=== PATIENT | male | born 1940 | race African-American/Black ===

== ENCOUNTER 2020-02-13 10:39 | Inpatient (IN) | payer MEDICARE, OTHER ==
[~2020-02-13] VITALS: Ht 177.8 cm; Wt 59.0 kg
[~2020-02-13 10:39] MED LIST: AMLO-187 PO; ASPI-482 PO; CLOP75TA PO; CYAN-25 PO; DOCU-109 PO; FERR325T14 PO; GLIM1TAB7 PO; HYDR12.575 PO; LINA5TAB PO; METO-239 PO; PANT40TA77 PO; TAMS0.4C2 PO
[2020-02-13 11:38] LABS: BASO % 0 % (0-3); EOS % 0 % (0-3); HEMATOCRIT 26.8 % (39.0-53.0); HEMOGLOBIN 8.5 g/dL (13.0-17.5); LYMPH # 0.9 x10^3/uL (1.0-4.8); LYMPH % 8 % (24-48); MEAN CORPUSCULAR HEMOGLOBIN 27 pg (25-35); MEAN CORPUSCULAR HGB CONC 32 g/dL (31-37); MEAN CORPUSCULAR VOLUME 85 fL (79-100); MONO # 0.4 x10^3/uL (0.0-1.1); MONO % 4 % (0-9); NEUT # 10.2 x10^3/uL (1.8-7.7); NEUT % 88 % (31-73); PLATELET COUNT 295 x10^3/uL (140-400); RED BLOOD COUNT 3.17 x10^6/uL (4.30-5.70); RED CELL DISTRIBUTION WIDTH 19.1 % (11.5-14.5); WHITE BLOOD COUNT 11.6 x10^3/uL (4.0-11.0)
[2020-02-13] MEDS ORDERED: cefTRIAXone IV Push 1 GM VIAL. IVP ONE (11:45)
[2020-02-13] MEDS ORDERED: AZITHRMYCN 500MG IVPB FOR OMNI 250 ML IV ONE (11:45)
--- NOTE | 2020-02-13 11:47 | RAD ---
EXAM: Chest, single view. HISTORY: Short of breath. COMPARISON: None. FINDINGS: A frontal view of the chest is obtained. There is diffuse left greater than right lung inte rstitial infiltrate. No pleural fusion or pneumothorax is seen. There is enlargement of the cardiac s ilhouette. There are calcified granulomas. IMPRESSION: 1. Diffuse left greater than right lung interstitial infiltrate. 2. Enlargement of the cardiac silhouette. Electronically signed by: Gali Milner MD (02/13/2020 11:44 AM) [id number]
[2020-02-13 11:50] LABS: CALCIUM 8.8 mg/dL (8.5-10.1); CREATININE 5.5 mg/dL (0.7-1.3); GFR 12.2; POTASSIUM 4.3 mmol/L (3.5-5.1)
[2020-02-13 11:56] LABS: ALBUMIN 3.1 g/dL (3.4-5.0); DIRECT BILIRUBIN 0.1 mg/dL (0.0-0.2); TOTAL BILIRUBIN 0.3 mg/dL (0.2-1.0); TOTAL PROTEIN 6.6 g/dL (6.4-8.2)
--- NOTE | 2020-02-13 12:15 | EKG ---
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
[2020-02-13 12:16] LABS: INFLUENZA A PATIENT NEGATIVE (NEGATIVE); INFLUENZA B PATIENT NEGATIVE (NEGATIVE)
[2020-02-13 12:18] LABS: % BANDS 1 % (0-9); % LYMPHS 4 % (24-48); % MONOS 2 % (0-10); % SEGS 93 % (35-66)
[2020-02-13 12:19] LABS: ANISOCYTOSIS MOD; MICROCYTOSIS SLIGHT; PLT ESTIMATE ADEQUATE (ADEQUATE); POIKILOCYTOSIS SLIGHT; SCHISTOCYTES OCC
[2020-02-13 12:21] LABS: HYPOCHROMIA SLIGHT
[2020-02-13 12:31] LABS: BASE EXCESS ABG -4 mmol/L (-3-3); HCO3 ABG 20 mmol/L (21-28); PCO2 ABG 31 mmHg (35-46); PO2 ABG 67 mmHg (65-108); SAT O2 ABG 91 % (92-99)
--- NOTE | 2020-02-13 13:03 | PDOC1 ---
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, WAS VERY HYPOXIC WITH SPO2 59% RA, noted labored breathing and cough in ER Past Medical History Cardiovascular: HTN Renal/: Chronic renal failure Family History Family History: Hypertension Social History Smoke: No ALCOHOL: none Drugs: None Current Medications Current Medications Current Medications Ceftriaxone Sodium (Rocephin) 1 gm 1X ONCE IVP Last administered on 02/13/20at 13:00; Start 02/13/20 at 11:45; Stop 02/13/20 at 11:47; Status DC Azithromycin 250 ml @ 250 mls/hr 1X ONCE IV Last administered on 02/13/20at 13:00; Start 02/13/20 at 11:45; Stop 02/13/20 at 12:44; Status DC Sodium Chloride 1,000 ml @ 100 mls/hr Q10H IV ; Start 02/13/20 at 13:00; Stop 02/14/20 at 12:59 Active Scripts Active Reported Colace (Docusate Sodium) 100 Mg Capsule 1 Cap PO BID Vitamin B-12 (Cyanocobalamin (Vitamin B-12)) 1,000 Mcg Tablet 1 Tab PO DAILY Hydrochlorothiazide Capsule (Hydrochlorothiazide) 12.5 Mg Capsule 12.5 Mg PO BID Glimepiride 1 Mg Tablet 1 Tab PO DAILY Tradjenta (Linagliptin) 5 Mg Tablet 1 Tab PO DAILY Tamsulosin Hcl 0.4 Mg Cap.er.24h 1 Cap PO DAILY Pantoprazole Sodium 40 Mg Tablet.dr 1 Tab PO DAILY Metoprolol Succinate ( Xl ) (Metoprolol Succinate) 25 Mg Tab.er.24h 12.5 Mg PO BID Ferrous Sulfate 325 Mg Tablet 1 Tab PO DAILY Clopidogrel (Clopidogrel Bisulfate) 75 Mg Tablet 1 Tab PO DAILY Aspir 81 (Aspirin) 81 Mg Tablet.dr 1 Tab PO DAILY Amlodipine Besylate 10 Mg Tablet 10 Mg PO DAILY Allergies Allergies: Coded Allergies: No Known Drug Allergies (Unverified , 09/10/16) ROS Review of System UNABLE TO PARTICIPATE, due to encephalopathy Neurological: Yes Confusion, Yes Gait Disturbance Physical Exam Physical Exam confused, encephalopathic General: Cooperative, moderate distress HEENT: Atraumatic Lungs: Other (bilateral rales ) Heart: RRR, no thrills Breasts: Not examined Abdomen: Normal bowel sounds, Soft, No tenderness Rectal Exam: not examined PELVIC: Examination not indicated Extremities: No cyanosis Skin: No breakdown, No significant lesion Neuro: Cranial nerves 3-12 NL Vitals Vitals Vital Signs Date Time Temp Pulse Resp B/P (MAP) Pulse Ox O2 Delivery O2 Flow Rate FiO2 02/13/20 11:17 97.3 94 38 151/63 (92) 93 NonRebreather Mask 15.0 97.3 Labs Labs Laboratory Tests Test 02/13/20 10:42 02/13/20 10:43 02/13/20 11:47 Glucose (Fingerstick) 158 mg/dL (70-99) White Blood Count 11.6 x10^3/uL (4.0-11.0) Red Blood Count 3.17 x10^6/uL (4.30-5.70) Hemoglobin 8.5 g/dL (13.0-17.5) Hematocrit 26.8 % (39.0-53.0) Mean Corpuscular Volume 85 fL (79-100) Mean Corpuscular Hemoglobin 27 pg (25-35) Mean Corpuscular Hemoglobin Concent 32 g/dL (31-37) Red Cell Distribution Width 19.1 % (11.5-14.5) Platelet Count 295 x10^3/uL (140-400) Neutrophils (%) (Auto) 88 % (31-73) Lymphocytes (%) (Auto) 8 % (24-48) Monocytes (%) (Auto) 4 % (0-9) Eosinophils (%) (Auto) 0 % (0-3) Basophils (%) (Auto) 0 % (0-3) Neutrophils # (Auto) 10.2 x10^3/uL (1.8-7.7) Lymphocytes # (Auto) 0.9 x10^3/uL (1.0-4.8) Monocytes # (Auto) 0.4 x10^3/uL (0.0-1.1) Eosinophils # (Auto) 0.0 x10^3/uL (0.0-0.7) Basophils # (Auto) 0.0 x10^3/uL (0.0-0.2) Segmented Neutrophils % 93 % (35-66) Band Neutrophils % 1 % (0-9) Lymphocytes % 4 % (24-48) Monocytes % 2 % (0-10) Platelet Estimate Adequate (ADEQUATE) Hypochromasia Slight Poikilocytosis Slight Anisocytosis Mod Microcytosis Slight Schistocytes Occ Sodium Level 149 mmol/L (136-145) Potassium Level 4.3 mmol/L (3.5-5.1) Chloride Level 109 mmol/L (98-107) Carbon Dioxide Level 16 mmol/L (21-32) Anion Gap 24 (6-14) Blood Urea Nitrogen 62 mg/dL (8-26) Creatinine 5.5 mg/dL (0.7-1.3) Estimated GFR (Cockcroft-Gault) 12.2 Glucose Level 180 mg/dL (70-99) Calcium Level 8.8 mg/dL (8.5-10.1) Total Bilirubin 0.3 mg/dL (0.2-1.0) Direct Bilirubin 0.1 mg/dL (0.0-0.2) Aspartate Amino Transf (AST/SGOT) 57 U/L (15-37) Alanine Aminotransferase (ALT/SGPT) 47 U/L (16-63) Alkaline Phosphatase 104 U/L (46-116) Creatine Kinase 492 U/L (39-308) Troponin I Quantitative 0.464 ng/mL (0.000-0.055) AR-Cvj-B-Type Natriuretic Peptide 71634 pg/mL (0-449) Total Protein 6.6 g/dL (6.4-8.2) Albumin 3.1 g/dL (3.4-5.0) Influenza Type A Antigen Negative (NEGATIVE) Influenza Type B Antigen Negative (NEGATIVE) Laboratory Tests Test 02/13/20 10:42 02/13/20 10:43 02/13/20 11:47 Glucose (Fingerstick) 158 mg/dL (70-99) White Blood Count 11.6 x10^3/uL (4.0-11.0) Red Blood Count 3.17 x10^6/uL (4.30-5.70) Hemoglobin 8.5 g/dL (13.0-17.5) Hematocrit 26.8 % (39.0-53.0) Mean Corpuscular Volume 85 fL (79-100) Mean Corpuscular Hemoglobin 27 pg (25-35) Mean Corpuscular Hemoglobin Concent 32 g/dL (31-37) Red Cell Distribution Width 19.1 % (11.5-14.5) Platelet Count 295 x10^3/uL (140-400) Neutrophils (%) (Auto) 88 % (31-73) Lymphocytes (%) (Auto) 8 % (24-48) Monocytes (%) (Auto) 4 % (0-9) Eosinophils (%) (Auto) 0 % (0-3) Basophils (%) (Auto) 0 % (0-3) Neutrophils # (Auto) 10.2 x10^3/uL (1.8-7.7) Lymphocytes # (Auto) 0.9 x10^3/uL (1.0-4.8) Monocytes # (Auto) 0.4 x10^3/uL (0.0-1.1) Eosinophils # (Auto) 0.0 x10^3/uL (0.0-0.7) Basophils # (Auto) 0.0 x10^3/uL (0.0-0.2) Segmented Neutrophils % 93 % (35-66) Band Neutrophils % 1 % (0-9) Lymphocytes % 4 % (24-48) Monocytes % 2 % (0-10) Platelet Estimate Adequate (ADEQUATE) Hypochromasia Slight Poikilocytosis Slight Anisocytosis Mod Microcytosis Slight Schistocytes Occ Sodium Level 149 mmol/L (136-145) Potassium Level 4.3 mmol/L (3.5-5.1) Chloride Level 109 mmol/L (98-107) Carbon Dioxide Level 16 mmol/L (21-32) Anion Gap 24 (6-14) Blood Urea Nitrogen 62 mg/dL (8-26) Creatinine 5.5 mg/dL (0.7-1.3) Estimated GFR (Cockcroft-Gault) 12.2 Glucose Level 180 mg/dL (70-99) Calcium Level 8.8 mg/dL (8.5-10.1) Total Bilirubin 0.3 mg/dL (0.2-1.0) Direct Bilirubin 0.1 mg/dL (0.0-0.2) Aspartate Amino Transf (AST/SGOT) 57 U/L (15-37) Alanine Aminotransferase (ALT/SGPT) 47 U/L (16-63) Alkaline Phosphatase 104 U/L (46-116) Creatine Kinase 492 U/L (39-308) Troponin I Quantitative 0.464 ng/mL (0.000-0.055) VS-Pqr-B-Type Natriuretic Peptide 30127 pg/mL (0-449) Total Protein 6.6 g/dL (6.4-8.2) Albumin 3.1 g/dL (3.4-5.0) Influenza Type A Antigen Negative (NEGATIVE) Influenza Type B Antigen Negative (NEGATIVE) Images Images DPOA REVIEW 17 MIN to patient portal What Is a Power of Spinning Lathe Operator? A power of tax associate attorney (POA) is a legal document giving one person (the agent or [id number]) the power to act for another person (the principal). The agent can have broad legal authority or limited authority to make legal decisions about the principal's property, finances or medical care. The power of tax associate attorney is frequently used in the event of a principal's illness or disability, or when the principal can't be present to sign necessary legal documents for financial transactions. A power of tax associate attorney can end for a number of reasons, such as when the principal dies, the principal revokes it, a court invalidates it, the principal divorces their spouse, who happens to be the agent, or the agent can no longer carry out the outlined responsibilities. Conventional POAs lapse when the creator becomes incapacitated, but a durable POA remains in force to enable the agent to manage the creators affairs, and a springing POA comes into effect only if and when the creator of the POA becomes incapacitated. A medical or healthcare POA enables an agent to make medical decisions on behalf of an incapacitated person. [employer] Take[employer] A power of tax associate attorney (POA) is a legal document giving one person, the agent or [id number] the power to act for another person, the principal. The agent can have broad legal authority or limited authority to make decisions about the principal's property, finances or medical care. The power of tax associate attorney is often used when a principal becomes ill or disabled, or when they can't be present to sign necessary legal documents for financial transactions. Understanding Power of Spinning Lathe Operator A power of tax associate attorney should be considered when planning for long-term care. There are different types of POAs that fall under either a general power of tax associate attorney or limited power of tax associate attorney. A general power of tax associate attorney acts on behalf of the principal in any and all matters, as allowed by the state. The agent under a general POA agreement may be authorized to take care of issues such as handling bank accounts, signing checks, selling property and assets like stocks, f A limited power of tax associate attorney gives the agent the power to act on behalf of the principal in specific matters or events. For example, the limited POA may explicitly state that the agent is only allowed to manage the principal's snf accounts. A limited POA may also be limited to a specific period of time (e.g., if the principal will be out of the country for, say, two years). Most zarate of tax associate attorney documents allow an agent to represent the principal in all property and financial matters as long as the principals mental state of mind is good. If a situation occurs where the principal becomes incapable of making decisions for him or herself, the POA agreement would automatically end. However, someone who wants the POA to remain in effect after the persons health deteriorates would need to sign a durable power of tax associate attorney (DPOA). What is an advance directive? An advance directive is a legal document that says how you want to be cared for if you are unable to make decisions. You can include what medical treatments you would want and who you would trust to make decisions for you. An advance directive can also include other legal documents. A living will is a list of treatment preferences. It can be used to indicate whether you would want cardiopulmonary resuscitation (CPR), tube feedings, a breathing machine, or certain medicines, like antibiotics. The durable power of tax associate attorney for health care document identifies the person you would want to make medical decisions for you. This person is also called a proxy. Your proxy should be familiar with your values and wishes. How do I get started? You can get advance directive documents for your state from your doctor's office or from http://www.caringinfo.org. Review the forms, and ask your doctor if you have any questions. Pick a person to be your proxy, and talk it over with that person. EXAM: Chest, single view. HISTORY: Short of breath. COMPARISON: None. FINDINGS: A frontal view of the chest is obtained. There is diffuse left greater than right lung interstitial infiltrate. No pleural fusion or pneumothorax is seen. There is enlargement of the cardiac silhouette. There are calcified granulomas. IMPRESSION: 1. Diffuse left greater than right lung interstitial infiltrate. 2. Enlargement of the cardiac silhouette. Electronically signed by: Gali Mora MD (02/13/2020 11:44 AM) [id number] DICTATED and SIGNED BY: GALI MORA MD DATE: 02/13/20 [id number] VTE Prophylaxis Ordered VTE Prophylaxis Devices: Yes VTE Pharmacological Prophylaxi: Yes Assessment/Plan Assessment/Plan IMPRESSION: 1. Pneumonia, aspiration TYPE 2. Diffuse left greater than right lung interstitial infiltrate. 3. diabetes 4. PUI Covid 5. RENAL FAILURE, duration unknown in our charts 6. ACUTE HYPOXIC RESP FAILURE 7. SEPSIS 8. MILDLY ELEVATED TROPONIN I, SUSPECT TYPE 2 ISCHEMIA DUE TO HYPOXIA 9. PUI COVID 19 10. Acute metabolic encephalopathy 11. CHF plan ADMIT Emperic IV ROCEPHIN, ZITHROMAX, //merem 500mg iv q 12 hrs Consult pulm Consult nephrology dvt prophylaxis O2 SUPPORT Consult cardiology sq heparin dvt prophylaxis respiratory and contact isolation blood cultures crp BIPAP SUPPORT 36 min cc time Justifications for Admission Other Justification NEHEMIAH GAVIRIA MD Feb 13, 2020 13:03
[2020-02-13 13:28] LABS: BILIRUBIN,URINE NEGATIVE (NEG); CLARITY,URINE CLEAR; COLOR,URINE YELLOW; NITRITE,URINE NEGATIVE (NEG); PH,URINE 5.5 (<5.0-8.0); PROTEIN,URINE >=300 mg/dL (NEG-TRACE); UROBILINOGEN,URINE 0.2 mg/dL (0.2 mg/dL)
[2020-02-13] MEDS ORDERED: IV NORMAL SALINE 1000ML BAG 1,000 ML IV ONE (13:30)
[2020-02-13] MEDS ORDERED: IV NORMAL SALINE 500ML BAG 500 ML IV ONE (13:30)
[2020-02-13 13:42] LABS: BACTERIA,URINE MANY /HPF (0-FEW)
--- NOTE | 2020-02-13 15:13 | PHYS DOC ---
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 History is limited due to patient's labored breathing. Patient has cognitive delay in DPOA was called by RN to obtain medical history. Review of Systems: Review of Systems: Review of systems limited due to patient's work of breathing and cognitive delay, Heart Score: Risk Factors: Risk Factors: DM, Current or recent (<one month) smoker, HTN, HLP, family history of CAD, obesity. Risk Scores: Score 0 - 3: 2.5% MACE over next 6 weeks - Discharge Home Score 4 - 6: 20.3% MACE over next 6 weeks - Admit for Clinical Observation Score 7 - 10: 72.7% MACE over next 6 weeks - Early Invasive Strategies Current Medications: Current Medications Medications (Trade) Dose Ordered Sig/Ramni Start Time Stop Time Status Last Admin Dose Admin Azithromycin 250 ml @ 250 mls/hr 1X ONCE 02/13/20 11:45 02/13/20 12:44 DC 02/13/20 13:00 250 MLS/HR Ceftriaxone Sodium (Rocephin) 1 gm 1X ONCE 02/13/20 11:45 02/13/20 11:47 DC 02/13/20 13:00 1 GM Allergies: Allergies: Allergies Coded Allergies Type Severity Reaction Last Updated Verified No Known Drug Allergies 09/10/16 No Physical Exam: PE: Constitutional: Placed on BiPAP on arrival, HENT: Normocephalic, atraumatic, Eyes: EOMI, conjunctiva normal, no discharge. Neck: Normal range of motion, supple, Cardiovascular: S1/2 present, regular rhythm Lungs & Thorax: Speaking in 2-3 word sentences, bilateral equal chest rise, tachypneic with sternal retractions, 86% on nonrebreather Abdomen: soft, no tenderness, obese Skin: Warm, dry, no erythema, Extremities: No tenderness, no edema Neurologic: Moving all 4 extremities, GCS 15, A&0x3, NIHSS 0 Psychologic: judgement normal, mood normal. [] Current Patient Data: Labs: Laboratory Tests Test 02/13/20 10:42 02/13/20 10:43 02/13/20 11:47 02/13/20 13:05 Glucose (Fingerstick) 158 mg/dL (70-99) H White Blood Count 11.6 x10^3/uL (4.0-11.0) H Red Blood Count 3.17 x10^6/uL (4.30-5.70) L Hemoglobin 8.5 g/dL (13.0-17.5) L Hematocrit 26.8 % (39.0-53.0) L Mean Corpuscular Volume 85 fL (79-100) Mean Corpuscular Hemoglobin 27 pg (25-35) Mean Corpuscular Hemoglobin Concent 32 g/dL (31-37) Red Cell Distribution Width 19.1 % (11.5-14.5) H Platelet Count 295 x10^3/uL (140-400) Neutrophils (%) (Auto) 88 % (31-73) H Lymphocytes (%) (Auto) 8 % (24-48) L Monocytes (%) (Auto) 4 % (0-9) Eosinophils (%) (Auto) 0 % (0-3) Basophils (%) (Auto) 0 % (0-3) Neutrophils # (Auto) 10.2 x10^3/uL (1.8-7.7) H Lymphocytes # (Auto) 0.9 x10^3/uL (1.0-4.8) L Monocytes # (Auto) 0.4 x10^3/uL (0.0-1.1) Eosinophils # (Auto) 0.0 x10^3/uL (0.0-0.7) Basophils # (Auto) 0.0 x10^3/uL (0.0-0.2) Segmented Neutrophils % 93 % (35-66) H Band Neutrophils % 1 % (0-9) Lymphocytes % 4 % (24-48) L Monocytes % 2 % (0-10) Platelet Estimate Adequate (ADEQUATE) Hypochromasia Slight Poikilocytosis Slight Anisocytosis Mod Microcytosis Slight Schistocytes Occ Sodium Level 149 mmol/L (136-145) H Potassium Level 4.3 mmol/L (3.5-5.1) Chloride Level 109 mmol/L (98-107) H Carbon Dioxide Level 16 mmol/L (21-32) L Anion Gap 24 (6-14) H Blood Urea Nitrogen 62 mg/dL (8-26) H Creatinine 5.5 mg/dL (0.7-1.3) H Estimated GFR (Cockcroft-Gault) 12.2 Glucose Level 180 mg/dL (70-99) H Lactic Acid Level 8.6 mmol/L (0.4-2.0) *H Calcium Level 8.8 mg/dL (8.5-10.1) Total Bilirubin 0.3 mg/dL (0.2-1.0) Direct Bilirubin 0.1 mg/dL (0.0-0.2) Aspartate Amino Transferase (AST) 57 U/L (15-37) H Alanine Aminotransferase (ALT) 47 U/L (16-63) Alkaline Phosphatase 104 U/L (46-116) Creatine Kinase 492 U/L (39-308) H Troponin I Quantitative 0.464 ng/mL (0.000-0.055) IY-Ivw-X-Type Natriuretic Peptide 86609 pg/mL (0-449) H Total Protein 6.6 g/dL (6.4-8.2) Albumin 3.1 g/dL (3.4-5.0) L Influenza Type A Antigen Negative (NEGATIVE) Influenza Type B Antigen Negative (NEGATIVE) Urine Collection Type Unknown Urine Color Yellow Urine Clarity Clear Urine pH 5.5 (<5.0-8.0) Urine Specific [place] 1.020 (1.000-1.030) Urine Protein >=300 mg/dL (NEG-TRACE) Urine Glucose (UA) 100 mg/dL (NEG) Urine Ketones (Stick) Negative mg/dL (NEG) Urine Blood Negative (NEG) Urine Nitrite Negative (NEG) Urine Bilirubin Negative (NEG) Urine Urobilinogen Dipstick 0.2 mg/dL (0.2 mg/dL) Urine Leukocyte Esterase Negative (NEG) Urine RBC 1-2 /HPF (0-2) Urine WBC 1-4 /HPF (0-4) Urine Squamous Epithelial Cells Occ /LPF Urine Bacteria Many /HPF (0-FEW) Laboratory Tests 12/14/20 10:43 Laboratory Tests 02/13/20 10:43 Vital Signs: Vital Signs Date Time Temp Pulse Resp B/P (MAP) Pulse Ox O2 Delivery O2 Flow Rate FiO2 02/13/20 11:17 97.3 94 38 151/63 (92) 93 NonRebreather Mask 15.0 97.3 EKG: EKG: Sinus rhythm at 91 bpm, normal intervals, significant artifact on EKG but no obvious ST elevations Radiology/Procedures: Radiology/Procedures: IMAGING REPORT Signed PATIENT: FREDERICK HATFIELD ACCOUNT: [id number] : 1940 LOCATION: ER AGE: 80 SEX: M EXAM STATUS: REG ER ORD. PHYSICIAN: QUEENIE SAM DO REASON: SHORT OF BREATH PROCEDURE: PORTABLE CHEST 1V EXAM: Chest, single view. HISTORY: Short of breath. COMPARISON: None. FINDINGS: A frontal view of the chest is obtained. There is diffuse left greater than right lung interstitial infiltrate. No pleural fusion or pneumothorax is seen. There is enlargement of the cardiac silhouette. There are calcified granulomas. IMPRESSION: 1. Diffuse left greater than right lung interstitial infiltrate. 2. Enlargement of the cardiac silhouette. Electronically signed by: Gali Mora MD (02/13/2020 11:44 AM) [id number] DICTATED and SIGNED BY: GALI MORA MD DATE: 02/13/20 [id number] Course & Med Decision Making: Course & Med Decision Making Pertinent Labs and Imaging studies reviewed. (See chart for details) Concern for acute hypoxic respiratory failure in the setting of sepsis from community-acquired pneumonia and elevated troponin. Patient is a PUI. Unknown baseline renal function in the setting of CKD. Patient required higher level of care with cardiology, nephrology and pulmonology consultations. Will admit to CVC unit, dpoa agrees with this plan and patient was stable at time of admission. I have spoken with the patient and/or caregivers. I have explained the patient's condition, diagnosis and treatment plan based on the information available to me at this time. I have answered the patient's and/or caregivers questions and answered any concerns. The patient and/or caregivers have as good an understanding of the patient's diagnosis, condition and treatment plan as can be expected at this point. The patient has been stabilized within the capability of the emergency department. The patient will be transported for further care and management or will be moved to an observation or inpatient service. I have communicated with the staff or medical practitioner taking over this patient's care. Dragon Disclaimer: Dragon Disclaimer: This electronic medical record was generated, in whole or in part, using a voice recognition dictation system. Departure Departure Impression: Primary Impression: Sepsis with acute hypoxic respiratory failure Additional Impressions: UTI (urinary tract infection) CAP (community acquired pneumonia) Elevated troponin Person under investigation for COVID-19 Disposition: 09 ADMITTED INPT THIS HOSP Admitting Physician: NIXON (Dr. Vaughn) Condition: CRITICAL Referrals: UNKNOWN PCP NAME (PCP) QUEENIE SAM DO Feb 13, 2020 15:13
[2020-02-13] MEDS: IV NORMAL SALINE 1000ML BAG 1,000 ML IV SCH ×2 (16:59→22:53)
[2020-02-13 18:36] VITALS: BP 170/69
[2020-02-13] MEDS ORDERED: ASPI325T8 PO (18:48)
[2020-02-13] MEDS ORDERED: FURO-69 PO (18:58)
[2020-02-13] MEDS ORDERED: BRIM5DRO2 OP (18:58)
[2020-02-13] MEDS ORDERED: TIMO10DR5 EACHEYE (18:58)
[2020-02-13] MEDS ORDERED: ACET325T9 PO (18:58)
[2020-02-13] MEDS ORDERED: ATOR20TA58 PO (18:58)
[2020-02-13] MEDS ORDERED: CHOL200027 PO (18:58)
[2020-02-13] MEDS ORDERED: HYDR-2869 PO (18:58)
[2020-02-13] MEDS ORDERED: SENN-182 PO (18:58)
[2020-02-13] MEDS ORDERED: ALBU2.5V14 NEB (18:58)
[2020-02-13 19:44] VITALS: BP 159/64
[2020-02-13] MEDS: HEPARIN for SUB-Q USE 5,000 UNIT/ML VIAL. SQ SCH (22:53)
[2020-02-13 22:54] VITALS: BP 179/75
[2020-02-13] MEDS: MEROPENEM 500 MG in IV NORMAL SALINE 50ML 50 ML IV SCH (22:54)
[2020-02-14 03:20] VITALS: BP 166/76
[2020-02-14] MEDS: HEPARIN for SUB-Q USE 5,000 UNIT/ML VIAL. SQ SCH ×3 (06:12→20:46)
[2020-02-14 07:00] VITALS: BP 177/67
[2020-02-14 09:02] LABS: BASO % 0 % (0-3); EOS % 1 % (0-3); HEMATOCRIT 25.9 % (39.0-53.0); HEMOGLOBIN 8.2 g/dL (13.0-17.5); LYMPH # 0.6 x10^3/uL (1.0-4.8); LYMPH % 6 % (24-48); MEAN CORPUSCULAR HEMOGLOBIN 27 pg (25-35); MEAN CORPUSCULAR HGB CONC 32 g/dL (31-37); MEAN CORPUSCULAR VOLUME 84 fL (79-100); MONO # 0.5 x10^3/uL (0.0-1.1); MONO % 5 % (0-9); NEUT # 8.8 x10^3/uL (1.8-7.7); NEUT % 88 % (31-73); PLATELET COUNT 263 x10^3/uL (140-400); RED CELL DISTRIBUTION WIDTH 18.9 % (11.5-14.5)
[2020-02-14 09:23] LABS: ALBUMIN 2.8 g/dL (3.4-5.0); ALBUMIN/GLOBULIN RATIO 0.7 (1.0-1.7); CALCIUM 8.9 mg/dL (8.5-10.1); CREATININE 4.5 mg/dL (0.7-1.3); GFR 15.3; TOTAL BILIRUBIN 0.3 mg/dL (0.2-1.0); TOTAL PROTEIN 6.6 g/dL (6.4-8.2)
[2020-02-14] MEDS: MEROPENEM 500 MG in IV NORMAL SALINE 50ML 50 ML IV SCH ×2 (09:40→20:37)
[2020-02-14] MEDS: IV NORMAL SALINE 1000ML BAG 1,000 ML IV SCH (09:45)
--- NOTE | 2020-02-14 10:19 | PDOC2 ---
CONSULT Date of Consult Date of Consult DATE: 02/14/20 TIME: 10:19 Reason for Consult Reason for Consult: kia Identification/Chief Complaint Chief Complaint Unable to Obtain Source Source: Chart review History of Present Illness Reason for Visit: 80-year-old male past medical history significant for his CAD with stent, CKD on Lasix 20 twice daily, COPD, hypertension, diabetes, hyperlipidemia, TIA 2012, right eye blindness and cognitive delay (has DPOA/FC) Had driven himself to fire station , brought in by EMS with complaints of shortness of breath, was found labored and hypoxic requiring NRB History is limited due to patient's labored breathing. Patient has cognitive delay in DPOA was called by RN to obtain medical history. Per RN No N/V/D, No abdominal pain. Speech not clear ? cognitive delay .No CP . Currently on Bipap Past Medical History Cardiovascular: HTN Renal/: Chronic renal failure Family History Family History: Hypertension Social History No ALCOHOL: none Drugs: None Current Problem List Problem List Problems Medical Problems: (1) CAP (community acquired pneumonia) Status: Acute (2) Elevated troponin Status: Acute (3) HCAP (healthcare-associated pneumonia) Status: Acute (4) Person under investigation for COVID-19 Status: Acute (5) Sepsis with acute hypoxic respiratory failure Status: Acute (6) UTI (urinary tract infection) Status: Acute Current Medications Current Medications Current Medications Ceftriaxone Sodium (Rocephin) 1 gm 1X ONCE IVP Last administered on 02/13/20at 13:00; Start 02/13/20 at 11:45; Stop 02/13/20 at 11:47; Status DC Azithromycin 250 ml @ 250 mls/hr 1X ONCE IV Last administered on 02/13/20at 13:00; Start 02/13/20 at 11:45; Stop 02/13/20 at 12:44; Status DC Sodium Chloride 1,000 ml @ 100 mls/hr Q10H IV Last administered on 02/14/20at 09:45; Start 02/13/20 at 13:00; Stop 02/14/20 at 12:59 Sodium Chloride 500 ml @ 500 mls/hr 1X ONCE IV Last administered on 02/13/20at 13:47; Start 02/13/20 at 13:30; Stop 02/13/20 at 14:29; Status DC Sodium Chloride 1,000 ml @ 1,000 mls/hr 1X ONCE IV Last administered on at 13:46; Start 02/13/20 at 13:30; Stop 02/13/20 at 14:29; Status DC Heparin Sodium (Porcine) (Heparin Sodium) 5,000 unit Q8HRS SQ Last administered on 02/14/20at 06:12; Start 02/13/20 at 19:00 Meropenem 500 mg/ Sodium Chloride 50 ml @ 100 mls/hr Q12HR IV Last administered on 02/14/20at 09:40; Start 02/13/20 at 21:00 Active Scripts Active Reported Timoptic 0.5% (Timolol Maleate) 10 Ml Drops 1 Drop EACHEYE BID 30 Days Senna (Sennosides) 8.6 Mg Tablet 8.6 Mg PO PRN DAILY PRN Tylenol (Acetaminophen) 325 Mg Tablet 650 Mg PO PRN Q6-8HRS PRN Albuterol Sulfate Conc Neb Soln (Albuterol Sulfate) 2.5 Mg/0.5 Ml Vial.neb 2.5 Mg NEB QIDACHS Hydralazine Hcl 50 Mg Tablet 75 Mg PO TID Lasix (Furosemide) 20 Mg Tablet 20 Mg PO DAILY Combigan Eye Drops (Brimonidine Tartrate/Timolol) 5 Ml Drops 5 Ml OP QHS Vitamin D3 (Cholecalciferol (Vitamin D3)) 50 Mcg Tablet 50 Mcg PO DAILY Atorvastatin Calcium 20 Mg Tablet 20 Mg PO HS Aspirin 325 Mg Tablet 325 Mg PO DAILY Tamsulosin Hcl 0.4 Mg Cap.er.24h 0.4 Mg PO DAILY Ferrous Sulfate 325 Mg Tablet 1 Tab PO DAILY Amlodipine Besylate 10 Mg Tablet 10 Mg PO DAILY Allergies Allergies: Coded Allergies: No Known Drug Allergies (Unverified , 09/10/16) ROS Review of System Unable to Obtain 2/2 being on Bipap Physical Exam Physical Exam General: moderate distress HEENT: On Bipap Neck supple Lungs: (bilateral rales Heart: RRR, Abdomen: Normal bowel sounds, Soft, No tenderness Extremities: No cyanosis Skin: No breakdown, No significant lesion Neuro: Cranial nerves 3-12 NL Vital Signs Vital Signs Date Time Temp Pulse Resp B/P (MAP) Pulse Ox O2 Delivery O2 Flow Rate FiO2 02/14/20 07:22 97 BiPAP/CPAP 02/14/20 07:00 96.6 82 35 177/67 (103) 15.0 96.6 Assessment & Plan KIA on CKD - ATN Baseline unknown, pts sister did report to RN that he follows with Dr. 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 Continue supportive care, strict I/O CKD stage 4/5- as above Ac Resp Failure - Currently on Bipap , COVID 19 PUI . Pulmonary managing Abnormal CxR- Diffuse left greater than right lung interstitial infiltrate. Enlargement of the cardiac silhouette. Anemia- Baseline Hgb unknown to me , stable since presentation Hx of CAD with stent COPD hypertension- antihypertensives Diabetes TIA 2012, right eye blindness and cognitive delay Labs Labs Laboratory Tests Test 02/13/20 10:42 02/13/20 10:43 02/13/20 11:47 02/13/20 12:30 Glucose (Fingerstick) 158 mg/dL (70-99) White Blood Count 11.6 x10^3/uL (4.0-11.0) Red Blood Count 3.17 x10^6/uL (4.30-5.70) Hemoglobin 8.5 g/dL (13.0-17.5) Hematocrit 26.8 % (39.0-53.0) Mean Corpuscular Volume 85 fL (79-100) Mean Corpuscular Hemoglobin 27 pg (25-35) Mean Corpuscular Hemoglobin Concent 32 g/dL (31-37) Red Cell Distribution Width 19.1 % (11.5-14.5) Platelet Count 295 x10^3/uL (140-400) Neutrophils (%) (Auto) 88 % (31-73) Lymphocytes (%) (Auto) 8 % (24-48) Monocytes (%) (Auto) 4 % (0-9) Eosinophils (%) (Auto) 0 % (0-3) Basophils (%) (Auto) 0 % (0-3) Neutrophils # (Auto) 10.2 x10^3/uL (1.8-7.7) Lymphocytes # (Auto) 0.9 x10^3/uL (1.0-4.8) Monocytes # (Auto) 0.4 x10^3/uL (0.0-1.1) Eosinophils # (Auto) 0.0 x10^3/uL (0.0-0.7) Basophils # (Auto) 0.0 x10^3/uL (0.0-0.2) Segmented Neutrophils % 93 % (35-66) Band Neutrophils % 1 % (0-9) Lymphocytes % 4 % (24-48) Monocytes % 2 % (0-10) Platelet Estimate Adequate (ADEQUATE) Hypochromasia Slight Poikilocytosis Slight Anisocytosis Mod Microcytosis Slight Schistocytes Occ Sodium Level 149 mmol/L (136-145) Potassium Level 4.3 mmol/L (3.5-5.1) Chloride Level 109 mmol/L (98-107) Carbon Dioxide Level 16 mmol/L (21-32) Anion Gap 24 (6-14) Blood Urea Nitrogen 62 mg/dL (8-26) Creatinine 5.5 mg/dL (0.7-1.3) Estimated GFR (Cockcroft-Gault) 12.2 Glucose Level 180 mg/dL (70-99) Lactic Acid Level 8.6 mmol/L (0.4-2.0) Calcium Level 8.8 mg/dL (8.5-10.1) Total Bilirubin 0.3 mg/dL (0.2-1.0) Direct Bilirubin 0.1 mg/dL (0.0-0.2) Aspartate Amino Transf (AST/SGOT) 57 U/L (15-37) Alanine Aminotransferase (ALT/SGPT) 47 U/L (16-63) Alkaline Phosphatase 104 U/L (46-116) Creatine Kinase 492 U/L (39-308) Troponin I Quantitative 0.464 ng/mL (0.000-0.055) YH-Coo-C-Type Natriuretic Peptide 47110 pg/mL (0-449) Total Protein 6.6 g/dL (6.4-8.2) Albumin 3.1 g/dL (3.4-5.0) Influenza Type A Antigen Negative (NEGATIVE) Influenza Type B Antigen Negative (NEGATIVE) O2 Saturation 91 % (92-99) Arterial Blood pH 7.41 (7.35-7.45) Arterial Blood pCO2 at Patient Temp 31 mmHg (35-46) Arterial Blood pO2 at Patient Temp 67 mmHg (65-108) Arterial Blood HCO3 20 mmol/L (21-28) Arterial Blood Base Excess -4 mmol/L (-3-3) FiO2 45% bipap Test 02/13/20 13:05 02/13/20 16:06 02/13/20 19:23 02/14/20 07:20 Urine Collection Type Unknown Urine Color Yellow Urine Clarity Clear Urine pH 5.5 (<5.0-8.0) Urine Specific [place] 1.020 (1.000-1.030) Urine Protein >=300 mg/dL (NEG-TRACE) Urine Glucose (UA) 100 mg/dL (NEG) Urine Ketones (Stick) Negative mg/dL (NEG) Urine Blood Negative (NEG) Urine Nitrite Negative (NEG) Urine Bilirubin Negative (NEG) Urine Urobilinogen Dipstick 0.2 mg/dL (0.2 mg/dL) Urine Leukocyte Esterase Negative (NEG) Urine RBC 1-2 /HPF (0-2) Urine WBC 1-4 /HPF (0-4) Urine Squamous Epithelial Cells Occ /LPF Urine Bacteria Many /HPF (0-FEW) Lactic Acid Level 1.4 mmol/L (0.4-2.0) C-Reactive Protein, Quantitative 10.2 mg/L (0-3.3) White Blood Count 10.0 x10^3/uL (4.0-11.0) Red Blood Count 3.10 x10^6/uL (4.30-5.70) Hemoglobin 8.2 g/dL (13.0-17.5) Hematocrit 25.9 % (39.0-53.0) Mean Corpuscular Volume 84 fL (79-100) Mean Corpuscular Hemoglobin 27 pg (25-35) Mean Corpuscular Hemoglobin Concent 32 g/dL (31-37) Red Cell Distribution Width 18.9 % (11.5-14.5) Platelet Count 263 x10^3/uL (140-400) Neutrophils (%) (Auto) 88 % (31-73) Lymphocytes (%) (Auto) 6 % (24-48) Monocytes (%) (Auto) 5 % (0-9) Eosinophils (%) (Auto) 1 % (0-3) Basophils (%) (Auto) 0 % (0-3) Neutrophils # (Auto) 8.8 x10^3/uL (1.8-7.7) Lymphocytes # (Auto) 0.6 x10^3/uL (1.0-4.8) Monocytes # (Auto) 0.5 x10^3/uL (0.0-1.1) Eosinophils # (Auto) 0.0 x10^3/uL (0.0-0.7) Basophils # (Auto) 0.0 x10^3/uL (0.0-0.2) Sodium Level 148 mmol/L (136-145) Potassium Level 4.0 mmol/L (3.5-5.1) Chloride Level 112 mmol/L (98-107) Carbon Dioxide Level 19 mmol/L (21-32) Anion Gap 17 (6-14) Blood Urea Nitrogen 64 mg/dL (8-26) Creatinine 4.5 mg/dL (0.7-1.3) Estimated GFR (Cockcroft-Gault) 15.3 BUN/Creatinine Ratio 14 (6-20) Glucose Level 74 mg/dL (70-99) Calcium Level 8.9 mg/dL (8.5-10.1) Total Bilirubin 0.3 mg/dL (0.2-1.0) Aspartate Amino Transf (AST/SGOT) 83 U/L (15-37) Alanine Aminotransferase (ALT/SGPT) 80 U/L (16-63) Alkaline Phosphatase 104 U/L (46-116) Total Protein 6.6 g/dL (6.4-8.2) Albumin 2.8 g/dL (3.4-5.0) Albumin/Globulin Ratio 0.7 (1.0-1.7) Laboratory Tests Test 02/13/20 10:42 02/13/20 10:43 02/13/20 11:47 02/13/20 12:30 Glucose (Fingerstick) 158 mg/dL (70-99) White Blood Count 11.6 x10^3/uL (4.0-11.0) Red Blood Count 3.17 x10^6/uL (4.30-5.70) Hemoglobin 8.5 g/dL (13.0-17.5) Hematocrit 26.8 % (39.0-53.0) Mean Corpuscular Volume 85 fL (79-100) Mean Corpuscular Hemoglobin 27 pg (25-35) Mean Corpuscular Hemoglobin Concent 32 g/dL (31-37) Red Cell Distribution Width 19.1 % (11.5-14.5) Platelet Count 295 x10^3/uL (140-400) Neutrophils (%) (Auto) 88 % (31-73) Lymphocytes (%) (Auto) 8 % (24-48) Monocytes (%) (Auto) 4 % (0-9) Eosinophils (%) (Auto) 0 % (0-3) Basophils (%) (Auto) 0 % (0-3) Neutrophils # (Auto) 10.2 x10^3/uL (1.8-7.7) Lymphocytes # (Auto) 0.9 x10^3/uL (1.0-4.8) Monocytes # (Auto) 0.4 x10^3/uL (0.0-1.1) Eosinophils # (Auto) 0.0 x10^3/uL (0.0-0.7) Basophils # (Auto) 0.0 x10^3/uL (0.0-0.2) Segmented Neutrophils % 93 % (35-66) Band Neutrophils % 1 % (0-9) Lymphocytes % 4 % (24-48) Monocytes % 2 % (0-10) Platelet Estimate Adequate (ADEQUATE) Hypochromasia Slight Poikilocytosis Slight Anisocytosis Mod Microcytosis Slight Schistocytes Occ Sodium Level 149 mmol/L (136-145) Potassium Level 4.3 mmol/L (3.5-5.1) Chloride Level 109 mmol/L (98-107) Carbon Dioxide Level 16 mmol/L (21-32) Anion Gap 24 (6-14) Blood Urea Nitrogen 62 mg/dL (8-26) Creatinine 5.5 mg/dL (0.7-1.3) Estimated GFR (Cockcroft-Gault) 12.2 Glucose Level 180 mg/dL (70-99) Lactic Acid Level 8.6 mmol/L (0.4-2.0) Calcium Level 8.8 mg/dL (8.5-10.1) Total Bilirubin 0.3 mg/dL (0.2-1.0) Direct Bilirubin 0.1 mg/dL (0.0-0.2) Aspartate Amino Transf (AST/SGOT) 57 U/L (15-37) Alanine Aminotransferase (ALT/SGPT) 47 U/L (16-63) Alkaline Phosphatase 104 U/L (46-116) Creatine Kinase 492 U/L (39-308) Troponin I Quantitative 0.464 ng/mL (0.000-0.055) WT-Qxc-X-Type Natriuretic Peptide 48325 pg/mL (0-449) Total Protein 6.6 g/dL (6.4-8.2) Albumin 3.1 g/dL (3.4-5.0) Influenza Type A Antigen Negative (NEGATIVE) Influenza Type B Antigen Negative (NEGATIVE) O2 Saturation 91 % (92-99) Arterial Blood pH 7.41 (7.35-7.45) Arterial Blood pCO2 at Patient Temp 31 mmHg (35-46) Arterial Blood pO2 at Patient Temp 67 mmHg (65-108) Arterial Blood HCO3 20 mmol/L (21-28) Arterial Blood Base Excess -4 mmol/L (-3-3) FiO2 45% bipap Test 02/13/20 13:05 02/13/20 16:06 02/13/20 19:23 02/14/20 07:20 Urine Collection Type Unknown Urine Color Yellow Urine Clarity Clear Urine pH 5.5 (<5.0-8.0) Urine Specific [place] 1.020 (1.000-1.030) Urine Protein >=300 mg/dL (NEG-TRACE) Urine Glucose (UA) 100 mg/dL (NEG) Urine Ketones (Stick) Negative mg/dL (NEG) Urine Blood Negative (NEG) Urine Nitrite Negative (NEG) Urine Bilirubin Negative (NEG) Urine Urobilinogen Dipstick 0.2 mg/dL (0.2 mg/dL) Urine Leukocyte Esterase Negative (NEG) Urine RBC 1-2 /HPF (0-2) Urine WBC 1-4 /HPF (0-4) Urine Squamous Epithelial Cells Occ /LPF Urine Bacteria Many /HPF (0-FEW) Lactic Acid Level 1.4 mmol/L (0.4-2.0) C-Reactive Protein, Quantitative 10.2 mg/L (0-3.3) White Blood Count 10.0 x10^3/uL (4.0-11.0) Red Blood Count 3.10 x10^6/uL (4.30-5.70) Hemoglobin 8.2 g/dL (13.0-17.5) Hematocrit 25.9 % (39.0-53.0) Mean Corpuscular Volume 84 fL (79-100) Mean Corpuscular Hemoglobin 27 pg (25-35) Mean Corpuscular Hemoglobin Concent 32 g/dL (31-37) Red Cell Distribution Width 18.9 % (11.5-14.5) Platelet Count 263 x10^3/uL (140-400) Neutrophils (%) (Auto) 88 % (31-73) Lymphocytes (%) (Auto) 6 % (24-48) Monocytes (%) (Auto) 5 % (0-9) Eosinophils (%) (Auto) 1 % (0-3) Basophils (%) (Auto) 0 % (0-3) Neutrophils # (Auto) 8.8 x10^3/uL (1.8-7.7) Lymphocytes # (Auto) 0.6 x10^3/uL (1.0-4.8) Monocytes # (Auto) 0.5 x10^3/uL (0.0-1.1) Eosinophils # (Auto) 0.0 x10^3/uL (0.0-0.7) Basophils # (Auto) 0.0 x10^3/uL (0.0-0.2) Sodium Level 148 mmol/L (136-145) Potassium Level 4.0 mmol/L (3.5-5.1) Chloride Level 112 mmol/L (98-107) Carbon Dioxide Level 19 mmol/L (21-32) Anion Gap 17 (6-14) Blood Urea Nitrogen 64 mg/dL (8-26) Creatinine 4.5 mg/dL (0.7-1.3) Estimated GFR (Cockcroft-Gault) 15.3 BUN/Creatinine Ratio 14 (6-20) Glucose Level 74 mg/dL (70-99) Calcium Level 8.9 mg/dL (8.5-10.1) Total Bilirubin 0.3 mg/dL (0.2-1.0) Aspartate Amino Transf (AST/SGOT) 83 U/L (15-37) Alanine Aminotransferase (ALT/SGPT) 80 U/L (16-63) Alkaline Phosphatase 104 U/L (46-116) Total Protein 6.6 g/dL (6.4-8.2) Albumin 2.8 g/dL (3.4-5.0) Albumin/Globulin Ratio 0.7 (1.0-1.7) Review All relevant outside records, renal labs, imaging studies, telemetry/EKG's were reviewed. Images Images EXAM: Chest, single view. HISTORY: Short of breath. COMPARISON: None. FINDINGS: A frontal view of the chest is obtained. There is diffuse left greater than right lung interstitial infiltrate. No pleural fusion or pneumothorax is seen. There is enlargement of the cardiac silhouette. There are calcified granulomas. IMPRESSION: 1. Diffuse left greater than right lung interstitial infiltrate. 2. Enlargement of the cardiac silhouette. Electronically signed by: Gali Milner MD (02/13/2020 11:44 AM) [id number] VARGAS ANGELO MD Feb 14, 2020 10:19
[2020-02-14 11:00] VITALS: BP 174/70
--- NOTE | 2020-02-14 11:50 | NUR ---
SS following for discharge planning. SS reviewed pt chart and discussed with pt RN. Pt is from home with family and is currently on BIPAP at 40%. COVID19 test pending. Pt on IV Meropenem. Creat 4.5. Not stable. SS will continue to follow for discharge planning.
--- NOTE | 2020-02-14 13:27 | PDOC ---
[employer] PROGRESS NOTE Date of Service DOS: DATE: 02/14/20 TIME: 13:21 Chief Complaint Chief Complaint Pneumonia, aspiration Diffuse left greater than right lung interstitial infiltrate. diabetes PUI Covid Acute on chronic kidney injury due to vasomotor nephropathy Acute hypoxic respiratory failure Sepsis MILDLY ELEVATED TROPONIN I, SUSPECT TYPE 2 ISCHEMIA DUE TO HYPOXIA PUI COVID 19 Acute metabolic encephalopathy CHF Continue with IV empiric antibiotics Appreciate nephrology recommendationshold Lasix at this time and pending records and will determine the need for dialysis after data obtained. History of Present Illness History of Present Illness Patient is an 80-year-old male with past medical history of hypertension and CKD, COPD, diabetes, dyslipidemia, TIA in 2012 and mild dementia who presents with complaints of shortness of breath and labored breathing. Patient with risks with his sister when they were in route to the emergency department but he was unable to make it due to worsening shortness of breath and therefore they did went to the fire department instead. Patient does follow with a solutions developer at and states that he is close to requiring dialysis, this history was obtained from his sister. Patient has low health literacy and does not understand the severity of his kidney disease. Patient is requiring BiPAP at night and is currently on nasal cannula saturating at 90%. Vitals/I&O Vitals/I&O: Vital Signs Date Time Temp Pulse Resp B/P (MAP) Pulse Ox O2 Delivery O2 Flow Rate FiO2 02/14/20 11:49 97 BiPAP/CPAP 02/14/20 11:00 96.4 85 32 174/70 (104) 96.4 02/14/20 08:00 15.0 I & O 02/13/20 02/13/20 02/14/20 15:00 23:00 07:00 Intake Total 110 ml 0 ml Output Total 300 ml 150 ml Balance -190 ml -150 ml Physical Exam General: Cooperative, moderate distress Abdomen: Normal bowel sounds, Soft, No tenderness Extremities: No cyanosis Skin: No breakdown, No significant lesion Labs Labs: Laboratory Tests Test 02/13/20 16:06 02/13/20 19:23 02/14/20 07:20 Lactic Acid Level 1.4 mmol/L (0.4-2.0) C-Reactive Protein, Quantitative 10.2 mg/L (0-3.3) White Blood Count 10.0 x10^3/uL (4.0-11.0) Red Blood Count 3.10 x10^6/uL (4.30-5.70) Hemoglobin 8.2 g/dL (13.0-17.5) Hematocrit 25.9 % (39.0-53.0) Mean Corpuscular Volume 84 fL (79-100) Mean Corpuscular Hemoglobin 27 pg (25-35) Mean Corpuscular Hemoglobin Concent 32 g/dL (31-37) Red Cell Distribution Width 18.9 % (11.5-14.5) Platelet Count 263 x10^3/uL (140-400) Neutrophils (%) (Auto) 88 % (31-73) Lymphocytes (%) (Auto) 6 % (24-48) Monocytes (%) (Auto) 5 % (0-9) Eosinophils (%) (Auto) 1 % (0-3) Basophils (%) (Auto) 0 % (0-3) Neutrophils # (Auto) 8.8 x10^3/uL (1.8-7.7) Lymphocytes # (Auto) 0.6 x10^3/uL (1.0-4.8) Monocytes # (Auto) 0.5 x10^3/uL (0.0-1.1) Eosinophils # (Auto) 0.0 x10^3/uL (0.0-0.7) Basophils # (Auto) 0.0 x10^3/uL (0.0-0.2) Sodium Level 148 mmol/L (136-145) Potassium Level 4.0 mmol/L (3.5-5.1) Chloride Level 112 mmol/L (98-107) Carbon Dioxide Level 19 mmol/L (21-32) Anion Gap 17 (6-14) Blood Urea Nitrogen 64 mg/dL (8-26) Creatinine 4.5 mg/dL (0.7-1.3) Estimated GFR (Cockcroft-Gault) 15.3 BUN/Creatinine Ratio 14 (6-20) Glucose Level 74 mg/dL (70-99) Calcium Level 8.9 mg/dL (8.5-10.1) Total Bilirubin 0.3 mg/dL (0.2-1.0) Aspartate Amino Transf (AST/SGOT) 83 U/L (15-37) Alanine Aminotransferase (ALT/SGPT) 80 U/L (16-63) Alkaline Phosphatase 104 U/L (46-116) Total Protein 6.6 g/dL (6.4-8.2) Albumin 2.8 g/dL (3.4-5.0) Albumin/Globulin Ratio 0.7 (1.0-1.7) Assessment and Plan Assessmemt and Plan Problems Medical Problems: (1) CAP (community acquired pneumonia) Status: Acute (2) Elevated troponin Status: Acute (3) HCAP (healthcare-associated pneumonia) Status: Acute (4) Person under investigation for COVID-19 Status: Acute (5) Sepsis with acute hypoxic respiratory failure Status: Acute (6) UTI (urinary tract infection) Status: Acute Comment Review of Relevant I have reviewed the following items kate (where applicable) has been applied. Medications: Current Medications Medications (Trade) Dose Ordered Sig/Ramin Route PRN Reason Start Time Stop Time Status Last Admin Dose Admin Sodium Chloride 500 ml @ 500 mls/hr 1X ONCE IV 02/13/20 13:30 02/13/20 14:29 DC 02/13/20 13:47 Sodium Chloride 1,000 ml @ 1,000 mls/hr 1X ONCE IV 02/13/20 13:30 02/13/20 14:29 DC 02/13/20 13:46 Heparin Sodium (Porcine) (Heparin Sodium) 5,000 unit Q8HRS SQ 02/13/20 19:00 02/14/20 06:12 Meropenem 500 mg/ Sodium Chloride 50 ml @ 100 mls/hr Q12HR IV 02/13/20 21:00 02/14/20 09:40 Justifications for Admission Other Justification LEXIS KAUR MD Feb 14, 2020 13:27
[2020-02-14] MEDS ORDERED: SENNOSIDES 8.6 MG TABLET PO PRN (13:30)
[2020-02-14 15:00] VITALS: BP 177/72
[2020-02-14] MEDS ORDERED: FUROSEMIDE 40 MG/4 ML VIAL. IVP ONE (15:00)
[2020-02-14] MEDS: ALBUTEROL SULFATE 2.5 MG/3 ML NEBU. NEB SCH ×2 (15:54→20:00)
--- NOTE | 2020-02-14 15:59 | PDOC ---
PULMONARY PROGRESS NOTES DATE: 02/14/20 TIME: 15:59 Vitals Vital Signs Date Time Temp Pulse Resp B/P (MAP) Pulse Ox O2 Delivery O2 Flow Rate FiO2 02/14/20 11:49 97 BiPAP/CPAP 02/14/20 11:00 96.4 85 32 174/70 (104) 96.4 02/14/20 08:00 15.0 Labs Laboratory Tests Test 02/13/20 10:42 02/13/20 10:43 02/13/20 11:47 02/13/20 12:30 Glucose (Fingerstick) 158 mg/dL (70-99) White Blood Count 11.6 x10^3/uL (4.0-11.0) Red Blood Count 3.17 x10^6/uL (4.30-5.70) Hemoglobin 8.5 g/dL (13.0-17.5) Hematocrit 26.8 % (39.0-53.0) Mean Corpuscular Volume 85 fL (79-100) Mean Corpuscular Hemoglobin 27 pg (25-35) Mean Corpuscular Hemoglobin Concent 32 g/dL (31-37) Red Cell Distribution Width 19.1 % (11.5-14.5) Platelet Count 295 x10^3/uL (140-400) Neutrophils (%) (Auto) 88 % (31-73) Lymphocytes (%) (Auto) 8 % (24-48) Monocytes (%) (Auto) 4 % (0-9) Eosinophils (%) (Auto) 0 % (0-3) Basophils (%) (Auto) 0 % (0-3) Neutrophils # (Auto) 10.2 x10^3/uL (1.8-7.7) Lymphocytes # (Auto) 0.9 x10^3/uL (1.0-4.8) Monocytes # (Auto) 0.4 x10^3/uL (0.0-1.1) Eosinophils # (Auto) 0.0 x10^3/uL (0.0-0.7) Basophils # (Auto) 0.0 x10^3/uL (0.0-0.2) Segmented Neutrophils % 93 % (35-66) Band Neutrophils % 1 % (0-9) Lymphocytes % 4 % (24-48) Monocytes % 2 % (0-10) Platelet Estimate Adequate (ADEQUATE) Hypochromasia Slight Poikilocytosis Slight Anisocytosis Mod Microcytosis Slight Schistocytes Occ Sodium Level 149 mmol/L (136-145) Potassium Level 4.3 mmol/L (3.5-5.1) Chloride Level 109 mmol/L (98-107) Carbon Dioxide Level 16 mmol/L (21-32) Anion Gap 24 (6-14) Blood Urea Nitrogen 62 mg/dL (8-26) Creatinine 5.5 mg/dL (0.7-1.3) Estimated GFR (Cockcroft-Gault) 12.2 Glucose Level 180 mg/dL (70-99) Lactic Acid Level 8.6 mmol/L (0.4-2.0) Calcium Level 8.8 mg/dL (8.5-10.1) Total Bilirubin 0.3 mg/dL (0.2-1.0) Direct Bilirubin 0.1 mg/dL (0.0-0.2) Aspartate Amino Transf (AST/SGOT) 57 U/L (15-37) Alanine Aminotransferase (ALT/SGPT) 47 U/L (16-63) Alkaline Phosphatase 104 U/L (46-116) Creatine Kinase 492 U/L (39-308) Troponin I Quantitative 0.464 ng/mL (0.000-0.055) UA-Icu-A-Type Natriuretic Peptide 56253 pg/mL (0-449) Total Protein 6.6 g/dL (6.4-8.2) Albumin 3.1 g/dL (3.4-5.0) Coronavirus (PCR) Not detected (Not Detected) Influenza Type A Antigen Negative (NEGATIVE) Influenza Type B Antigen Negative (NEGATIVE) O2 Saturation 91 % (92-99) Arterial Blood pH 7.41 (7.35-7.45) Arterial Blood pCO2 at Patient Temp 31 mmHg (35-46) Arterial Blood pO2 at Patient Temp 67 mmHg (65-108) Arterial Blood HCO3 20 mmol/L (21-28) Arterial Blood Base Excess -4 mmol/L (-3-3) FiO2 45% bipap Test 02/13/20 13:05 02/13/20 16:06 02/13/20 19:23 02/14/20 07:20 Urine Collection Type Unknown Urine Color Yellow Urine Clarity Clear Urine pH 5.5 (<5.0-8.0) Urine Specific [place] 1.020 (1.000-1.030) Urine Protein >=300 mg/dL (NEG-TRACE) Urine Glucose (UA) 100 mg/dL (NEG) Urine Ketones (Stick) Negative mg/dL (NEG) Urine Blood Negative (NEG) Urine Nitrite Negative (NEG) Urine Bilirubin Negative (NEG) Urine Urobilinogen Dipstick 0.2 mg/dL (0.2 mg/dL) Urine Leukocyte Esterase Negative (NEG) Urine RBC 1-2 /HPF (0-2) Urine WBC 1-4 /HPF (0-4) Urine Squamous Epithelial Cells Occ /LPF Urine Bacteria Many /HPF (0-FEW) Lactic Acid Level 1.4 mmol/L (0.4-2.0) C-Reactive Protein, Quantitative 10.2 mg/L (0-3.3) White Blood Count 10.0 x10^3/uL (4.0-11.0) Red Blood Count 3.10 x10^6/uL (4.30-5.70) Hemoglobin 8.2 g/dL (13.0-17.5) Hematocrit 25.9 % (39.0-53.0) Mean Corpuscular Volume 84 fL (79-100) Mean Corpuscular Hemoglobin 27 pg (25-35) Mean Corpuscular Hemoglobin Concent 32 g/dL (31-37) Red Cell Distribution Width 18.9 % (11.5-14.5) Platelet Count 263 x10^3/uL (140-400) Neutrophils (%) (Auto) 88 % (31-73) Lymphocytes (%) (Auto) 6 % (24-48) Monocytes (%) (Auto) 5 % (0-9) Eosinophils (%) (Auto) 1 % (0-3) Basophils (%) (Auto) 0 % (0-3) Neutrophils # (Auto) 8.8 x10^3/uL (1.8-7.7) Lymphocytes # (Auto) 0.6 x10^3/uL (1.0-4.8) Monocytes # (Auto) 0.5 x10^3/uL (0.0-1.1) Eosinophils # (Auto) 0.0 x10^3/uL (0.0-0.7) Basophils # (Auto) 0.0 x10^3/uL (0.0-0.2) Sodium Level 148 mmol/L (136-145) Potassium Level 4.0 mmol/L (3.5-5.1) Chloride Level 112 mmol/L (98-107) Carbon Dioxide Level 19 mmol/L (21-32) Anion Gap 17 (6-14) Blood Urea Nitrogen 64 mg/dL (8-26) Creatinine 4.5 mg/dL (0.7-1.3) Estimated GFR (Cockcroft-Gault) 15.3 BUN/Creatinine Ratio 14 (6-20) Glucose Level 74 mg/dL (70-99) Calcium Level 8.9 mg/dL (8.5-10.1) Total Bilirubin 0.3 mg/dL (0.2-1.0) Aspartate Amino Transf (AST/SGOT) 83 U/L (15-37) Alanine Aminotransferase (ALT/SGPT) 80 U/L (16-63) Alkaline Phosphatase 104 U/L (46-116) Total Protein 6.6 g/dL (6.4-8.2) Albumin 2.8 g/dL (3.4-5.0) Albumin/Globulin Ratio 0.7 (1.0-1.7) Laboratory Tests Test 02/13/20 16:06 02/13/20 19:23 02/14/20 07:20 Lactic Acid Level 1.4 mmol/L (0.4-2.0) C-Reactive Protein, Quantitative 10.2 mg/L (0-3.3) White Blood Count 10.0 x10^3/uL (4.0-11.0) Red Blood Count 3.10 x10^6/uL (4.30-5.70) Hemoglobin 8.2 g/dL (13.0-17.5) Hematocrit 25.9 % (39.0-53.0) Mean Corpuscular Volume 84 fL (79-100) Mean Corpuscular Hemoglobin 27 pg (25-35) Mean Corpuscular Hemoglobin Concent 32 g/dL (31-37) Red Cell Distribution Width 18.9 % (11.5-14.5) Platelet Count 263 x10^3/uL (140-400) Neutrophils (%) (Auto) 88 % (31-73) Lymphocytes (%) (Auto) 6 % (24-48) Monocytes (%) (Auto) 5 % (0-9) Eosinophils (%) (Auto) 1 % (0-3) Basophils (%) (Auto) 0 % (0-3) Neutrophils # (Auto) 8.8 x10^3/uL (1.8-7.7) Lymphocytes # (Auto) 0.6 x10^3/uL (1.0-4.8) Monocytes # (Auto) 0.5 x10^3/uL (0.0-1.1) Eosinophils # (Auto) 0.0 x10^3/uL (0.0-0.7) Basophils # (Auto) 0.0 x10^3/uL (0.0-0.2) Sodium Level 148 mmol/L (136-145) Potassium Level 4.0 mmol/L (3.5-5.1) Chloride Level 112 mmol/L (98-107) Carbon Dioxide Level 19 mmol/L (21-32) Anion Gap 17 (6-14) Blood Urea Nitrogen 64 mg/dL (8-26) Creatinine 4.5 mg/dL (0.7-1.3) Estimated GFR (Cockcroft-Gault) 15.3 BUN/Creatinine Ratio 14 (6-20) Glucose Level 74 mg/dL (70-99) Calcium Level 8.9 mg/dL (8.5-10.1) Total Bilirubin 0.3 mg/dL (0.2-1.0) Aspartate Amino Transf (AST/SGOT) 83 U/L (15-37) Alanine Aminotransferase (ALT/SGPT) 80 U/L (16-63) Alkaline Phosphatase 104 U/L (46-116) Total Protein 6.6 g/dL (6.4-8.2) Albumin 2.8 g/dL (3.4-5.0) Albumin/Globulin Ratio 0.7 (1.0-1.7) Medications Active Scripts Medications Dose Route/Sig Max Daily Dose Days Date Category Timoptic 0.5% (Timolol Maleate) 10 Ml Drops 1 Drop EACHEYE BID 30 02/13/20 Reported Senna (Sennosides) 8.6 Mg Tablet 8.6 Mg PO PRN DAILY PRN 02/13/20 Reported Tylenol (Acetaminophen) 325 Mg Tablet 650 Mg PO PRN Q6-8HRS PRN 12/14/20 Reported Albuterol Sulfate Conc Neb Soln (Albuterol Sulfate) 2.5 Mg/0.5 Ml Vial.neb 2.5 Mg NEB QIDACHS 02/13/20 Reported Hydralazine Hcl 50 Mg Tablet 75 Mg PO TID 02/13/20 Reported Lasix (Furosemide) 20 Mg Tablet 20 Mg PO DAILY 02/13/20 Reported Combigan Eye Drops (Brimonidine Tartrate/Timolol) 5 Ml Drops 5 Ml OP QHS 02/13/20 Reported Vitamin D3 (Cholecalciferol (Vitamin D3)) 50 Mcg Tablet 50 Mcg PO DAILY 02/13/20 Reported Atorvastatin Calcium 20 Mg Tablet 20 Mg PO HS 02/13/20 Reported Aspirin 325 Mg Tablet 325 Mg PO DAILY 02/13/20 Reported Tamsulosin Hcl 0.4 Mg Cap.er.24h 0.4 Mg PO DAILY 09/03/16 Reported Ferrous Sulfate 325 Mg Tablet 1 Tab PO DAILY 09/03/16 Reported Amlodipine Besylate 10 Mg Tablet 10 Mg PO DAILY 09/03/16 Reported Impression . Full note dictated Concur with current medical management for possible aspiration pneumonia healthcare acquired pneumonia. ANIBAL LAMB MD Feb 14, 2020 15:59
[2020-02-14] MEDS: ASPIRIN 325 MG TABLET PO SCH (16:01)
[2020-02-14] MEDS: CHOLECALCIFEROL (VITAMIN D3) 1,000 UNIT TABLET PO SCH (16:01)
[2020-02-14] MEDS: TAMSULOSIN 0.4 MG CAP.ER.24H. PO SCH (16:03)
[2020-02-14] MEDS: amLODIPine BESYLATE 10 MG TABLET PO SCH (16:03)
[2020-02-14] MEDS: hydrALAZINE 25 MG TABLET PO SCH ×2 (16:05→20:37)
[2020-02-14] MEDS ORDERED: NON FORMULARY ITEM (Albuterol Sulfate (Albuterol Sulfate Conc Neb Soln) 2.5 MG) NEB SCH (16:30)
[2020-02-14 19:45] VITALS: BP 148/62
[2020-02-14] MEDS: ATORVASTATIN CALCIUM 20 MG TABLET PO SCH (20:37)
[2020-02-14] MEDS: TIMOLOL 0.5% OPHTH SOLUTION 5ML BOTTLE. OU SCH (20:37)
[2020-02-14] MEDS: BRIMONIDINE 0.2% OPHTH SOLUTION 5ML BOTTLE. OU SCH (20:37)
[2020-02-14] MEDS ORDERED: NON FORMULARY ITEM (Brimonidine Tartrate/Timolol (Combigan Eye Drops) 5 ML) OP SCH (21:00)
[2020-02-14 22:54] VITALS: BP 138/64
[2020-02-15] VITALS (7 sets, daily range): BP systolic 100–175; BP diastolic 50–75
--- NOTE | 2020-02-15 03:24 | CONS ---
DATE OF CONSULTATION: 02/14/2020 ATTENDING PHYSICIAN: Dr. Vaughn. CONSULTING PHYSICIAN: Anibal Lamb MD REASON FOR CONSULTATION: The patient is seen in pulmonary consultation at the request of Dr. Vaughn for shortness of air. HISTORY OF PRESENT ILLNESS: The patient is an 80-year-old with a significant history of coronary artery disease with previous stenting, chronic kidney disease, hypertension, diabetes, hyperlipidemia, cognitive dysfunction, presents by EMS with complaints of shortness of breath. He was found to have labored breathing and hypoxic. He was placed on nonrebreather. He was admitted. Chest x-ray was obtained revealing evidence of diffuse infiltrates, left greater than right. He also had a large cardiac silhouette. I was asked to see him in consultation. His serology for coronavirus PCR was negative, influenza was likewise negative. Arterial blood gas revealed a pH of 7.41, PaCO2 of 31, pO2 of 67 on BiPAP. He is currently off of BiPAP, awake, alert, following commands. PAST MEDICAL HISTORY: Chronic kidney disease, hypertension, diabetes, hyperlipidemia, TIA, COPD. PAST SURGICAL HISTORY: No recent major surgeries. ALLERGIES: No known drug allergies. SOCIAL HISTORY: He currently does not smoke. REVIEW OF SYSTEMS: As indicated above, otherwise a 10-point system was reviewed and negative. PHYSICAL EXAMINATION: VITAL SIGNS: Stable, currently off of BiPAP. HEENT: Eyes: The sclerae were nonicteric. NECK: Jugular venous distention was not elevated. No lymphadenopathy. CHEST: Full expansion. LUNGS: Crackles throughout both lung varghese. CARDIOVASCULAR: Regular rate and rhythm with S1, S2, no S3. ABDOMEN: Soft, nontender. EXTREMITIES: No clubbing, cyanosis or edema. LABORATORY DATA: As indicated above. IMPRESSION: 1. Acute hypoxemic respiratory failure. 2. Acute on chronic systolic and diastolic heart failure. 3. Possible pneumonia. 4. [id number]-6 negative. 5. Chronic obstructive pulmonary disease with acute exacerbation. 6. Possible aspiration pneumonia. 7. Acute on chronic kidney injury. 8. Mildly elevated troponin. 9. Acute metabolic encephalopathy. PLAN: 1. Continue him on oxygen supplementation and p.r.n. BiPAP. 2. Continue IV antibiotics. 3. Diurese per Nephrology. 4. VUUM-MKCYV-3 negative. I do appreciate the privilege in sharing in the patient's care. ANIBAL LAMB MD DR: Jani JOB#: [id number] / [id number]
[2020-02-15] MEDS: HEPARIN for SUB-Q USE 5,000 UNIT/ML VIAL. SQ SCH ×3 (06:00→22:52)
[2020-02-15] MEDS: ALBUTEROL SULFATE 2.5 MG/3 ML NEBU. NEB SCH ×4 (07:34→20:01)
[2020-02-15] MEDS: TAMSULOSIN 0.4 MG CAP.ER.24H. PO SCH (08:16)
[2020-02-15] MEDS: CHOLECALCIFEROL (VITAMIN D3) 1,000 UNIT TABLET PO SCH (08:16)
[2020-02-15] MEDS: ASPIRIN 325 MG TABLET PO SCH (08:16)
--- NOTE | 2020-02-15 08:16 | PDOC ---
PULMONARY PROGRESS NOTES DATE: 02/15/20 TIME: 08:16 Subjective Patient is resting comfortably on 5 L nasal cannula, wore BiPAP overnight Feeling better today Denies shortness of breath or chest pain No concerns from nursing overnight Vitals Vital Signs Date Time Temp Pulse Resp B/P (MAP) Pulse Ox O2 Delivery O2 Flow Rate FiO2 02/15/20 07:32 99 BiPAP/CPAP 02/15/20 03:42 97.8 18 155/70 (98) 6.0 97.8 02/14/20 22:54 62 ROS: No Nausea, No Chest Pain, No Abdominal Pain, No Increase Cough General: Alert, Oriented X4 Lungs: Crackles Cardiovascular: S1 Abdomen: Soft, Non-tender Neuro Exam: Alert Extremities: No Edema Skin: Warm, Dry Labs Laboratory Tests Test 02/13/20 10:42 02/13/20 10:43 02/13/20 11:47 02/13/20 12:30 Glucose (Fingerstick) 158 mg/dL (70-99) White Blood Count 11.6 x10^3/uL (4.0-11.0) Red Blood Count 3.17 x10^6/uL (4.30-5.70) Hemoglobin 8.5 g/dL (13.0-17.5) Hematocrit 26.8 % (39.0-53.0) Mean Corpuscular Volume 85 fL (79-100) Mean Corpuscular Hemoglobin 27 pg (25-35) Mean Corpuscular Hemoglobin Concent 32 g/dL (31-37) Red Cell Distribution Width 19.1 % (11.5-14.5) Platelet Count 295 x10^3/uL (140-400) Neutrophils (%) (Auto) 88 % (31-73) Lymphocytes (%) (Auto) 8 % (24-48) Monocytes (%) (Auto) 4 % (0-9) Eosinophils (%) (Auto) 0 % (0-3) Basophils (%) (Auto) 0 % (0-3) Neutrophils # (Auto) 10.2 x10^3/uL (1.8-7.7) Lymphocytes # (Auto) 0.9 x10^3/uL (1.0-4.8) Monocytes # (Auto) 0.4 x10^3/uL (0.0-1.1) Eosinophils # (Auto) 0.0 x10^3/uL (0.0-0.7) Basophils # (Auto) 0.0 x10^3/uL (0.0-0.2) Segmented Neutrophils % 93 % (35-66) Band Neutrophils % 1 % (0-9) Lymphocytes % 4 % (24-48) Monocytes % 2 % (0-10) Platelet Estimate Adequate (ADEQUATE) Hypochromasia Slight Poikilocytosis Slight Anisocytosis Mod Microcytosis Slight Schistocytes Occ Sodium Level 149 mmol/L (136-145) Potassium Level 4.3 mmol/L (3.5-5.1) Chloride Level 109 mmol/L (98-107) Carbon Dioxide Level 16 mmol/L (21-32) Anion Gap 24 (6-14) Blood Urea Nitrogen 62 mg/dL (8-26) Creatinine 5.5 mg/dL (0.7-1.3) Estimated GFR (Cockcroft-Gault) 12.2 Glucose Level 180 mg/dL (70-99) Lactic Acid Level 8.6 mmol/L (0.4-2.0) Calcium Level 8.8 mg/dL (8.5-10.1) Total Bilirubin 0.3 mg/dL (0.2-1.0) Direct Bilirubin 0.1 mg/dL (0.0-0.2) Aspartate Amino Transf (AST/SGOT) 57 U/L (15-37) Alanine Aminotransferase (ALT/SGPT) 47 U/L (16-63) Alkaline Phosphatase 104 U/L (46-116) Creatine Kinase 492 U/L (39-308) Troponin I Quantitative 0.464 ng/mL (0.000-0.055) RV-Wqt-L-Type Natriuretic Peptide 08569 pg/mL (0-449) Total Protein 6.6 g/dL (6.4-8.2) Albumin 3.1 g/dL (3.4-5.0) Coronavirus (PCR) Not detected (Not Detected) Influenza Type A Antigen Negative (NEGATIVE) Influenza Type B Antigen Negative (NEGATIVE) O2 Saturation 91 % (92-99) Arterial Blood pH 7.41 (7.35-7.45) Arterial Blood pCO2 at Patient Temp 31 mmHg (35-46) Arterial Blood pO2 at Patient Temp 67 mmHg (65-108) Arterial Blood HCO3 20 mmol/L (21-28) Arterial Blood Base Excess -4 mmol/L (-3-3) FiO2 45% bipap Test 02/13/20 13:05 02/13/20 16:06 02/13/20 19:23 02/14/20 07:20 Urine Collection Type Unknown Urine Color Yellow Urine Clarity Clear Urine pH 5.5 (<5.0-8.0) Urine Specific [place] 1.020 (1.000-1.030) Urine Protein >=300 mg/dL (NEG-TRACE) Urine Glucose (UA) 100 mg/dL (NEG) Urine Ketones (Stick) Negative mg/dL (NEG) Urine Blood Negative (NEG) Urine Nitrite Negative (NEG) Urine Bilirubin Negative (NEG) Urine Urobilinogen Dipstick 0.2 mg/dL (0.2 mg/dL) Urine Leukocyte Esterase Negative (NEG) Urine RBC 1-2 /HPF (0-2) Urine WBC 1-4 /HPF (0-4) Urine Squamous Epithelial Cells Occ /LPF Urine Bacteria Many /HPF (0-FEW) Lactic Acid Level 1.4 mmol/L (0.4-2.0) C-Reactive Protein, Quantitative 10.2 mg/L (0-3.3) White Blood Count 10.0 x10^3/uL (4.0-11.0) Red Blood Count 3.10 x10^6/uL (4.30-5.70) Hemoglobin 8.2 g/dL (13.0-17.5) Hematocrit 25.9 % (39.0-53.0) Mean Corpuscular Volume 84 fL (79-100) Mean Corpuscular Hemoglobin 27 pg (25-35) Mean Corpuscular Hemoglobin Concent 32 g/dL (31-37) Red Cell Distribution Width 18.9 % (11.5-14.5) Platelet Count 263 x10^3/uL (140-400) Neutrophils (%) (Auto) 88 % (31-73) Lymphocytes (%) (Auto) 6 % (24-48) Monocytes (%) (Auto) 5 % (0-9) Eosinophils (%) (Auto) 1 % (0-3) Basophils (%) (Auto) 0 % (0-3) Neutrophils # (Auto) 8.8 x10^3/uL (1.8-7.7) Lymphocytes # (Auto) 0.6 x10^3/uL (1.0-4.8) Monocytes # (Auto) 0.5 x10^3/uL (0.0-1.1) Eosinophils # (Auto) 0.0 x10^3/uL (0.0-0.7) Basophils # (Auto) 0.0 x10^3/uL (0.0-0.2) Sodium Level 148 mmol/L (136-145) Potassium Level 4.0 mmol/L (3.5-5.1) Chloride Level 112 mmol/L (98-107) Carbon Dioxide Level 19 mmol/L (21-32) Anion Gap 17 (6-14) Blood Urea Nitrogen 64 mg/dL (8-26) Creatinine 4.5 mg/dL (0.7-1.3) Estimated GFR (Cockcroft-Gault) 15.3 BUN/Creatinine Ratio 14 (6-20) Glucose Level 74 mg/dL (70-99) Calcium Level 8.9 mg/dL (8.5-10.1) Total Bilirubin 0.3 mg/dL (0.2-1.0) Aspartate Amino Transf (AST/SGOT) 83 U/L (15-37) Alanine Aminotransferase (ALT/SGPT) 80 U/L (16-63) Alkaline Phosphatase 104 U/L (46-116) Total Protein 6.6 g/dL (6.4-8.2) Albumin 2.8 g/dL (3.4-5.0) Albumin/Globulin Ratio 0.7 (1.0-1.7) Medications Active Scripts Medications Dose Route/Sig Max Daily Dose Days Date Category Timoptic 0.5% (Timolol Maleate) 10 Ml Drops 1 Drop EACHEYE BID 30 02/13/20 Reported Senna (Sennosides) 8.6 Mg Tablet 8.6 Mg PO PRN DAILY PRN 02/13/20 Reported Tylenol (Acetaminophen) 325 Mg Tablet 650 Mg PO PRN Q6-8HRS PRN 02/13/20 Reported Albuterol Sulfate Conc Neb Soln (Albuterol Sulfate) 2.5 Mg/0.5 Ml Vial.neb 2.5 Mg NEB QIDACHS 02/13/20 Reported Hydralazine Hcl 50 Mg Tablet 75 Mg PO TID 02/13/20 Reported Lasix (Furosemide) 20 Mg Tablet 20 Mg PO DAILY 02/13/20 Reported Combigan Eye Drops (Brimonidine Tartrate/Timolol) 5 Ml Drops 5 Ml OP QHS 02/13/20 Reported Vitamin D3 (Cholecalciferol (Vitamin D3)) 50 Mcg Tablet 50 Mcg PO DAILY 02/13/20 Reported Atorvastatin Calcium 20 Mg Tablet 20 Mg PO HS 02/13/20 Reported Aspirin 325 Mg Tablet 325 Mg PO DAILY 02/13/20 Reported Tamsulosin Hcl 0.4 Mg Cap.er.24h 0.4 Mg PO DAILY 09/03/16 Reported Ferrous Sulfate 325 Mg Tablet 1 Tab PO DAILY 09/03/16 Reported Amlodipine Besylate 10 Mg Tablet 10 Mg PO DAILY 09/03/16 Reported Comments CXR IMPRESSION: 1. Diffuse left greater than right lung interstitial infiltrate. 2. Enlargement of the cardiac silhouette. Impression . IMPRESSION: 1. Acute hypoxemic respiratory failure. 2. Acute on chronic systolic and diastolic heart failure. 3. Possible pneumonia. 4. QPNF-OBVJA-5 negative. 5. Chronic obstructive pulmonary disease with acute exacerbation. 6. Possible aspiration pneumonia. 7. Acute on chronic kidney injury. 8. Mildly elevated troponin. 9. Acute metabolic encephalopathy. Plan . Continue supplemental oxygen to keep oxygen saturations greater than 92%, nasal cannula during the day BiPAP at night Continue antibiotics, currently on meropenem Follow nephrology recommendations Diuresis per nephrology COVID-19 negative DVT/GI prophylaxis Physical therapy/Occupational Therapy Discussed with ANIBAL BARCENAS MD Feb 15, 2020 08:16
[2020-02-15] MEDS: hydrALAZINE 25 MG TABLET PO SCH ×3 (08:17→22:51)
[2020-02-15] MEDS: amLODIPine BESYLATE 10 MG TABLET PO SCH (08:17)
[2020-02-15] MEDS: TIMOLOL 0.5% OPHTH SOLUTION 5ML BOTTLE. OU SCH ×2 (08:20→22:51)
--- NOTE | 2020-02-15 09:42 | PDOC ---
DATE OF SERVICE DATE: 02/15/20 TIME: 09:41 SUBJECTIVE ROS Stable OBJECTIVE Vital Signs Vital Signs Date Time Temp Pulse Resp B/P (MAP) Pulse Ox O2 Delivery O2 Flow Rate FiO2 02/15/20 08:17 81 175/75 02/15/20 07:32 99 BiPAP/CPAP 02/15/20 07:00 98.2 20 98.2 02/15/20 03:42 6.0 I & 0 Intake and Output 02/15/20 07:00 Intake Total 950 ml Output Total 800 ml Balance 150 ml Intake Oral 950 ml Output Urine Total 800 ml PHYSICAL EXAM Physical Exam General: moderate distress HEENT: On Bipap Neck supple Lungs: (bilateral rales Heart: RRR, Abdomen: Normal bowel sounds, Soft, No tenderness Extremities: No cyanosis Skin: No breakdown, No significant lesion Neuro: Cranial nerves 3-12 NL DIAGNOSIS/ASSESSMENT Assessment & Plan KIA on CKD - ATN vs progression Renal function stable , mild improvement since presentation , E-Lytes stable UA unremarkable except for overt proteinuria (not new ) , s/p lasix x 1 yesterday , supportive care, Monitor , strict I/O CKD stage 4- Reviewed records from network design architect - Dr. De La Torre - Pt seen in August and Oct with Cr of 3 cw CKD stage 4 He was seen in Dec as well, complete records not faxed to us . Dialysis has been discussed by Dr. 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 Enlargement of the cardiac silhouette. Anemia- Chronic anemia Hx of CAD with stent COPD hypertension- antihypertensives Diabetes TIA 2012, right eye blindness and cognitive delay COMMENT/RELEVANT DATA Meds Current Medications Medications (Trade) Dose Ordered Sig/Ramin Start Time Stop Time Status Last Admin Dose Admin Albuterol Sulfate (Ventolin Neb Soln) 2.5 mg RTQID 02/14/20 16:00 02/15/20 07:34 2.5 MG Amlodipine Besylate (Norvasc) 10 mg DAILY 02/14/20 14:00 02/15/20 08:17 10 MG Aspirin (Zaida Aspirin) 325 mg DAILY 02/14/20 14:00 02/15/20 08:16 325 MG Atorvastatin Calcium (Lipitor) 20 mg HS 02/14/20 21:00 02/14/20 20:37 20 MG Azithromycin 250 ml @ 250 mls/hr 1X ONCE 02/13/20 11:45 02/13/20 12:44 DC 02/13/20 13:00 250 MLS/HR Brimonidine Tartrate (Alphagan) 1 drop QHS 02/14/20 21:00 02/14/20 20:37 1 DROP Ceftriaxone Sodium (Rocephin) 1 gm 1X ONCE 02/13/20 11:45 02/13/20 11:47 DC 02/13/20 13:00 1 GM Furosemide (Lasix) 40 mg 1X ONCE 02/14/20 15:00 02/14/20 15:01 DC 02/14/20 16:04 40 MG Heparin Sodium (Porcine) (Heparin Sodium) 5,000 unit Q8HRS 02/13/20 19:00 02/14/20 20:46 5,000 UNIT Hydralazine HCl (Apresoline) 25 mg TID 02/14/20 14:00 02/15/20 08:17 25 MG Meropenem 500 mg/ Sodium Chloride 50 ml @ 100 mls/hr Q12HR 02/13/20 21:00 02/14/20 20:37 100 MLS/HR Non-Formulary Medication (Albuterol Sulfate (Albuterol Sulfate Conc Neb Soln)) 2.5 mg QIDACHS 02/14/20 16:30 UNV Non-Formulary Medication (Brimonidine Tartrate/Timolol (Combigan Eye Drops)) 5 ml QHS 02/14/20 21:00 UNV Sennosides (Senna) 8.6 mg PRN DAILY PRN 02/14/20 13:30 Sodium Chloride 1,000 ml @ 1,000 mls/hr 1X ONCE 02/13/20 13:30 02/13/20 14:29 DC 02/13/20 13:46 1,000 MLS/HR Tamsulosin HCl (Flomax) 0.4 mg DAILY 02/14/20 14:00 02/15/20 08:16 0.4 MG Timolol Maleate (Timoptic 0.5% Oph) 1 drop BID 02/14/20 21:00 02/15/20 08:20 1 DROP Vitamin D (Vitamin D3) 1,000 unit DAILY 02/14/20 14:00 02/15/20 08:16 1,000 UNIT Results All relevant outside records, renal labs, imaging studies, telemetry/EKG's were reviewed. Justicifation of Admission Dx: Justifications for Admission: Justification of Admission Dx: N/A VARGAS ANGELO MD Feb 15, 2020 09:42
[2020-02-15 10:12] LABS: CALCIUM 8.7 mg/dL (8.5-10.1); CREATININE 4.3 mg/dL (0.7-1.3); GFR 16.2; POTASSIUM 3.9 mmol/L (3.5-5.1)
--- NOTE | 2020-02-15 10:32 | NUR ---
SS following up with discharge planning. SS reviewed pt chart and discussed with pt RN. Pt is currently on BIPAP at 40%. Pt on IV Meropenem. Creatinine 4.3. Nephrology and Pulmonology following. SS will continue to follow for discharge planning.
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
--- NOTE | 2020-02-15 13:15 | NUR ---
Called to Code Stroke in room 205. Upon arrival pt on 4LNC with sats at 87%. Pt alert looking around. Pt placed on bipap and saturations came up to 95%. extremities equal strength with no drift. Speech slightly garbled but still able to understand. NIH score of 1. When talking to the sister and the nephew they both stated that the patient has slightly garbled speech but this is more so than usual. They had not seen the patient since they had brought him in. BP 148/67 HR 70, RR22 Glucose 96 CT completed with results called with an old infarct. Addendum: 02/15/20 at 1322 by STEVE ROBB RN Amended: Links added. Addendum: 02/15/20 at 1326 by STEVE ROBB RN Cuff Presser also at the bedside. She was on the phone with Dr Toscano with patient condition. Pt to remain on the unit and family updated.
--- NOTE | 2020-02-15 13:20 | RAD ---
Examination: CT STROKE HEAD W/O History: Reason: speech difficulty / Comparison/Correlation: None Findings: Axial images of the head were obtained without contrast. Motion minimally limits evaluation of the third ventricle level. Marked calcific involvement of the falx is noted. No intracranial hemorrhage, midline shift, mass eff ect. Calcification of the tentorium. Atrophy and chronic ischemic changes are evident. Very small low-attenuation regions involving the le ft thalamus which probably represent old lacunar infarct is present. Bony structures are unremarkable . Impression: No intracranial hemorrhage. No evidence of acute infarct on this limited exam. Consider further imagi ng if infarct is a persistent concern. Left thalamic lacunar infarcts. Nurse Sebastien of the nursing [facility] was informed on 02/15/2020 at 1:17 PM. PQRS Compliance Statement: One or more of the following individualized dose reduction techniques were utilized for this examinat ion: 1. Automated exposure control 2. Adjustment of the mA and/or kV according to patient size 3. Use of iterative reconstruction technique Electronically signed by: Bharat Aceves MD (02/15/2020 1:17 PM) [id number]
[2020-02-15] MEDS: MEROPENEM 500 MG in IV NORMAL SALINE 50ML 50 ML IV SCH ×2 (15:38→22:51)
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
[2020-02-15] MEDS: ATORVASTATIN CALCIUM 20 MG TABLET PO SCH (22:51)
[2020-02-15] MEDS: BRIMONIDINE 0.2% OPHTH SOLUTION 5ML BOTTLE. OU SCH (22:51)
[2020-02-16] VITALS (15 sets, daily range): BP systolic 117–169; BP diastolic 47–77
[2020-02-16] MEDS: HEPARIN for SUB-Q USE 5,000 UNIT/ML VIAL. SQ SCH ×3 (06:22→20:49)
[2020-02-16] MEDS: hydrALAZINE 25 MG TABLET PO SCH ×4 (07:27→20:44)
[2020-02-16] MEDS: amLODIPine BESYLATE 10 MG TABLET PO SCH ×2 (07:29→08:33)
[2020-02-16] MEDS: ASPIRIN 325 MG TABLET PO SCH ×2 (07:29→08:33)
[2020-02-16] MEDS: CHOLECALCIFEROL (VITAMIN D3) 1,000 UNIT TABLET PO SCH ×2 (07:29→08:33)
[2020-02-16] MEDS: TAMSULOSIN 0.4 MG CAP.ER.24H. PO SCH ×2 (07:29→08:33)
--- NOTE | 2020-02-16 08:14 | PDOC ---
PULMONARY PROGRESS NOTES DATE: 02/16/20 TIME: 08:14 Subjective Patient is resting comfortably on 5 L nasal cannula, Planned for HD cath today Denies shortness of breath or chest pain No concerns from nursing overnight Vitals Vital Signs Date Time Temp Pulse Resp B/P (MAP) Pulse Ox O2 Delivery O2 Flow Rate FiO2 02/16/20 08:00 Nasal Cannula 5.0 02/16/20 02:47 98.0 67 18 169/77 (107) 98 98.0 ROS: No Nausea, No Chest Pain, No Abdominal Pain, No Increase Cough General: Alert, Oriented X4 Lungs: Crackles Cardiovascular: S1 Abdomen: Soft, Non-tender Neuro Exam: Alert Extremities: No Edema Skin: Warm, Dry Labs Laboratory Tests Test 02/15/20 09:20 02/15/20 12:46 Sodium Level 144 mmol/L (136-145) Potassium Level 3.9 mmol/L (3.5-5.1) Chloride Level 111 mmol/L (98-107) Carbon Dioxide Level 19 mmol/L (21-32) Anion Gap 14 (6-14) Blood Urea Nitrogen 69 mg/dL (8-26) Creatinine 4.3 mg/dL (0.7-1.3) Estimated GFR (Cockcroft-Gault) 16.2 Glucose Level 113 mg/dL (70-99) Calcium Level 8.7 mg/dL (8.5-10.1) Glucose (Fingerstick) 96 mg/dL (70-99) Laboratory Tests Test 02/15/20 09:20 02/15/20 12:46 Sodium Level 144 mmol/L (136-145) Potassium Level 3.9 mmol/L (3.5-5.1) Chloride Level 111 mmol/L (98-107) Carbon Dioxide Level 19 mmol/L (21-32) Anion Gap 14 (6-14) Blood Urea Nitrogen 69 mg/dL (8-26) Creatinine 4.3 mg/dL (0.7-1.3) Estimated GFR (Cockcroft-Gault) 16.2 Glucose Level 113 mg/dL (70-99) Calcium Level 8.7 mg/dL (8.5-10.1) Glucose (Fingerstick) 96 mg/dL (70-99) Medications Active Scripts Medications Dose Route/Sig Max Daily Dose Days Date Category Timoptic 0.5% (Timolol Maleate) 10 Ml Drops 1 Drop EACHEYE BID 30 02/13/20 Reported Senna (Sennosides) 8.6 Mg Tablet 8.6 Mg PO PRN DAILY PRN 02/13/20 Reported Tylenol (Acetaminophen) 325 Mg Tablet 650 Mg PO PRN Q6-8HRS PRN 02/13/20 Reported Albuterol Sulfate Conc Neb Soln (Albuterol Sulfate) 2.5 Mg/0.5 Ml Vial.neb 2.5 Mg NEB QIDACHS 02/13/20 Reported Hydralazine Hcl 50 Mg Tablet 75 Mg PO TID 02/13/20 Reported Lasix (Furosemide) 20 Mg Tablet 20 Mg PO DAILY 02/13/20 Reported Combigan Eye Drops (Brimonidine Tartrate/Timolol) 5 Ml Drops 5 Ml OP QHS 02/13/20 Reported Vitamin D3 (Cholecalciferol (Vitamin D3)) 50 Mcg Tablet 50 Mcg PO DAILY 02/13/20 Reported Atorvastatin Calcium 20 Mg Tablet 20 Mg PO HS 02/13/20 Reported Aspirin 325 Mg Tablet 325 Mg PO DAILY 02/13/20 Reported Tamsulosin Hcl 0.4 Mg Cap.er.24h 0.4 Mg PO DAILY 09/03/16 Reported Ferrous Sulfate 325 Mg Tablet 1 Tab PO DAILY 09/03/16 Reported Amlodipine Besylate 10 Mg Tablet 10 Mg PO DAILY 09/03/16 Reported Comments CXR IMPRESSION: 1. Diffuse left greater than right lung interstitial infiltrate. 2. Enlargement of the cardiac silhouette. Impression . IMPRESSION: 1. Acute hypoxemic respiratory failure. 2. Acute on chronic systolic and diastolic heart failure. 3. Possible pneumonia. 4. [id number] negative. 5. Chronic obstructive pulmonary disease with acute exacerbation. 6. Possible aspiration pneumonia. 7. Acute on chronic kidney injury. 8. Mildly elevated troponin. 9. Acute metabolic encephalopathy. Plan . Continue supplemental oxygen to keep oxygen saturations greater than 92%, currently on 5 liters N/C D/C BIPAP Continue antibiotics, currently on meropenem Follow nephrology recommendations-- planned for HD cath today Diuresis per nephrology COVID-19 negative DVT/GI prophylaxis Physical therapy/Occupational Therapy Discussed with ANIBAL BARCENAS MD Feb 16, 2020 08:14
[2020-02-16] MEDS: TIMOLOL 0.5% OPHTH SOLUTION 5ML BOTTLE. OU SCH ×2 (08:34→20:44)
[2020-02-16] MEDS: MEROPENEM 500 MG in IV NORMAL SALINE 50ML 50 ML IV SCH (08:36)
[2020-02-16] MEDS: ALBUTEROL SULFATE 2.5 MG/3 ML NEBU. NEB SCH ×4 (08:48→18:30)
[2020-02-16 10:42] LABS: CALCIUM 8.4 mg/dL (8.5-10.1); CREATININE 4.7 mg/dL (0.7-1.3); GFR 14.6; POTASSIUM 4.1 mmol/L (3.5-5.1)
--- NOTE | 2020-02-16 11:43 | NUR ---
SS following up with discharge planning. SS reviewed pt chart and discussed with pt RN. Pt is currently requiring oxygen. COVID19 negative. Pt on IV Meropenem. Nephrology following. Probable need for dialysis placement. Labs ordered. PT/OT ordered. PT recommended home with assistance. SS will continue to follow for discharge planning.
--- NOTE | 2020-02-16 11:57 | PDOC ---
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 Plan Treat medical diseases No need for any stroke work-up or treatment Continue aspirin and statin Discussed with patient and family. Subjective No complaints Objective Vital Signs Date Time Temp Pulse Resp B/P (MAP) Pulse Ox O2 Delivery O2 Flow Rate FiO2 02/16/20 11:48 Nasal Cannula 5.0 02/16/20 10:40 98.1 63 22 159/59 (92) 93 98.1 Intake and Output 02/16/20 07:00 Intake Total 795 ml Output Total 700 ml Balance 95 ml Intake Oral 795 ml Output Urine Total 700 ml PHYSICAL EXAM Alert. Oriented to place and person. Right eye is blind and exotropic, there is also ptosis of the right eye CN: no focal findings. Muscle tone: normal. Muscle strength: 5/5 DTR: 1+ Plantar reflex: flexor Gait: not examined in bed. Sensory exam:stocking loss. No cerebellar signs elicited. Review of Relevant I have reviewed the following items kate (where applicable) has been applied. Labs Laboratory Tests Test 02/15/20 09:20 02/15/20 12:46 02/16/20 09:55 Sodium Level 144 mmol/L (136-145) 145 mmol/L (136-145) Potassium Level 3.9 mmol/L (3.5-5.1) 4.1 mmol/L (3.5-5.1) Chloride Level 111 mmol/L (98-107) 113 mmol/L (98-107) Carbon Dioxide Level 19 mmol/L (21-32) 20 mmol/L (21-32) Anion Gap 14 (6-14) 12 (6-14) Blood Urea Nitrogen 69 mg/dL (8-26) 70 mg/dL (8-26) Creatinine 4.3 mg/dL (0.7-1.3) 4.7 mg/dL (0.7-1.3) Estimated GFR (Cockcroft-Gault) 16.2 14.6 Glucose Level 113 mg/dL (70-99) 79 mg/dL (70-99) Calcium Level 8.7 mg/dL (8.5-10.1) 8.4 mg/dL (8.5-10.1) Glucose (Fingerstick) 96 mg/dL (70-99) Prothrombin Time 16.0 SEC (11.7-14.0) Prothromb Time International Ratio 1.3 (0.8-1.1) Laboratory Tests Test 02/15/20 12:46 02/16/20 09:55 Glucose (Fingerstick) 96 mg/dL (70-99) Prothrombin Time 16.0 SEC (11.7-14.0) Prothromb Time International Ratio 1.3 (0.8-1.1) Sodium Level 145 mmol/L (136-145) Potassium Level 4.1 mmol/L (3.5-5.1) Chloride Level 113 mmol/L (98-107) Carbon Dioxide Level 20 mmol/L (21-32) Anion Gap 12 (6-14) Blood Urea Nitrogen 70 mg/dL (8-26) Creatinine 4.7 mg/dL (0.7-1.3) Estimated GFR (Cockcroft-Gault) 14.6 Glucose Level 79 mg/dL (70-99) Calcium Level 8.4 mg/dL (8.5-10.1) Microbiology 02/13/20 Urine Culture - Final, Complete 02/13/20 Blood Culture - Preliminary, Resulted NO GROWTH AFTER 2 DAYS Medications Current Medications Ceftriaxone Sodium (Rocephin) 1 gm 1X ONCE IVP Last administered on 02/13/20at 13:00; Start 02/13/20 at 11:45; Stop 02/13/20 at 11:47; Status DC Azithromycin 250 ml @ 250 mls/hr 1X ONCE IV Last administered on 02/13/20at 13:00; Start 02/13/20 at 11:45; Stop 02/13/20 at 12:44; Status DC Sodium Chloride 1,000 ml @ 100 mls/hr Q10H IV Last administered on 02/14/20at 09:45; Start 02/13/20 at 13:00; Stop 02/14/20 at 12:59; Status DC Sodium Chloride 500 ml @ 500 mls/hr 1X ONCE IV Last administered on 02/13/20at 13:47; Start 02/13/20 at 13:30; Stop 02/13/20 at 14:29; Status DC Sodium Chloride 1,000 ml @ 1,000 mls/hr 1X ONCE IV Last administered on 02/13/20at 13:46; Start 02/13/20 at 13:30; Stop 02/13/20 at 14:29; Status DC Heparin Sodium (Porcine) (Heparin Sodium) 5,000 unit Q8HRS SQ Last administered on 02/16/20at 06:22; Start 02/13/20 at 19:00 Meropenem 500 mg/ Sodium Chloride 50 ml @ 100 mls/hr Q12HR IV Last administered on 02/16/20at 08:36; Start 02/13/20 at 21:00 Amlodipine Besylate (Norvasc) 10 mg DAILY PO Last administered on 02/16/20at 08:33; Start 02/14/20 at 14:00 Aspirin (Zaida Aspirin) 325 mg DAILY PO Last administered on 02/16/20 08:33; Start 02/14/20 at 14:00 Atorvastatin Calcium (Lipitor) 20 mg HS PO Last administered on 02/15/20at 22:51; Start 02/14/20 at 21:00 Hydralazine HCl (Apresoline) 25 mg TID PO Last administered on 02/16/20at 08: 34; Start 02/14/20 at 14:00 Sennosides (Senna) 8.6 mg PRN DAILY PRN PO CONSTIPATION; Start 02/14/20 at 13:30 Tamsulosin HCl (Flomax) 0.4 mg DAILY PO Last administered on 02/16/20at 08:33; Start 02/14/20 at 14:00 Timolol Maleate (Timoptic 0.5% [facility]) 1 drop BID OU Last administered on 02/16/20at 08:34; Start 02/14/20 at 21:00 Non-Formulary Medication (Albuterol Sulfate (Albuterol Sulfate Conc Neb Soln)) 2.5 mg QIDACHS NEB ; Start 02/14/20 at 16:30; Status UNV Non-Formulary Medication (Brimonidine Tartrate/Timolol (Combigan Eye Drops)) 5 ml QHS OP ; Start 02/14/20 at 21:00; Status UNV Vitamin D (Vitamin D3) 1,000 unit DAILY PO Last administered on 02/16/20at 08:33; Start 02/14/20 at 14:00 Albuterol Sulfate (Ventolin Neb Soln) 2.5 mg RTQID NEB Last administered on 02/16/20at 11:47; Start 02/14/20 at 16:00 Brimonidine Tartrate (Alphagan) 1 drop QHS OU Last administered on 02/15/20at 22:51; Start 02/14/20 at 21:00 Furosemide (Lasix) 40 mg 1X ONCE IVP Last administered on 02/14/20at 16:04; Start 02/14/20 at 15:00; Stop 02/14/20 at 15:01; Status DC Active Scripts Active Reported Timoptic 0.5% (Timolol Maleate) 10 Ml Drops 1 Drop EACHEYE BID 30 Days Senna (Sennosides) 8.6 Mg Tablet 8.6 Mg PO PRN DAILY PRN Tylenol (Acetaminophen) 325 Mg Tablet 650 Mg PO PRN Q6-8HRS PRN Albuterol Sulfate Conc Neb Soln (Albuterol Sulfate) 2.5 Mg/0.5 Ml Vial.neb 2.5 Mg NEB QIDACHS Hydralazine Hcl 50 Mg Tablet 75 Mg PO TID Lasix (Furosemide) 20 Mg Tablet 20 Mg PO DAILY Combigan Eye Drops (Brimonidine Tartrate/Timolol) 5 Ml Drops 5 Ml OP QHS Vitamin D3 (Cholecalciferol (Vitamin D3)) 50 Mcg Tablet 50 Mcg PO DAILY Atorvastatin Calcium 20 Mg Tablet 20 Mg PO HS Aspirin 325 Mg Tablet 325 Mg PO DAILY Tamsulosin Hcl 0.4 Mg Cap.er.24h 0.4 Mg PO DAILY Ferrous Sulfate 325 Mg Tablet 1 Tab PO DAILY Amlodipine Besylate 10 Mg Tablet 10 Mg PO DAILY Vitals/I & O Vital Sign - Last 24 Hours 02/15/20 02/15/20 02/15/20 02/15/20 15:00 15:37 15:57 19:40 Temp 97.3 98.2 97.3 98.2 Pulse 64 74 64 Resp 20 20 B/P (MAP) 148/72 (97) 148/67 133/61 (85) Pulse Ox 96 94 O2 Delivery Nasal Cannula Nasal Cannula Nasal Cannula O2 Flow Rate 5.0 5.0 5.0 02/15/20 02/15/20 02/15/20 02/15/20 20:00 20:02 22:38 22:51 Temp 97.7 97.7 Pulse 65 65 Resp 22 B/P (MAP) 151/62 (91) 151/62 Pulse Ox 97 96 O2 Delivery Nasal Cannula Nasal Cannula Nasal Cannula O2 Flow Rate 5.0 5.0 5.0 02/16/20 02/16/20 02/16/20 02/16/20 00:34 02:47 07:00 08:00 Temp 98.0 98.2 98.0 98.2 Pulse 67 69 Resp 18 20 B/P (MAP) 169/77 (107) 154/67 (96) Pulse Ox 97 98 98 O2 Delivery BiPAP/CPAP Nasal Cannula Nasal Cannula Nasal Cannula O2 Flow Rate 5.0 5.0 5.0 02/16/20 02/16/20 02/16/20 02/16/20 08:33 08:34 08:50 10:40 Temp 98.1 98.1 Pulse 68 68 63 Resp 22 B/P (MAP) 154/67 154/67 159/59 (92) Pulse Ox 97 93 O2 Delivery Nasal Cannula Nasal Cannula O2 Flow Rate 5.0 5.0 02/16/20 11:48 O2 Delivery Nasal Cannula O2 Flow Rate 5.0 Intake and Output 02/15/20 02/15/20 02/16/20 15:00 23:00 07:00 Intake Total 475 ml 320 ml Output Total 400 ml 300 ml Balance 475 ml -80 ml -300 ml Justicifation of Admission Dx: Justifications for Admission: Justification of Admission Dx: N/A PETRONA HUNT MD Feb 16, 2020 11:57
--- NOTE | 2020-02-16 11:58 | PDOC ---
DATE OF SERVICE DATE: 02/16/20 TIME: 11:50 SUBJECTIVE ROS Stable , sitting up in chair, not in distress family at bedside OBJECTIVE Vital Signs Vital Signs Date Time Temp Pulse Resp B/P (MAP) Pulse Ox O2 Delivery O2 Flow Rate FiO2 02/16/20 11:48 Nasal Cannula 5.0 02/16/20 10:40 98.1 63 22 159/59 (92) 93 98.1 I & 0 Intake and Output 02/16/20 07:00 Intake Total 795 ml Output Total 700 ml Balance 95 ml Intake Oral 795 ml Output Urine Total 700 ml PHYSICAL EXAM Physical Exam General: NAD, sitting up in chair HEENT: On o2 by NC 5 lts Neck supple Lungs: CTA ant , non labored Heart: RRR, Abdomen: Normal bowel sounds, Soft, No tenderness Extremities: No cyanosis Skin: No breakdown, No significant lesion Neuro: Cranial nerves 3-12 NL [place] + DIAGNOSIS/ASSESSMENT Assessment & Plan KIA on CKD Likely progression to ESRD Recommend initiating HD, Tunnelled HDC ordered Discussed and explained to sister, other family member and patient at great length about Dialysis, Modalitues, side effects etc . Sister reports she doesnt know what it entails , they did not attend any CV visit . Answered all questi ons, showed them pictures they verbalized understanding She called pt's felt tipping machine tender office and she reports that the also agree that he should be initiated on dialysis SW consult for OP chair time CKD stage 4- Reviewed records from felt tipping machine tender - Dr. De La Torre - Pt seen in August and Oct with Cr of 3 cw CKD stage 4 He was seen in Dec as well, complete records not faxed to us . Dialysis has been discussed by Dr. De La Torre per pt's sister but he doesnt have access for dialysis or Dialysis education per sister 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 per records Ac Resp Failure - Currently on Bipap , CoVid negative Abnormal CxR- Diffuse left greater than right lung interstitial infiltrate. Enlargement of the cardiac silhouette. Anemia- Chronic anemia Hx of CAD with stent COPD hypertension- antihypertensives Diabetes TIA 2012, right eye blindness and cognitive delay COMMENT/RELEVANT DATA Meds Current Medications Medications (Trade) Dose Ordered Sig/Ramin Start Time Stop Time Status Last Admin Dose Admin Albuterol Sulfate (Ventolin Neb Soln) 2.5 mg RTQID 02/14/20 16:00 02/16/20 11:47 2.5 MG Amlodipine Besylate (Norvasc) 10 mg DAILY 02/14/20 14:00 02/16/20 08:33 10 MG Aspirin (Zaida Aspirin) 325 mg DAILY 02/14/20 14:00 02/16/20 08:33 325 MG Atorvastatin Calcium (Lipitor) 20 mg HS 02/14/20 21:00 02/15/20 22:51 20 MG Azithromycin 250 ml @ 250 mls/hr 1X ONCE 02/13/20 11:45 02/13/20 12:44 DC 02/13/20 13:00 250 MLS/HR Brimonidine Tartrate (Alphagan) 1 drop QHS 02/14/20 21:00 02/15/20 22:51 1 DROP Ceftriaxone Sodium (Rocephin) 1 gm 1X ONCE 02/13/20 11:45 02/13/20 11:47 DC 02/13/20 13:00 1 GM Furosemide (Lasix) 40 mg 1X ONCE 02/14/20 15:00 02/14/20 15:01 DC 02/14/20 16:04 40 MG Heparin Sodium (Porcine) (Heparin Sodium) 5,000 unit Q8HRS 02/13/20 19:00 02/16/20 06:22 5,000 UNIT Hydralazine HCl (Apresoline) 25 mg TID 02/14/20 14:00 02/16/20 08:34 25 MG Meropenem 500 mg/ Sodium Chloride 50 ml @ 100 mls/hr Q12HR 02/13/20 21:00 02/16/20 08:36 100 MLS/HR Non-Formulary Medication (Albuterol Sulfate (Albuterol Sulfate Conc Neb Soln)) 2.5 mg QIDACHS 02/14/20 16:30 UNV Non-Formulary Medication (Brimonidine Tartrate/Timolol (Combigan Eye Drops)) 5 ml QHS 02/14/20 21:00 UNV Sennosides (Senna) 8.6 mg PRN DAILY PRN 02/14/20 13:30 Sodium Chloride 1,000 ml @ 1,000 mls/hr 1X ONCE 02/13/20 13:30 02/13/20 14:29 DC 02/13/20 13:46 1,000 MLS/HR Tamsulosin HCl (Flomax) 0.4 mg DAILY 02/14/20 14:00 02/16/20 08:33 0.4 MG Timolol Maleate (Timoptic 0.5% Oph) 1 drop BID 02/14/20 21:00 02/16/20 08:34 1 DROP Vitamin D (Vitamin D3) 1,000 unit DAILY 02/14/20 14:00 02/16/20 08:33 1,000 UNIT Lab Laboratory Tests Test 02/15/20 12:46 02/16/20 09:55 Glucose (Fingerstick) 96 mg/dL (70-99) Prothrombin Time 16.0 SEC (11.7-14.0) Prothromb Time International Ratio 1.3 (0.8-1.1) Sodium Level 145 mmol/L (136-145) Potassium Level 4.1 mmol/L (3.5-5.1) Chloride Level 113 mmol/L (98-107) Carbon Dioxide Level 20 mmol/L (21-32) Anion Gap 12 (6-14) Blood Urea Nitrogen 70 mg/dL (8-26) Creatinine 4.7 mg/dL (0.7-1.3) Estimated GFR (Cockcroft-Gault) 14.6 Glucose Level 79 mg/dL (70-99) Calcium Level 8.4 mg/dL (8.5-10.1) Results All relevant outside records, renal labs, imaging studies, telemetry/EKG's were reviewed. Justicifation of Admission Dx: Justifications for Admission: Justification of Admission Dx: N/A VARGAS ANGELO MD Feb 16, 2020 11:58
--- NOTE | 2020-02-16 12:13 | PDOC ---
[employer] PROGRESS NOTE Date of Service DOS: DATE: 02/16/20 TIME: 12:10 Chief Complaint Chief Complaint Pneumonia, aspiration Diffuse left greater than right lung interstitial infiltrate. diabetes Acute on chronic kidney injury due to vasomotor nephropathy discussion for possible initiation of dialysis Acute hypoxic respiratory failure Sepsis MILDLY ELEVATED TROPONIN I, SUSPECT TYPE 2 ISCHEMIA DUE TO HYPOXIA PUI COVID 19 Acute metabolic encephalopathy CHF Currently n.p.o., pending dialysis catheter placement Continue with IV empiric antibiotics Appreciate nephrology recommendationshold Lasix at this time and pending records and will determine the need for dialysis after data obtained. History of Present Illness History of Present Illness 02/16/[address] negative showing showing subthalamic infarct which is old. No acute neuro focal neurological deficits this time. Patient is able to saturate well on 93% 5 L nasal cannula. Patient will likely need to be dialyzed for his oxygenation to improve. BiPAP as needed to continue. Speech evaluation pending. Patient's chart, labs, images were reviewed and discussed with RN 02/15/2020 No acute events overnight. Patient remains afebrile. Saturating 94% on 3 L nasal cannula with decreasing oxygen requirements. BiPAP only as needed and at night. Lasix 1 time given yesterday. 1 kg negative today. Family did notice that the patient had some slurred speech and may be some expressive aphasia. Head CT was ordered to rule stroke rule out. Patient's chart, labs, images were reviewed and discussed with RN Patient is an 80-year-old male with past medical history of hypertension and CKD, COPD, diabetes, dyslipidemia, TIA in 2012 and mild dementia who presents with complaints of shortness of breath and labored breathing. Patient with risks with his sister when they were in route to the emergency department but he was unable to make it due to worsening shortness of breath and therefore they did went to the fire department instead. Patient does follow with a bag builder at and states that he is close to requiring dialysis, this history was obtained from his sister. Patient has low health literacy and does not understand the severity of his kidney disease. Patient is requiring BiPAP at night and is currently on nasal cannula saturating at 90%. Vitals/I&O Vitals/I&O: Vital Signs Date Time Temp Pulse Resp B/P (MAP) Pulse Ox O2 Delivery O2 Flow Rate FiO2 02/16/20 11:48 Nasal Cannula 5.0 02/16/20 10:40 98.1 63 22 159/59 (92) 93 98.1 I & O 02/15/20 02/15/20 02/16/20 15:00 23:00 07:00 Intake Total 475 ml 320 ml Output Total 400 ml 300 ml Balance 475 ml -80 ml -300 ml Physical Exam General: Cooperative, moderate distress Lungs: Crackles Abdomen: Normal bowel sounds, Soft, No tenderness Extremities: No cyanosis Skin: No breakdown, No significant lesion Labs Labs: Laboratory Tests Test 02/15/20 12:46 02/16/20 09:55 Glucose (Fingerstick) 96 mg/dL (70-99) Prothrombin Time 16.0 SEC (11.7-14.0) Prothromb Time International Ratio 1.3 (0.8-1.1) Sodium Level 145 mmol/L (136-145) Potassium Level 4.1 mmol/L (3.5-5.1) Chloride Level 113 mmol/L (98-107) Carbon Dioxide Level 20 mmol/L (21-32) Anion Gap 12 (6-14) Blood Urea Nitrogen 70 mg/dL (8-26) Creatinine 4.7 mg/dL (0.7-1.3) Estimated GFR (Cockcroft-Gault) 14.6 Glucose Level 79 mg/dL (70-99) Calcium Level 8.4 mg/dL (8.5-10.1) Hepatitis B Surface Antigen Nonreactive (Nonreactive) Assessment and Plan Assessmemt and Plan Problems Medical Problems: (1) CAP (community acquired pneumonia) Status: Acute (2) Elevated troponin Status: Acute (3) HCAP (healthcare-associated pneumonia) Status: Acute (4) Person under investigation for COVID-19 Status: Acute (5) Sepsis with acute hypoxic respiratory failure Status: Acute (6) UTI (urinary tract infection) Status: Acute Comment Review of Relevant I have reviewed the following items kate (where applicable) has been applied. Justifications for Admission Other Justification LEXIS KAUR MD Feb 16, 2020 12:13
[2020-02-16] MEDS ORDERED: LIDOCAINE 1%/EPI 1:100,000 20 ML VIAL. ONE (12:22)
[2020-02-16] MEDS ORDERED: ceFAZolin SODIUM IV Push 1 GM VIAL. IVP ONE ×2 (12:26→12:30)
[2020-02-16] MEDS ORDERED: MIDAZOLAM HCL/PF 2 MG/2 ML VIAL. ONE (12:26)
[2020-02-16] MEDS ORDERED: fentaNYL PF VIAL 100 MCG/2 ML VIAL ONE (12:27)
[2020-02-16] MEDS ORDERED: MIDAZOLAM HCL/PF 2 MG/2 ML VIAL. IV ONE (12:30)
[2020-02-16] MEDS ORDERED: LIDOCAINE 1%/EPI 1:100,000 20 ML VIAL. SQ ONE (12:30)
[2020-02-16] MEDS ORDERED: fentaNYL PF VIAL 100 MCG/2 ML VIAL IV ONE (12:30)
--- NOTE | 2020-02-16 13:25 | PDOC ---
BRIEF OPERATIVE NOTE Pre-Op Diagnosis ARF Post-Op Diagnosis same Procedure Performed Tunnelled HD catheter Surgeon [place] Anesthesia Type: Conscious Sedation Findings 23 cm Palindrome with excellent manual flows Complications No immediate SENDY CHOWDHURY MD Feb 16, 2020 13:25
--- NOTE | 2020-02-16 16:21 | RAD ---
Procedure: Tunneled hemodialysis catheter placement Clinical Indication: Adult male with acute renal failure requiring hemodialysis Sedation: Conscious sedation was administered for 30 minutes. The patient was monitored by a qualified independent observer throughout the time of sedation. Please refer to the medical record for exact doses of medications utilized to achieve moderate sedation. Antibiotics: Antibiotic was administered intravenously within 1 hour of the procedure start time. Fluoro Time: 0.4 minutes, images: 1 Sterility: All elements of maximal sterile barrier technique including the use of a cap, mask, sterile gown, sterile gloves, large sterile sheet, appropriate hand hygiene, and 2% chlorhexidine for cutaneous antisepsis (or acceptable alternative antiseptic per current guidelines) were followed for this procedure. Consent: The procedure was explained in its entirety to the patient or the patients designated client support representative by a member of the treatment team, including a discussion of the risks, benefits and commonly accepted alternatives to the procedure, as well as the expected consequences of no therapy whatsoever. Discussion of the risks included, but was not limited to, those that are most frequent and those that are rare but possibly severe or life-threatening, as well as the possibility of unforeseen complications. Technique and Findings: Following informed consent, the patient was prepped and draped in the usual sterile fashion. Ultrasound interrogation of the right neck revealed patency and compressibility of the right internal jugular vein. A 21-gauge micropuncture was then used to gain access to this vein under ultrasound guidance. A hard copy ultrasound image was recorded. The needle was exchanged over a wire for a 4 [place] sheath which was used to guide an Amplatz wire into the IVC. The skin over the right anterior chest wall was copiously anesthetized with 1% Lidocaine plus Epinephrine and a small dermatotomy was made. A 23 cm palindrome tunneled hemodialysis catheter was then tunneled subcutaneously towards the neck dermatotomy and deployed through a large caliber peel-away sheath under fluoroscopic guidance such that the distal tip resided in the mid right atrium. Manual flow rates were assessed and found to be excellent. The catheter was then flushed, packed with Heparin, capped, and sutured to the skin. The neck dermatotomy was closed with Dermabond. Complications: No immediate Impression: 1. Tunneled hemodialysis catheter placement as described. This catheter demonstrates excellent manual flow rates and is suitable for use immediately.
[2020-02-16] MEDS ORDERED: DIALYSIS PATIENT. MC PRN ×2 (16:45)
[2020-02-16] MEDS: BRIMONIDINE 0.2% OPHTH SOLUTION 5ML BOTTLE. OU SCH (20:43)
[2020-02-16] MEDS: ATORVASTATIN CALCIUM 20 MG TABLET PO SCH (20:44)
[2020-02-16] MEDS: LACTOBACILLUS RHAMNOSUS GG 1 CAPSULE. PO SCH (20:44)
[2020-02-17 03:29] VITALS: BP 135/69
[2020-02-17] MEDS: HEPARIN for SUB-Q USE 5,000 UNIT/ML VIAL. SQ SCH ×3 (06:14→23:28)
[2020-02-17 07:00] VITALS: BP 125/53
[2020-02-17] MEDS: ALBUTEROL SULFATE 2.5 MG/3 ML NEBU. NEB SCH ×4 (08:23→20:17)
--- NOTE | 2020-02-17 09:31 | PDOC ---
PULMONARY PROGRESS NOTES DATE: 02/17/20 TIME: 09:31 Subjective Patient is resting comfortably on 5 L nasal cannula, Denies shortness of breath or chest pain No concerns from nursing overnight Vitals Vital Signs Date Time Temp Pulse Resp B/P (MAP) Pulse Ox O2 Delivery O2 Flow Rate FiO2 02/17/20 08:23 99 Nasal Cannula 5.0 02/17/20 07:00 98.3 79 22 125/53 (77) 98.3 ROS: No Nausea, No Chest Pain, No Abdominal Pain, No Increase Cough General: Alert, Oriented X4 Lungs: Crackles Cardiovascular: S1 Abdomen: Soft, Non-tender Neuro Exam: Alert Extremities: No Edema Skin: Warm, Dry Labs Laboratory Tests Test 02/15/20 12:46 02/16/20 09:55 Glucose (Fingerstick) 96 mg/dL (70-99) Prothrombin Time 16.0 SEC (11.7-14.0) Prothromb Time International Ratio 1.3 (0.8-1.1) Activated Partial Thromboplast Time 31 SEC (24-38) Sodium Level 145 mmol/L (136-145) Potassium Level 4.1 mmol/L (3.5-5.1) Chloride Level 113 mmol/L (98-107) Carbon Dioxide Level 20 mmol/L (21-32) Anion Gap 12 (6-14) Blood Urea Nitrogen 70 mg/dL (8-26) Creatinine 4.7 mg/dL (0.7-1.3) Estimated GFR (Cockcroft-Gault) 14.6 Glucose Level 79 mg/dL (70-99) Calcium Level 8.4 mg/dL (8.5-10.1) Hepatitis B Surface Antigen Nonreactive (Nonreactive) Hepatitis B Surface Antibody, Quant <3.1 mIU/mL (Immunity>9.9) Hepatitis B Core Total Antibody Nonreactive (Nonreactive) Laboratory Tests Test 02/16/20 09:55 Prothrombin Time 16.0 SEC (11.7-14.0) Prothromb Time International Ratio 1.3 (0.8-1.1) Activated Partial Thromboplast Time 31 SEC (24-38) Sodium Level 145 mmol/L (136-145) Potassium Level 4.1 mmol/L (3.5-5.1) Chloride Level 113 mmol/L (98-107) Carbon Dioxide Level 20 mmol/L (21-32) Anion Gap 12 (6-14) Blood Urea Nitrogen 70 mg/dL (8-26) Creatinine 4.7 mg/dL (0.7-1.3) Estimated GFR (Cockcroft-Gault) 14.6 Glucose Level 79 mg/dL (70-99) Calcium Level 8.4 mg/dL (8.5-10.1) Hepatitis B Surface Antigen Nonreactive (Nonreactive) Hepatitis B Surface Antibody, Quant <3.1 mIU/mL (Immunity>9.9) Hepatitis B Core Total Antibody Nonreactive (Nonreactive) Medications Active Scripts Medications Dose Route/Sig Max Daily Dose Days Date Category Timoptic 0.5% (Timolol Maleate) 10 Ml Drops 1 Drop EACHEYE BID 30 02/13/20 Reported Senna (Sennosides) 8.6 Mg Tablet 8.6 Mg PO PRN DAILY PRN 02/13/20 Reported Tylenol (Acetaminophen) 325 Mg Tablet 650 Mg PO PRN Q6-8HRS PRN 02/13/20 Reported Albuterol Sulfate Conc Neb Soln (Albuterol Sulfate) 2.5 Mg/0.5 Ml Vial.neb 2.5 Mg NEB QIDACHS 02/13/20 Reported Hydralazine Hcl 50 Mg Tablet 75 Mg PO TID 02/13/20 Reported Lasix (Furosemide) 20 Mg Tablet 20 Mg PO DAILY 02/13/20 Reported Combigan Eye Drops (Brimonidine Tartrate/Timolol) 5 Ml Drops 5 Ml OP QHS 02/13/20 Reported Vitamin D3 (Cholecalciferol (Vitamin D3)) 50 Mcg Tablet 50 Mcg PO DAILY 02/13/20 Reported Atorvastatin Calcium 20 Mg Tablet 20 Mg PO HS 02/13/20 Reported Aspirin 325 Mg Tablet 325 Mg PO DAILY 02/13/20 Reported Tamsulosin Hcl 0.4 Mg Cap.er.24h 0.4 Mg PO DAILY 09/03/16 Reported Ferrous Sulfate 325 Mg Tablet 1 Tab PO DAILY 09/03/16 Reported Amlodipine Besylate 10 Mg Tablet 10 Mg PO DAILY 09/03/16 Reported Comments CXR IMPRESSION: 1. Diffuse left greater than right lung interstitial infiltrate. 2. Enlargement of the cardiac silhouette. Impression . IMPRESSION: 1. Acute hypoxemic respiratory failure. 2. Acute on chronic systolic and diastolic heart failure. 3. Possible pneumonia. 4. [id number] negative. 5. Chronic obstructive pulmonary disease with acute exacerbation. 6. Possible aspiration pneumonia. 7. Acute on chronic kidney injury. 8. Mildly elevated troponin. 9. Acute metabolic encephalopathy. Plan . Continue supplemental oxygen to keep oxygen saturations greater than 92%, currently on 5 liters N/C Continue antibiotics, currently on meropenem Follow nephrology recommendations Diuresis per nephrology COVID-19 negative DVT/GI prophylaxis Physical therapy/Occupational Therapy Discussed with ANIBAL BARCENAS MD Feb 17, 2020 09:31
--- NOTE | 2020-02-17 09:48 | NUR ---
SS following up with discharge planning. SS reviewed pt chart and discussed with pt RN. Pt is currently requiring oxygen. COVID19 negative. Pt on IV Meropenem. PT/OT recommended home with assistance. SS phoned and faxed completed referral to [facility], ; fax [phone]. SS currently awaiting confirmed chair time and placement. SS will continue to follow for discharge planning.
[2020-02-17 09:54] LABS: CALCIUM 8.3 mg/dL (8.5-10.1); CREATININE 3.9 mg/dL (0.7-1.3); GFR 18.1; POTASSIUM 3.9 mmol/L (3.5-5.1)
[2020-02-17 11:00] VITALS: BP 159/63
--- NOTE | 2020-02-17 11:03 | PDOC ---
DATE OF SERVICE DATE: 02/17/20 TIME: 10:58 SUBJECTIVE ROS Stable initiated on HD on 02/15, no concerns voiced OBJECTIVE Vital Signs Vital Signs Date Time Temp Pulse Resp B/P (MAP) Pulse Ox O2 Delivery O2 Flow Rate FiO2 02/17/20 08:23 99 Nasal Cannula 5.0 02/17/20 07:00 98.3 79 22 125/53 (77) 98.3 I & 0 Intake and Output 02/17/20 07:00 Intake Total 275 ml Output Total 601 ml Balance -326 ml Intake Oral 275 ml Output Urine Total 600 ml Stool Total 1 ml # Bowel Movements 3 PHYSICAL EXAM Physical Exam General: NAD, sitting up in chair HEENT: On o2 by NC 5 lts Neck supple Lungs: CTA ant , non labored Heart: RRR, Abdomen: Normal bowel sounds, Soft, No tenderness Extremities: No cyanosis Skin: No breakdown, No significant lesion Neuro: Cranial nerves 3-12 NL Riojas + DIAGNOSIS/ASSESSMENT Assessment & Plan New Onset ESRD - baseline CKD4, Initiated on HD on 02/15 Voiding trial prior to dc, currently has riojas 2nd treatment today , discussed treatment plan with Poly Howard on 02/15 , awaiting OP chair time CKD stage 4- Reviewed records from bar steward - Dr. De La Torre - Pt seen in August and Oct with Cr of 3 cw CKD stage 4 He was seen in Dec as well, complete records not faxed to us . Dialysis has been discussed by Dr. De La Torre per pt's sister but he doesnt have access for dialysis or Dialysis education per sister 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 per records Ac Resp Failure - Currently on Bipap , CoVid negative Abnormal CxR- Diffuse left greater than right lung interstitial infiltrate. Enlargement of the cardiac silhouette. Anemia- Chronic anemia Hx of CAD with stent COPD hypertension- antihypertensives Diabetes TIA 2012, right eye blindness and cognitive delay COMMENT/RELEVANT DATA Meds Current Medications Medications (Trade) Dose Ordered Sig/Ramin Start Time Stop Time Status Last Admin Dose Admin Albuterol Sulfate (Ventolin Neb Soln) 2.5 mg RTQID 02/14/20 16:00 02/17/20 08:23 2.5 MG Amlodipine Besylate (Norvasc) 10 mg DAILY 02/14/20 14:00 02/16/20 08:33 10 MG Aspirin (Zaida Aspirin) 325 mg DAILY 02/14/20 14:00 02/16/20 08:33 325 MG Atorvastatin Calcium (Lipitor) 20 mg HS 02/14/20 21:00 02/16/20 20:44 20 MG Azithromycin 250 ml @ 250 mls/hr 1X ONCE 02/13/20 11:45 02/13/20 12:44 DC 02/13/20 13:00 250 MLS/HR Brimonidine Tartrate (Alphagan) 1 drop QHS 02/14/20 21:00 02/16/20 20:43 1 DROP Cefazolin Sodium (Ancef) 1 gm STK-MED ONCE 02/16/20 12:26 02/16/20 12:27 DC Ceftriaxone Sodium (Rocephin) 1 gm 1X ONCE 02/13/20 11:45 02/13/20 11:47 DC 02/13/20 13:00 1 GM Fentanyl Citrate (Fentanyl 2ml Vial) 100 mcg STK-MED ONCE 02/16/20 12:27 02/16/20 12:27 DC Furosemide (Lasix) 40 mg 1X ONCE 02/14/20 15:00 02/14/20 15:01 DC 02/14/20 16:04 40 MG Heparin Sodium (Porcine) (Heparin Sodium) 5,000 unit Q8HRS 02/13/20 19:00 02/17/20 06:14 5,000 UNIT Hydralazine HCl (Apresoline) 25 mg TID 02/14/20 14:00 02/16/20 20:44 25 MG Info (PHARMACY MONITORING -- do not chart) 1 each PRN DAILY PRN 02/16/20 16:45 Lactobacillus Rhamnosus (Culturelle) 1 cap BID 02/16/20 21:00 02/16/20 20:44 1 CAP Lidocaine/ Epinephrine (LIDOCAINE 1%-EPI 1:100,000 Multi-Dose) 20 ml 1X ONCE 02/16/20 12:30 02/16/20 12:31 DC 02/16/20 13:05 9 ML Meropenem 500 mg/ Sodium Chloride 50 ml @ 100 mls/hr DAILY 02/17/20 09:00 Midazolam HCl (Versed) 2 mg STK-MED ONCE 02/16/20 12:26 02/16/20 12:27 DC Non-Formulary Medication (Albuterol Sulfate (Albuterol Sulfate Conc Neb Soln)) 2.5 mg QIDACHS 02/14/20 16:30 UNV Non-Formulary Medication (Brimonidine Tartrate/Timolol (Combigan Eye Drops)) 5 ml QHS 02/14/20 21:00 UNV Sennosides (Senna) 8.6 mg PRN DAILY PRN 02/14/20 13:30 Sodium Chloride 1,000 ml @ 1,000 mls/hr 1X ONCE 02/13/20 13:30 02/13/20 14:29 DC 02/13/20 13:46 1,000 MLS/HR Tamsulosin HCl (Flomax) 0.4 mg DAILY 02/14/20 14:00 02/16/20 08:33 0.4 MG Timolol Maleate (Timoptic 0.5% Ophth) 1 drop BID 02/14/20 21:00 02/16/20 20:44 1 DROP Vitamin D (Vitamin D3) 1,000 unit DAILY 02/14/20 14:00 02/16/20 08:33 1,000 UNIT Lab Laboratory Tests Test 02/17/20 08:30 Sodium Level 144 mmol/L (136-145) Potassium Level 3.9 mmol/L (3.5-5.1) Chloride Level 108 mmol/L (98-107) Carbon Dioxide Level 24 mmol/L (21-32) Anion Gap 12 (6-14) Blood Urea Nitrogen 55 mg/dL (8-26) Creatinine 3.9 mg/dL (0.7-1.3) Estimated GFR (Cockcroft-Gault) 18.1 Glucose Level 105 mg/dL (70-99) Calcium Level 8.3 mg/dL (8.5-10.1) Results All relevant outside records, renal labs, imaging studies, telemetry/EKG's were reviewed. Justicifation of Admission Dx: Justifications for Admission: Justification of Admission Dx: N/A VARGAS ANGELO MD Feb 17, 2020 11:03
--- NOTE | 2020-02-17 11:21 | PDOC ---
[employer] PROGRESS NOTE Date of Service DOS: DATE: 02/17/20 TIME: 11:19 Chief Complaint Chief Complaint Pneumonia, aspiration Diffuse left greater than right lung interstitial infiltrate. diabetes Acute on chronic kidney injury due to vasomotor nephropathy discussion status post HD catheter placement on 02/16/2020. Will initiate HD soon Acute hypoxic respiratory failure Sepsis MILDLY ELEVATED TROPONIN I, SUSPECT TYPE 2 ISCHEMIA DUE TO HYPOXIA PUI COVID 19 Acute metabolic encephalopathy CHF Currently n.p.o., pending dialysis catheter placement Continue with IV empiric antibiotics Appreciate nephrology recommendationshold Lasix at this time and pending records and will determine the need for dialysis after data obtained. History of Present Illness History of Present Illness 02/17/2020 Status post HD catheter placement in the right subclavian region. Pending HD chair placement. Nephrology following. No complaints at this time. 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 No acute neuro focal neurological deficits this time. Patient is able to saturate well on 93% 5 L nasal cannula. Patient will likely need to be dialyzed for his oxygenation to improve. BiPAP as needed to continue. Speech evaluation pending. Patient's chart, labs, images were reviewed and discussed with RN 02/15/2020 No acute events overnight. Patient remains afebrile. Saturating 94% on 3 L nasal cannula with decreasing oxygen requirements. BiPAP only as needed and at night. Lasix 1 time given yesterday. 1 kg negative today. Family did notice that the patient had some slurred speech and may be some expressive aphasia. Head CT was ordered to rule stroke rule out. Patient's chart, labs, images were reviewed and discussed with RN Patient is an 80-year-old male with past medical history of hypertension and CKD, COPD, diabetes, dyslipidemia, TIA in 2012 and mild dementia who presents with complaints of shortness of breath and labored breathing. Patient with risks with his sister when they were in route to the emergency department but he was unable to make it due to worsening shortness of breath and therefore they did went to the fire department instead. Patient does follow with a nephrologi st at and states that he is close to requiring dialysis, this history was obtained from his sister. Patient has low health literacy and does not understand the severity of his kidney disease. Patient is requiring BiPAP at night and is currently on nasal cannula saturating at 90%. Vitals/I&O Vitals/I&O: Vital Signs Date Time Temp Pulse Resp B/P (MAP) Pulse Ox O2 Delivery O2 Flow Rate FiO2 02/17/20 11:00 98.0 64 18 159/63 (95) 96 Nasal Cannula 6.0 98.0 I & O 02/16/20 02/16/20 02/17/20 14:59 22:59 06:59 Intake Total 275 ml 0 ml Output Total 601 ml Balance 275 ml 0 ml -601 ml Physical Exam General: Cooperative, moderate distress Lungs: Crackles Abdomen: Normal bowel sounds, Soft, No tenderness Extremities: No cyanosis Skin: No breakdown, No significant lesion Labs Labs: Laboratory Tests Test 02/17/20 08:30 Sodium Level 144 mmol/L (136-145) Potassium Level 3.9 mmol/L (3.5-5.1) Chloride Level 108 mmol/L (98-107) Carbon Dioxide Level 24 mmol/L (21-32) Anion Gap 12 (6-14) Blood Urea Nitrogen 55 mg/dL (8-26) Creatinine 3.9 mg/dL (0.7-1.3) Estimated GFR (Cockcroft-Gault) 18.1 Glucose Level 105 mg/dL (70-99) Calcium Level 8.3 mg/dL (8.5-10.1) Assessment and Plan Assessmemt and Plan Problems Medical Problems: (1) CAP (community acquired pneumonia) Status: Acute (2) Elevated troponin Status: Acute (3) HCAP (healthcare-associated pneumonia) Status: Acute (4) Person under investigation for COVID-19 Status: Acute (5) Sepsis with acute hypoxic respiratory failure Status: Acute (6) UTI (urinary tract infection) Status: Acute Comment Review of Relevant I have reviewed the following items kate (where applicable) has been applied. Medications: Current Medications Medications (Trade) Dose Ordered Sig/Ramin Route PRN Reason Start Time Stop Time Status Last Admin Dose Admin Midazolam HCl (Versed) 2 mg 1X ONCE IV 02/16/20 12:30 02/16/20 12:31 DC 02/16/20 13:01 Fentanyl Citrate (Fentanyl 2ml Vial) 100 mcg 1X ONCE IV 02/16/20 12:30 02/16/20 12:31 DC 02/16/20 13:01 Lidocaine/ Epinephrine (LIDOCAINE 1%-EPI 1:100,000 Multi-Dose) 20 ml 1X ONCE SQ 02/16/20 12:30 02/16/20 12:31 DC 02/16/20 13:05 Cefazolin Sodium (Ancef) 1 gm 1X ONCE IVP 02/16/20 12:30 02/16/20 12:31 DC 02/16/20 12:58 Lactobacillus Rhamnosus (Culturelle) 1 cap BID PO 02/16/20 21:00 02/16/20 20:44 Justifications for Admission Other Justification LEXIS KAUR MD Feb 17, 2020 11:21
[2020-02-17] MEDS ORDERED: HYDR-2868 PO (11:22)
--- NOTE | 2020-02-17 11:23 | DISCH ---
DISCHARGE INSTRUCTIONS Condition on Discharge Condition on Discharge: Stable Activity After Discharge Activity Instructions for Disc: Activity as tolerated Lifting Instructions after Dis: Do not lift >10 pounds Driving Instructions after Dis: Do not drive today Diet after Discharge Diet after Discharge: Renal Dialysis Checks after Discharge DC Comment: CBC, CMP within 1 week of discharge Follow-Up Follow up with: PCP within 2 weeks of discharge Follow Up With: Nephrology for your scheduled dialysis sessions. LEXIS KAUR MD Feb 17, 2020 11:23
[2020-02-17] MEDS: MEROPENEM 500 MG in IV NORMAL SALINE 50ML 50 ML IV SCH (11:32)
[2020-02-17] MEDS: CHOLECALCIFEROL (VITAMIN D3) 1,000 UNIT TABLET PO SCH (11:33)
[2020-02-17] MEDS: LACTOBACILLUS RHAMNOSUS GG 1 CAPSULE. PO SCH ×2 (11:33→23:29)
[2020-02-17] MEDS: TAMSULOSIN 0.4 MG CAP.ER.24H. PO SCH (11:33)
[2020-02-17] MEDS: amLODIPine BESYLATE 10 MG TABLET PO SCH (11:33)
[2020-02-17] MEDS: hydrALAZINE 25 MG TABLET PO SCH ×3 (11:33→23:29)
[2020-02-17] MEDS: ASPIRIN 325 MG TABLET PO SCH (11:34)
[2020-02-17] MEDS: TIMOLOL 0.5% OPHTH SOLUTION 5ML BOTTLE. OU SCH ×2 (11:36→23:29)
[2020-02-17] MEDS ORDERED: ACETAMINOPHEN 500 MG TABLET PO PRN (13:00)
[2020-02-17] MEDS ORDERED: DIALYSIS PATIENT. MC PRN ×2 (13:00)
[2020-02-17] MEDS ORDERED: 0.9 % SODIUM CHLORIDE 10 ML DISP.SYRIN. IV PRN ×2 (13:00)
[2020-02-17] MEDS ORDERED: diphenhydrAMINE 50 MG/ML VIAL IV PRN ×2 (13:00)
[2020-02-17] MEDS ORDERED: ALBUMIN HUMAN 25% 200 ML IV PRN (13:00)
[2020-02-17] MEDS ORDERED: IV NORMAL SALINE 1000ML BAG 1,000 ML IV PRN ×2 (13:00)
--- NOTE | 2020-02-17 16:13 | NUR ---
SS following up with discharge planning. SS received notification from [facility] stating that pt has confirmed chair time at [address] [place] [address], ; fax [phone], Thursday, Thursday, and Thursday at 1630. SS was notified that pt's first chair time is scheduled for 02/20/2020, at 1600. Pt's RN notified. Currently awaiting six minute walk. SS phoned and faxed clinical information to [facility], , fax [phone]. Script and 6 minute walk results will need to be faxed once completed. Pt's RN notified. SS will continue to follow for discharge planning.
[2020-02-17 19:35] VITALS: BP 125/50
[2020-02-17 23:21] VITALS: BP 129/53
[2020-02-17] MEDS: ATORVASTATIN CALCIUM 20 MG TABLET PO SCH (23:29)
[2020-02-17] MEDS: BRIMONIDINE 0.2% OPHTH SOLUTION 5ML BOTTLE. OU SCH (23:29)
[2020-02-18 03:25] VITALS: BP 132/64
[2020-02-18] MEDS: HEPARIN for SUB-Q USE 5,000 UNIT/ML VIAL. SQ SCH ×3 (06:50→20:49)
[2020-02-18 07:00] VITALS: BP 142/56
[2020-02-18] MEDS: ALBUTEROL SULFATE 2.5 MG/3 ML NEBU. NEB SCH ×4 (07:49→20:00)
[2020-02-18] MEDS: CHOLECALCIFEROL (VITAMIN D3) 1,000 UNIT TABLET PO SCH (10:12)
[2020-02-18] MEDS: TIMOLOL 0.5% OPHTH SOLUTION 5ML BOTTLE. OU SCH ×2 (10:12→20:46)
[2020-02-18] MEDS: TAMSULOSIN 0.4 MG CAP.ER.24H. PO SCH (10:12)
[2020-02-18] MEDS: amLODIPine BESYLATE 10 MG TABLET PO SCH (10:13)
[2020-02-18] MEDS: ASPIRIN 325 MG TABLET PO SCH (10:13)
[2020-02-18] MEDS: LACTOBACILLUS RHAMNOSUS GG 1 CAPSULE. PO SCH ×2 (10:13→20:44)
[2020-02-18] MEDS: MEROPENEM 500 MG in IV NORMAL SALINE 50ML 50 ML IV SCH (10:14)
[2020-02-18] MEDS: hydrALAZINE 25 MG TABLET PO SCH ×3 (10:14→20:45)
--- NOTE | 2020-02-18 10:14 | PDOC ---
PULMONARY PROGRESS NOTES DATE: 02/18/20 TIME: 10:13 Subjective Patient is resting comfortably on 5 L nasal cannula, Denies shortness of breath or chest pain feeling good today No concerns from nursing overnight Vitals Vital Signs Date Time Temp Pulse Resp B/P (MAP) Pulse Ox O2 Delivery O2 Flow Rate FiO2 02/18/20 07:50 98 Nasal Cannula 5.0 02/18/20 07:00 98.0 54 21 142/56 (84) 98.0 ROS: No Nausea, No Chest Pain, No Abdominal Pain, No Increase Cough General: Alert, Oriented X4 Lungs: Crackles Cardiovascular: S1 Abdomen: Soft, Non-tender Neuro Exam: Alert Extremities: No Edema Skin: Warm, Dry Labs Laboratory Tests Test 02/17/20 08:30 Sodium Level 144 mmol/L (136-145) Potassium Level 3.9 mmol/L (3.5-5.1) Chloride Level 108 mmol/L (98-107) Carbon Dioxide Level 24 mmol/L (21-32) Anion Gap 12 (6-14) Blood Urea Nitrogen 55 mg/dL (8-26) Creatinine 3.9 mg/dL (0.7-1.3) Estimated GFR (Cockcroft-Gault) 18.1 Glucose Level 105 mg/dL (70-99) Calcium Level 8.3 mg/dL (8.5-10.1) Ferritin 523 ng/mL (26-388) Medications Active Scripts Medications Dose Route/Sig Max Daily Dose Days Date Category Timoptic 0.5% (Timolol Maleate) 10 Ml Drops 1 Drop EACHEYE BID 30 02/13/20 Reported Senna (Sennosides) 8.6 Mg Tablet 8.6 Mg PO PRN DAILY PRN 02/13/20 Reported Tylenol (Acetaminophen) 325 Mg Tablet 650 Mg PO PRN Q6-8HRS PRN 02/13/20 Reported Albuterol Sulfate Conc Neb Soln (Albuterol Sulfate) 2.5 Mg/0.5 Ml Vial.neb 2.5 Mg NEB QIDACHS 02/13/20 Reported Hydralazine Hcl 50 Mg Tablet 75 Mg PO TID 02/13/20 Reported Lasix (Furosemide) 20 Mg Tablet 20 Mg PO DAILY 02/13/20 Reported Combigan Eye Drops (Brimonidine Tartrate/Timolol) 5 Ml Drops 5 Ml OP QHS 02/13/20 Reported Vitamin D3 (Cholecalciferol (Vitamin D3)) 50 Mcg Tablet 50 Mcg PO DAILY 02/13/20 Reported Atorvastatin Calcium 20 Mg Tablet 20 Mg PO HS 02/13/20 Reported Aspirin 325 Mg Tablet 325 Mg PO DAILY 02/13/20 Reported Tamsulosin Hcl 0.4 Mg Cap.er.24h 0.4 Mg PO DAILY 09/03/16 Reported Ferrous Sulfate 325 Mg Tablet 1 Tab PO DAILY 09/03/16 Reported Amlodipine Besylate 10 Mg Tablet 10 Mg PO DAILY 09/03/16 Reported Comments CXR IMPRESSION: 1. Diffuse left greater than right lung interstitial infiltrate. 2. Enlargement of the cardiac silhouette. Impression . IMPRESSION: 1. Acute hypoxemic respiratory failure. 2. Acute on chronic systolic and diastolic heart failure. 3. Possible pneumonia. 4. [id number] negative. 5. Chronic obstructive pulmonary disease with acute exacerbation. 6. Possible aspiration pneumonia. 7. Acute on chronic kidney injury. 8. Mildly elevated troponin. 9. Acute metabolic encephalopathy. Plan . Continue supplemental oxygen to keep oxygen saturations greater than 92%, currently on 5 liters N/C 6-minute walk prior to discharge Continue antibiotics, currently on meropenem Follow nephrology recommendations Diuresis per nephrology COVID-19 negative DVT/GI prophylaxis Physical therapy/Occupational Therapy Discussed with RN Patient to discharge home today if okay with other consults after 6-minute walk, with home oxygen. ANIBAL LAMB MD Feb 18, 2020 10:14
[2020-02-18 10:46] VITALS: BP 103/80
[2020-02-18 11:42] LABS: CALCIUM 7.9 mg/dL (8.5-10.1); GFR 24.5; POTASSIUM 4.1 mmol/L (3.5-5.1)
[2020-02-18 14:47] VITALS: BP 163/46
[2020-02-18 18:48] VITALS: BP 125/54
[2020-02-18] MEDS: ATORVASTATIN CALCIUM 20 MG TABLET PO SCH (20:44)
[2020-02-18] MEDS: BRIMONIDINE 0.2% OPHTH SOLUTION 5ML BOTTLE. OU SCH (20:46)
[2020-02-18 22:57] VITALS: BP 124/53
[2020-02-19 03:06] VITALS: BP 141/55
[2020-02-19] MEDS: HEPARIN for SUB-Q USE 5,000 UNIT/ML VIAL. SQ SCH ×3 (06:21→22:07)
[2020-02-19 07:00] VITALS: BP 135/56
[2020-02-19] MEDS: ALBUTEROL SULFATE 2.5 MG/3 ML NEBU. NEB SCH ×4 (07:24→20:28)
[2020-02-19] MEDS: LACTOBACILLUS RHAMNOSUS GG 1 CAPSULE. PO SCH ×2 (08:08→21:58)
[2020-02-19] MEDS: CHOLECALCIFEROL (VITAMIN D3) 1,000 UNIT TABLET PO SCH (08:08)
[2020-02-19] MEDS: TAMSULOSIN 0.4 MG CAP.ER.24H. PO SCH (08:09)
[2020-02-19] MEDS: amLODIPine BESYLATE 10 MG TABLET PO SCH (08:09)
[2020-02-19] MEDS: TIMOLOL 0.5% OPHTH SOLUTION 5ML BOTTLE. OU SCH ×2 (08:09→22:00)
[2020-02-19] MEDS: ASPIRIN 325 MG TABLET PO SCH (08:09)
[2020-02-19] MEDS: MEROPENEM 500 MG in IV NORMAL SALINE 50ML 50 ML IV SCH (08:09)
[2020-02-19] MEDS: hydrALAZINE 25 MG TABLET PO SCH ×3 (08:09→21:58)
--- NOTE | 2020-02-19 11:54 | PDOC ---
[employer] PROGRESS NOTE Date of Service DOS: DATE: 02/19/20 TIME: 11:53 Chief Complaint Chief Complaint Pneumonia, aspiration Diffuse left greater than right lung interstitial infiltrate. diabetes Acute on chronic kidney injury due to vasomotor nephropathy discussion status post HD catheter placement on 02/16/2020. Will initiate HD soon Acute hypoxic respiratory failure Sepsis MILDLY ELEVATED TROPONIN I, SUSPECT TYPE 2 ISCHEMIA DUE TO HYPOXIA PUI COVID 19 Acute metabolic encephalopathy CHF Currently n.p.o., pending dialysis catheter placement Continue with IV empiric antibiotics Appreciate nephrology recommendationshold Lasix at this time and pending [facility] records and will determine the need for dialysis after data obtained. History of Present Illness History of Present Illness 02/19/2020 Patient does have a dialysis chair awaiting for him. However family has recently changed her mind about taking him home because they felt that they were not able to take care of him at home. Social work will need to arrange for reha b versus SNF placement on Thursday. Anticipate discharge within the next 24 to 48 hours. Patient's chart, labs, images were reviewed and discussed with RN 02/17/2020 Status post HD catheter placement in the right subclavian region. Pending HD chair placement. Nephrology following. No complaints at this time. 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 No acute neuro focal neurological deficits this time. Patient is able to saturate well on 93% 5 L nasal cannula. Patient will likely need to be dialyzed for his oxygenation to improve. BiPAP as needed to continue. Speech evaluation pending. Patient's chart, labs, images were reviewed and discussed with RN 02/15/2020 No acute events overnight. Patient remains afebrile. Saturating 94% on 3 L nasal cannula with decreasing oxygen requirements. BiPAP only as needed and at night. Lasix 1 time given yesterday. 1 kg negative today. Family did notice that the patient had some slurred speech and may be some expressive aphasia. Head CT was ordered to rule stroke rule out. Patient's chart, labs, images were reviewed and discussed with RN Patient is an 80-year-old male with past medical history of hypertension and CKD, COPD, diabetes, dyslipidemia, TIA in 2012 and mild dementia who presents with complaints of shortness of breath and labored breathing. Patient with risks with his sister when they were in route to the emergency department but he was unable to make it due to worsening shortness of breath and therefore they did went to the fire department instead. Patient does follow with a scallop shucker at and states that he is close to requiring dialysis, this history was obtained from his sister. Patient has low health literacy and does not understand the severity of his kidney disease. Patient is requiring BiPAP at night and is currently on nasal cannula saturating at 90%. Vitals/I&O Vitals/I&O: Vital Signs Date Time Temp Pulse Resp B/P (MAP) Pulse Ox O2 Delivery O2 Flow Rate FiO2 02/19/20 08:09 59 135/56 02/19/20 08:00 Nasal Cannula 3.0 02/19/20 07:25 94 02/19/20 07:00 98.3 20 98.3 I & O 02/18/20 02/18/20 02/19/20 15:00 23:00 07:00 Intake Total 550 ml 640 ml 240 ml Output Total 200 ml 150 ml 150 ml Balance 350 ml 490 ml 90 ml Physical Exam General: Alert, Cooperative, moderate distress Lungs: Crackles Abdomen: Normal bowel sounds, Soft, No tenderness Extremities: No cyanosis Skin: No breakdown, No significant lesion Assessment and Plan Assessmemt and Plan Problems Medical Problems: (1) CAP (community acquired pneumonia) Status: Acute (2) Elevated troponin Status: Acute (3) HCAP (healthcare-associated pneumonia) Status: Acute (4) Person under investigation for COVID-19 Status: Acute (5) Sepsis with acute hypoxic respiratory failure Status: Acute (6) UTI (urinary tract infection) Status: Acute Comment Review of Relevant I have reviewed the following items kate (where applicable) has been applied. Justifications for Admission Other Justification LEXIS KAUR MD Feb 19, 2020 11:53
--- NOTE | 2020-02-19 12:02 | PDOC ---
PULMONARY PROGRESS NOTES DATE: 02/19/20 TIME: 12:01 Subjective Patient is resting comfortably on 3L nasal cannula, Up working with therapy in the hallway feeling good today No concerns from nursing overnight Vitals Vital Signs Date Time Temp Pulse Resp B/P (MAP) Pulse Ox O2 Delivery O2 Flow Rate FiO2 02/19/20 08:09 59 135/56 02/19/20 08:00 Nasal Cannula 3.0 02/19/20 07:25 94 02/19/20 07:00 98.3 20 98.3 ROS: No Nausea, No Chest Pain, No Abdominal Pain, No Increase Cough General: Alert, Oriented X4 Lungs: Crackles Cardiovascular: S1 Abdomen: Soft, Non-tender Neuro Exam: Alert Extremities: No Edema Skin: Warm, Dry Labs Laboratory Tests Test 02/18/20 11:05 Sodium Level 141 mmol/L (136-145) Potassium Level 4.1 mmol/L (3.5-5.1) Chloride Level 105 mmol/L (98-107) Carbon Dioxide Level 28 mmol/L (21-32) Anion Gap 8 (6-14) Blood Urea Nitrogen 38 mg/dL (8-26) Creatinine 3.0 mg/dL (0.7-1.3) Estimated GFR (Cockcroft-Gault) 24.5 Glucose Level 113 mg/dL (70-99) Calcium Level 7.9 mg/dL (8.5-10.1) Iron Level 31 ug/dL (65-175) Total Iron Binding Capacity 155 ug/dL (250-450) Iron Saturation 20 % (15-34) Medications Active Scripts Medications Dose Route/Sig Max Daily Dose Days Date Category Timoptic 0.5% (Timolol Maleate) 10 Ml Drops 1 Drop EACHEYE BID 30 02/13/20 Reported Senna (Sennosides) 8.6 Mg Tablet 8.6 Mg PO PRN DAILY PRN 02/13/20 Reported Tylenol (Acetaminophen) 325 Mg Tablet 650 Mg PO PRN Q6-8HRS PRN 02/13/20 Reported Albuterol Sulfate Conc Neb Soln (Albuterol Sulfate) 2.5 Mg/0.5 Ml Vial.neb 2.5 Mg NEB QIDACHS 02/13/20 Reported Hydralazine Hcl 50 Mg Tablet 75 Mg PO TID 02/13/20 Reported Lasix (Furosemide) 20 Mg Tablet 20 Mg PO DAILY 02/13/20 Reported Combigan Eye Drops (Brimonidine Tartrate/Timolol) 5 Ml Drops 5 Ml OP QHS 02/13/20 Reported Vitamin D3 (Cholecalciferol (Vitamin D3)) 50 Mcg Tablet 50 Mcg PO DAILY 02/13/20 Reported Atorvastatin Calcium 20 Mg Tablet 20 Mg PO HS 02/13/20 Reported Aspirin 325 Mg Tablet 325 Mg PO DAILY 02/13/20 Reported Tamsulosin Hcl 0.4 Mg Cap.er.24h 0.4 Mg PO DAILY 09/03/16 Reported Ferrous Sulfate 325 Mg Tablet 1 Tab PO DAILY 09/03/16 Reported Amlodipine Besylate 10 Mg Tablet 10 Mg PO DAILY 09/03/16 Reported Comments CXR IMPRESSION: 1. Diffuse left greater than right lung interstitial infiltrate. 2. Enlargement of the cardiac silhouette. Impression . IMPRESSION: 1. Acute hypoxemic respiratory failure. 2. Acute on chronic systolic and diastolic heart failure. 3. Possible pneumonia. 4. [id number] negative. 5. Chronic obstructive pulmonary disease with acute exacerbation. 6. Possible aspiration pneumonia. 7. Acute on chronic kidney injury. 8. Mildly elevated troponin. 9. Acute metabolic encephalopathy. Plan . Continue supplemental oxygen to keep oxygen saturations greater than 92%, currently on 3 liters N/C 6-minute walk prior to discharge--will need 3 L nasal cannula at baseline and 5 L nasal cannula on exertion, oxygen provided to the patient prior to discharge Follow nephrology recommendations--hemodialysis COVID-19 negative DVT/GI prophylaxis Physical therapy/Occupational Therapy Discussed with RN Patient is okay to discharge home today ANIBAL LAMB MD Feb 19, 2020 12:02
[2020-02-19 15:00] VITALS: BP 151/78
[2020-02-19 19:00] VITALS: BP 143/58
[2020-02-19] MEDS: ATORVASTATIN CALCIUM 20 MG TABLET PO SCH (21:59)
[2020-02-19] MEDS: BRIMONIDINE 0.2% OPHTH SOLUTION 5ML BOTTLE. OU SCH (22:01)
[2020-02-19 23:00] VITALS: BP 146/59
[2020-02-20 03:42] VITALS: BP 148/55
[2020-02-20] MEDS: HEPARIN for SUB-Q USE 5,000 UNIT/ML VIAL. SQ SCH (06:00)
[2020-02-20 07:00] VITALS: BP 159/66
[2020-02-20] MEDS: ALBUTEROL SULFATE 2.5 MG/3 ML NEBU. NEB SCH ×3 (07:02→15:04)
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
--- NOTE | 2020-02-20 08:28 | PDOC ---
PULMONARY PROGRESS NOTES DATE: 02/20/20 TIME: 08:28 Subjective Patient is resting comfortably on 3L nasal cannula, seen while on HD today No concerns from nursing overnight Vitals Vital Signs Date Time Temp Pulse Resp B/P (MAP) Pulse Ox O2 Delivery O2 Flow Rate FiO2 02/20/20 07:03 95 Nasal Cannula 3.0 02/20/20 03:42 99.1 69 20 148/55 (86) 99.1 ROS: No Nausea, No Chest Pain, No Abdominal Pain, No Increase Cough General: Alert, Oriented X4 Lungs: Crackles Cardiovascular: S1 Abdomen: Soft, Non-tender Neuro Exam: Alert Extremities: No Edema Skin: Warm, Dry Labs Laboratory Tests Test 02/18/20 11:05 Sodium Level 141 mmol/L (136-145) Potassium Level 4.1 mmol/L (3.5-5.1) Chloride Level 105 mmol/L (98-107) Carbon Dioxide Level 28 mmol/L (21-32) Anion Gap 8 (6-14) Blood Urea Nitrogen 38 mg/dL (8-26) Creatinine 3.0 mg/dL (0.7-1.3) Estimated GFR (Cockcroft-Gault) 24.5 Glucose Level 113 mg/dL (70-99) Calcium Level 7.9 mg/dL (8.5-10.1) Iron Level 31 ug/dL (65-175) Total Iron Binding Capacity 155 ug/dL (250-450) Iron Saturation 20 % (15-34) Medications Active Scripts Medications Dose Route/Sig Max Daily Dose Days Date Category Timoptic 0.5% (Timolol Maleate) 10 Ml Drops 1 Drop EACHEYE BID 30 02/13/20 Reported Senna (Sennosides) 8.6 Mg Tablet 8.6 Mg PO PRN DAILY PRN 02/13/20 Reported Tylenol (Acetaminophen) 325 Mg Tablet 650 Mg PO PRN Q6-8HRS PRN 02/13/20 Reported Albuterol Sulfate Conc Neb Soln (Albuterol Sulfate) 2.5 Mg/0.5 Ml Vial.neb 2.5 Mg NEB QIDACHS 02/13/20 Reported Hydralazine Hcl 50 Mg Tablet 75 Mg PO TID 02/13/20 Reported Lasix (Furosemide) 20 Mg Tablet 20 Mg PO DAILY 02/13/20 Reported Combigan Eye Drops (Brimonidine Tartrate/Timolol) 5 Ml Drops 5 Ml OP QHS 02/13/20 Reported Vitamin D3 (Cholecalciferol (Vitamin D3)) 50 Mcg Tablet 50 Mcg PO DAILY 02/13/20 Reported Atorvastatin Calcium 20 Mg Tablet 20 Mg PO HS 02/13/20 Reported Aspirin 325 Mg Tablet 325 Mg PO DAILY 02/13/20 Reported Tamsulosin Hcl 0.4 Mg Cap.er.24h 0.4 Mg PO DAILY 09/03/16 Reported Ferrous Sulfate 325 Mg Tablet 1 Tab PO DAILY 09/03/16 Reported Amlodipine Besylate 10 Mg Tablet 10 Mg PO DAILY 09/03/16 Reported Comments CXR IMPRESSION: 1. Diffuse left greater than right lung interstitial infiltrate. 2. Enlargement of the cardiac silhouette. Impression . IMPRESSION: 1. Acute hypoxemic respiratory failure. 2. Acute on chronic systolic and diastolic heart failure. 3. Possible pneumonia. 4. [id number] negative. 5. Chronic obstructive pulmonary disease with acute exacerbation. 6. Possible aspiration pneumonia. 7. Acute on chronic kidney injury. 8. Mildly elevated troponin. 9. Acute metabolic encephalopathy. Plan . Continue supplemental oxygen to keep oxygen saturations greater than 92%, c urrently on 3 liters N/C 6-minute walk prior to discharge--will need 3 L nasal cannula at baseline and 5 L nasal cannula on exertion, oxygen provided to the patient prior to discharge Follow nephrology recommendations--hemodialysis COVID-19 negative DVT/GI prophylaxis Physical therapy/Occupational Therapy Discussed with RN Patient is okay to discharge home today, we will see PRN please call with any questions or concerns ANIBAL LAMB MD Feb 20, 2020 08:28
--- NOTE | 2020-02-20 08:34 | PDOC ---
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 Plan Treat medical diseases No need for any stroke work-up or treatment Continue aspirin and statin Note plans for dialysis Note plans for long-term unit Subjective No complaints, eating Objective Vital Signs Date Time Temp Pulse Resp B/P (MAP) Pulse Ox O2 Delivery O2 Flow Rate FiO2 02/20/20 07:03 95 Nasal Cannula 3.0 02/20/20 03:42 99.1 69 20 148/55 (86) 99.1 Intake and Output 02/20/20 07:00 Intake Total 380 ml Output Total 500 ml Balance -120 ml Intake Oral 330 ml IV Total 50 ml Output Urine Total 500 ml # Bowel Movements 2 PHYSICAL EXAM Alert. Oriented to place and person. Right eye is blind and exotropic, there is also ptosis of the right eye CN: no focal findings. Muscle tone: normal. Muscle strength: 5/5 DTR: 1+ Plantar reflex: flexor Gait: not examined in bed. Sensory exam:stocking loss. No cerebellar signs elicited. Review of Relevant I have reviewed the following items kate (where applicable) has been applied. Labs Laboratory Tests Test 02/18/20 11:05 Sodium Level 141 mmol/L (136-145) Potassium Level 4.1 mmol/L (3.5-5.1) Chloride Level 105 mmol/L (98-107) Carbon Dioxide Level 28 mmol/L (21-32) Anion Gap 8 (6-14) Blood Urea Nitrogen 38 mg/dL (8-26) Creatinine 3.0 mg/dL (0.7-1.3) Estimated GFR (Cockcroft-Gault) 24.5 Glucose Level 113 mg/dL (70-99) Calcium Level 7.9 mg/dL (8.5-10.1) Iron Level 31 ug/dL (65-175) Total Iron Binding Capacity 155 ug/dL (250-450) Iron Saturation 20 % (15-34) Microbiology 02/13/20 Urine Culture - Final, Complete 02/13/20 Blood Culture - Final, Complete NO GROWTH AFTER 5 DAYS Medications Current Medications Ceftriaxone Sodium (Rocephin) 1 gm 1X ONCE IVP Last administered on 02/13/20at 13:00; Start 02/13/20 at 11:45; Stop 02/13/20 at 11:47; Status DC Azithromycin 250 ml @ 250 mls/hr 1X ONCE IV Last administered on 02/13/20at 13:00; Start 02/13/20 at 11:45; Stop 02/13/20 at 12:44; Status DC Sodium Chloride 1,000 ml @ 100 mls/hr Q10H IV Last administered on 02/14/20at 09:45; Start 02/13/20 at 13:00; Stop 02/14/20 at 12:59; Status DC Sodium Chloride 500 ml @ 500 mls/hr 1X ONCE IV Last administered on 02/13/20at 13:47; Start 02/13/20 at 13:30; Stop 02/13/20 at 14:29; Status DC Sodium Chloride 1,000 ml @ 1,000 mls/hr 1X ONCE IV Last administered on 02/13/20at 13:46; Start 02/13/20 at 13:30; Stop 02/13/20 at 14:29; Status DC Heparin Sodium (Porcine) (Heparin Sodium) 5,000 unit Q8HRS SQ Last administered on 02/20/20at 06:00; Start 02/13/20 at 19:00 Meropenem 500 mg/ Sodium Chloride 50 ml @ 100 mls/hr Q12HR IV Last administered on 02/16/20at 08:36; Start 02/13/20 at 21:00; Stop 02/16/20 at 1 6:22; Status DC Amlodipine Besylate (Norvasc) 10 mg DAILY PO Last administered on 02/19/20at 08:09; Start 02/14/20 at 14:00 Aspirin (Zaida Aspirin) 325 mg DAILY PO Last administered on 02/19/20at 08:09; Start 02/14/20 at 14:00 Atorvastatin Calcium (Lipitor) 20 mg HS PO Last administered on 02/19/20at 21:59; Start 02/14/20 at 21:00 Hydralazine HCl (Apresoline) 25 mg TID PO Last administered on 02/19/20at 21:58; Start 02/14/20 at 14:00 Sennosides (Senna) 8.6 mg PRN DAILY PRN PO CONSTIPATION; Start 02/14/20 at 13:30 Tamsulosin HCl (Flomax) 0.4 mg DAILY PO Last administered on 02/19/20at 08:09; Start 02/14/20 at 14:00 Timolol Maleate (Timoptic 0.5% [facility]) 1 drop BID OU Last administered on 02/19/20at 22:00; Start 02/14/20 at 21:00 Non-Formulary Medication (Albuterol Sulfate (Albuterol Sulfate Conc Neb Soln)) 2.5 mg QIDACHS NEB ; Start 02/14/20 at 16:30; Status UNV Non-Formulary Medication (Brimonidine Tartrate/Timolol (Combigan Eye Drops)) 5 ml QHS OP ; Start 02/14/20 at 21:00; Status UNV Vitamin D (Vitamin D3) 1,000 unit DAILY PO Last administered on 02/19/20at 08:08; Start 02/14/20 at 14:00 Albuterol Sulfate (Ventolin Neb Soln) 2.5 mg RTQID NEB Last administered on 02/20/20at 07:02; Start 02/14/20 at 16:00 Brimonidine Tartrate (Alphagan) 1 drop QHS OU Last administered on 02/19/20at 22:01; Start 02/14/20 at 21:00 Furosemide (Lasix) 40 mg 1X ONCE IVP Last administered on 02/14/20at 16:04; Start 02/14/20 at 15:00; Stop 02/14/20 at 15:01; Status DC Lidocaine/ Epinephrine (LIDOCAINE 1%-EPI 1:100,000 Multi-Dose) 20 ml STK-MED ONCE .ROUTE ; Start 02/16/20 at 12:22; Stop 02/16/20 at 12:22; Status DC Midazolam HCl (Versed) 2 mg 1X ONCE IV Last administered on 02/16/20at 13:01; Start 02/16/20 at 12:30; Stop 02/16/20 at 12:31; Status DC Fentanyl Citrate (Fentanyl 2ml Vial) 100 mcg 1X ONCE IV Last administered on 02/16/20at 13:01; Start 02/16/20 at 12:30; Stop 02/16/20 at 12:31; Status DC Lidocaine/ Epinephrine (LIDOCAINE 1%-EPI 1:100,000 Multi-Dose) 20 ml 1X ONCE SQ Last administered on 02/16/20at 13:05; Start 02/16/20 at 12:30; Stop 02/16/20 at 12:31; Status DC Cefazolin Sodium (Ancef) 1 gm 1X ONCE IVP Last administered on 02/16/20at 12:58; Start 02/16/20 at 12:30; Stop 02/16/20 at 12:31; Status DC Midazolam HCl (Versed) 2 mg STK-MED ONCE .ROUTE ; Start 02/16/20 at 12:26; Stop 02/16/20 at 12:27; Status DC Fentanyl Citrate (Fentanyl 2ml Vial) 100 mcg STK-MED ONCE .ROUTE ; Start 02/16/20 at 12:27; Stop 02/16/20 at 12:27; Status DC Cefazolin Sodium (Ancef) 1 gm STK-MED ONCE IVP ; Start 02/16/20 at 12:26; Stop 02/16/20 at 12:27; Status DC Meropenem 500 mg/ Sodium Chloride 50 ml @ 100 mls/hr DAILY IV Last administered on 02/19/20at 08:09; Start 02/17/20 at 09:00; Stop 02/19/20 at 08:14; Status DC Lactobacillus Rhamnosus (Culturelle) 1 cap BID PO Last administered on 02/19/20at 21:58; Start 02/16/20 at 21:00 Info (PHARMACY MONITORING -- do not chart) 1 each PRN DAILY PRN MC SEE COMMENTS; Start 02/16/20 at 16:45; Status Cancel Info (PHARMACY MONITORING -- do not chart) 1 each PRN DAILY PRN MC SEE COMMENTS; Start 02/16/20 at 16:45; Status Cancel Sodium Chloride 1,000 ml @ 1,000 mls/hr Q1H PRN IV hypotension; Start 02/17/20 at 13:00; Stop 02/17/20 at 18:59; Status DC Albumin Human 200 ml @ 200 mls/hr 1X PRN PRN IV Hypotension; Start 02/17/20 at 13:00; Stop 02/17/20 at 18:59; Status DC Acetaminophen (Tylenol) 500 mg 1X PRN PRN PO MILD PAIN / TEMP > 100.3'F; Start 02/17/20 at 13:00; Stop 02/18/20 at 12:59; Status DC Diphenhydramine HCl (Benadryl) 25 mg 1X PRN PRN IV ITCHING; Start 02/17/20 at 13:00; Stop 02/18/20 at 12:59; Status DC Diphenhydramine HCl (Benadryl) 25 mg 1X PRN PRN IV ITCHING; Start 02/17/20 at 13:00; Stop 02/18/20 at 12:59; Status DC Sodium Chloride (Normal Saline Flush) 10 ml 1X PRN PRN IV AP catheter pack; Start 02/17/20 at 13:00; Stop 02/18/20 at 12:59; Status DC Sodium Chloride (Normal Saline Flush) 10 ml 1X PRN PRN IV [employer]LECTION CLERK catheter pack; Start 02/17/20 at 13:00; Stop 02/18/20 at 12:59; Status DC Sodium Chloride 1,000 ml @ 400 mls/hr Q2H30M PRN IV PATENCY; Start 02/17/20 at 13:00; Stop 02/18/20 at 00:59; Status DC Info (PHARMACY MONITORING -- do not chart) 1 each PRN DAILY PRN MC SEE COMMENTS; Start 02/17/20 at 13:00; Status UNV Info (PHARMACY MONITORING -- do not chart) 1 each PRN DAILY PRN MC SEE COMMENTS; Start 02/17/20 at 13:00 Active Scripts Active Reported Timoptic 0.5% (Timolol Maleate) 10 Ml Drops 1 Drop EACHEYE BID 30 Days Senna (Sennosides) 8.6 Mg Tablet 8.6 Mg PO PRN DAILY PRN Tylenol (Acetaminophen) 325 Mg Tablet 650 Mg PO PRN Q6-8HRS PRN Albuterol Sulfate Conc Neb Soln (Albuterol Sulfate) 2.5 Mg/0.5 Ml Vial.neb 2.5 Mg NEB QIDACHS Hydralazine Hcl 50 Mg Tablet 75 Mg PO TID Lasix (Furosemide) 20 Mg Tablet 20 Mg PO DAILY Combigan Eye Drops (Brimonidine Tartrate/Timolol) 5 Ml Drops 5 Ml OP QHS Vitamin D3 (Cholecalciferol (Vitamin D3)) 50 Mcg Tablet 50 Mcg PO DAILY Atorvastatin Calcium 20 Mg Tablet 20 Mg PO HS Aspirin 325 Mg Tablet 325 Mg PO DAILY Tamsulosin Hcl 0.4 Mg Cap.er.24h 0.4 Mg PO DAILY Ferrous Sulfate 325 Mg Tablet 1 Tab PO DAILY Amlodipine Besylate 10 Mg Tablet 10 Mg PO DAILY Vitals/I & O Vital Sign - Last 24 Hours 02/19/20 02/19/20 02/19/20 02/19/20 11:00 15:00 16:02 16:56 Temp 96.7 96.7 Pulse 57 64 64 Resp 20 20 B/P (MAP) 151/78 (102) 151/78 Pulse Ox 97 97 94 O2 Delivery Nasal Cannula Nasal Cannula Nasal Cannula O2 Flow Rate 3.0 3.0 3.0 02/19/20 02/19/20 02/19/20 02/19/20 19:00 20:00 20:28 21:58 Temp 97.9 97.9 Pulse 66 66 Resp 16 B/P (MAP) 143/58 (86) 143/58 Pulse Ox 97 96 O2 Delivery Nasal Cannula Nasal Cannula Nasal Cannula O2 Flow Rate 2.0 3.0 3.0 02/19/20 02/20/20 02/20/20 23:00 03:42 07:03 Temp 98.4 99.1 98.4 99.1 Pulse 98 69 Resp 18 20 B/P (MAP) 146/59 (88) 148/55 (86) Pulse Ox 98 96 95 O2 Delivery Nasal Cannula Nasal Cannula Nasal Cannula O2 Flow Rate 3.0 3.0 3.0 Intake and Output 02/19/20 02/19/20 02/20/20 15:00 23:00 07:00 Intake Total 230 ml 150 ml Output Total 200 ml 300 ml Balance 230 ml -200 ml -150 ml Justicifation of Admission Dx: Justifications for Admission: Justification of Admission Dx: N/A PETRONA HUNT MD Feb 20, 2020 08:34
[2020-02-20] MEDS ORDERED: IV NORMAL SALINE 1000ML BAG 1,000 ML IV PRN ×2 (08:45)
[2020-02-20] MEDS ORDERED: DIALYSIS PATIENT. MC PRN (08:45)
[2020-02-20] MEDS: hydrALAZINE 25 MG TABLET PO SCH ×2 (09:00→13:08)
--- NOTE | 2020-02-20 11:39 | NUR ---
SS following up with discharge planning. SS reviewed pt chart and discussed with pt RN. PT/OT recommended residential unit over the weekend. SS contacted pt's sister and discussed. Pt and pt's sister declining residential unit at this time. Pt is currently requiring oxygen. Six minute walk completed and script was received for oxygen. SS phoned and faxed script and clinical to [facility], ; fax [phone]. Pt [place] outpatient [place] [address], ; fax [phone], Thursday, Thursday, and Thursday at 1630. Pt's first chair time is scheduled for 02/22/2020, at 1600. SS discussed with pt's sister and SS was notified that pt has help at home and a caregiver. SS was notified that she would transport pt to home after 1300 today.
[2020-02-20] MEDS: ASPIRIN 325 MG TABLET PO SCH (13:06)
[2020-02-20] MEDS: amLODIPine BESYLATE 10 MG TABLET PO SCH (13:07)
[2020-02-20] MEDS: CHOLECALCIFEROL (VITAMIN D3) 1,000 UNIT TABLET PO SCH (13:08)
[2020-02-20] MEDS: TAMSULOSIN 0.4 MG CAP.ER.24H. PO SCH (13:08)
--- NOTE | 2020-02-20 13:31 | SNU/HH DC ---
DISCHARGE WITH HOME HEALTH DISCHARGE INFORMATION: Discharge Date: Feb 20, 2020 Final Diagnosis: Problems Medical Problems: (1) CAP (community acquired pneumonia) Status: Acute (2) Elevated troponin Status: Acute (3) HCAP (healthcare-associated pneumonia) Status: Acute (4) Person under investigation for COVID-19 Status: Acute (5) Sepsis with acute hypoxic respiratory failure Status: Acute (6) UTI (urinary tract infection) Status: Acute Condition on Discharge: Stable CODE STATUS: Code Status: Full HOME HEALTH: Face to Face: I certify this patient is under my care and that I, or a nurse practitioner or physician's senior agricultural assistant working with me, had a face to face encounter that meets the physician face to face encounter requirements with this patient on 02/20/2020. Custodial For: Assess & Educate Safety, Medication Management RN For Eval/Treatment: Yes Physical Therapy For: Evalulation/Treatment Occupational Therapy For: Evaluation/Treatment Pt Meets Homebound Status: Fatigue w/ amb., Poor cognition, Psychological condition POST DISCHARGE ORDERS: Activity Instructions for Disc: Activity as tolerated Weight Bearing Status after Di: As tolerated DIET AFTER DISCHARGE: Renal Wound/Incision Care: Routine catheter care CHECKS AFTER DISCHARGE: Checks after discharge: Check blood press - daily, Check blood sugar, ac/hs FOLLOW-UP: Follow up with: PCP within 2 weeks of discharge Follow Up With: Primary care provider in 2 weeks TREATMENT/EQUIPMENT ORDERS: Adaptive Equipment Issued: Walker Infusion Equipment, home use: AV shunt (Right tunneled dialysis catheter) Discharge Respiratory Equipmen: Oxygen CERTIFICATION STATEMENT: Certification Statement: Certification Statement: Based on the above finding, I certify that this patient is confined to the home and needs intermittent jail care, physical therapy and/or speech therapy, or continues to need occupational therapy.~ This patient is under my care, and I have initiated the establishment of the plan of care.~ This patient will be followed by myself or a community physician who will periodically review the plan of care. Home Meds Active Scripts Hydralazine Hcl (HYDRALAZINE HCL) 25 Mg Tablet, 25 MG PO TID for blood pressure for 30 Days, #90 TAB Prov:LEXIS KAUR MD 02/17/20 Reported Medications Timolol Maleate 0.5% (TIMOPTIC 0.5%) 10 Ml Drops, 1 DROP EACHEYE BID for for 30 Days, #5 ML 0 Refills 02/13/20 Sennosides (SENNA) 8.6 Mg Tablet, 8.6 MG PO PRN DAILY PRN for CONSTIPATION, TAB 02/13/20 Acetaminophen (TYLENOL) 325 Mg Tablet, 650 MG PO PRN Q6-8HRS PRN for PAIN, TAB 02/13/20 Albuterol Sulfate (ALBUTEROL SULFATE CONC NEB SOLN) 2.5 Mg/0.5 Ml Vial.neb, 2.5 MG NEB QIDACHS for FOR ASTHMA, EACH 0 Refills 02/13/20 Brimonidine Tartrate/Timolol (COMBIGAN EYE DROPS) 5 Ml Drops, 5 ML OP QHS for , DROP 02/13/20 Cholecalciferol (Vitamin D3) (Vitamin D3) 50 Mcg Tablet, 50 MCG PO DAILY for , TAB 02/13/20 Atorvastatin Calcium (ATORVASTATIN CALCIUM) 20 Mg Tablet, 20 MG PO HS for FOR CHOLESTEROL, #30 TAB 0 Refills 02/13/20 Aspirin (ASPIRIN) 325 Mg Tablet, 325 MG PO DAILY for , TAB 02/13/20 Tamsulosin Hcl (TAMSULOSIN HCL) 0.4 Mg Cap.er.24h, 0.4 MG PO DAILY for , #30 CAP 5 Refills 09/03/16 Ferrous Sulfate (FERROUS SULFATE) 325 Mg Tablet, 1 TAB PO DAILY, #30 TAB 3 Refills 09/03/16 Amlodipine Besylate (AMLODIPINE BESYLATE) 10 Mg Tablet, 10 MG PO DAILY, TAB 09/03/16 Discontinued Reported Medications Hydralazine Hcl (HYDRALAZINE HCL) 50 Mg Tablet, 75 MG PO TID for hypertension, TAB 02/13/20 Furosemide (LASIX) 20 Mg Tablet, 20 MG PO DAILY for , TAB 02/13/20 Aspirin (ASPIR 81) 81 Mg Tablet., 1 TAB PO DAILY, #30 TAB 5 Refills 09/03/16 CARMELA HECK MD Feb 20, 2020 13:31
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
--- NOTE | 2020-02-20 14:31 | PDOC3 ---
Discharge Summary Visit Information Date of Admission: Feb 13, 2020 Date of Discharge: Feb 20, 2020 Admitting Diagnosis: Community acquired pneumonia Final Diagnosis Problems Medical Problems: (1) CAP (community acquired pneumonia) Status: Acute (2) Elevated troponin Status: Acute (3) HCAP (healthcare-associated pneumonia) Status: Acute (4) Person under investigation for COVID-19 Status: Acute (5) Sepsis with acute hypoxic respiratory failure Status: Acute (6) UTI (urinary tract infection) Status: Acute Brief Hospital Course Allergies Allergies Coded Allergies Type Severity Reaction Last Updated Verified No Known Drug Allergies 09/10/16 No Vital Signs Vital Signs Date Time Temp Pulse Resp B/P (MAP) Pulse Ox O2 Delivery O2 Flow Rate FiO2 02/20/20 13:08 65 159/66 02/20/20 11:28 97 Nasal Cannula 3.0 02/20/20 07:00 97.7 18 97.7 Brief Hospital Course Mr Solano is an 80-year-old male with past medical history of hypertension and CKD, COPD, diabetes, dyslipidemia, TIA in 2012 and mild dementia who presents with complaints of shortness of breath and labored breathing. Patient with risks with his sister when they were in route to the emergency department but he was unable to make it due to worsening shortness of breath and therefore they did went to the fire department instead. Patient does follow with a parent partner at and states that he is close to requiring dialysis, this history was obtained from his sister. Patient has low health literacy and does not understand the severity of his kidney disease. Initially required BiPAP at night and is currently on nasal cannula saturating at 90%. Consults: Nephrology, Neurology, Pulmonology 02/14: No acute events overnight. Patient remains afebrile. Saturating 94% on 3 L nasal cannula with decreasing oxygen requirements. BiPAP only as needed and at night. Lasix 1 time given yesterday. 1 kg negative today. Family did notice that the patient had some slurred speech. 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 No acute neuro focal neurological deficits this time. Patient is able to saturate well on 93% 5 L nasal cannula. Patient will likely need to be dialyzed for his oxygenation to improve. BiPAP as needed to continue. 02/16: Status post HD catheter placement in the right subclavian region. Pending HD chair placement. Nephrology following. No complaints at this time. Patient's chart, labs, images were reviewed and discussed with RN 02/18: Patient does have a dialysis chair awaiting for him. However family has recently changed her mind about taking him home because they felt that they were not able to take care of him at home. Social work will need to arrange for rehab versus SNF placement on Thursday. Seen after HD. Feeling improved. Requires 3L NCO2 at rest and 6L NCO2 on exertion. Has HD outpatient and home health in place. No CP or SOB. Problem list: Pneumonia, aspiration Diffuse left greater than right lung interstitial infiltrate. diabetes Acute on chronic kidney injury due to vasomotor nephropathy - now ESRD status post HD catheter placement on 02/16/2020. Acute hypoxic respiratory failure - due to fluid overload from ESRD, diastolic CHF Sepsis MILDLY ELEVATED TROPONIN I, SUSPECT TYPE 2 ISCHEMIA DUE TO HYPOXIA PUI COVID 19 Acute metabolic encephalopathy Acute on chronic systolic and diastolic heart failure Chronic obstructive pulmonary disease with acute exacerbation. Acute metabolic encephalopathy. Plan: Continue supplemental oxygen to keep oxygen saturations greater than 92%, currently on 3 liters N/C 6-minute walk prior to discharge--will need 3 L nasal cannula at baseline and 5 L nasal cannula on exertion, oxygen provided to the patient prior to discharge Follow nephrology recommendations--hemodialysis COVID-19 negative DVT/GI prophylaxis Physical therapy/Occupational Therapy Greater than 30 minutes spent on d/c home with home health Discharge Information Condition at Discharge: Improved Follow Up: Weeks (1) Disposition/Orders: D/C to Home w/ HH Scheduled Albuterol Sulfate (Albuterol Sulfate Conc Neb Soln) 2.5 Mg/0.5 Ml Vial.neb, 2.5 MG NEB QIDACHS for FOR ASTHMA, Ref 0 (Reported) Entered as Reported by: Varun Kennedy on 02/13/20 1858 Last Taken: inh on Unknown Date & Time Last Action: Converted on 02/14/201319 by LEXIS KAUR MD Amlodipine Besylate (Amlodipine Besylate) 10 Mg Tablet, 10 MG PO DAILY, (Reported) Entered as Reported by: GIL MATOS on 09/03/16 1130 Last Action: Continued on 02/14/20 1320 by LEXIS KAUR MD Aspirin (Aspirin) 325 Mg Tablet, 325 MG PO DAILY for , (Reported) Entered as Reported by: Varun Kennedy on 02/13/201847 Last Action: Continued on 02/14/201319 by LEXIS KAUR MD Atorvastatin Calcium (Atorvastatin Calcium) 20 Mg Tablet, 20 MG PO HS for FOR CHOLESTEROL, #30 Ref 0 (Reported) Entered as Reported by: Varun Kennedy on 02/13/201857 Last Taken: 20 on Unknown Date & Time Last Action: Continued on 02/14/201319 by LEXIS KAUR MD Brimonidine Tartrate/Timolol (Combigan Eye Drops) 5 Ml Drops, 5 ML OP QHS for , (Reported) Entered as Reported by: Varun Kennedy on 02/13/201857 Last Taken: 1 drop on Unknown Date & Time Last Action: Converted on 02/14/201319 by LEXIS KAUR MD Cholecalciferol (Vitamin D3) (Vitamin D3) 50 Mcg Tablet, 50 MCG PO DAILY for , (Reported) Entered as Reported by: Varun Kennedy on 02/13/201857 Last Taken: 50 on Unknown Date & Time Last Action: Converted on 02/14/201319 by LEXIS KAUR MD Ferrous Sulfate (Ferrous Sulfate) 325 Mg Tablet, 1 TAB PO DAILY, #30 Ref 3 (Reported) Entered as Reported by: GIL MATOS on 09/03/161129 Last Action: Reviewed on 02/13/201847 by Varun Kennedy Hydralazine Hcl (Hydralazine Hcl) 25 Mg Tablet, 25 MG PO TID for blood pressure for 30 Days, #90 Prescribed by: LEXIS KAUR MD on 02/17/20 1122 Tamsulosin Hcl (Tamsulosin Hcl) 0.4 Mg Cap.er.24h, 0.4 MG PO DAILY for , #30 Ref 5 (Reported) Entered as Reported by: GIL MATOS on 09/03/161129 Last Action: Continued on 02/14/201319 by LEXIS KAUR MD Timolol Maleate 0.5% (Timoptic 0.5%) 10 Ml Drops, 1 DROP EACHEYE BID for for 30 Days, #5 Ref 0 (Reported) Entered as Reported by: Varun Kennedy on 02/13/201857 Last Action: Continued on 02/14/201319 by LEXIS KAUR MD Scheduled PRN Acetaminophen (Tylenol) 325 Mg Tablet, 650 MG PO PRN Q6-8HRS PRN for PAIN, (Reported) Entered as Reported by: Varun Kennedy on 02/13/201857 Last Taken: 650 on Unknown Date & Time Last Action: New Order on 02/13/201857 by Varun Kennedy Sennosides (Senna) 8.6 Mg Tablet, 8.6 MG PO PRN DAILY PRN for CONSTIPATION, (Reported) Entered as Reported by: Varun Kennedy on 02/13/201857 Last Taken: 8.6 on Unknown Date & Time Last Action: Continued on 02/14/201319 by LEXIS KAUR MD Discontinued Medications Aspirin (Aspir 81) 81 Mg Tablet.dr, 1 TAB PO DAILY, #30 Ref 5 (Reported) Discontinued Reason: Prescription changed Entered as Reported by: GIL MATOS on 09/03/16 1130 Furosemide (Lasix) 20 Mg Tablet, 20 MG PO DAILY for , (Reported) Entered as Reported by: Varun Kennedy on 02/13/201857 Last Taken: 20 on Unknown Date & Time Last Action: HELD on 02/14/201319 by LEXIS KAUR MD Hydralazine Hcl (Hydralazine Hcl) 50 Mg Tablet, 75 MG PO TID for hypertension, (Reported) Entered as Reported by: Varun Kennedy on 02/13/201857 Last Taken: 75 on Unknown Date & Time Last Action: Continued on 02/14/201319 by LEXIS KAUR MD Justicifation of Admission Dx: Justifications for Admission: Justification of Admission Dx: N/A CARMELA HECK MD Feb 20, 2020 14:30
[2020-02-20 15:00] VITALS: BP 141/60
--- NOTE | 2020-02-20 15:56 | NUR ---
DISCHARGED PATIENT HOME. DISCHARGE INSTRUCTIONS GIVEN TO FAMILY. PIV AND HEART MONITOR REMOVED. ESCORTED OFF UNIT PER WHEELCHAIR INTO A PRIVATE VEHICLE.
--- NOTE | 2020-02-20 16:27 | NUR ---
SS following up with discharge planning. Discharge orders on the chart for home healthcare. SS contacted pt's sister and discussed as pt already discharged. Pt's sister reported that they do not need home healthcare. She reported that pt has a caregiver and has nine more outpatient PT/OT visits available at .
== END 2020-02-20 16:00 | disposition home or self-care (01) | DRG 871 ==
LOC: ER 10:39 → ED HOLD 12:21 → 2 SOUTH 17:51 → 2 NORTH 02-14 18:42
PROVIDERS: ADMIT Family Medicine; ATTEND Family Medicine
PROC: 5A09357 Assistance with Respiratory Ventilation, Less than 24 Consecutive Hours, Continuous Positive Airway Pressure (ICD-10-PCS; 2020-02-13)
PROC: 5A09357 Assistance with Respiratory Ventilation, Less than 24 Consecutive Hours, Continuous Positive Airway Pressure (ICD-10-PCS; 2020-02-14)
PROC: 5A09357 Assistance with Respiratory Ventilation, Less than 24 Consecutive Hours, Continuous Positive Airway Pressure (ICD-10-PCS; 2020-02-15)
PROC: 0JH63XZ Insertion of Tunneled Vascular Access Device into Chest Subcutaneous Tissue and Fascia, Percutaneous Approach (ICD-10-PCS; principal; 2020-02-16)
PROC: 02H633Z Insertion of Infusion Device into Right Atrium, Percutaneous Approach (ICD-10-PCS; 2020-02-16)
PROC: B548ZZA Ultrasonography of Superior Vena Cava, Guidance (ICD-10-PCS; 2020-02-16)
PROC: 5A09357 Assistance with Respiratory Ventilation, Less than 24 Consecutive Hours, Continuous Positive Airway Pressure (ICD-10-PCS; 2020-02-16)
PROC: 5A1D70Z Performance of Urinary Filtration, Intermittent, Less than 6 Hours Per Day (ICD-10-PCS; 2020-02-16)
PROC: 5A1D70Z Performance of Urinary Filtration, Intermittent, Less than 6 Hours Per Day (ICD-10-PCS; 2020-02-17)
PROC: 5A1D70Z Performance of Urinary Filtration, Intermittent, Less than 6 Hours Per Day (ICD-10-PCS; 2020-02-20)
DX: A41.9 Sepsis, unspecified organism (principal); G93.41 Metabolic encephalopathy; J69.0 Pneumonitis due to inhalation of food and vomit; N17.0 Acute kidney failure with tubular necrosis; J96.01 Acute respiratory failure with hypoxia; I50.43 Acute on chronic combined systolic (congestive) and diastolic (congestive) heart failure; N18.6 End stage renal disease; J44.1 Chronic obstructive pulmonary disease with (acute) exacerbation; I13.2 Hypertensive heart and chronic kidney disease with heart failure and with stage 5 chronic kidney disease, or end stage renal disease; N39.0 Urinary tract infection, site not specified; J44.0 Chronic obstructive pulmonary disease with (acute) lower respiratory infection; Z20.828 Contact with and (suspected) exposure to other viral communicable diseases; M19.90 Unspecified osteoarthritis, unspecified site; I25.10 Atherosclerotic heart disease of native coronary artery without angina pectoris; E78.5 Hyperlipidemia, unspecified; E11.22 Type 2 diabetes mellitus with diabetic chronic kidney disease; R47.9 Unspecified speech disturbances; F79 Unspecified intellectual disabilities; H54.61 Unqualified visual loss, right eye, normal vision left eye; F03.90 Unspecified dementia, unspecified severity, without behavioral disturbance, psychotic disturbance, mood disturbance, and anxiety; D64.9 Anemia, unspecified; E11.40 Type 2 diabetes mellitus with diabetic neuropathy, unspecified; Y95 Nosocomial condition; I25.2 Old myocardial infarction; Z78.9 Other specified health status; Z95.5 Presence of coronary angioplasty implant and graft; Z85.46 Personal history of malignant neoplasm of prostate; Z87.891 Personal history of nicotine dependence; Z86.73 Personal history of transient ischemic attack (TIA), and cerebral infarction without residual deficits; Z82.49 Family history of ischemic heart disease and other diseases of the circulatory system
CPT/HCPCS: 36415; 36565; 36600; 70450; 71045; 76937; 77001; 80048; 80053; 80076; 81001; 82550; 82728; 82805; 82962; 83540; 83550; 83605; 83880; 84484; 85007; 85025; 85610; 85730; 86140; 86317; 86704; 87040; 87086; 87340; 87804; 93005; 94618; 94640; 94660; 94760; 96365; 96375; 99152; 99153; 99285; A4215; A4314; C1750; C1892; J0456; J0690; J0696; J1644; J1940; J2185; J2250; J3010; J3490; J7030; J7040; U0003; 92526-GN; 92610-GN; 97116-GP; 97530-GO; 97530-GP; 97535-GO; G0378; J7613

== ENCOUNTER 2020-03-07 17:28 | Inpatient (IN) | payer MEDICARE, OTHER ==
[~2020-03-07] VITALS: Ht 170.2 cm; Wt 60.6 kg
[~2020-03-07 17:28] MED LIST changes: +ACET325T9 PO; +ALBU2.5V14 NEB; +ASPI325T8 PO; +ATOR20TA58 PO; +BRIM5DRO2 OP; +CHOL200027 PO; +FURO-69 PO; +HYDR-2868 PO; +HYDR-2869 PO; +SENN-182 PO; +TIMO10DR5 EACHEYE
[2020-03-07] MEDS ORDERED: STERILE WATER for RESP 1,000 ML BAG. INH PRN (18:00)
[2020-03-07 18:07] LABS: BASE EXCESS COOX 1 mmol/L (-3-3); HCO3 COOX 23 mmol/L (21-28); METHEMOGLOBIN 0.5 % (0.0-1.9); OXYHEMOGLOBIN 96.2 %; PCO2 COOX 28 mmHg (35-46); PO2 COOX 92 mmHg (65-108); SAT O2 COOX 97 % (92-99)
--- NOTE | 2020-03-07 18:21 | ED.ADGEN ---
Past Medical History Past Medical History: TIA Past Surgical History: Other Additional Past Surgical Histo: UNKNOWN Smoking Status: Never Smoker Alcohol Use: None General Adult EDM: Chief Complaint: SHORTNESS OF BREATH HPI: HPI: Patient is a 80 year old male dialysis patient who presents via EMS from home for shortness of breath. Patient had dialysis today and is a new dialysis patient. Patient states there is no complications with dialysis is in the upper 60s on his baseline 2 L nasal cannula. He states he has had a cough but denies any other complaints or pain. Denies any recent vomiting or diarrhea. No Covid contacts that he knows of. Has a temperature of 100.6. Denies any lower extremity edema. Review of Systems: Review of Systems: All other systems within normal limits except for as noted in the HPI Current Medications: Current Medications Medications (Trade) Dose Ordered Sig/Ramin Start Time Stop Time Status Last Admin Dose Admin Acetaminophen (Tylenol) 650 mg PRN Q4HRS PRN 03/07/20 22:15 03/07/20 23:32 DC Fentanyl Citrate (Fentanyl 2ml Vial) 50 mcg PRN Q1HR PRN 03/07/20 22:15 03/08/20 22:14 Info (CONTRAST GIVEN -- Rx MONITORING) 1 each PRN DAILY PRN 03/07/20 21:15 03/09/20 21:14 Iohexol (Omnipaque 350 Mg/ml) 90 ml 1X ONCE 03/07/20 21:30 03/07/20 21:31 DC 03/07/20 21:25 90 ML Ondansetron HCl (Zofran) 4 mg PRN Q8HRS PRN 03/07/20 22:15 03/08/20 22:14 Potassium Bicarbonate (Potassium Effervescent Tablet) 40 meq 1X ONCE 03/07/20 21:00 03/07/20 21:01 DC 03/07/20 21:04 40 MEQ Potassium Chloride (Klor-Con) 40 meq 1X ONCE 03/07/20 20:15 03/07/20 20:26 DC Sterile Water (WATER for RESP) 1,000 ml CONT PRN 03/07/20 18:00 03/07/20 18:04 1,000 ML Allergies: Allergies: Allergies Coded Allergies Type Severity Reaction Last Updated Verified No Known Drug Allergies 09/10/16 No Physical Exam: PE: Constitutional: Well developed, well nourished, mild distress, non-toxic appearance. [] HENT: Normocephalic, atraumatic, bilateral external ears normal, nose normal. [] Eyes: PERRLA, conjunctiva normal, no discharge. [] Neck: No rigidity, supple, no stridor. [] Cardiovascular: Regular rate and rhythm, brisk cap refill [] Lungs & Thorax: Mild tachypnea, bilateral breath sounds clear [] Abdomen: Soft, nondistended. Skin: Warm, dry, no erythema, no rash. [] Back: No tenderness, no CVA tenderness. [] Extremities: No deformities, range of motion grossly intact, no lower extremity edema [] Neurologic: Alert and oriented X 3, no focal deficits noted. [] Psychologic: Affect normal, judgement normal, mood normal. [] Current Patient Data: Labs: Laboratory Tests Test 03/07/20 18:00 03/07/20 18:20 03/07/20 18:59 O2 Saturation 97 % (92-99) Arterial Blood pH 7.54 (7.35-7.45) H Arterial Blood pCO2 at Patient Temp 28 mmHg (35-46) L Arterial Blood pO2 at Patient Temp 92 mmHg (65-108) Arterial Blood HCO3 23 mmol/L (21-28) Arterial Blood Base Excess 1 mmol/L (-3-3) Oxyhemoglobin 96.2 % Methemoglobin 0.5 % (0.0-1.9) Carbon Monoxide, Quantitative 0.3 % (0.0-1.9) FiO2 100% nrb White Blood Count 6.7 x10^3/uL (4.0-11.0) Red Blood Count 3.30 x10^6/uL (4.30-5.70) L Hemoglobin 8.8 g/dL (13.0-17.5) L Hematocrit 27.7 % (39.0-53.0) L Mean Corpuscular Volume 84 fL (79-100) Mean Corpuscular Hemoglobin 27 pg (25-35) Mean Corpuscular Hemoglobin Concent 32 g/dL (31-37) Red Cell Distribution Width 17.7 % (11.5-14.5) H Platelet Count 246 x10^3/uL (140-400) Neutrophils (%) (Auto) 92 % (31-73) H Lymphocytes (%) (Auto) 3 % (24-48) L Monocytes (%) (Auto) 5 % (0-9) Eosinophils (%) (Auto) 0 % (0-3) Basophils (%) (Auto) 0 % (0-3) Neutrophils # (Auto) 6.2 x10^3/uL (1.8-7.7) Lymphocytes # (Auto) 0.2 x10^3/uL (1.0-4.8) L Monocytes # (Auto) 0.3 x10^3/uL (0.0-1.1) Eosinophils # (Auto) 0.0 x10^3/uL (0.0-0.7) Basophils # (Auto) 0.0 x10^3/uL (0.0-0.2) Segmented Neutrophils % 83 % (35-66) H Band Neutrophils % 9 % (0-9) Lymphocytes % 5 % (24-48) L Monocytes % 3 % (0-10) Platelet Estimate Adequate (ADEQUATE) Large Platelets Present Polychromasia Present Basophilic Stippling Present Anisocytosis Slight Schistocytes Occ Prothrombin Time 14.3 SEC (11.7-14.0) H Prothrombin Time INR 1.2 (0.8-1.1) H D-Dimer (Sonia) 2.53 ug/mlFEU (0.00-0.50) H Influenza Type A Antigen Negative (NEGATIVE) Influenza Type B Antigen Negative (NEGATIVE) Sodium Level 139 mmol/L (136-145) Potassium Level 2.7 mmol/L (3.5-5.1) *L Chloride Level 100 mmol/L (98-107) Carbon Dioxide Level 30 mmol/L (21-32) Anion Gap 9 (6-14) Blood Urea Nitrogen 12 mg/dL (8-26) Creatinine 2.2 mg/dL (0.7-1.3) H Estimated GFR (Cockcroft-Gault) 35.0 BUN/Creatinine Ratio 5 (6-20) L Glucose Level 107 mg/dL (70-99) H Lactic Acid Level 2.7 mmol/L (0.4-2.0) H Calcium Level 8.0 mg/dL (8.5-10.1) L Magnesium Level 1.6 mg/dL (1.8-2.4) L Total Bilirubin 0.4 mg/dL (0.2-1.0) Aspartate Amino Transferase (AST) 56 U/L (15-37) H Alanine Aminotransferase (ALT) 37 U/L (16-63) Alkaline Phosphatase 83 U/L (46-116) Creatine Kinase 473 U/L (39-308) H Creatine Kinase MB (Mass) 3.1 ng/mL (0.0-3.6) Creatine Kinase MB Relative Index 0.7 % (0-4) Troponin I Quantitative 0.747 ng/mL (0.000-0.055) PQ-Cph-E-Type Natriuretic Peptide 43777 pg/mL (0-449) H Total Protein 6.2 g/dL (6.4-8.2) L Albumin 2.6 g/dL (3.4-5.0) L Albumin/Globulin Ratio 0.7 (1.0-1.7) L Laboratory Tests 03/07/20 18:20 Laboratory Tests 03/07/20 18:59 Vital Signs: Vital Signs Date Time Temp Pulse Resp B/P (MAP) Pulse Ox O2 Delivery O2 Flow Rate FiO2 03/07/20 21:51 86 146/86 (106) 100 High Flow Nasal Cannula 03/07/20 21:06 100.8 100.8 03/07/20 20:46 18 03/07/20 20:20 30.0 EKG: EKG: Sinus rhythm with frequent PVCs. Left axis deviation, no ST elevation or depression. [] Heart Score: Risk Factors: Risk Factors: DM, Current or recent (<one month) smoker, HTN, HLP, family history of CAD, obesity. Risk Scores: Score 0 - 3: 2.5% MACE over next 6 weeks - Discharge Home Score 4 - 6: 20.3% MACE over next 6 weeks - Admit for Clinical Observation Score 7 - 10: 72.7% MACE over next 6 weeks - Early Invasive Strategies Radiology/Procedures: Radiology/Procedures: Clinical History: Dyspnea Technique: AP view of the chest was obtained at 03/07/2020 6:49 PM. Comparison: February 13, 2020. Findings: The heart is moderately large. The pulmonary vessels appear top normal limits in size. There is increased reticular opacities throughout the lungs. There has been interval placement of a right jugular dual-lumen catheter with its tip directed in the low SVC. Impression: Reticular opacities were seen previously and are likely chronic pulmonary fibrosis. This appears slightly worse and superposition of mild fluid overload or atypical pneumonia is possible. [] Course & Med Decision Making: Course & Med Decision Making Pertinent Labs and Imaging studies reviewed. (See chart for details) Worsening as possible infiltrate versus edema. Cover with antibiotics for HCAP as well as Lasix volume overload. Admitted to hospitalist. [] Dragon Disclaimer: Dragon Disclaimer: This electronic medical record was generated, in whole or in part, using a voice recognition dictation system. Departure Departure Impression: Primary Impression: Person under investigation for COVID-19 Additional Impression: Acute on chronic respiratory failure with hypoxia Disposition: ADMITTED INPT THIS HOSP Admitting Physician: NIXON Condition: GUARDED Referrals: UNKNOWN PCP NAME (PCP) Problem Qualifiers CAITLYN SCHMID MD Mar 07, 2020 18:21
[2020-03-07 18:38] LABS: BASO % 0 % (0-3); EOS % 0 % (0-3); HEMATOCRIT 27.7 % (39.0-53.0); HEMOGLOBIN 8.8 g/dL (13.0-17.5); LYMPH # 0.2 x10^3/uL (1.0-4.8); LYMPH % 3 % (24-48); MEAN CORPUSCULAR HEMOGLOBIN 27 pg (25-35); MEAN CORPUSCULAR HGB CONC 32 g/dL (31-37); MEAN CORPUSCULAR VOLUME 84 fL (79-100); MONO # 0.3 x10^3/uL (0.0-1.1); MONO % 5 % (0-9); NEUT # 6.2 x10^3/uL (1.8-7.7); NEUT % 92 % (31-73); PLATELET COUNT 246 x10^3/uL (140-400); RED CELL DISTRIBUTION WIDTH 17.7 % (11.5-14.5); WHITE BLOOD COUNT 6.7 x10^3/uL (4.0-11.0)
[2020-03-07 18:46] LABS: PROTHROMBIN TIME PATIENT 14.3 SEC (11.7-14.0)
[2020-03-07 18:58] LABS: D-DIMER 2.53 ug/mlFEU (0.00-0.50)
[2020-03-07 19:02] LABS: INFLUENZA A PATIENT NEGATIVE (NEGATIVE); INFLUENZA B PATIENT NEGATIVE (NEGATIVE)
[2020-03-07 19:20] LABS: % BANDS 9 % (0-9); % LYMPHS 5 % (24-48); % MONOS 3 % (0-10); % SEGS 83 % (35-66)
[2020-03-07 19:21] LABS: ANISOCYTOSIS SLIGHT; PLT ESTIMATE ADEQUATE (ADEQUATE); POLYCHROMASIA PRESENT
[2020-03-07 19:22] LABS: SCHISTOCYTES OCC
--- NOTE | 2020-03-07 19:23 | RAD ---
XR CHEST 1V Clinical History: Dyspnea Technique: AP view of the chest was obtained at 03/07/2020 6:49 PM. Comparison: February 13, 2020. Findings: The heart is moderately large. The pulmonary vessels appear top normal limits in size. There is incre ased reticular opacities throughout the lungs. There has been interval placement of a right jugular d ual-lumen catheter with its tip directed in the low SVC. Impression: Reticular opacities were seen previously and are likely chronic pulmonary fibrosis. This appears slig htly worse and superposition of mild fluid overload or atypical pneumonia is possible. Electronically signed by: Camden Molina III, MD (03/07/2020 7:20 PM) [facility]
[2020-03-07 19:27] LABS: ALBUMIN 2.6 g/dL (3.4-5.0); ALBUMIN/GLOBULIN RATIO 0.7 (1.0-1.7); CREATININE 2.2 mg/dL (0.7-1.3); MAGNESIUM 1.6 mg/dL (1.8-2.4); TOTAL BILIRUBIN 0.4 mg/dL (0.2-1.0); TOTAL PROTEIN 6.2 g/dL (6.4-8.2)
[2020-03-07 19:33] LABS: POTASSIUM 2.7 mmol/L (3.5-5.1)
[2020-03-07] MEDS ORDERED: POTASSIUM CHLORIDE 20 MEQ TABLET.ER. PO ONE ×2 (20:15→23:30)
[2020-03-07] MEDS ORDERED: POTASSIUM BICARB 10 MEQ EFFERVESCENT TABLET. PO ONE ×2 (21:00→23:30)
[2020-03-07] MEDS ORDERED: CONTRAST GIVEN. MC PRN (21:15)
[2020-03-07] MEDS ORDERED: IOHEXOL 350 MG/ML 100 ML VIAL. IV ONE (21:30)
[2020-03-07] MEDS ORDERED: ACETAMINOPHEN 325 MG TABLET. PO ONE (21:30)
--- NOTE | 2020-03-07 21:37 | RAD ---
CTA Chest with contrast: Clinical History: Shortness of breath. Axial helical images of the chest were obtained after the administration of 90 cc of IV Omni 350 and timed appropriately for a pulmonary arterial study. Conventional axial reconstruction was performed in addition to coronal, sagittal and bilateral oblique MIP (maximum intensity projection). This stud y was ordered to detect possible pulmonary embolism. There are no filling defects to suggest pulmonary embolism. There is diffuse reticular opacities of lungs and there is groundglass opacities in the mid and lower lungs. There is no mediastinal or hilar lymphadenopathy. The thoracic aorta appears normal. There is bilateral gynecomastia. The thyroid is diffusely enlarged. Impression: 1. No evidence of pulmonary embolism. 2. Diffuse mixed interstitial and airspace disease. This could be secondary to CHF or atypical pneum onia. 3. Large thyroid. Recommend correlation with TSH. End impression PQRS Compliance Statement: One or more of the following individualized dose reduction techniques were utilized for this examinat ion: 1. Automated exposure control 2. Adjustment of the mA and/or kV according to patient size 3. Use of iterative reconstruction technique Electronically signed by: Camden Molina III, MD (03/07/2020 9:34 PM) [facility]
[2020-03-07] MEDS ORDERED: ONDANSETRON PF 4 MG/2 ML VIAL. IV PRN (22:15)
[2020-03-07] MEDS ORDERED: fentaNYL PF VIAL 100 MCG/2 ML VIAL IV PRN (22:15)
[2020-03-07] MEDS ORDERED: ACETAMINOPHEN 325 MG TABLET. PO PRN ×2 (22:15→23:30)
[2020-03-07] MEDS ORDERED: PIPERACILLIN/TAZOBACTAM 3.375 GM in IV NORMAL SALINE 50ML 50 ML IV ONE (23:00)
[2020-03-07] MEDS ORDERED: VANCOMYCIN 2 GM in IV NORMAL SALINE 500ML BAG 500 ML IV ONE (23:00)
[2020-03-07] MEDS ORDERED: DEXAMETHASONE SOD PHOS 20 MG/5 ML VIAL. IV ONE (23:00)
[2020-03-07] MEDS ORDERED: FUROSEMIDE 40 MG/4 ML VIAL. IVP ONE (23:00)
[2020-03-07] MEDS ORDERED: POTASSIUM CHLORIDE 10MEQ 100 ML IV SCH ×3 (23:30)
[2020-03-07] MEDS ORDERED: SENNOSIDES 8.6 MG TABLET PO PRN (23:30)
[2020-03-07] MEDS ORDERED: POTASSIUM CHLORIDE 20 MEQ TABLET.ER. PO SCH ×2 (23:30)
[2020-03-07] MEDS ORDERED: POTASSIUM CHLORIDE 20MEQ 100 ML IV SCH ×2 (23:30)
[2020-03-07] MEDS ORDERED: SODIUM PHOSPHATE 40 MMOL in IV NORMAL SALINE 250ML 250 ML IV ONE (23:30)
[2020-03-07] MEDS ORDERED: POTASSIUM BICARB 20 MEQ EFFERVESCENT TABLET. PO ONE (23:30)
[2020-03-07] MEDS ORDERED: POTASSIUM PHOS,M-BASIC-D-BASIC 13.6 MMOL in IV NORMAL SALINE 250ML 250 ML IV SCH (23:30)
[2020-03-07] MEDS ORDERED: ELECTROLYTE (ICU) PROTOCOL. MC PRN (23:45)
[2020-03-08] VITALS (8 sets, daily range): BP systolic 137–168; BP diastolic 51–72
[2020-03-08] MEDS ORDERED: MAGNESIUM SULFATE 4GM 100 ML IV ONE
[2020-03-08] MEDS ORDERED: POTASSIUM CHLORIDE 20MEQ 100 ML IV SCH (00:01)
[2020-03-08] MEDS: VANCOMYCIN PER PHARMACY MC PRN (00:19)
--- NOTE | 2020-03-08 00:20 | NUR ---
Pharmacy Vancomycin Dosing Note S:Consulted to monitor and dose vancomycin started 03/07/20. O:FREDERICK HATFIELD is a 80 year old M with Pneumonia . Height: 5 feet, 7 inches Weight: 82.0 kg [place] Body Weight: 66.10 Adjusted Body Weight: 72.46 Dosing Weight: Actual Other Antibiotics: LABS: Last BUN: 12 Last Creatinine: 2.2 Creatinine Clearance: DIALYSIS mL/min Last WBC: 6.7 Last Procalcitonin: Tmax (past 24 hours): 100.8 Microbiology: I/O: Drug Levels: Last level: on at Last dose given 03/07/20 at Vancomycin Dosing: Loading Dose: 2000 mg x1 Dosing Weight: Actual Target Trough: 15-20 A: Based on: WT AND DIALYSIS P: 1. Begin Vancomycin IV Dose Per Levels 2. Follow up Random level on 03/09/20 at 0500 3. Pharmacy will continue to monitor, follow and adjust therapy as needed. DESTINEY DIAZ RPH, 03/08/20 0020 Signed: 03/08/20 at 0020 by DESTINEY DIAZ RPH PHA
[2020-03-08] MEDS: POTASSIUM CHLORIDE 10MEQ 100 ML IV SCH ×8 (01:38→09:44)
[2020-03-08] MEDS ORDERED: POTASSIUM BICARB 10 MEQ EFFERVESCENT TABLET. PO ONE ×2 (04:00)
--- NOTE | 2020-03-08 06:44 | NUR ---
Pt received from ED to room 105 at 0005 after report received from Jj ROGERS. All monitors applied and pt oriented to room, unit, and routines. Pt found to be in NAD and on 100% NRB. O2 titrated overnight to 3lpm via nc with O2 sat 100% at this time. Will call report to 6th floor and transfer patient this am. Care plan initiated.
[2020-03-08] MEDS ORDERED: PIP/TAZO PER PHARMACY MC PRN (07:00)
[2020-03-08] MEDS ORDERED: PIPERACILLIN/TAZOBACTAM 2.25 GM in IV NORMAL SALINE 50ML 50 ML IV SCH (07:00)
[2020-03-08] MEDS ORDERED: ELECTROLYTE (ICU) PROTOCOL. MC PRN (07:15)
--- NOTE | 2020-03-08 07:47 | PDOC1 ---
History and Physical Date of Admission Date of Admission DATE: 03/08/20 TIME: 06:58 Identification/Chief Complaint Chief Complaint Shortness of breath Source Source: Chart review, Patient History of Present Illness History of Present Illness Patient is a 80-year-old male who was recently started on hemodialysis, who presents for evaluation of acute shortness of breath since yesterday. Symptoms began after hemodialysis yesterday. Upon arrival in the ER blood pressure was noted to be 204/105. He was tachycardic and febrile at 100.6. He also reports associated cough. He denies any known COVID-19 contacts. In the ER he received antibiotic coverage for HCAP and Lasix for volume overload. Will admit patient for further medical management. Past Medical History Cardiovascular: CAD, CHF, HTN, [place], Other Pulmonary: COPD CENTRAL NERVOUS SYSTEM: Other GI: Constipation Musculoskeletal: Osteoarthritis, Other Renal/: Benign prostatic enlarg., Prostate Ca. Endocrine: Diabetes Past Surgical History Past Surgical History: Hernia Repair, Other Family History Family History: Hypertension Social History Smoke: No ALCOHOL: none Drugs: None Current Problem List Problem List Problems Medical Problems: (1) Acute on chronic respiratory failure with hypoxia Status: Acute (2) Acute respiratory distress Status: Acute (3) Person under investigation for COVID-19 Status: Acute Current Medications Current Medications Current Medications Sterile Water (WATER for RESP) 1,000 ml CONT PRN INH VIA VAPOTHERM DEVICE Last administered on 03/07/20at 18:04; Start 03/07/20 at 18:00 Potassium Chloride (Klor-Con) 40 meq 1X ONCE PO ; Start 03/07/20 at 20:15; Stop 03/07/20 at 20:26; Status DC Potassium Bicarbonate (Potassium Effervescent Tablet) 40 meq 1X ONCE PO Last administered on 03/07/20at 21:04; Start 03/07/20 at 21:00; Stop 03/07/20 at 21:01; Status DC Iohexol (Omnipaque 350 Mg/ml) 90 ml 1X ONCE IV Last administered on 03/07/20at 21:25; Start 03/07/20 at 21:30; Stop 03/07/20 at 21:31; Status DC Acetaminophen (Tylenol) 650 mg 1X ONCE PO Last administered on 03/07/20at 21:03; Start 03/07/20 at 21:30; Stop 03/07/20 at 21:31; Status DC Info (CONTRAST GIVEN -- Rx MONITORING) 1 each PRN DAILY PRN MC SEE COMMENTS; Start 03/07/20 at 21:15; Stop 03/09/20 at 21:14 Dexamethasone Sodium Phosphate (Decadron) 10 mg 1X ONCE IV Last administered on 03/07/20at 23:02; Start 03/07/20 at 23:00; Stop 03/07/20 at 23:01; Status DC Vancomycin HCl 2 gm/Sodium Chloride 500 ml @ 250 mls/hr 1X ONCE IV Last administered on 03/07/20at 23:30; Start 03/07/20 at 23:00; Stop 03/08/20 at 00:59; Status DC Piperacillin Sod/ Tazobactam Sod 3.375 gm/Sodium Chloride 50 ml @ 100 mls/hr 1X ONCE IV Last administered on 03/07/20at 23:01; Start 03/07/20 at 23:00; Stop 03/07/20 at 23:30; Status DC Furosemide (Lasix) 40 mg 1X ONCE IVP Last administered on 03/07/20at 23:02; Start 03/07/20 at 23:00; Stop 03/07/20 at 23:01; Status DC Vancomycin HCl (Vanco Per Pharmacy) 1 each PRN DAILY PRN MC SEE COMMENTS Last administered on 03/08/20at 00:19; Start 03/07/20 at 22:30 Ondansetron HCl (Zofran) 4 mg PRN Q8HRS PRN IV NAUSEA/VOMITING 1ST CHOICE; Start 03/07/20 at 22:15; Stop 03/08/20 at 22:14 Fentanyl Citrate (Fentanyl 2ml Vial) 50 mcg PRN Q1HR PRN IV SEVERE PAIN 7-10; Start 03/07/20 at 22:15; Stop 03/08/20 at 22:14 Acetaminophen (Tylenol) 650 mg PRN Q4HRS PRN PO FEVER > 100.3'F; Start 03/07/20 at 22:15; Stop 03/07/20 at 23:32; Status DC Acetaminophen (Tylenol) 650 mg PRN Q6HRS PRN PO MILD PAIN 1-3; Start 03/07/20 at 23:30 Amlodipine Besylate (Norvasc) 10 mg DAILY PO ; Start 03/08/20 at 09:00 Aspirin (Zaida Aspirin) 325 mg DAILY PO ; Start 03/08/20 at 09:00 Atorvastatin Calcium (Lipitor) 20 mg HS PO ; Start 03/08/20 at 00:00 Ferrous Sulfate (Feosol) 325 mg DAILY PO ; Start 03/08/20 at 09:00 Hydralazine HCl (Apresoline) 25 mg TID PO ; Start 03/08/20 at 00:00 Sennosides (Senna) 8.6 mg PRN DAILY PRN PO CONSTIPATION 1ST CHOICE; Start 03/07 at 23:30 Tamsulosin HCl (Flomax) 0.4 mg DAILY PO ; Start 03/08/20 at 09:00 Timolol Maleate (Timoptic 0.5% Oph) 1 drop BID OU ; Start 03/08/20 at 09:00 Albuterol Sulfate (Ventolin Neb Soln) 2.5 mg RTQID NEB ; Start 03/08/20 at 08:00 Brimonidine Tartrate (Alphagan) 1 drop QHS OU ; Start 03/08/20 at 21:00 Vitamin D (Vitamin D3) 2,000 unit DAILY PO ; Start 03/08/20 at 09:00 Potassium Chloride (Klor-Con) 40 meq 1X ONCE PO ; Start 03/07/20 at 23:30; Stop 03/07/20 at 23:31; Status UNV Potassium Bicarbonate (Potassium Effervescent Tablet) 40 meq 1X ONCE PO ; Start 03/07/20 at 23:30; Stop 03/07/20 at 23:31; Status UNV Potassium Bicarbonate (Potassium Effervescent Tablet) 40 meq 1X ONCE PO ; Start 03/07/20 at 23:30; Stop 03/07/20 at 23:31; Status UNV Potassium Chloride/Water 100 ml @ 100 mls/hr Q1H IV ; Start 03/07/20 at 23:30; Stop 03/08/20 at 03:29; Status UNV Potassium Chloride/Water 100 ml @ 100 mls/hr Q1H IV ; Start 03/07/20 at 23:30; Stop 03/08/20 at 01:29; Status UNV Potassium Chloride (Klor-Con) 40 meq Q2H PO ; Start 03/07/20 at 23:30; Stop 03/08/20 at 01:31; Status UNV Potassium Chloride/Water 100 ml @ 100 mls/hr Q1H IV ; Start 03/07/20 at 23:30; Stop 03/08/20 at 07:29; Status UNV Potassium Chloride/Water 100 ml @ 100 mls/hr Q1H IV ; Start 03/07/20 at 23:30; Stop 03/08/20 at 03:29; Status UNV Potassium Chloride (Klor-Con) 40 meq Q2H PO ; Start 03/07/20 at 23:30; Stop 03/08/20 at 03:31; Status UNV Potassium Chloride/Water 100 ml @ 100 mls/hr Q1H IV ; Start 03/07/20 at 23:30; Stop 03/08/20 at 11:29; Status UNV Potassium Chloride/Water 100 ml @ 100 mls/hr Q1HR IV ; Start 03/08/20 at 00:01; Stop 03/08/20 at 05:59; Status UNV Magnesium Sulfate 100 ml @ 50 mls/hr DAILY IV ; Start 03/08/20 at 09:00; Stop 03/11/20 at 08:59; Status UNV Potassium Phos/ Sodium Phos (Phos-Nak) 1 pkt BID PO ; Start 03/08/20 at 09:00; Stop 03/08/20 at 21:01; Status UNV Sodium Phosphate 40 mmol/Sodium Chloride 263.3333 ml @ 62.5 mls/hr 1X ONCE IV ; Start 03/07/20 at 23:30; Stop 03/08/20 at 03:42; Status UNV Potassium Phosphate 13.6 mmol/Sodium Chloride 254.5333 ml @ 62.5 mls/hr Q4H IV ; Start 03/07/20 at 23:30; Stop 03/08/20 at 11:29; Status UNV Info (Icu Electrolyte Protocol) 1 ea CONT PRN PRN MC PER PROTOCOL; Start 03/07/20 at 23:45 Magnesium Sulfate 100 ml @ 50 mls/hr 1X ONCE IV Last administered on 03/08/20at 00:00; Start 03/08/20 at 00:00; Stop 03/08/20 at 01:59; Status DC Potassium Bicarbonate (Potassium Effervescent Tablet) 40 meq 1X ONCE PO ; Start 03/08/20 at 00:00; Stop 03/08/20 at 00:01; Status DC Potassium Bicarbonate (Potassium Effervescent Tablet) 40 meq 1X ONCE PO ; Start 03/08/20 at 04:00; Stop 03/08/20 at 04:01; Status DC Vancomycin HCl (Vancomycin Random Level) 1 each 1X ONCE MC ; Start 03/09/20 at 05:00; Stop 03/09/20 at 05:01 Potassium Chloride/Water 100 ml @ 100 mls/hr Q1H IV Last administered on 03/08/20at 05:52; Start 03/08/20 at 02:00; Stop 03/08/20 at 09:59 Influenza Virus Vaccine Quadrival (Fluzone Quad Syringe) 0.5 ml ONCE ONCE VAX IM ; Start 03/08/20 at 09:00; Stop 03/08/20 at 09:01 Piperacillin Sod/ Tazobactam Sod (Zosyn Per Pharmacy) 1 each PRN DAILY PRN MC SEE COMMENTS; Start 03/08/20 at 07:00 Piperacillin Sod/ Tazobactam Sod 2.25 gm/Sodium Chloride 50 ml @ 100 mls/hr Q8HRS IV ; Start 03/08/20 at 07:00 Active Scripts Active Hydralazine Hcl 25 Mg Tablet 25 Mg PO TID 30 Days Reported Timoptic 0.5% (Timolol Maleate) 10 Ml Drops 1 Drop EACHEYE BID 30 Days Senna (Sennosides) 8.6 Mg Tablet 8.6 Mg PO PRN DAILY PRN Tylenol (Acetaminophen) 325 Mg Tablet 650 Mg PO PRN Q6-8HRS PRN Albuterol Sulfate Conc Neb Soln (Albuterol Sulfate) 2.5 Mg/0.5 Ml Vial.neb 2.5 Mg NEB QIDACHS Combigan Eye Drops (Brimonidine Tartrate/Timolol) 5 Ml Drops 5 Ml OP QHS Vitamin D3 (Cholecalciferol (Vitamin D3)) 50 Mcg Tablet 50 Mcg PO DAILY Atorvastatin Calcium 20 Mg Tablet 20 Mg PO HS Aspirin 325 Mg Tablet 325 Mg PO DAILY Tamsulosin Hcl 0.4 Mg Cap.er.24h 0.4 Mg PO DAILY Ferrous Sulfate 325 Mg Tablet 1 Tab PO DAILY Amlodipine Besylate 10 Mg Tablet 10 Mg PO DAILY Allergies Allergies: Coded Allergies: No Known Drug Allergies (Unverified , 09/10/16) ROS Review of System GENERAL: No history of weight change, weakness or fevers. SKIN: No bruising, hair changes or rashes. EYES: No blurred, double or loss of vision. NOSE AND THROAT: No history of nosebleeds, hoarseness or sore throat. HEART: Denies chest pain, denies palpitations. LUNGS: Shortness of breath, cough. Denies hemoptysis, wheezing. GASTROINTESTINAL: Denies nausea, vomiting, abdominal pain. GENITOURINARY: Denies dysuria, frequency, urgency, hematuria. NEUROLOGIC: Denies history of numbness, tingling, tremor or weakness. PSYCHIATRIC: Denies anxiety, denies depression. ENDOCRINE: No history of heat or cold intolerance, polyuria or polydipsia. EXTREMITIES: Denies muscle weakness, joint pain, pain on walking or stiffness. Physical Exam Physical Exam General: Alert, Oriented X3, Cooperative, moderate distress HEENT: PERRLA, EOMI Lungs: Bibasilar Rales normal air movement Heart: RRR, no murmurs Cardiovascular: S1, S2 Abdomen: Normal bowel sounds, Soft, No tenderness Extremities: No clubbing, No cyanosis Skin: No rashes, No significant lesion Neuro: Normal speech, Normal tone, Sensation intact Psych/Mental Status: Mental status NL, Mood NL Vitals Vitals Vital Signs Date Time Temp Pulse Resp B/P (MAP) Pulse Ox O2 Delivery O2 Flow Rate FiO2 03/08/20 03:00 97.9 66 18 145/51 (82) 100 Nasal Cannula 8.0 97.9 Labs Labs Laboratory Tests Test 03/07/20 18:00 03/07/20 18:20 03/07/20 18:59 03/07/20 23:00 O2 Saturation 97 % (92-99) Arterial Blood pH 7.54 (7.35-7.45) Arterial Blood pCO2 at Patient Temp 28 mmHg (35-46) Arterial Blood pO2 at Patient Temp 92 mmHg (65-108) Arterial Blood HCO3 23 mmol/L (21-28) Arterial Blood Base Excess 1 mmol/L (-3-3) Oxyhemoglobin 96.2 % Methemoglobin 0.5 % (0.0-1.9) Carbon Monoxide, Quantitative 0.3 % (0.0-1.9) FiO2 100% nrb White Blood Count 6.7 x10^3/uL (4.0-11.0) Red Blood Count 3.30 x10^6/uL (4.30-5.70) Hemoglobin 8.8 g/dL (13.0-17.5) Hematocrit 27.7 % (39.0-53.0) Mean Corpuscular Volume 84 fL (79-100) Mean Corpuscular Hemoglobin 27 pg (25-35) Mean Corpuscular Hemoglobin Concent 32 g/dL (31-37) Red Cell Distribution Width 17.7 % (11.5-14.5) Platelet Count 246 x10^3/uL (140-400) Neutrophils (%) (Auto) 92 % (31-73) Lymphocytes (%) (Auto) 3 % (24-48) Monocytes (%) (Auto) 5 % (0-9) Eosinophils (%) (Auto) 0 % (0-3) Basophils (%) (Auto) 0 % (0-3) Neutrophils # (Auto) 6.2 x10^3/uL (1.8-7.7) Lymphocytes # (Auto) 0.2 x10^3/uL (1.0-4.8) Monocytes # (Auto) 0.3 x10^3/uL (0.0-1.1) Eosinophils # (Auto) 0.0 x10^3/uL (0.0-0.7) Basophils # (Auto) 0.0 x10^3/uL (0.0-0.2) Segmented Neutrophils % 83 % (35-66) Band Neutrophils % 9 % (0-9) Lymphocytes % 5 % (24-48) Monocytes % 3 % (0-10) Platelet Estimate Adequate (ADEQUATE) Large Platelets Present Polychromasia Present Basophilic Stippling Present Anisocytosis Slight Schistocytes Occ Prothrombin Time 14.3 SEC (11.7-14.0) Prothromb Time International Ratio 1.2 (0.8-1.1) D-Dimer (Sonia) 2.53 ug/mlFEU (0.00-0.50) Influenza Type A Antigen Negative (NEGATIVE) Influenza Type B Antigen Negative (NEGATIVE) Sodium Level 139 mmol/L (136-145) Potassium Level 2.7 mmol/L (3.5-5.1) Chloride Level 100 mmol/L (98-107) Carbon Dioxide Level 30 mmol/L (21-32) Anion Gap 9 (6-14) Blood Urea Nitrogen 12 mg/dL (8-26) Creatinine 2.2 mg/dL (0.7-1.3) Estimated GFR (Cockcroft-Gault) 35.0 BUN/Creatinine Ratio 5 (6-20) Glucose Level 107 mg/dL (70-99) Lactic Acid Level 2.7 mmol/L (0.4-2.0) 2.7 mmol/L (0.4-2.0) Calcium Level 8.0 mg/dL (8.5-10.1) Magnesium Level 1.6 mg/dL (1.8-2.4) Total Bilirubin 0.4 mg/dL (0.2-1.0) Aspartate Amino Transf (AST/SGOT) 56 U/L (15-37) Alanine Aminotransferase (ALT/SGPT) 37 U/L (16-63) Alkaline Phosphatase 83 U/L (46-116) Creatine Kinase 473 U/L (39-308) Creatine Kinase MB (Mass) 3.1 ng/mL (0.0-3.6) Creatine Kinase MB Relative Index 0.7 % (0-4) Troponin I Quantitative 0.747 ng/mL (0.000-0.055) UX-Wef-E-Type Natriuretic Peptide 08991 pg/mL (0-449) Total Protein 6.2 g/dL (6.4-8.2) Albumin 2.6 g/dL (3.4-5.0) Albumin/Globulin Ratio 0.7 (1.0-1.7) Test 03/08/20 00:58 Troponin I Quantitative 1.181 ng/mL (0.000-0.055) Laboratory Tests Test 03/07/20 18:00 03/07/20 18:20 03/07/20 18:59 03/07/20 23:00 O2 Saturation 97 % (92-99) Arterial Blood pH 7.54 (7.35-7.45) Arterial Blood pCO2 at Patient Temp 28 mmHg (35-46) Arterial Blood pO2 at Patient Temp 92 mmHg (65-108) Arterial Blood HCO3 23 mmol/L (21-28) Arterial Blood Base Excess 1 mmol/L (-3-3) Oxyhemoglobin 96.2 % Methemoglobin 0.5 % (0.0-1.9) Carbon Monoxide, Quantitative 0.3 % (0.0-1.9) FiO2 100% nrb White Blood Count 6.7 x10^3/uL (4.0-11.0) Red Blood Count 3.30 x10^6/uL (4.30-5.70) Hemoglobin 8.8 g/dL (13.0-17.5) Hematocrit 27.7 % (39.0-53.0) Mean Corpuscular Volume 84 fL (79-100) Mean Corpuscular Hemoglobin 27 pg (25-35) Mean Corpuscular Hemoglobin Concent 32 g/dL (31-37) Red Cell Distribution Width 17.7 % (11.5-14.5) Platelet Count 246 x10^3/uL (140-400) Neutrophils (%) (Auto) 92 % (31-73) Lymphocytes (%) (Auto) 3 % (24-48) Monocytes (%) (Auto) 5 % (0-9) Eosinophils (%) (Auto) 0 % (0-3) Basophils (%) (Auto) 0 % (0-3) Neutrophils # (Auto) 6.2 x10^3/uL (1.8-7.7) Lymphocytes # (Auto) 0.2 x10^3/uL (1.0-4.8) Monocytes # (Auto) 0.3 x10^3/uL (0.0-1.1) Eosinophils # (Auto) 0.0 x10^3/uL (0.0-0.7) Basophils # (Auto) 0.0 x10^3/uL (0.0-0.2) Segmented Neutrophils % 83 % (35-66) Band Neutrophils % 9 % (0-9) Lymphocytes % 5 % (24-48) Monocytes % 3 % (0-10) Platelet Estimate Adequate (ADEQUATE) Large Platelets Present Polychromasia Present Basophilic Stippling Present Anisocytosis Slight Schistocytes Occ Prothrombin Time 14.3 SEC (11.7-14.0) Prothromb Time International Ratio 1.2 (0.8-1.1) D-Dimer (Sonia) 2.53 ug/mlFEU (0.00-0.50) Influenza Type A Antigen Negative (NEGATIVE) Influenza Type B Antigen Negative (NEGATIVE) Sodium Level 139 mmol/L (136-145) Potassium Level 2.7 mmol/L (3.5-5.1) Chloride Level 100 mmol/L (98-107) Carbon Dioxide Level 30 mmol/L (21-32) Anion Gap 9 (6-14) Blood Urea Nitrogen 12 mg/dL (8-26) Creatinine 2.2 mg/dL (0.7-1.3) Estimated GFR (Cockcroft-Gault) 35.0 BUN/Creatinine Ratio 5 (6-20) Glucose Level 107 mg/dL (70-99) Lactic Acid Level 2.7 mmol/L (0.4-2.0) 2.7 mmol/L (0.4-2.0) Calcium Level 8.0 mg/dL (8.5-10.1) Magnesium Level 1.6 mg/dL (1.8-2.4) Total Bilirubin 0.4 mg/dL (0.2-1.0) Aspartate Amino Transf (AST/SGOT) 56 U/L (15-37) Alanine Aminotransferase (ALT/SGPT) 37 U/L (16-63) Alkaline Phosphatase 83 U/L (46-116) Creatine Kinase 473 U/L (39-308) Creatine Kinase MB (Mass) 3.1 ng/mL (0.0-3.6) Creatine Kinase MB Relative Index 0.7 % (0-4) Troponin I Quantitative 0.747 ng/mL (0.000-0.055) IK-Tas-Z-Type Natriuretic Peptide 38126 pg/mL (0-449) Total Protein 6.2 g/dL (6.4-8.2) Albumin 2.6 g/dL (3.4-5.0) Albumin/Globulin Ratio 0.7 (1.0-1.7) Test 03/08/20 00:58 Troponin I Quantitative 1.181 ng/mL (0.000-0.055) Images Images CTA Chest with contrast: Clinical History: Shortness of breath. Axial helical images of the chest were obtained after the administration of 90 cc of IV Omni 350 and timed appropriately for a pulmonary arterial study. Conventional axial reconstruction was performed in addition to coronal, sagittal and bilateral oblique MIP (maximum intensity projection). This study was ord ered to detect possible pulmonary embolism. There are no filling defects to suggest pulmonary embolism. There is diffuse reticular opacities of lungs and there is groundglass opacities in the mid and lower lungs. There is no mediastinal or hilar lymphadenopathy. The thoracic aorta appears normal. There is bilateral gynecomastia. The thyroid is diffusely enlarged. Impression: 1. No evidence of pulmonary embolism. 2. Diffuse mixed interstitial and airspace disease. This could be secondary to CHF or atypical pneumonia. 3. Large thyroid. Recommend correlation with TSH. XR CHEST 1V Clinical History: Dyspnea Technique: AP view of the chest was obtained at 03/07/2020 6:49 PM. Comparison: February 13, 2020. Findings: The heart is moderately large. The pulmonary vessels appear top normal limits in size. There is increased reticular opacities throughout the lungs. There has been interval placement of a right jugular dual-lumen catheter with its tip directed in the low SVC. Impression: Reticular opacities were seen previously and are likely chronic pulmonary fibrosis. This appears slightly worse and superposition of mild fluid overload or atypical pneumonia is possible. VTE Prophylaxis Ordered VTE Prophylaxis Devices: Yes VTE Pharmacological Prophylaxi: No Assessment/Plan Assessment/Plan Sepsis Acute respiratory failure with hypoxia HCAP Acute CHF exacerbation Fluid overload NSTEMI Hypertensive urgency Hypokalemia Hypocalcemia Hypomagnesemia COVID-19 PUI Anemia Thyromegaly Chronic renal insufficiency Severe malnutrition Plan: Continue broad antibiotic coverage with vancomycin and cefepime; will continue to monitor kidney function Blood cultures pending MRSA PCR pending; if negative can discontinue vancomycin CT obtained on admission showed mixed airspace disease, possible CHF versus a typical pneumonia COVID-19 pending, influenza negative. Received Decadron 10 mg in ER. Will continue steroid treatment. If COVID-19 positive will initiate remdesivir. Consultation to nephrology to continue hemodialysis and further recommendations Lactic acidosis likely secondary to chronic renal insufficiency Judicious IV fluids secondary to chronic renal insufficiency and acute CHF Consultation to cardiology; elevated troponins likely secondary to hypertensive urgency in setting of chronic kidney insufficiency Received Lasix 40x1 in the ER; continue to diurese patient Will replace electrolytes Obtain TSH to evaluate thyromegaly Continue home medications FEN - renal diet PPX - Heparin FULL CODE Dispo - inpatient for above Justifications for Admission Other Justification VAUGHN PEREIRA MD Mar 08, 2020 07:47
[2020-03-08] MEDS ORDERED: ALBUTEROL SULFATE 2.5 MG/3 ML NEBU. NEB SCH (08:00)
[2020-03-08 08:39] LABS: BASO % 0 % (0-3); EOS % 0 % (0-3); HEMATOCRIT 26.3 % (39.0-53.0); HEMOGLOBIN 8.3 g/dL (13.0-17.5); LYMPH # 0.6 x10^3/uL (1.0-4.8); LYMPH % 5 % (24-48); MEAN CORPUSCULAR HEMOGLOBIN 27 pg (25-35); MEAN CORPUSCULAR HGB CONC 32 g/dL (31-37); MEAN CORPUSCULAR VOLUME 84 fL (79-100); MONO # 0.2 x10^3/uL (0.0-1.1); MONO % 2 % (0-9); NEUT # 11.7 x10^3/uL (1.8-7.7); NEUT % 93 % (31-73); PLATELET COUNT 202 x10^3/uL (140-400); RED BLOOD COUNT 3.11 x10^6/uL (4.30-5.70); RED CELL DISTRIBUTION WIDTH 17.3 % (11.5-14.5); WHITE BLOOD COUNT 12.6 x10^3/uL (4.0-11.0)
--- NOTE | 2020-03-08 08:44 | NUR ---
Pt arrived on unit from ICU by wheelchair at approx 0810. Pt transferred to bed, IV potassium infusing, on 3L NC. Pt rating pain at 0/10. No concerns noted from pt at this time. Fresh water given, renal breakfast tray ordered. Will assume care of this pt.
[2020-03-08] MEDS ORDERED: FLU VACC QS 2020-21(6MOS+)/PF 0.5 ML SYRINGE. VAX IM ONE (09:00)
[2020-03-08] MEDS ORDERED: POTASSIUM & SODIUM PHOSPHATES PACKET. PO SCH (09:00)
[2020-03-08] MEDS: TIMOLOL 0.5% OPHTH SOLUTION 5ML BOTTLE. OU SCH ×2 (09:00→21:15)
[2020-03-08] MEDS ORDERED: MAGNESIUM SULFATE 4GM 100 ML IV SCH (09:00)
--- NOTE | 2020-03-08 09:02 | PDOC2 ---
JEAN MAYS STEREOTYPER HELPER 03/08/20 0902: CARDIAC CONSULT DATE OF CONSULT Date of Consult DATE: 03/08/20 TIME: 08:46 REASON FOR CONSULT Reason for Consult: CHF, elevated trop REFERRING PHYSICIAN Referring Physician: Alfredo SOURCE Source: Chart review, Patient HISTORY OF PRESENT ILLNESS HISTORY OF PRESENT ILLNESS This is a pleasant 80 yo male admitted for complains of chest pain. Pt currently is no having any chest pain and SOA is better. He is pleasant but a poor historian given his cognitive deficits. His DPOA is Claribel his sister whom he lives with. I talked to her and told me that he was released and treated for COPD, new ESRD and CHF and possible pneumonia negative for covid about 3 wks ago He was discharge but his SOA was not completely resolved but better with O2. This time his SOA has gotten worse last nightnoting 82-84% O2 sat even with 3 L of O2 which he takes at home. Also he was so weak and was clenching his fist on his chest admitting of chest pain. He had HD yesterday and vomited afterwards. Denies any palpitations. He saw his activities coordinator Dr. Gleason 01/2020 at [facility]. He has been complaint with his medications including his HD. No productive cough but noted with fever. He signifciant for STEMI in 2017 with PCI to RCA. No further LHC since then. PAST MEDICAL HISTORY Cardiovascular: CAD, HTN, SD (05/18/2016), Hyperlipidemia, Other (orthostasis, rheumatic fever as a child) Pulmonary: COPD, Pneumonia CENTRAL NERVOUS SYSTEM: TIA, Other (cognitive deficit) Heme/Onc: Anemia NOS, Cancer (prostate with radiation) Hepatobiliary: No pertinent hx Psych: Depression Musculoskeletal: Osteoarthritis Infectious disease: No pertinent hx ENT: Other (glaucoma) Renal/: Chronic renal failure, Benign prostatic enlarg. Endocrine: Diabetes (2) Dermatology: No pertinent hx PAST SURGICAL HISTORY Past Surgical History: Arthroscopy (right ankle), Total hip replacement (right), Other (PCI) FAMILY HISTORY Family History: Family History Unknown SOCIAL HISTORY Smoke: No ALCOHOL: none CURRENT MEDICATIONS CURRENT MEDICATIONS Current Medications Medications (Trade) Dose Ordered Sig/Ramin Route PRN Reason Start Time Stop Time Status Last Admin Dose Admin Sterile Water (WATER for RESP) 1,000 ml CONT PRN INH VIA VAPOTHERM DEVICE 03/07/20 18:00 03/07/20 18:04 Potassium Bicarbonate (Potassium Effervescent Tablet) 40 meq 1X ONCE PO 03/07/20 21:00 03/07/20 21:01 DC 03/07/20 21:04 Iohexol (Omnipaque 350 Mg/ml) 90 ml 1X ONCE IV 03/07/20 21:30 03/07/20 21:31 DC 03/07/20 21:25 Acetaminophen (Tylenol) 650 mg 1X ONCE PO 03/07/20 21:30 03/07/20 21:31 DC 03/07/20 21:03 Dexamethasone Sodium Phosphate (Decadron) 10 mg 1X ONCE IV 03/07/20 23:00 03/07/20 23:01 DC 03/07/20 23:02 Vancomycin HCl 2 gm/Sodium Chloride 500 ml @ 250 mls/hr 1X ONCE IV 03/07/20 23:00 03/08/20 00:59 DC 03/07/20 23:30 Piperacillin Sod/ Tazobactam Sod 3.375 gm/Sodium Chloride 50 ml @ 100 mls/hr 1X ONCE IV 03/07/20 23:00 03/07/20 23:30 DC 03/07/20 23:01 Furosemide (Lasix) 40 mg 1X ONCE IVP 03/07/20 23:00 03/07/20 23:01 DC 03/07/20 23:02 Vancomycin HCl (Vanco Per Pharmacy) 1 each PRN DAILY PRN MC SEE COMMENTS 03/07/20 22:30 03/08/20 00:19 Magnesium Sulfate 100 ml @ 50 mls/hr 1X ONCE IV 03/08/20 00:00 03/08/20 01:59 DC 03/08/20 00:00 Potassium Chloride/Water 100 ml @ 100 mls/hr Q1H IV 03/08/20 02:00 03/08/20 09:59 03/08/20 08:41 ALLERGIES ALLERGIES: Coded Allergies: No Known Drug Allergies (Unverified , 09/10/16) ROS Review of System limited due to cognitive deficits PHYSICAL EXAM General: Alert, Cooperative, No acute distress HEENT: Atraumatic, Mucous membr. moist/pink Lungs: Other (diminished) Heart: Regular rate (SR no ectopies), Other (distant heart sounds) Abdomen: Soft Extremities: No cyanosis, No edema Skin: No breakdown, No significant lesion Neuro: Normal speech, Sensation intact Psych/Mental Status: Mental status NL, Mood NL MUSCULOSKELETAL: Osteoarthritic changes both hands VITALS/I&O VITALS/I&O: Vital Signs Date Time Temp Pulse Resp B/P (MAP) Pulse Ox O2 Delivery O2 Flow Rate FiO2 03/08/20 08:38 97.6 67 20 140/72 (94) 100 Nasal Cannula 3.0 97.6 I & O 03/07/20 03/07/20 03/08/20 15:00 23:00 07:00 Intake Total 1037 ml Output Total 225 ml Balance 812 ml LABS Lab: Laboratory Tests Test 03/07/20 18:00 03/07/20 18:20 03/07/20 18:59 03/07/20 23:00 O2 Saturation 97 % (92-99) Arterial Blood pH 7.54 (7.35-7.45) H Arterial Blood pCO2 at Patient Temp 28 mmHg (35-46) L Arterial Blood pO2 at Patient Temp 92 mmHg (65-108) Arterial Blood HCO3 23 mmol/L (21-28) Arterial Blood Base Excess 1 mmol/L (-3-3) Oxyhemoglobin 96.2 % Methemoglobin 0.5 % (0.0-1.9) Carbon Monoxide, Quantitative 0.3 % (0.0-1.9) FiO2 100% nrb White Blood Count 6.7 x10^3/uL (4.0-11.0) Red Blood Count 3.30 x10^6/uL (4.30-5.70) L Hemoglobin 8.8 g/dL (13.0-17.5) L Hematocrit 27.7 % (39.0-53.0) L Mean Corpuscular Volume 84 fL (79-100) Mean Corpuscular Hemoglobin 27 pg (25-35) Mean Corpuscular Hemoglobin Concent 32 g/dL (31-37) Red Cell Distribution Width 17.7 % (11.5-14.5) H Platelet Count 246 x10^3/uL (140-400) Neutrophils (%) (Auto) 92 % (31-73) H Lymphocytes (%) (Auto) 3 % (24-48) L Monocytes (%) (Auto) 5 % (0-9) Eosinophils (%) (Auto) 0 % (0-3) Basophils (%) (Auto) 0 % (0-3) Neutrophils # (Auto) 6.2 x10^3/uL (1.8-7.7) Lymphocytes # (Auto) 0.2 x10^3/uL (1.0-4.8) L Monocytes # (Auto) 0.3 x10^3/uL (0.0-1.1) Eosinophils # (Auto) 0.0 x10^3/uL (0.0-0.7) Basophils # (Auto) 0.0 x10^3/uL (0.0-0.2) Segmented Neutrophils % 83 % (35-66) H Band Neutrophils % 9 % (0-9) Lymphocytes % 5 % (24-48) L Monocytes % 3 % (0-10) Platelet Estimate Adequate (ADEQUATE) Large Platelets Present Polychromasia Present Basophilic Stippling Present Anisocytosis Slight Schistocytes Occ Prothrombin Time 14.3 SEC (11.7-14.0) H Prothrombin Time INR 1.2 (0.8-1.1) H D-Dimer (Sonia) 2.53 ug/mlFEU (0.00-0.50) H Influenza Type A Antigen Negative (NEGATIVE) Influenza Type B Antigen Negative (NEGATIVE) Sodium Level 139 mmol/L (136-145) Potassium Level 2.7 mmol/L (3.5-5.1) *L Chloride Level 100 mmol/L (98-107) Carbon Dioxide Level 30 mmol/L (21-32) Anion Gap 9 (6-14) Blood Urea Nitrogen 12 mg/dL (8-26) Creatinine 2.2 mg/dL (0.7-1.3) H Estimated GFR (Cockcroft-Gault) 35.0 BUN/Creatinine Ratio 5 (6-20) L Glucose Level 107 mg/dL (70-99) H Lactic Acid Level 2.7 mmol/L (0.4-2.0) H 2.7 mmol/L (0.4-2.0) H Calcium Level 8.0 mg/dL (8.5-10.1) L Magnesium Level 1.6 mg/dL (1.8-2.4) L Total Bilirubin 0.4 mg/dL (0.2-1.0) Aspartate Amino Transferase (AST) 56 U/L (15-37) H Alanine Aminotransferase (ALT) 37 U/L (16-63) Alkaline Phosphatase 83 U/L (46-116) Creatine Kinase 473 U/L (39-308) H Creatine Kinase MB (Mass) 3.1 ng/mL (0.0-3.6) Creatine Kinase MB Relative Index 0.7 % (0-4) Troponin I Quantitative 0.747 ng/mL (0.000-0.055) IO-Nse-L-Type Natriuretic Peptide 61671 pg/mL (0-449) H Total Protein 6.2 g/dL (6.4-8.2) L Albumin 2.6 g/dL (3.4-5.0) L Albumin/Globulin Ratio 0.7 (1.0-1.7) L Test 03/08/20 00:58 03/08/20 07:18 Troponin I Quantitative 1.181 ng/mL (0.000-0.055) Glucose (Fingerstick) 291 mg/dL (70-99) H Laboratory Tests 03/07/20 18:20 Laboratory Tests 03/07/20 18:59 ECHOCARDIOGRAM ECHOCARDIOGRAM 04/13/2018 [facility] Normal left ventricular function with basal inferior wall akinesis. Estimated EF of 55-60%. Grade I diastolic function. Moderate concentric LVH. Normal right ventricular size and function. Normal sized atria bilaterally. Mild aortic valve sclerosis without stenosis. Mild mitral annular calcification. No pericardial effusion. Estimated PASP 32 mmHg. When compared to the prior study done 08/27/16, the basal inferior wall was not well visualized on the prior stud and the akinesis was not reported. However, this is consistent with his known history of RCA STEMI and emergent coronary intervention. Otherwise there is no significant interval change STRESS TEST STRESS TEST 04/14/2018 [facility] This study is mildly abnormal there is mild intensity mostly fixed inferolateral defect there may be some slight marilu-infarct ischemia but the defect retains viability. Significant ischemia in other vascular territories is not identified. The defect is most likely in the right coronary artery territory in the PDA distribution possibly in a small RPE LV branch. Depending upon anatomy it might represent PDA off the left system This exam is compared to a previous stress study dated 06/01/2011. The previous study was performed with regadenoson with a p.m. ratio 0.330 calculated left ventricular ejection fraction of 73% at an end-diastolic volume of 62 mL. The previous study was mildly abnormal in the inferolateral wall. Comparing the 2 studies qualitatively the perfusion patterns are similar in extent, severity, and characteristics of the perfusion abnormality. ASSESSMENT/PLAN ASSESSMENT/PLAN 1. Fever with possible pneumonia: Covid-19 pending 2. AECOPD 3. Acute on chronic diastolic CHF 4. PUI 5. ESRD 6. NSTEMI: peaked troponin 1.1 EKG SR without acute changes. CP at home but none further as an inpt. 7. CAD; SD with PCI to RCA in 2017, unclear details 8. HTN: controlled 9. HLP 10. DM2 11. Hypokalemia/hypomagnesemia: improved 12. Cognitive deficit 13. Anemia of chronic disease Recommendations Awaiting covid If negative then plan for TTE With his persistent SOA despite recent pulmonary treatments, will need further ischemic workup. Discussed treatment plan with DPOA Continue secondary prevention measures ASA Fluid off loading per HD HILDA WADDELL MD 03/09/20 0657: CARDIAC CONSULT ASSESSMENT/PLAN ASSESSMENT/PLAN Late entry for 03/08/20 Pt. seen and examined. Agree with above VARNISH COOKER note. Plan for outpt ischemic eval, type 2 nstemi. Continue mgmt of covid pna per PCP. thanks JEAN MAYS APRN Mar 08, 2020 09:02 HILDA WADDELL MD Mar 09, 2020 06:57
[2020-03-08 09:18] LABS: MAGNESIUM 3.2 mg/dL (1.8-2.4)
[2020-03-08 09:19] LABS: CHOLESTEROL/HDL RATIO 1.9
[2020-03-08 09:28] LABS: ALBUMIN 2.5 g/dL (3.4-5.0); ALBUMIN/GLOBULIN RATIO 0.7 (1.0-1.7); CREATININE 2.8 mg/dL (0.7-1.3); GFR 26.5; TOTAL BILIRUBIN 0.4 mg/dL (0.2-1.0); TOTAL PROTEIN 5.9 g/dL (6.4-8.2)
[2020-03-08] MEDS: CEFEPIME HCL IV Push 1 GM VIAL. IVP SCH (09:28)
[2020-03-08 09:29] LABS: POTASSIUM 4.4 mmol/L (3.5-5.1)
[2020-03-08] MEDS: CHOLECALCIFEROL (VITAMIN D3) 1,000 UNIT TABLET PO SCH (09:29)
[2020-03-08] MEDS: hydrALAZINE 25 MG TABLET PO SCH ×4 (09:29→21:15)
[2020-03-08] MEDS: ASPIRIN 325 MG TABLET PO SCH (09:29)
[2020-03-08] MEDS: TAMSULOSIN 0.4 MG CAP.ER.24H. PO SCH (09:29)
[2020-03-08] MEDS: DEXAMETHASONE SOD PHOS 4 MG/ML VIAL IVP SCH (09:29)
[2020-03-08] MEDS: FERROUS SULFATE 325 MG TABLET. PO SCH (09:29)
--- NOTE | 2020-03-08 09:34 | EKG ---
[facility] [address] [place] [address] Test Date: 2020-03-08 Test Time: 09:24:50 Pat Name: FREDERICK HATFIELD Department: Room: 660 1 Gender: M Banquet Steward: : 1940 Requested By: JEAN MAYS Order Number: [id number] Reading MD: Measurements Intervals [place] Rate: 63 P: 142 [place]: 136 QRS: 214 QRSD: 96 T: 118 QT: 438 QTc: 452 Interpretive Statements SUPRAVENTRICULAR RHYTHM LEFT ATRIAL ABNORMALITY ABNORMAL RIGHT SUPERIOR AXIS DEVIATION QRS(T) CONTOUR ABNORMALITY CONSISTENT WITH HIGH LATERAL INFARCT AGE UNDETERMINED ABNORMAL ECG RI6.02 Compared to ECG 02/13/2020 10:47:03 Supraventricular rhythm now present Right superior axis now present Sinus rhythm no longer present Left-axis deviation no longer present Myocardial infarct finding still present
--- NOTE | 2020-03-08 11:53 | NUR ---
SS following for discharge planning. SS reviewed pt chart and discussed with pt RN. Pt is from home and is currently requiring oxygen via nasal canula. COVID19 test pending. Pt on IV Cefepime. Pt transferred to room 660. Rgaini GEIGER, to follow.
--- NOTE | 2020-03-08 12:11 | PDOC2 ---
CONSULT Date of Consult Date of Consult DATE: 03/08/20 TIME: 12:11 Reason for Consult Reason for Consult: ESRD Source Source: Chart review, Patient History of Present Illness Reason for Visit: Patient is a 80-year-old male recently started on hemodialysis, who presents for evaluation of acute shortness of breath . Symptoms began after hemodialysis yesterday. Upon arrival in the ER blood pressure was noted to be 204/105. He was tachycardic and febrile at 100.6. He also reports associated cough. He denies any known COVID-19 contacts. Negative for covid about 3 wks ago . O2 sats 82-84%t even with 3 L of O2 which he uses at home. After HD yesterday he vomited afterwards. Denies any palpitations. He saw his dough cutter on 01/2020 at [facility]. In the ER he received antibiotic coverage for HCAP and Lasix for volume overload. He is a poor historian due to his cognitive deficits. He lives with his sister who is the DPOA Past Medical History Cardiovascular: CAD, HTN, MD (05/18/2016), Hyperlipidemia, Other (orthostasis, rheumatic fever as a child) Pulmonary: COPD, Pneumonia CENTRAL NERVOUS SYSTEM: TIA, Other (cognitive deficit) GI: Constipation Heme/Onc: Anemia NOS, Cancer (prostate with radiation) Hepatobiliary: No pertinent hx Psych: Depression Musculoskeletal: Osteoarthritis Infectious disease: No pertinent hx ENT: Other (glaucoma) Renal/: Chronic renal failure, Benign prostatic enlarg. Endocrine: Diabetes (2) Dermatology: No pertinent hx Past Surgical History Past Surgical History: Arthroscopy (right ankle), Total hip replacement (right), Other (PCI) Family History Family History: Family History Unknown Social History No ALCOHOL: none Drugs: None Current Problem List Problem List Problems Medical Problems: (1) Acute on chronic respiratory failure with hypoxia Status: Acute (2) Acute respiratory distress Status: Acute (3) Person under investigation for COVID-19 Status: Acute Current Medications Current Medications Current Medications Sterile Water (WATER for RESP) 1,000 ml CONT PRN INH VIA VAPOTHERM DEVICE Last administered on 03/07/20at 18:04; Start 03/07/20 at 18:00 Potassium Chloride (Klor-Con) 40 meq 1X ONCE PO ; Start 03/07/20 at 20:15; Stop 03/07/20 at 20:26; Status DC Potassium Bicarbonate (Potassium Effervescent Tablet) 40 meq 1X ONCE PO Last administered on 03/07/20at 21:04; Start 03/07/20 at 21:00; Stop 03/07/20 at 21:01; Status DC Iohexol (Omnipaque 350 Mg/ml) 90 ml 1X ONCE IV Last administered on 03/07/20at 21:25; Start 03/07/20 at 21:30; Stop 03/07/20 at 21:31; Status DC Acetaminophen (Tylenol) 650 mg 1X ONCE PO Last administered on 03/07/20at 21:03; Start 03/07/20 at 21:30; Stop 03/07/20 at 21:31; Status DC Info (CONTRAST GIVEN -- Rx MONITORING) 1 each PRN DAILY PRN MC SEE COMMENTS; Start 03/07/20 at 21:15; Stop 03/09/20 at 21:14 Dexamethasone Sodium Phosphate (Decadron) 10 mg 1X ONCE IV Last administered on 03/07/20at 23:02; Start 03/07/20 at 23:00; Stop 03/07/20 at 23:01; Status DC Vancomycin HCl 2 gm/Sodium Chloride 500 ml @ 250 mls/hr 1X ONCE IV Last administered on 03/07/20at 23:30; Start 03/07/20 at 23:00; Stop 03/08/20 at 00:59; Status DC Piperacillin Sod/ Tazobactam Sod 3.375 gm/Sodium Chloride 50 ml @ 100 mls/hr 1X ONCE IV Last administered on 03/07/20at 23:01; Start 03/07/20 at 23:00; Stop at 23:30; Status DC Furosemide (Lasix) 40 mg 1X ONCE IVP Last administered on 03/07/20at 23:02; Start 03/07/20 at 23:00; Stop 03/07/20 at 23:01; Status DC Vancomycin HCl (Vanco Per Pharmacy) 1 each PRN DAILY PRN MC SEE COMMENTS Last administered on 03/08/20at 00:19; Start 03/07/20 at 22:30 Ondansetron HCl (Zofran) 4 mg PRN Q8HRS PRN IV NAUSEA/VOMITING 1ST CHOICE; Start 03/07/20 at 22:15; Stop 03/08/20 at 22:14 Fentanyl Citrate (Fentanyl 2ml Vial) 50 mcg PRN Q1HR PRN IV SEVERE PAIN 7-10; Start 03/07/20 at 22:15; Stop 03/08/20 at 22:14 Acetaminophen (Tylenol) 650 mg PRN Q4HRS PRN PO FEVER > 100.3'F; Start 03/07/20 at 22:15; Stop 03/07/20 at 23:32; Status DC Acetaminophen (Tylenol) 650 mg PRN Q6HRS PRN PO MILD PAIN 1-3; Start 03/07/20 at 23:30 Amlodipine Besylate (Norvasc) 10 mg DAILY PO Last administered on 03/08/20at 09:29; Start 03/08/20 at 09:00 Aspirin (Zaida Aspirin) 325 mg DAILY PO Last administered on 03/08/20at 09:29; Start 03/08/20 at 09:00 Atorvastatin Calcium (Lipitor) 20 mg HS PO ; Start 03/08/20 at 00:00 Ferrous Sulfate (Feosol) 325 mg DAILY PO Last administered on 03/08/20at 09:29; Start 03/08/20 at 09:00 Hydralazine HCl (Apresoline) 25 mg TID PO Last administered on 03/08/20at 09:29; Start 03/08/20 at 00:00 Sennosides (Senna) 8.6 mg PRN DAILY PRN PO CONSTIPATION 1ST CHOICE; Start 03/07/20 at 23:30 Tamsulosin HCl (Flomax) 0.4 mg DAILY PO Last administered on 03/08/20at 09:29; Start 03/08/20 at 09:00 Timolol Maleate (Timoptic 0.5% Ophth) 1 drop BID OU ; Start 03/08/20 at 09:00 Albuterol Sulfate (Ventolin Neb Soln) 2.5 mg RTQID NEB ; Start 03/08/20 at 08:00 Brimonidine Tartrate (Alphagan) 1 drop QHS OU ; Start 03/08/20 at 21:00 Vitamin D (Vitamin D3) 2,000 unit DAILY PO Last administered on 03/08/20at 09:29; Start 03/08/20 at 09:00 Potassium Chloride (Klor-Con) 40 meq 1X ONCE PO ; Start 03/07/20 at 23:30; Stop 03/07/20 at 23:31; Status UNV Potassium Bicarbonate (Potassium Effervescent Tablet) 40 meq 1X ONCE PO ; Start 03/07/20 at 23:30; Stop 03/07/20 at 23:31; Status UNV Potassium Bicarbonate (Potassium Effervescent Tablet) 40 meq 1X ONCE PO ; Start 03/07/20 at 23:30; Stop 03/07/20 at 23:31; Status UNV Potassium Chloride/Water 100 ml @ 100 mls/hr Q1H IV ; Start 03/07/20 at 23:30; Stop 03/08/20 at 03:29; Status UNV Potassium Chloride/Water 100 ml @ 100 mls/hr Q1H IV ; Start 03/07/20 at 23:30; Stop 03/08/20 at 01:29; Status UNV Potassium Chloride (Klor-Con) 40 meq Q2H PO ; Start 03/07/20 at 23:30; Stop 03/08/20 at 01:31; Status UNV Potassium Chloride/Water 100 ml @ 100 mls/hr Q1H IV ; Start 03/07/20 at 23:30; Stop 03/08/20 at 07:29; Status UNV Potassium Chloride/Water 100 ml @ 100 mls/hr Q1H IV ; Start 03/07/20 at 23:30; Stop 03/08/20 at 03:29; Status UNV Potassium Chloride (Klor-Con) 40 meq Q2H PO ; Start 03/07/20 at 23:30; Stop 03/08/20 at 03:31; Status UNV Potassium Chloride/Water 100 ml @ 100 mls/hr Q1H IV ; Start 03/07/20 at 23:30; Stop 03/08/20 at 11:29; Status UNV Potassium Chloride/Water 100 ml @ 100 mls/hr Q1HR IV ; Start 03/08/20 at 00:01; Stop 03/08/20 at 05:59; Status UNV Magnesium Sulfate 100 ml @ 50 mls/hr DAILY IV ; Start 03/08/20 at 09:00; Stop 03/11/20 at 08:59; Status UNV Potassium Phos/ Sodium Phos (Phos-Nak) 1 pkt BID PO ; Start 03/08/20 at 09:00; Stop 03/08/20 at 21:01; Status UNV Sodium Phosphate 40 mmol/Sodium Chloride 263.3333 ml @ 62.5 mls/hr 1X ONCE IV ; Start 03/07/20 at 23:30; Stop 03/08/20 at 03:42; Status UNV Potassium Phosphate 13.6 mmol/Sodium Chloride 254.5333 ml @ 62.5 mls/hr Q4H IV ; Start 03/07/20 at 23:30; Stop 03/08/20 at 11:29; Status UNV Info (Icu Electrolyte Protocol) 1 ea CONT PRN PRN MC PER PROTOCOL; Start 03/07/20 at 23:45; Stop 03/08/20 at 07:29; Status DC Magnesium Sulfate 100 ml @ 50 mls/hr 1X ONCE IV Last administered on 03/08/20at 00:00; Start 03/08/20 at 00:00; Stop 03/08/20 at 01:59; Status DC Potassium Bicarbonate (Potassium Effervescent Tablet) 40 meq 1X ONCE PO ; Start 03/08/20 at 00:00; Stop 03/08/20 at 00:01; Status DC Potassium Bicarbonate (Potassium Effervescent Tablet) 40 meq 1X ONCE PO ; Start 03/08/20 at 04:00; Stop 03/08/20 at 04:01; Status DC Vancomycin HCl (Vancomycin Random Level) 1 each 1X ONCE MC ; Start 03/09/20 at 05:00; Stop 03/09/20 at 05:01 Potassium Chloride/Water 100 ml @ 100 mls/hr Q1H IV Last administered on 03/08/20at 09:44; Start 03/08/20 at 02:00; Stop 03/08/20 at 09:59; Status DC Influenza Virus Vaccine Quadrival (Fluzone Quad 2130-4755 Syringe) 0.5 ml ONCE ONCE VAX IM ; Start 03/08/20 at 09:00; Stop 03/08/20 at 09:01; Status DC Piperacillin Sod/ Tazobactam Sod (Zosyn Per Pharmacy) 1 each PRN DAILY PRN MC SEE COMMENTS; Start 03/08/20 at 07:00; Stop 03/08/20 at 07:02; Status DC Piperacillin Sod/ Tazobactam Sod 2.25 gm/Sodium Chloride 50 ml @ 100 mls/hr Q8HRS IV ; Start 03/08/20 at 07:00; Stop 03/08/20 at 07:03; Status DC Cefepime HCl (Maxipime) 2 gm Q8HRS IVP ; Start 03/08/20 at 14:00; Status UNV Cefepime HCl (Maxipime) 1 gm Q24H IVP Last administered on 03/08/20at 09:28; Start 03/08/20 at 08:00 Info (Icu Electrolyte Protocol) 1 ea CONT PRN PRN MC PER PROTOCOL; Start 03/08/20 at 07:15 Dexamethasone Sodium Phosphate (Decadron) 6 mg DAILY IVP Last administered on 03/08/20at 09:29; Start 03/08/20 at 09:00 Active Scripts Active Hydralazine Hcl 25 Mg Tablet 25 Mg PO TID 30 Days Reported Timoptic 0.5% (Timolol Maleate) 10 Ml Drops 1 Drop EACHEYE BID 30 Days Senna (Sennosides) 8.6 Mg Tablet 8.6 Mg PO PRN DAILY PRN Tylenol (Acetaminophen) 325 Mg Tablet 650 Mg PO PRN Q6-8HRS PRN Albuterol Sulfate Conc Neb Soln (Albuterol Sulfate) 2.5 Mg/0.5 Ml Vial.neb 2.5 Mg NEB QIDACHS Combigan Eye Drops (Brimonidine Tartrate/Timolol) 5 Ml Drops 5 Ml OP QHS Vitamin D3 (Cholecalciferol (Vitamin D3)) 50 Mcg Tablet 50 Mcg PO DAILY Atorvastatin Calcium 20 Mg Tablet 20 Mg PO HS Aspirin 325 Mg Tablet 325 Mg PO DAILY Tamsulosin Hcl 0.4 Mg Cap.er.24h 0.4 Mg PO DAILY Ferrous Sulfate 325 Mg Tablet 1 Tab PO DAILY Amlodipine Besylate 10 Mg Tablet 10 Mg PO DAILY Allergies Allergies: Coded Allergies: No Known Drug Allergies (Unverified , 09/10/16) ROS Review of System As per HPI, rest of the ros is negative. Pt is a poor historian Physical Exam Physical Exam General: NAD HEENT: On o2 by NC 3 lts (chronic) Neck supple Lungs: CTA ant , non labored Heart: RRR, Abdomen: Normal bowel sounds, Soft, No tenderness Extremities: No cyanosis, no edema Skin: No rash Neuro: Cranial nerves 3-12 NL, baseline dementia No CVA or SP tenderness Vital Signs Vital Signs Date Time Temp Pulse Resp B/P (MAP) Pulse Ox O2 Delivery O2 Flow Rate FiO2 03/08/20 10:43 96.3 66 20 160/69 (99) 100 Nasal Cannula 3.0 96.3 Assessment & Plan ESRD - Initiated on HD on 02/15, on MWF schedule , last HD yesterday . 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 per [facility] records TIA 2012, right eye blindness and cognitive delay Labs Labs Laboratory Tests Test 03/07/20 18:00 03/07/20 18:20 03/07/20 18:59 03/07/20 23:00 O2 Saturation 97 % (92-99) Arterial Blood pH 7.54 (7.35-7.45) Arterial Blood pCO2 at Patient Temp 28 mmHg (35-46) Arterial Blood pO2 at Patient Temp 92 mmHg (65-108) Arterial Blood HCO3 23 mmol/L (21-28) Arterial Blood Base Excess 1 mmol/L (-3-3) Oxyhemoglobin 96.2 % Methemoglobin 0.5 % (0.0-1.9) Carbon Monoxide, Quantitative 0.3 % (0.0-1.9) FiO2 100% nrb White Blood Count 6.7 x10^3/uL (4.0-11.0) Red Blood Count 3.30 x10^6/uL (4.30-5.70) Hemoglobin 8.8 g/dL (13.0-17.5) Hematocrit 27.7 % (39.0-53.0) Mean Corpuscular Volume 84 fL (79-100) Mean Corpuscular Hemoglobin 27 pg (25-35) Mean Corpuscular Hemoglobin Concent 32 g/dL (31-37) Red Cell Distribution Width 17.7 % (11.5-14.5) Platelet Count 246 x10^3/uL (140-400) Neutrophils (%) (Auto) 92 % (31-73) Lymphocytes (%) (Auto) 3 % (24-48) Monocytes (%) (Auto) 5 % (0-9) Eosinophils (%) (Auto) 0 % (0-3) Basophils (%) (Auto) 0 % (0-3) Neutrophils # (Auto) 6.2 x10^3/uL (1.8-7.7) Lymphocytes # (Auto) 0.2 x10^3/uL (1.0-4.8) Monocytes # (Auto) 0.3 x10^3/uL (0.0-1.1) Eosinophils # (Auto) 0.0 x10^3/uL (0.0-0.7) Basophils # (Auto) 0.0 x10^3/uL (0.0-0.2) Segmented Neutrophils % 83 % (35-66) Band Neutrophils % 9 % (0-9) Lymphocytes % 5 % (24-48) Monocytes % 3 % (0-10) Platelet Estimate Adequate (ADEQUATE) Large Platelets Present Polychromasia Present Basophilic Stippling Present Anisocytosis Slight Schistocytes Occ Prothrombin Time 14.3 SEC (11.7-14.0) Prothromb Time International Ratio 1.2 (0.8-1.1) D-Dimer (Sonia) 2.53 ug/mlFEU (0.00-0.50) Influenza Type A Antigen Negative (NEGATIVE) Influenza Type B Antigen Negative (NEGATIVE) Sodium Level 139 mmol/L (136-145) Potassium Level 2.7 mmol/L (3.5-5.1) Chloride Level 100 mmol/L (98-107) Carbon Dioxide Level 30 mmol/L (21-32) Anion Gap 9 (6-14) Blood Urea Nitrogen 12 mg/dL (8-26) Creatinine 2.2 mg/dL (0.7-1.3) Estimated GFR (Cockcroft-Gault) 35.0 BUN/Creatinine Ratio 5 (6-20) Glucose Level 107 mg/dL (70-99) Lactic Acid Level 2.7 mmol/L (0.4-2.0) 2.7 mmol/L (0.4-2.0) Calcium Level 8.0 mg/dL (8.5-10.1) Magnesium Level 1.6 mg/dL (1.8-2.4) Total Bilirubin 0.4 mg/dL (0.2-1.0) Aspartate Amino Transf (AST/SGOT) 56 U/L (15-37) Alanine Aminotransferase (ALT/SGPT) 37 U/L (16-63) Alkaline Phosphatase 83 U/L (46-116) Creatine Kinase 473 U/L (39-308) Creatine Kinase MB (Mass) 3.1 ng/mL (0.0-3.6) Creatine Kinase MB Relative Index 0.7 % (0-4) Troponin I Quantitative 0.747 ng/mL (0.000-0.055) CY-Drm-K-Type Natriuretic Peptide 13626 pg/mL (0-449) Total Protein 6.2 g/dL (6.4-8.2) Albumin 2.6 g/dL (3.4-5.0) Albumin/Globulin Ratio 0.7 (1.0-1.7) Test 03/08/20 00:58 03/08/20 07:18 03/08/20 07:40 Troponin I Quantitative 1.181 ng/mL (0.000-0.055) 0.965 ng/mL (0.000-0.055) Glucose (Fingerstick) 291 mg/dL (70-99) White Blood Count 12.6 x10^3/uL (4.0-11.0) Red Blood Count 3.11 x10^6/uL (4.30-5.70) Hemoglobin 8.3 g/dL (13.0-17.5) Hematocrit 26.3 % (39.0-53.0) Mean Corpuscular Volume 84 fL (79-100) Mean Corpuscular Hemoglobin 27 pg (25-35) Mean Corpuscular Hemoglobin Concent 32 g/dL (31-37) Red Cell Distribution Width 17.3 % (11.5-14.5) Platelet Count 202 x10^3/uL (140-400) Neutrophils (%) (Auto) 93 % (31-73) Lymphocytes (%) (Auto) 5 % (24-48) Monocytes (%) (Auto) 2 % (0-9) Eosinophils (%) (Auto) 0 % (0-3) Basophils (%) (Auto) 0 % (0-3) Neutrophils # (Auto) 11.7 x10^3/uL (1.8-7.7) Lymphocytes # (Auto) 0.6 x10^3/uL (1.0-4.8) Monocytes # (Auto) 0.2 x10^3/uL (0.0-1.1) Eosinophils # (Auto) 0.0 x10^3/uL (0.0-0.7) Basophils # (Auto) 0.0 x10^3/uL (0.0-0.2) Sodium Level 138 mmol/L (136-145) Potassium Level 4.4 mmol/L (3.5-5.1) Chloride Level 101 mmol/L (98-107) Carbon Dioxide Level 28 mmol/L (21-32) Anion Gap 9 (6-14) Blood Urea Nitrogen 24 mg/dL (8-26) Creatinine 2.8 mg/dL (0.7-1.3) Estimated GFR (Cockcroft-Gault) 26.5 BUN/Creatinine Ratio 9 (6-20) Glucose Level 275 mg/dL (70-99) Calcium Level 8.0 mg/dL (8.5-10.1) Magnesium Level 3.2 mg/dL (1.8-2.4) Total Bilirubin 0.4 mg/dL (0.2-1.0) Aspartate Amino Transf (AST/SGOT) 64 U/L (15-37) Alanine Aminotransferase (ALT/SGPT) 42 U/L (16-63) Alkaline Phosphatase 87 U/L (46-116) Total Protein 5.9 g/dL (6.4-8.2) Albumin 2.5 g/dL (3.4-5.0) Albumin/Globulin Ratio 0.7 (1.0-1.7) Triglycerides Level 51 mg/dL (0-150) Cholesterol Level 164 mg/dL (0-200) LDL Cholesterol, Calculated 68 mg/dL (0-100) VLDL Cholesterol, Calculated 10 mg/dL (0-40) Non-HDL Cholesterol Calculated 78 mg/dL (0-129) HDL Cholesterol 86 mg/dL (40-60) Cholesterol/HDL Ratio 1.9 Thyroid Stimulating Hormone (TSH) 0.714 uIU/mL (0.358-3.74) Laboratory Tests Test 03/07/20 18:00 03/07/20 18:20 03/07/20 18:59 03/07/20 23:00 O2 Saturation 97 % (92-99) Arterial Blood pH 7.54 (7.35-7.45) Arterial Blood pCO2 at Patient Temp 28 mmHg (35-46) Arterial Blood pO2 at Patient Temp 92 mmHg (65-108) Arterial Blood HCO3 23 mmol/L (21-28) Arterial Blood Base Excess 1 mmol/L (-3-3) Oxyhemoglobin 96.2 % Methemoglobin 0.5 % (0.0-1.9) Carbon Monoxide, Quantitative 0.3 % (0.0-1.9) FiO2 100% nrb White Blood Count 6.7 x10^3/uL (4.0-11.0) Red Blood Count 3.30 x10^6/uL (4.30-5.70) Hemoglobin 8.8 g/dL (13.0-17.5) Hematocrit 27.7 % (39.0-53.0) Mean Corpuscular Volume 84 fL (79-100) Mean Corpuscular Hemoglobin 27 pg (25-35) Mean Corpuscular Hemoglobin Concent 32 g/dL (31-37) Red Cell Distribution Width 17.7 % (11.5-14.5) Platelet Count 246 x10^3/uL (140-400) Neutrophils (%) (Auto) 92 % (31-73) Lymphocytes (%) (Auto) 3 % (24-48) Monocytes (%) (Auto) 5 % (0-9) Eosinophils (%) (Auto) 0 % (0-3) Basophils (%) (Auto) 0 % (0-3) Neutrophils # (Auto) 6.2 x10^3/uL (1.8-7.7) Lymphocytes # (Auto) 0.2 x10^3/uL (1.0-4.8) Monocytes # (Auto) 0.3 x10^3/uL (0.0-1.1) Eosinophils # (Auto) 0.0 x10^3/uL (0.0-0.7) Basophils # (Auto) 0.0 x10^3/uL (0.0-0.2) Segmented Neutrophils % 83 % (35-66) Band Neutrophils % 9 % (0-9) Lymphocytes % 5 % (24-48) Monocytes % 3 % (0-10) Platelet Estimate Adequate (ADEQUATE) Large Platelets Present Polychromasia Present Basophilic Stippling Present Anisocytosis Slight Schistocytes Occ Prothrombin Time 14.3 SEC (11.7-14.0) Prothromb Time International Ratio 1.2 (0.8-1.1) D-Dimer (Sonia) 2.53 ug/mlFEU (0.00-0.50) Influenza Type A Antigen Negative (NEGATIVE) Influenza Type B Antigen Negative (NEGATIVE) Sodium Level 139 mmol/L (136-145) Potassium Level 2.7 mmol/L (3.5-5.1) Chloride Level 100 mmol/L (98-107) Carbon Dioxide Level 30 mmol/L (21-32) Anion Gap 9 (6-14) Blood Urea Nitrogen 12 mg/dL (8-26) Creatinine 2.2 mg/dL (0.7-1.3) Estimated GFR (Cockcroft-Gault) 35.0 BUN/Creatinine Ratio 5 (6-20) Glucose Level 107 mg/dL (70-99) Lactic Acid Level 2.7 mmol/L (0.4-2.0) 2.7 mmol/L (0.4-2.0) Calcium Level 8.0 mg/dL (8.5-10.1) Magnesium Level 1.6 mg/dL (1.8-2.4) Total Bilirubin 0.4 mg/dL (0.2-1.0) Aspartate Amino Transf (AST/SGOT) 56 U/L (15-37) Alanine Aminotransferase (ALT/SGPT) 37 U/L (16-63) Alkaline Phosphatase 83 U/L (46-116) Creatine Kinase 473 U/L (39-308) Creatine Kinase MB (Mass) 3.1 ng/mL (0.0-3.6) Creatine Kinase MB Relative Index 0.7 % (0-4) Troponin I Quantitative 0.747 ng/mL (0.000-0.055) EZ-Dme-B-Type Natriuretic Peptide 73717 pg/mL (0-449) Total Protein 6.2 g/dL (6.4-8.2) Albumin 2.6 g/dL (3.4-5.0) Albumin/Globulin Ratio 0.7 (1.0-1.7) Test 03/08/20 00:58 03/08/20 07:18 03/08/20 07:40 Troponin I Quantitative 1.181 ng/mL (0.000-0.055) 0.965 ng/mL (0.000-0.055) Glucose (Fingerstick) 291 mg/dL (70-99) White Blood Count 12.6 x10^3/uL (4.0-11.0) Red Blood Count 3.11 x10^6/uL (4.30-5.70) Hemoglobin 8.3 g/dL (13.0-17.5) Hematocrit 26.3 % (39.0-53.0) Mean Corpuscular Volume 84 fL (79-100) Mean Corpuscular Hemoglobin 27 pg (25-35) Mean Corpuscular Hemoglobin Concent 32 g/dL (31-37) Red Cell Distribution Width 17.3 % (11.5-14.5) Platelet Count 202 x10^3/uL (140-400) Neutrophils (%) (Auto) 93 % (31-73) Lymphocytes (%) (Auto) 5 % (24-48) Monocytes (%) (Auto) 2 % (0-9) Eosinophils (%) (Auto) 0 % (0-3) Basophils (%) (Auto) 0 % (0-3) Neutrophils # (Auto) 11.7 x10^3/uL (1.8-7.7) Lymphocytes # (Auto) 0.6 x10^3/uL (1.0-4.8) Monocytes # (Auto) 0.2 x10^3/uL (0.0-1.1) Eosinophils # (Auto) 0.0 x10^3/uL (0.0-0.7) Basophils # (Auto) 0.0 x10^3/uL (0.0-0.2) Sodium Level 138 mmol/L (136-145) Potassium Level 4.4 mmol/L (3.5-5.1) Chloride Level 101 mmol/L (98-107) Carbon Dioxide Level 28 mmol/L (21-32) Anion Gap 9 (6-14) Blood Urea Nitrogen 24 mg/dL (8-26) Creatinine 2.8 mg/dL (0.7-1.3) Estimated GFR (Cockcroft-Gault) 26.5 BUN/Creatinine Ratio 9 (6-20) Glucose Level 275 mg/dL (70-99) Calcium Level 8.0 mg/dL (8.5-10.1) Magnesium Level 3.2 mg/dL (1.8-2.4) Total Bilirubin 0.4 mg/dL (0.2-1.0) Aspartate Amino Transf (AST/SGOT) 64 U/L (15-37) Alanine Aminotransferase (ALT/SGPT) 42 U/L (16-63) Alkaline Phosphatase 87 U/L (46-116) Total Protein 5.9 g/dL (6.4-8.2) Albumin 2.5 g/dL (3.4-5.0) Albumin/Globulin Ratio 0.7 (1.0-1.7) Triglycerides Level 51 mg/dL (0-150) Cholesterol Level 164 mg/dL (0-200) LDL Cholesterol, Calculated 68 mg/dL (0-100) VLDL Cholesterol, Calculated 10 mg/dL (0-40) Non-HDL Cholesterol Calculated 78 mg/dL (0-129) HDL Cholesterol 86 mg/dL (40-60) Cholesterol/HDL Ratio 1.9 Thyroid Stimulating Hormone (TSH) 0.714 uIU/mL (0.358-3.74) Review All relevant outside records, renal labs, imaging studies, telemetry/EKG's were reviewed. Images Images CTA chest 1. No evidence of pulmonary embolism. 2. Diffuse mixed interstitial and airspace disease. This could be secondary to CHF or atypical pneumonia. 3. Large thyroid. Recommend correlation with TSH. VARGAS ANGELO MD Mar 08, 2020 12:11
[2020-03-08] MEDS ORDERED: CEFEPIME HCL IV Push 2 GM VIAL. IVP SCH (14:00)
--- NOTE | 2020-03-08 16:51 | NUR ---
Pt noted to have minimal amount of bright red blood in stool, appearing streak like. Upon questioning, pt reports that "it happens sometimes." Pt reports history of hemorrhoids. Dr. Matta notified. Orders received for a fecal occult blood.
[2020-03-08] MEDS: LACTOBACILLUS RHAMNOSUS GG 1 CAPSULE. PO SCH (21:14)
[2020-03-08] MEDS: ATORVASTATIN CALCIUM 20 MG TABLET PO SCH ×2 (21:14)
[2020-03-08] MEDS: BRIMONIDINE 0.2% OPHTH SOLUTION 5ML BOTTLE. OU SCH (21:15)
[2020-03-08 23:02] LABS: FECAL OB PT POSITIVE (NEG)
[2020-03-09] VITALS (7 sets, daily range): BP systolic 138–166; BP diastolic 60–70
[2020-03-09] MEDS ORDERED: VANCOMYCIN RANDOM LEVEL. MC ONE (05:00)
[2020-03-09] MEDS ORDERED: ACETAMINOPHEN 500 MG TABLET PO PRN (07:45)
[2020-03-09] MEDS ORDERED: ALBUMIN HUMAN 25% 200 ML IV PRN (07:45)
[2020-03-09] MEDS ORDERED: IV NORMAL SALINE 1000ML BAG 1,000 ML IV PRN ×2 (07:45)
[2020-03-09] MEDS ORDERED: DIALYSIS PATIENT. MC PRN (07:45)
[2020-03-09] MEDS ORDERED: diphenhydrAMINE 50 MG/ML VIAL IV PRN ×2 (07:45)
[2020-03-09] MEDS: VANCOMYCIN PER PHARMACY MC PRN (10:34)
--- NOTE | 2020-03-09 10:36 | NUR ---
Pharmacy Vancomycin Dosing Note S:Consulted to monitor and dose vancomycin started 03/07/20. O:FREDERICK HATFIELD is a 80 year old M with Pneumonia . Height: 5 feet, 7 inches Weight: 56.0 kg [place] Body Weight: 66.10 Adjusted Body Weight: 62.06 Dosing Weight: Actual Other Antibiotics: CEFEPIME LABS: Last BUN: 12 Last Creatinine: 2.8 Creatinine Clearance: DIALYSIS mL/min Last WBC: 6.7 Last Procalcitonin: Tmax (past 24 hours): 97.3 Microbiology: I/O: Drug Levels: Last Random level: on 03/09/20 at 0500 Last dose given 03/07/20 at Vancomycin Dosing: Loading Dose: 2000 mg x1 Dosing Weight: Actual Target Trough: 15-20 A: Based on: PREDIALYSIS LEVEL 26.2 P: 1. Begin Vancomycin 500 mg IV MWF ON 03/12/20 2. Follow up Random level S NEEDED 3. Pharmacy will continue to monitor, follow and adjust therapy as needed. SAMANTHA FLOWERS [facility], 03/09/20 [id number]
--- NOTE | 2020-03-09 11:06 | PDOC ---
[employer] PROGRESS NOTE Date of Service DOS: DATE: 03/09/20 TIME: 10:59 Chief Complaint Chief Complaint A/P: COVID-19 with pneumonia Sepsis - treating for HCAP. Acute respiratory failure with hypoxia HCAP Acute CHF exacerbation Fluid overload NSTEMI Hypertensive urgency Hypokalemia Hypocalcemia Hypomagnesemia Anemia Thyromegaly ESRD - on HD on 02/15/2021 Severe malnutrition History of Present Illness History of Present Illness Mr Solnao 80 yo male w/ PMHx HTN, DM2, CAD (2017 RCA PCI), diastolic CHF, COPD, TIA, prostate ca s/p radiation, ESRD on dialsis admitted for complains of chest pain. Also noted with dyspnea and O2 saturations 82-84% even with 3 L of O2. Found to be COVID 19 positive. Had elevated troponin and was tachycardic and febrile at 100.6F. Afebrile overnight. Has good appetite. Tolerated dialysis well. Vitals/I&O Vitals/I&O: Vital Signs Date Time Temp Pulse Resp B/P (MAP) Pulse Ox O2 Delivery O2 Flow Rate FiO2 03/09/20 08:00 Nasal Cannula 3.0 03/09/20 07:00 97.3 53 18 142/63 (89) 100 97.3 I & O 03/08/20 03/08/20 03/09/20 15:00 23:00 07:00 Intake Total 660 ml 200 ml Balance 660 ml 200 ml Physical Exam General: Alert, Cooperative, No acute distress Heart: Regular rate (SR no ectopies), Other (distant heart sounds) Lungs: Crackles Abdomen: Soft Extremities: No cyanosis, No edema Skin: No breakdown, No significant lesion Labs Labs: Laboratory Tests Test 03/08/20 22:30 03/09/20 04:30 Stool Occult Blood Positive (NEG) Random Vancomycin Level 26.2 mcg/mL Assessment and Plan Assessmemt and Plan Problems Medical Problems: (1) Acute on chronic respiratory failure with hypoxia Status: Acute (2) Acute respiratory distress Status: Acute (3) Person under investigation for COVID-19 Status: Acute Comment Review of Relevant I have reviewed the following items kate (where applicable) has been applied. Medications: Current Medications Medications (Trade) Dose Ordered Sig/Ramin Route PRN Reason Start Time Stop Time Status Last Admin Dose Admin Brimonidine Tartrate (Alphagan) 1 drop QHS OU 03/08/20 21:00 03/08/20 21:15 Vancomycin HCl (Vancomycin Random Level) 1 each 1X ONCE MC 03/09/20 05:00 03/09/20 05:01 DC 03/09/20 05:00 Lactobacillus Rhamnosus (Culturelle) 1 cap BID PO 03/08/20 21:00 03/08/20 21:14 Justifications for Admission Other Justification CARMELA HECK MD Mar 09, 2020 11:06
[2020-03-09] MEDS: FERROUS SULFATE 325 MG TABLET. PO SCH (12:05)
[2020-03-09] MEDS: CHOLECALCIFEROL (VITAMIN D3) 1,000 UNIT TABLET PO SCH (12:05)
[2020-03-09] MEDS: ASPIRIN 325 MG TABLET PO SCH (12:05)
[2020-03-09] MEDS: LACTOBACILLUS RHAMNOSUS GG 1 CAPSULE. PO SCH ×2 (12:05→20:51)
[2020-03-09] MEDS: hydrALAZINE 25 MG TABLET PO SCH ×3 (12:05→20:51)
[2020-03-09] MEDS: TAMSULOSIN 0.4 MG CAP.ER.24H. PO SCH (12:05)
[2020-03-09] MEDS: DEXAMETHASONE SOD PHOS 4 MG/ML VIAL IVP SCH (12:06)
[2020-03-09] MEDS: CEFEPIME HCL IV Push 1 GM VIAL. IVP SCH (12:07)
[2020-03-09] MEDS: TIMOLOL 0.5% OPHTH SOLUTION 5ML BOTTLE. OU SCH ×2 (12:07→20:51)
--- NOTE | 2020-03-09 12:08 | PDOC ---
DATE OF SERVICE DATE: 03/09/20 TIME: 12:05 SUBJECTIVE ROS seen on Dialysis, No complaints OBJECTIVE Vital Signs Vital Signs Date Time Temp Pulse Resp B/P (MAP) Pulse Ox O2 Delivery O2 Flow Rate FiO2 03/09/20 11:00 98.2 89 18 141/62 (88) 93 Nasal Cannula 3.0 98.2 I & 0 Intake and Output 03/09/20 07:00 Intake Total 860 ml Balance 860 ml Intake Oral 560 ml IV Total 300 ml # Voids 1 # Bowel Movements 3 PHYSICAL EXAM Physical Exam General: NAD HEENT: On o2 by NC 3 lts (chronic) Neck supple Lungs: CTA ant , non labored Heart: RRR, Abdomen: Normal bowel sounds, Soft, No tenderness Extremities: No cyanosis, no edema Skin: No rash Neuro: Cranial nerves 3-12 NL, baseline dementia No CVA or SP tenderness DIAGNOSIS/ASSESSMENT Assessment & Plan ESRD - Initiated on HD on 02/15, on MWF schedule , seen on Dialysis, tolerating well.. 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 per [facility] records TIA 2012, right eye blindness and cognitive delay COMMENT/RELEVANT DATA Meds Current Medications Medications (Trade) Dose Ordered Sig/Ramin Start Time Stop Time Status Last Admin Dose Admin Acetaminophen (Tylenol) 500 mg 1X PRN PRN 03/09/20 07:45 03/10/20 07:44 Albumin Human 200 ml @ 200 mls/hr 1X PRN PRN 03/09/20 07:45 03/09/20 13:44 Albuterol Sulfate (Ventolin Neb Soln) 2.5 mg RTQID 03/08/20 08:00 03/08/20 14:12 DC Amlodipine Besylate (Norvasc) 10 mg DAILY 03/08/20 09:00 03/08/20 09:29 10 MG Aspirin (Zaida Aspirin) 325 mg DAILY 03/08/20 09:00 03/08/20 09:29 325 MG Atorvastatin Calcium (Lipitor) 20 mg HS 03/08/20 00:00 03/08/20 21:14 20 MG Brimonidine Tartrate (Alphagan) 1 drop QHS 03/08/20 21:00 03/08/20 21:15 1 DROP Cefepime HCl (Maxipime) 1 gm Q24H 03/08/20 08:00 03/08/20 09:28 1 GM Dexamethasone Sodium Phosphate (Decadron) 6 mg DAILY 03/08/20 09:00 03/08/20 09:29 6 MG Diphenhydramine HCl (Benadryl) 25 mg 1X PRN PRN 03/09/20 07:45 03/10/20 07:44 Fentanyl Citrate (Fentanyl 2ml Vial) 50 mcg PRN Q1HR PRN 03/07/20 22:15 03/08/20 22:14 DC Ferrous Sulfate (Feosol) 325 mg DAILY 03/08/20 09:00 03/08/20 09:29 325 MG Furosemide (Lasix) 40 mg 1X ONCE 03/07/20 23:00 03/07/20 23:01 DC 03/07/20 23:02 40 MG Hydralazine HCl (Apresoline) 25 mg TID 03/08/20 00:00 03/08/20 21:15 25 MG Influenza Virus Vaccine Quadrival (Fluzone Quad [id number] Syringe) 0.5 ml ONCE ONCE 03/08/20 09:00 03/08/20 09:01 DC 03/08/20 12:16 0.5 ML Info (CONTRAST GIVEN -- Rx MONITORING) 1 each PRN DAILY PRN 03/07/20 21:15 03/09/20 21:14 Info (Icu Electrolyte Protocol) 1 ea CONT PRN PRN 03/08/20 07:15 Info (PHARMACY MONITORING -- do not chart) 1 each PRN DAILY PRN 03/09/20 07:45 Iohexol (Omnipaque 350 Mg/ml) 90 ml 1X ONCE 03/07/20 21:30 03/07/20 21:31 DC 03/07/20 21:25 90 ML Lactobacillus Rhamnosus (Culturelle) 1 cap BID 03/08/20 21:00 03/08/20 21:14 1 CAP Magnesium Sulfate 100 ml @ 50 mls/hr 1X ONCE 03/08/20 00:00 03/08/20 01:59 DC 03/08/20 00:00 50 MLS/HR Ondansetron HCl (Zofran) 4 mg PRN Q8HRS PRN 03/07/20 22:15 03/08/20 22:14 DC Piperacillin Sod/ Tazobactam Sod (Zosyn Per Pharmacy) 1 each PRN DAILY PRN 03/08/20 07:00 03/08/20 07:02 DC Piperacillin Sod/ Tazobactam Sod 2.25 gm/Sodium Chloride 50 ml @ 100 mls/hr Q8HRS 03/08/20 07:00 03/08/20 07:03 DC Piperacillin Sod/ Tazobactam Sod 3.375 gm/Sodium Chloride 50 ml @ 100 mls/hr 1X ONCE 03/07/20 23:00 03/07/20 23:30 DC 03/07/20 23:01 100 MLS/HR Potassium Bicarbonate (Potassium Effervescent Tablet) 40 meq 1X ONCE 03/08/20 04:00 03/08/20 04:01 DC Potassium Chloride/Water 100 ml @ 100 mls/hr Q1H 03/08/20 02:00 03/08/20 09:59 DC 03/08/20 09:44 100 MLS/HR Potassium Phosphate 13.6 mmol/Sodium Chloride 254.5333 ml @ 62.5 mls/hr Q4H 03/07/20 23:30 03/08/20 11:29 UNV Potassium Chloride (Klor-Con) 40 meq Q2H 03/07/20 23:30 03/08/20 03:31 UNV Potassium Phos/ Sodium Phos (Phos-Nak) 1 pkt BID 03/08/20 09:00 03/08/20 21:01 UNV Sennosides (Senna) 8.6 mg PRN DAILY PRN 03/07/20 23:30 Sodium Chloride 1,000 ml @ 400 mls/hr Q2H30M PRN 03/09/20 07:45 03/09/20 19:44 Sodium Phosphate 40 mmol/Sodium Chloride 263.3333 ml @ 62.5 mls/hr 1X ONCE 03/07/20 23:30 03/08/20 03:42 UNV Sterile Water (WATER for RESP) 1,000 ml CONT PRN 03/07/20 18:00 03/07/20 18:04 1,000 ML Tamsulosin HCl (Flomax) 0.4 mg DAILY 03/08/20 09:00 03/08/20 09:29 0.4 MG Timolol Maleate (Timoptic 0.5% [facility]) 1 drop BID 03/08/20 09:00 03/08/20 21:15 1 DROP Vancomycin HCl (Vanco Per Pharmacy) 1 each PRN DAILY PRN 03/07/20 22:30 03/09/20 10:34 1 EACH Vancomycin HCl (Vancomycin Random Level) 1 each 1X ONCE 03/09/20 05:00 03/09/20 05:01 DC 03/09/20 05:00 1 EACH Vancomycin HCl 500 mg/Sodium Chloride 100 ml @ 100 mls/hr QMWF 03/12/20 16:00 Vancomycin HCl 2 gm/Sodium Chloride 500 ml @ 250 mls/hr 1X ONCE 03/07/20 23:00 03/08/20 00:59 DC 03/07/20 23:30 250 MLS/HR Vitamin D (Vitamin D3) 2,000 unit DAILY 03/08/20 09:00 03/08/20 09:29 2,000 UNIT Lab Laboratory Tests Test 03/08/20 22:30 03/09/20 04:30 03/09/20 11:41 Stool Occult Blood Positive (NEG) Random Vancomycin Level 26.2 mcg/mL Glucose (Fingerstick) 90 mg/dL (70-99) Results All relevant outside records, renal labs, imaging studies, telemetry/EKG's were reviewed. Justicifation of Admission Dx: Justifications for Admission: Justification of Admission Dx: N/A VARGAS ANGELO MD Mar 09, 2020 12:08
--- NOTE | 2020-03-09 15:06 | PDOC ---
CARDIO Progress Notes Date and Time Date of Service 03/09/2020 Time of Evaluation 1210 Subjective Subjective: No Chest Pain, No shortness of breath, No Palpitations Vitals Vitals Vital Signs Date Time Temp Pulse Resp B/P (MAP) Pulse Ox O2 Delivery O2 Flow Rate FiO2 03/09/20 12:05 89 141/62 03/09/20 11:00 98.2 18 93 Nasal Cannula 3.0 98.2 Weight Weight [ ] Input and Output Intake and Output Intake and Output 03/09/20 07:00 Intake Total 860 ml Balance 860 ml Intake Oral 560 ml IV Total 300 ml # Voids 1 # Bowel Movements 3 Laboratory Labs Laboratory Tests Test 03/08/20 22:30 03/09/20 04:30 03/09/20 11:41 Stool Occult Blood Positive (NEG) Random Vancomycin Level 26.2 mcg/mL Glucose (Fingerstick) 90 mg/dL (70-99) Microbiology Micro Microbiology 03/07/20 Blood Culture - Preliminary, Resulted NO GROWTH AFTER 1 DAY Physical Exam HEENT: Neck Supple W Full Motion Chest: Symmetric LUNGS: Other (diminished bases) Heart: RRR (SR) Abdomen: Soft N/T Extremities: No Calf Tenderness Neurology: alert, oriented, follow commands Assessment Assessment 1. Fever with covid-19 PNA: SOA better 2. AECOPD 3. Acute on chronic diastolic CHF 4. ESRD 5. NSTEMI: peaked troponin 1.1 EKG SR without acute changes. Suspect type 2 with covid-19. CP free 6. CAD; [place] with PCI to RCA in 2017, unclear details 7. HTN: controlled 8. HLP 9. DM2 10. Hypokalemia/hypomagnesemia: improved 11. Cognitive deficit 12. Anemia of chronic disease: hemoccult+ per PCP Recommendations TTE as an outpt once recovered from covid-19 Will need further ischemic workup as an outpt. Discussed treatment plan with DPOA Continue secondary prevention measures ASA Fluid off loading per HD Justicifation of Admission Dx: Justifications for Admission: Justification of Admission Dx: N/A JEAN MAYS APRN Mar 09, 2020 15:06
[2020-03-09] MEDS ORDERED: REMDESIVIR LOAD in IV NORMAL SALINE 250ML TV IV ONE (16:00)
--- NOTE | 2020-03-09 17:09 | NUR ---
SW following for discharge planning. SW spoke with RN and reviewed chart. Pt transferred to 6S from ICU. Pt from home with home 02 and out-patient dialysis per RN. Pt COVID positive and not ready for discharge. SW following.
[2020-03-09] MEDS: BRIMONIDINE 0.2% OPHTH SOLUTION 5ML BOTTLE. OU SCH (20:51)
[2020-03-09] MEDS: ATORVASTATIN CALCIUM 20 MG TABLET PO SCH (20:51)
[2020-03-10 03:39] VITALS: BP 161/65
[2020-03-10 04:26] LABS: BASO % 0 % (0-3); EOS % 0 % (0-3); HEMATOCRIT 26.9 % (39.0-53.0); HEMOGLOBIN 8.8 g/dL (13.0-17.5); LYMPH # 0.5 x10^3/uL (1.0-4.8); LYMPH % 6 % (24-48); MEAN CORPUSCULAR HEMOGLOBIN 27 pg (25-35); MEAN CORPUSCULAR HGB CONC 33 g/dL (31-37); MEAN CORPUSCULAR VOLUME 84 fL (79-100); MONO # 0.6 x10^3/uL (0.0-1.1); MONO % 6 % (0-9); NEUT # 8.2 x10^3/uL (1.8-7.7); NEUT % 88 % (31-73); PLATELET COUNT 202 x10^3/uL (140-400); RED BLOOD COUNT 3.21 x10^6/uL (4.30-5.70); RED CELL DISTRIBUTION WIDTH 17.9 % (11.5-14.5); WHITE BLOOD COUNT 9.3 x10^3/uL (4.0-11.0)
[2020-03-10 05:29] LABS: ALBUMIN 2.5 g/dL (3.4-5.0); ALBUMIN/GLOBULIN RATIO 0.7 (1.0-1.7); CALCIUM 8.2 mg/dL (8.5-10.1); CREATININE 3.7 mg/dL (0.7-1.3); GFR 19.2; POTASSIUM 4.2 mmol/L (3.5-5.1); TOTAL BILIRUBIN 0.3 mg/dL (0.2-1.0)
[2020-03-10 07:00] VITALS: BP 170/72
--- NOTE | 2020-03-10 08:02 | PDOC ---
[employer] PROGRESS NOTE Date of Service DOS: DATE: 03/10/20 TIME: 07:59 Chief Complaint Chief Complaint A/P: COVID-19 with pneumonia Sepsis - treating for HCAP. Acute respiratory failure with hypoxia HCAP Acute CHF exacerbation Fluid overload NSTEMI Hypertensive urgency Hypokalemia Hypocalcemia Hypomagnesemia Anemia Thyromegaly ESRD - on HD on 02/15/2021 Severe malnutrition History of Present Illness History of Present Illness Mr Solano 80 yo male w/ PMHx HTN, DM2, CAD (2017 RCA PCI), diastolic CHF, COPD, TIA, prostate ca s/p radiation, ESRD on dialsis admitted for complains of chest pain. Also noted with dyspnea and O2 saturations 82-84% even with 3 L of O2. Found to be COVID 19 positive. Had elevated troponin and was tachycardic and febrile at 100.6F. 03/09: Afebrile overnight. Has good appetite. Tolerated dialysis well. Remdesivir day 1 Afebrile overnight. Having loose bowel movements. Still with good appetite. Still on 3L NCO2 Vitals/I&O Vitals/I&O: Vital Signs Date Time Temp Pulse Resp B/P (MAP) Pulse Ox O2 Delivery O2 Flow Rate FiO2 03/10/20 03:39 96.9 69 20 161/65 (97) 94 Nasal Cannula 3.0 96.9 I & O 03/09/20 03/09/20 03/10/20 15:00 23:00 07:00 Intake Total 240 ml 100 ml Output Total 150 ml 200 ml Balance 240 ml -150 ml -100 ml Physical Exam General: Alert, Cooperative, No acute distress Heart: Regular rate (SR no ectopies), Other (distant heart sounds) Lungs: Crackles Abdomen: Soft Extremities: No cyanosis, No edema Skin: No breakdown, No significant lesion Labs Labs: Laboratory Tests Test 03/09/20 11:41 03/09/20 16:47 03/09/20 20:13 03/10/20 03:30 Glucose (Fingerstick) 90 mg/dL (70-99) 205 mg/dL (70-99) 293 mg/dL (70-99) White Blood Count 9.3 x10^3/uL (4.0-11.0) Red Blood Count 3.21 x10^6/uL (4.30-5.70) Hemoglobin 8.8 g/dL (13.0-17.5) Hematocrit 26.9 % (39.0-53.0) Mean Corpuscular Volume 84 fL (79-100) Mean Corpuscular Hemoglobin 27 pg (25-35) Mean Corpuscular Hemoglobin Concent 33 g/dL (31-37) Red Cell Distribution Width 17.9 % (11.5-14.5) Platelet Count 202 x10^3/uL (140-400) Neutrophils (%) (Auto) 88 % (31-73) Lymphocytes (%) (Auto) 6 % (24-48) Monocytes (%) (Auto) 6 % (0-9) Eosinophils (%) (Auto) 0 % (0-3) Basophils (%) (Auto) 0 % (0-3) Neutrophils # (Auto) 8.2 x10^3/uL (1.8-7.7) Lymphocytes # (Auto) 0.5 x10^3/uL (1.0-4.8) Monocytes # (Auto) 0.6 x10^3/uL (0.0-1.1) Eosinophils # (Auto) 0.0 x10^3/uL (0.0-0.7) Basophils # (Auto) 0.0 x10^3/uL (0.0-0.2) Sodium Level 141 mmol/L (136-145) Potassium Level 4.2 mmol/L (3.5-5.1) Chloride Level 101 mmol/L (98-107) Carbon Dioxide Level 29 mmol/L (21-32) Anion Gap 11 (6-14) Blood Urea Nitrogen 50 mg/dL (8-26) Creatinine 3.7 mg/dL (0.7-1.3) Estimated GFR (Cockcroft-Gault) 19.2 BUN/Creatinine Ratio 14 (6-20) Glucose Level 159 mg/dL (70-99) Calcium Level 8.2 mg/dL (8.5-10.1) Total Bilirubin 0.3 mg/dL (0.2-1.0) Aspartate Amino Transf (AST/SGOT) 50 U/L (15-37) Alanine Aminotransferase (ALT/SGPT) 43 U/L (16-63) Alkaline Phosphatase 90 U/L (46-116) Total Protein 6.0 g/dL (6.4-8.2) Albumin 2.5 g/dL (3.4-5.0) Albumin/Globulin Ratio 0.7 (1.0-1.7) Assessment and Plan Assessmemt and Plan Problems Medical Problems: (1) Acute on chronic respiratory failure with hypoxia Status: Acute (2) Acute respiratory distress Status: Acute (3) Person under investigation for COVID-19 Status: Acute Comment Review of Relevant I have reviewed the following items kate (where applicable) has been applied. Medications: Current Medications Medications (Trade) Dose Ordered Sig/Ramin Route PRN Reason Start Time Stop Time Status Last Admin Dose Admin Remdesivir 200 mg/ Sodium Chloride 210 ml @ 210 mls/hr 1X ONCE IV 03/09/20 16:00 03/09/20 16:59 DC 03/09/20 16:54 Justifications for Admission Other Justification CARMELA HECK MD Mar 10, 2020 08:02
[2020-03-10] MEDS: CEFEPIME HCL IV Push 1 GM VIAL. IVP SCH (08:10)
[2020-03-10] MEDS: FERROUS SULFATE 325 MG TABLET. PO SCH (08:10)
[2020-03-10] MEDS: DEXAMETHASONE SOD PHOS 4 MG/ML VIAL IVP SCH (08:10)
[2020-03-10] MEDS: TAMSULOSIN 0.4 MG CAP.ER.24H. PO SCH (08:10)
[2020-03-10] MEDS: ASPIRIN 325 MG TABLET PO SCH (08:11)
[2020-03-10] MEDS: hydrALAZINE 25 MG TABLET PO SCH ×3 (08:11→21:16)
[2020-03-10] MEDS: CHOLECALCIFEROL (VITAMIN D3) 1,000 UNIT TABLET PO SCH (08:11)
[2020-03-10] MEDS: LACTOBACILLUS RHAMNOSUS GG 1 CAPSULE. PO SCH ×2 (08:12→21:16)
[2020-03-10] MEDS: TIMOLOL 0.5% OPHTH SOLUTION 5ML BOTTLE. OU SCH ×2 (08:12→21:16)
[2020-03-10 11:00] VITALS: BP 151/70
--- NOTE | 2020-03-10 12:15 | PDOC ---
DATE OF SERVICE DATE: 03/10/20 TIME: 12:14 SUBJECTIVE ROS stable OBJECTIVE Vital Signs Vital Signs Date Time Temp Pulse Resp B/P (MAP) Pulse Ox O2 Delivery O2 Flow Rate FiO2 03/10/20 08:11 63 170/72 03/10/20 08:00 Nasal Cannula 4.0 03/10/20 07:00 97.0 18 97 97.0 I & 0 Intake and Output 03/10/20 07:00 Intake Total 340 ml Output Total 350 ml Balance -10 ml Intake Oral 340 ml Output Urine Total 350 ml # Bowel Movements 4 PHYSICAL EXAM Physical Exam General: NAD HEENT: On o2 by NC 3 lts (chronic) Neck supple Lungs: CTA ant , non labored Heart: RRR, Abdomen: Normal bowel sounds, Soft, No tenderness Extremities: No cyanosis, no edema Skin: No rash Neuro: Cranial nerves 3-12 NL, baseline dementia No CVA or SP tenderness DIAGNOSIS/ASSESSMENT Assessment & Plan ESRD - Initiated on HD on 02/15, on MWF schedule ,currently no indication for HD today Access- Permcath on 02/15 Fever with possible pneumonia: Afebrile overnight , Covid-19 positive Ac Resp failure - desaturation , CoVid Positive COPD- on Home O2 Acute on chronic diastolic CHF CAD; [place] with PCI to RCA in 2017, unclear details HTN: antihypertensives, cardiology managing DM2 Anemia stable, AMBERLY 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 per [facility] records TIA 2012, right eye blindness and cognitive delay COMMENT/RELEVANT DATA Meds Current Medications Medications (Trade) Dose Ordered Sig/Ramin Start Time Stop Time Status Last Admin Dose Admin Acetaminophen (Tylenol) 500 mg 1X PRN PRN 03/09/20 07:45 03/10/20 07:44 DC Albumin Human 200 ml @ 200 mls/hr 1X PRN PRN 03/09/20 07:45 03/09/20 13:44 DC Albuterol Sulfate (Ventolin Neb Soln) 2.5 mg RTQID 03/08/20 08:00 03/08/20 14:12 DC Amlodipine Besylate (Norvasc) 10 mg DAILY 03/08/20 09:00 03/10/20 08:11 10 MG Aspirin (Zaida Aspirin) 325 mg DAILY 03/08/20 09:00 03/10/20 08:11 325 MG Atorvastatin Calcium (Lipitor) 20 mg HS 03/08/20 00:00 03/09/20 20:51 20 MG Brimonidine Tartrate (Alphagan) 1 drop QHS 03/08/20 21:00 03/09/20 20:51 1 DROP Cefepime HCl (Maxipime) 1 gm Q24H 03/08/20 08:00 03/10/20 08:10 1 GM Dexamethasone Sodium Phosphate (Decadron) 6 mg DAILY 03/08/20 09:00 03/10/20 08:10 6 MG Diphenhydramine HCl (Benadryl) 25 mg 1X PRN PRN 03/09/20 07:45 03/10/20 07:44 DC Fentanyl Citrate (Fentanyl 2ml Vial) 50 mcg PRN Q1HR PRN 03/07/20 22:15 03/08/20 22:14 DC Ferrous Sulfate (Feosol) 325 mg DAILY 03/08/20 09:00 03/10/20 08:10 325 MG Furosemide (Lasix) 40 mg 1X ONCE 03/07/20 23:00 03/07/20 23:01 DC 03/07/20 23:02 40 MG Hydralazine HCl (Apresoline) 25 mg TID 03/08/20 00:00 03/10/20 08:11 25 MG Influenza Virus Vaccine Quadrival (Fluzone Quad [id number] Syringe) 0.5 ml ONCE ONCE 03/08/20 09:00 03/08/20 09:01 DC 03/08/20 12:16 0.5 ML Info (CONTRAST GIVEN -- Rx MONITORING) 1 each PRN DAILY PRN 03/07/20 21:15 03/09/20 21:14 DC Info (Icu Electrolyte Protocol) 1 ea CONT PRN PRN 03/08/20 07:15 Info (PHARMACY MONITORING -- do not chart) 1 each PRN DAILY PRN 03/09/20 07:45 Iohexol (Omnipaque 350 Mg/ml) 90 ml 1X ONCE 03/07/20 21:30 03/07/20 21:31 DC 03/07/20 21:25 90 ML Lactobacillus Rhamnosus (Culturelle) 1 cap BID 03/08/20 21:00 03/10/20 08:12 1 CAP Magnesium Sulfate 100 ml @ 50 mls/hr 1X ONCE 03/08/20 00:00 03/08/20 01:59 DC 03/08/20 00:00 50 MLS/HR Ondansetron HCl (Zofran) 4 mg PRN Q8HRS PRN 03/07/20 22:15 03/08/20 22:14 DC Piperacillin Sod/ Tazobactam Sod (Zosyn Per Pharmacy) 1 each PRN DAILY PRN 03/08/20 07:00 03/08/20 07:02 DC Piperacillin Sod/ Tazobactam Sod 2.25 gm/Sodium Chloride 50 ml @ 100 mls/hr Q8HRS 03/08/20 07:00 03/08/20 07:03 DC Piperacillin Sod/ Tazobactam Sod 3.375 gm/Sodium Chloride 50 ml @ 100 mls/hr 1X ONCE 03/07/20 23:00 03/07/20 23:30 DC 03/07/20 23:01 100 MLS/HR Potassium Bicarbonate (Potassium Effervescent Tablet) 40 meq 1X ONCE 03/08/20 04:00 03/08/20 04:01 DC Potassium Chloride/Water 100 ml @ 100 mls/hr Q1H 03/08/20 02:00 03/08/20 09:59 DC 03/08/20 09:44 100 MLS/HR Potassium Phosphate 13.6 mmol/Sodium Chloride 254.5333 ml @ 62.5 mls/hr Q4H 03/07/20 23:30 03/08/20 11:29 UNV Potassium Chloride (Klor-Con) 40 meq Q2H 03/07/20 23:30 03/08/20 03:31 UNV Potassium Phos/ Sodium Phos (Phos-Nak) 1 pkt BID 03/08/20 09:00 03/08/20 21:01 UNV Remdesivir 100 mg/ Sodium Chloride 230 ml @ 460 mls/hr Q24H 03/10/20 16:00 03/13/20 16:29 Remdesivir 200 mg/ Sodium Chloride 210 ml @ 210 mls/hr 1X ONCE 03/09/20 16:00 03/09/20 16:59 DC 03/09/20 16:54 210 MLS/HR Sennosides (Senna) 8.6 mg PRN DAILY PRN 03/07/20 23:30 Sodium Chloride 1,000 ml @ 400 mls/hr Q2H30M PRN 03/09/20 07:45 03/09/20 19:44 DC Sodium Phosphate 40 mmol/Sodium Chloride 263.3333 ml @ 62.5 mls/hr 1X ONCE 03/07/20 23:30 03/08/20 03:42 UNV Sterile Water (WATER for RESP) 1,000 ml CONT PRN 03/07/20 18:00 03/07/20 18:04 1,000 ML Tamsulosin HCl (Flomax) 0.4 mg DAILY 03/08/20 09:00 03/10/20 08:10 0.4 MG Timolol Maleate (Timoptic 0.5% [facility]) 1 drop BID 03/08/20 09:00 03/10/20 08:12 1 DROP Vancomycin HCl (Vanco Per Pharmacy) 1 each PRN DAILY PRN 03/07/20 22:30 03/09/20 10:34 1 EACH Vancomycin HCl (Vancomycin Random Level) 1 each 1X ONCE 03/09/20 05:00 03/09/20 05:01 DC 03/09/20 05:00 1 EACH Vancomycin HCl 500 mg/Sodium Chloride 100 ml @ 100 mls/hr QMWF 03/12/20 16:00 Vancomycin HCl 2 gm/Sodium Chloride 500 ml @ 250 mls/hr 1X ONCE 03/07/20 23:00 03/08/20 00:59 DC 03/07/20 23:30 250 MLS/HR Vitamin D (Vitamin D3) 2,000 unit DAILY 03/08/20 09:00 03/10/20 08:11 2,000 UNIT Lab Laboratory Tests Test 03/09/20 16:47 03/09/20 20:13 03/10/20 03:30 03/10/20 11:31 Glucose (Fingerstick) 205 mg/dL (70-99) 293 mg/dL (70-99) 184 mg/dL (70-99) White Blood Count 9.3 x10^3/uL (4.0-11.0) Red Blood Count 3.21 x10^6/uL (4.30-5.70) Hemoglobin 8.8 g/dL (13.0-17.5) Hematocrit 26.9 % (39.0-53.0) Mean Corpuscular Volume 84 fL (79-100) Mean Corpuscular Hemoglobin 27 pg (25-35) Mean Corpuscular Hemoglobin Concent 33 g/dL (31-37) Red Cell Distribution Width 17.9 % (11.5-14.5) Platelet Count 202 x10^3/uL (140-400) Neutrophils (%) (Auto) 88 % (31-73) Lymphocytes (%) (Auto) 6 % (24-48) Monocytes (%) (Auto) 6 % (0-9) Eosinophils (%) (Auto) 0 % (0-3) Basophils (%) (Auto) 0 % (0-3) Neutrophils # (Auto) 8.2 x10^3/uL (1.8-7.7) Lymphocytes # (Auto) 0.5 x10^3/uL (1.0-4.8) Monocytes # (Auto) 0.6 x10^3/uL (0.0-1.1) Eosinophils # (Auto) 0.0 x10^3/uL (0.0-0.7) Basophils # (Auto) 0.0 x10^3/uL (0.0-0.2) Sodium Level 141 mmol/L (136-145) Potassium Level 4.2 mmol/L (3.5-5.1) Chloride Level 101 mmol/L (98-107) Carbon Dioxide Level 29 mmol/L (21-32) Anion Gap 11 (6-14) Blood Urea Nitrogen 50 mg/dL (8-26) Creatinine 3.7 mg/dL (0.7-1.3) Estimated GFR (Cockcroft-Gault) 19.2 BUN/Creatinine Ratio 14 (6-20) Glucose Level 159 mg/dL (70-99) Calcium Level 8.2 mg/dL (8.5-10.1) Total Bilirubin 0.3 mg/dL (0.2-1.0) Aspartate Amino Transf (AST/SGOT) 50 U/L (15-37) Alanine Aminotransferase (ALT/SGPT) 43 U/L (16-63) Alkaline Phosphatase 90 U/L (46-116) Total Protein 6.0 g/dL (6.4-8.2) Albumin 2.5 g/dL (3.4-5.0) Albumin/Globulin Ratio 0.7 (1.0-1.7) Results All relevant outside records, renal labs, imaging studies, telemetry/EKG's were reviewed. Justicifation of Admission Dx: Justifications for Admission: Justification of Admission Dx: N/A VARGAS ANGELO MD Mar 10, 2020 12:15
[2020-03-10 15:00] VITALS: BP 132/70
[2020-03-10] MEDS: REMDESIVIR 100mg in NORMAL SALINE 250ML X 4 DAYS IV SCH (15:50)
[2020-03-10 19:47] VITALS: BP 122/60
[2020-03-10] MEDS ORDERED: DARBEPOETIN ALFA 60 MCG/0.3 ML DISP.SYRIN. SQ SCH (21:00)
[2020-03-10] MEDS: BRIMONIDINE 0.2% OPHTH SOLUTION 5ML BOTTLE. OU SCH (21:16)
[2020-03-10] MEDS: ATORVASTATIN CALCIUM 20 MG TABLET PO SCH (21:16)
[2020-03-10] MEDS: INSULIN GLARGINE SYRINGE. SQ SCH (22:33)
[2020-03-10 23:27] VITALS: BP 167/72
[2020-03-11 03:01] VITALS: BP 170/71
[2020-03-11 04:21] LABS: BASO % 0 % (0-3); EOS % 0 % (0-3); HEMATOCRIT 26.7 % (39.0-53.0); HEMOGLOBIN 8.8 g/dL (13.0-17.5); LYMPH # 0.9 x10^3/uL (1.0-4.8); LYMPH % 12 % (24-48); MEAN CORPUSCULAR HEMOGLOBIN 27 pg (25-35); MEAN CORPUSCULAR HGB CONC 33 g/dL (31-37); MEAN CORPUSCULAR VOLUME 83 fL (79-100); MONO # 0.7 x10^3/uL (0.0-1.1); MONO % 9 % (0-9); NEUT % 80 % (31-73); PLATELET COUNT 201 x10^3/uL (140-400); RED BLOOD COUNT 3.22 x10^6/uL (4.30-5.70); RED CELL DISTRIBUTION WIDTH 17.3 % (11.5-14.5); WHITE BLOOD COUNT 7.6 x10^3/uL (4.0-11.0)
[2020-03-11 04:45] LABS: ALBUMIN 2.2 g/dL (3.4-5.0); ALBUMIN/GLOBULIN RATIO 0.6 (1.0-1.7); CALCIUM 8.4 mg/dL (8.5-10.1); CREATININE 5.8 mg/dL (0.7-1.3); GFR 11.4; POTASSIUM 3.9 mmol/L (3.5-5.1); TOTAL BILIRUBIN 0.2 mg/dL (0.2-1.0); TOTAL PROTEIN 5.6 g/dL (6.4-8.2)
[2020-03-11 07:00] VITALS: BP 146/65
[2020-03-11] MEDS: FERROUS SULFATE 325 MG TABLET. PO SCH (08:37)
[2020-03-11] MEDS: CHOLECALCIFEROL (VITAMIN D3) 1,000 UNIT TABLET PO SCH (08:37)
[2020-03-11] MEDS: LACTOBACILLUS RHAMNOSUS GG 1 CAPSULE. PO SCH ×2 (08:37→21:26)
[2020-03-11] MEDS: ASPIRIN 325 MG TABLET PO SCH (08:37)
[2020-03-11] MEDS: CEFEPIME HCL IV Push 1 GM VIAL. IVP SCH (08:37)
[2020-03-11] MEDS: TAMSULOSIN 0.4 MG CAP.ER.24H. PO SCH (08:37)
[2020-03-11] MEDS: TIMOLOL 0.5% OPHTH SOLUTION 5ML BOTTLE. OU SCH ×2 (08:38→21:28)
[2020-03-11] MEDS: hydrALAZINE 25 MG TABLET PO SCH ×3 (08:38→21:26)
[2020-03-11] MEDS: DEXAMETHASONE SOD PHOS 4 MG/ML VIAL IVP SCH (08:38)
[2020-03-11] MEDS: INSULIN GLARGINE SYRINGE. SQ SCH ×2 (09:18→21:37)
--- NOTE | 2020-03-11 09:22 | PDOC ---
[employer] PROGRESS NOTE Date of Service DOS: DATE: 03/11/20 TIME: 09:21 Chief Complaint Chief Complaint A/P: COVID-19 with pneumonia Sepsis - treating for HCAP. Acute respiratory failure with hypoxia HCAP Acute CHF exacerbation Fluid overload NSTEMI Hypertensive urgency Hypokalemia Hypocalcemia Hypomagnesemia Anemia Thyromegaly ESRD - on HD on 02/15/2021 Severe protein calorie malnutrition TIA 2012 Right eye blindness Cognitive delay FEN - Renal diet PPX - heparin FULL CODE Dispo - cont inpatient History of Present Illness History of Present Illness Mr Solano 80 yo male w/ PMHx HTN, DM2, CAD (2016 RCA PCI), diastolic CHF, COPD, TIA, prostate ca s/p radiation, ESRD on dialsis admitted for complains of chest pain. Also noted with dyspnea and O2 saturations 82-84% even with 3 L of O2. Found to be COVID 19 positive. Had elevated troponin and was tachycardic and febrile at 100.6F. 03/09: Afebrile overnight. Has good appetite. Tolerated dialysis well. Remdesivir day 03/10: Afebrile overnight. Having loose bowel movements. Still with good appetite. Still on 3L NCO2 Afebrile overnight. Still requiring 3 L nasal cannula oxygen but his O2 satura tions are now 96%. Labs consistent with ESRD status. He is still having loose bowels though he thinks maybe they are improving. Vitals/I&O Vitals/I&O: Vital Signs Date Time Temp Pulse Resp B/P (MAP) Pulse Ox O2 Delivery O2 Flow Rate FiO2 03/11/20 08:38 54 146/65 03/11/20 07:00 96.7 22 94 Nasal Cannula 3.0 96.7 I & O 03/10/20 03/10/20 03/11/20 14:59 22:59 06:59 Intake Total 400 ml 300 ml 100 ml Output Total 150 ml Balance 400 ml 300 ml -50 ml Physical Exam General: Alert, Cooperative, No acute distress Heart: Regular rate (SR no ectopies), Other (distant heart sounds) Lungs: Crackles Abdomen: Soft Extremities: No cyanosis, No edema Skin: No breakdown, No significant lesion Labs Labs: Laboratory Tests Test 03/10/20 11:31 03/10/20 16:47 1/9/21 20:29 03/11/20 04:00 Glucose (Fingerstick) 184 mg/dL (70-99) 302 mg/dL (70-99) 349 mg/dL (70-99) White Blood Count 7.6 x10^3/uL (4.0-11.0) Red Blood Count 3.22 x10^6/uL (4.30-5.70) Hemoglobin 8.8 g/dL (13.0-17.5) Hematocrit 26.7 % (39.0-53.0) Mean Corpuscular Volume 83 fL (79-100) Mean Corpuscular Hemoglobin 27 pg (25-35) Mean Corpuscular Hemoglobin Concent 33 g/dL (31-37) Red Cell Distribution Width 17.3 % (11.5-14.5) Platelet Count 201 x10^3/uL (140-400) Neutrophils (%) (Auto) 80 % (31-73) Lymphocytes (%) (Auto) 12 % (24-48) Monocytes (%) (Auto) 9 % (0-9) Eosinophils (%) (Auto) 0 % (0-3) Basophils (%) (Auto) 0 % (0-3) Neutrophils # (Auto) 6.0 x10^3/uL (1.8-7.7) Lymphocytes # (Auto) 0.9 x10^3/uL (1.0-4.8) Monocytes # (Auto) 0.7 x10^3/uL (0.0-1.1) Eosinophils # (Auto) 0.0 x10^3/uL (0.0-0.7) Basophils # (Auto) 0.0 x10^3/uL (0.0-0.2) Sodium Level 139 mmol/L (136-145) Potassium Level 3.9 mmol/L (3.5-5.1) Chloride Level 101 mmol/L (98-107) Carbon Dioxide Level 28 mmol/L (21-32) Anion Gap 10 (6-14) Blood Urea Nitrogen 78 mg/dL (8-26) Creatinine 5.8 mg/dL (0.7-1.3) Estimated GFR (Cockcroft-Gault) 11.4 BUN/Creatinine Ratio 13 (6-20) Glucose Level 182 mg/dL (70-99) Calcium Level 8.4 mg/dL (8.5-10.1) Total Bilirubin 0.2 mg/dL (0.2-1.0) Aspartate Amino Transf (AST/SGOT) 41 U/L (15-37) Alanine Aminotransferase (ALT/SGPT) 41 U/L (16-63) Alkaline Phosphatase 87 U/L (46-116) Total Protein 5.6 g/dL (6.4-8.2) Albumin 2.2 g/dL (3.4-5.0) Albumin/Globulin Ratio 0.6 (1.0-1.7) Test 03/11/20 08:09 Glucose (Fingerstick) 110 mg/dL (70-99) Assessment and Plan Assessmemt and Plan Problems Medical Problems: (1) Acute on chronic respiratory failure with hypoxia Status: Acute (2) Acute respiratory distress Status: Acute (3) Person under investigation for COVID-19 Status: Acute Comment Review of Relevant I have reviewed the following items kate (where applicable) has been applied. Medications: Current Medications Medications (Trade) Dose Ordered Sig/Ramin Route PRN Reason Start Time Stop Time Status Last Admin Dose Admin Remdesivir 100 mg/ Sodium Chloride 230 ml @ 460 mls/hr Q24H IV 03/10/20 16:00 03/13/20 16:29 03/10/20 15:50 Darbepoetin Martin ([facility]) 60 mcg WEEKLYHS SQ 03/10/20 21:00 03/10/20 21:16 Insulin Glargine (Lantus Syringe) 12 unit BID SQ 03/10/20 22:30 03/11/20 09:18 Justifications for Admission Other Justification CARMELA HECK MD Mar 11, 2020 09:21
[2020-03-11 11:00] VITALS: BP 145/67
--- NOTE | 2020-03-11 14:18 | PDOC ---
DATE OF SERVICE DATE: 03/11/20 TIME: 14:17 SUBJECTIVE ROS stable OBJECTIVE Vital Signs Vital Signs Date Time Temp Pulse Resp B/P (MAP) Pulse Ox O2 Delivery O2 Flow Rate FiO2 03/11/20 13:49 55 145/67 03/11/20 11:00 96.0 21 98 Nasal Cannula 3.0 96.0 I & 0 Intake and Output 03/11/20 07:00 Intake Total 800 ml Output Total 150 ml Balance 650 ml Intake Oral 800 ml Output Urine Total 150 ml # Bowel Movements 3 PHYSICAL EXAM Physical Exam General: NAD HEENT: On o2 by NC 3 lts (chronic) Neck supple Lungs: CTA ant , non labored Heart: RRR, Abdomen: Normal bowel sounds, Soft, No tenderness Extremities: No cyanosis, no edema Skin: No rash Neuro: Cranial nerves 3-12 NL, baseline dementia No CVA or SP tenderness DIAGNOSIS/ASSESSMENT Assessment & Plan ESRD - Initiated on HD on 02/15, on MWF schedule ,currently no indication for HD today Access- Permcath on 02/15 Fever with possible pneumonia: Afebrile overnight , Covid-19 positive Ac Resp failure - desaturation , CoVid Positive COPD- on Home O2 Acute on chronic diastolic CHF CAD; [facility] with PCI to RCA in 2017, unclear details HTN: antihypertensives, cardiology managing DM2 Anemia stable, AMBERLY 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 per [facility] records TIA 2012, right eye blindness and cognitive delay COMMENT/RELEVANT DATA Meds Current Medications Medications (Trade) Dose Ordered Sig/Ramin Start Time Stop Time Status Last Admin Dose Admin Acetaminophen (Tylenol) 500 mg 1X PRN PRN 03/09/20 07:45 03/10/20 07:44 DC Albumin Human 200 ml @ 200 mls/hr 1X PRN PRN 03/09/20 07:45 03/09/20 13:44 DC Albuterol Sulfate (Ventolin Neb Soln) 2.5 mg RTQID 03/08/20 08:00 03/08/20 14:12 DC Amlodipine Besylate (Norvasc) 10 mg DAILY 03/08/20 09:00 03/11/20 08:37 10 MG Aspirin (Zaida Aspirin) 325 mg DAILY 03/08/20 09:00 03/11/20 08:37 325 MG Atorvastatin Calcium (Lipitor) 20 mg HS 03/08/20 00:00 03/10/20 21:16 20 MG Brimonidine Tartrate (Alphagan) 1 drop QHS 03/08/20 21:00 03/10/20 21:16 1 DROP Cefepime HCl (Maxipime) 1 gm Q24H 03/08/20 08:00 03/11/20 08:37 1 GM Darbepoetin Martin (ARANESP for DIALYSIS PTS) 60 mcg WEEKLYHS 03/10/20 21:00 03/10/20 21:16 60 MCG Dexamethasone Sodium Phosphate (Decadron) 6 mg DAILY 03/08/20 09:00 03/11/20 08:38 6 MG Diphenhydramine HCl (Benadryl) 25 mg 1X PRN PRN 03/09/20 07:45 03/10/20 07:44 DC Fentanyl Citrate (Fentanyl 2ml Vial) 50 mcg PRN Q1HR PRN 03/07/20 22:15 03/08/20 22:14 DC Ferrous Sulfate (Feosol) 325 mg DAILY 03/08/20 09:00 03/11/20 08:37 325 MG Furosemide (Lasix) 40 mg 1X ONCE 03/07/20 23:00 03/07/20 23:01 DC 03/07/20 23:02 40 MG Hydralazine HCl (Apresoline) 25 mg TID 03/08/20 00:00 03/11/20 13:49 25 MG Influenza Virus Vaccine Quadrival (Fluzone Quad Syringe) 0.5 ml ONCE ONCE 03/08/20 09:00 03/08/20 09:01 DC 03/08/20 12:16 0.5 ML Info (CONTRAST GIVEN -- Rx MONITORING) 1 each PRN DAILY PRN 03/07/20 21:15 03/09/20 21:14 DC Info (Icu Electrolyte Protocol) 1 ea CONT PRN PRN 03/08/20 07:15 Info (PHARMACY MONITORING -- do not chart) 1 each PRN DAILY PRN 03/09/20 07:45 Insulin Glargine (Lantus Syringe) 12 unit BID 03/10/20 22:30 03/11/20 09:18 12 UNIT Iohexol (Omnipaque 350 Mg/ml) 90 ml 1X ONCE 03/07/20 21:30 03/07/20 21:31 DC 03/07/20 21:25 90 ML Lactobacillus Rhamnosus (Culturelle) 1 cap BID 03/08/20 21:00 03/11/20 08:37 1 CAP Magnesium Sulfate 100 ml @ 50 mls/hr 1X ONCE 03/08/20 00:00 03/08/20 01:59 DC 03/08/20 00:00 50 MLS/HR Ondansetron HCl (Zofran) 4 mg PRN Q8HRS PRN 03/07/20 22:15 03/08/20 22:14 DC Piperacillin Sod/ Tazobactam Sod (Zosyn Per Pharmacy) 1 each PRN DAILY PRN 03/08/20 07:00 03/08/20 07:02 DC Piperacillin Sod/ Tazobactam Sod 2.25 gm/Sodium Chloride 50 ml @ 100 mls/hr Q8HRS 03/08/20 07:00 03/08/20 07:03 DC Piperacillin Sod/ Tazobactam Sod 3.375 gm/Sodium Chloride 50 ml @ 100 mls/hr 1X ONCE 03/07/20 23:00 03/07/20 23:30 DC 03/07/20 23:01 100 MLS/HR Potassium Bicarbonate (Potassium Effervescent Tablet) 40 meq 1X ONCE 03/08/20 04:00 03/08/20 04:01 DC Potassium Chloride/Water 100 ml @ 100 mls/hr Q1H 03/08/20 02:00 03/08/20 09:59 DC 03/08/20 09:44 100 MLS/HR Potassium Phosphate 13.6 mmol/Sodium Chloride 254.5333 ml @ 62.5 mls/hr Q4H 03/07/20 23:30 03/08/20 11:29 UNV Potassium Chloride (Klor-Con) 40 meq Q2H 03/07/20 23:30 03/08/20 03:31 UNV Potassium Phos/ Sodium Phos (Phos-Nak) 1 pkt BID 03/08/20 09:00 03/08/20 21:01 UNV Remdesivir 100 mg/ Sodium Chloride 230 ml @ 460 mls/hr Q24H 03/10/20 16:00 03/13/20 16:29 03/10/20 15:50 460 MLS/HR Remdesivir 200 mg/ Sodium Chloride 210 ml @ 210 mls/hr 1X ONCE 03/09/20 16:00 03/09/20 16:59 DC 03/09/20 16:54 210 MLS/HR Sennosides (Senna) 8.6 mg PRN DAILY PRN 03/07/20 23:30 Sodium Chloride 1,000 ml @ 400 mls/hr Q2H30M PRN 03/09/20 07:45 03/09/20 19:44 DC Sodium Phosphate 40 mmol/Sodium Chloride 263.3333 ml @ 62.5 mls/hr 1X ONCE 03/07/20 23:30 03/08/20 03:42 UNV Sterile Water (WATER for RESP) 1,000 ml CONT PRN 03/07/20 18:00 03/07/20 18:04 1,000 ML Tamsulosin HCl (Flomax) 0.4 mg DAILY 03/08/20 09:00 03/11/20 08:37 0.4 MG Timolol Maleate (Timoptic 0.5% [facility]) 1 drop BID 03/08/20 09:00 03/11/20 08:38 1 DROP Vancomycin HCl (Vanco Per Pharmacy) 1 each PRN DAILY PRN 03/07/20 22:30 03/09/20 10:34 1 EACH Vancomycin HCl (Vancomycin Random Level) 1 each 1X ONCE 03/12/20 06:00 03/12/20 06:01 Vancomycin HCl 500 mg/Sodium Chloride 100 ml @ 100 mls/hr QMWF 03/12/20 16:00 Vancomycin HCl 2 gm/Sodium Chloride 500 ml @ 250 mls/hr 1X ONCE 03/07/20 23:00 03/08/20 00:59 DC 03/07/20 23:30 250 MLS/HR Vitamin D (Vitamin D3) 2,000 unit DAILY 03/08/20 09:00 03/11/20 08:37 2,000 UNIT Lab Laboratory Tests Test 03/10/20 16:47 03/10/20 20:29 03/11/20 04:00 03/11/20 08:09 Glucose (Fingerstick) 302 mg/dL (70-99) 349 mg/dL (70-99) 110 mg/dL (70-99) White Blood Count 7.6 x10^3/uL (4.0-11.0) Red Blood Count 3.22 x10^6/uL (4.30-5.70) Hemoglobin 8.8 g/dL (13.0-17.5) Hematocrit 26.7 % (39.0-53.0) Mean Corpuscular Volume 83 fL (79-100) Mean Corpuscular Hemoglobin 27 pg (25-35) Mean Corpuscular Hemoglobin Concent 33 g/dL (31-37) Red Cell Distribution Width 17.3 % (11.5-14.5) Platelet Count 201 x10^3/uL (140-400) Neutrophils (%) (Auto) 80 % (31-73) Lymphocytes (%) (Auto) 12 % (24-48) Monocytes (%) (Auto) 9 % (0-9) Eosinophils (%) (Auto) 0 % (0-3) Basophils (%) (Auto) 0 % (0-3) Neutrophils # (Auto) 6.0 x10^3/uL (1.8-7.7) Lymphocytes # (Auto) 0.9 x10^3/uL (1.0-4.8) Monocytes # (Auto) 0.7 x10^3/uL (0.0-1.1) Eosinophils # (Auto) 0.0 x10^3/uL (0.0-0.7) Basophils # (Auto) 0.0 x10^3/uL (0.0-0.2) Sodium Level 139 mmol/L (136-145) Potassium Level 3.9 mmol/L (3.5-5.1) Chloride Level 101 mmol/L (98-107) Carbon Dioxide Level 28 mmol/L (21-32) Anion Gap 10 (6-14) Blood Urea Nitrogen 78 mg/dL (8-26) Creatinine 5.8 mg/dL (0.7-1.3) Estimated GFR (Cockcroft-Gault) 11.4 BUN/Creatinine Ratio 13 (6-20) Glucose Level 182 mg/dL (70-99) Calcium Level 8.4 mg/dL (8.5-10.1) Total Bilirubin 0.2 mg/dL (0.2-1.0) Aspartate Amino Transf (AST/SGOT) 41 U/L (15-37) Alanine Aminotransferase (ALT/SGPT) 41 U/L (16-63) Alkaline Phosphatase 87 U/L (46-116) Total Protein 5.6 g/dL (6.4-8.2) Albumin 2.2 g/dL (3.4-5.0) Albumin/Globulin Ratio 0.6 (1.0-1.7) Test 03/11/20 10:51 Glucose (Fingerstick) 222 mg/dL (70-99) Results All relevant outside records, renal labs, imaging studies, telemetry/EKG's were reviewed. Justicifation of Admission Dx: Justifications for Admission: Justification of Admission Dx: N/A VARGAS ANGELO MD Mar 11, 2020 14:18
[2020-03-11 15:00] VITALS: BP 139/64
[2020-03-11] MEDS ORDERED: ELECTROLYTE (NON-ICU) PROTOCOL. MC PRN (15:30)
[2020-03-11] MEDS ORDERED: INSULIN LISPRO 300 UNITS/3 ML VIAL. SQ ONE (16:45)
[2020-03-11] MEDS ORDERED: DEXTROSE 50% 25 GM / 50ML DISP.SYRIN. IV PRN (16:45)
[2020-03-11] MEDS: REMDESIVIR 100mg in NORMAL SALINE 250ML X 4 DAYS IV SCH (16:49)
[2020-03-11] MEDS: INSULIN LISPRO 300 UNITS/3 ML VIAL. SQ SCH (16:50)
[2020-03-11 19:49] VITALS: BP 157/67
[2020-03-11] MEDS: ATORVASTATIN CALCIUM 20 MG TABLET PO SCH (21:26)
[2020-03-11] MEDS: BRIMONIDINE 0.2% OPHTH SOLUTION 5ML BOTTLE. OU SCH (21:28)
[2020-03-11 23:40] VITALS: BP 135/62
[2020-03-12 03:36] VITALS: BP 150/71
[2020-03-12] MEDS ORDERED: VANCOMYCIN RANDOM LEVEL. MC ONE (06:00)
[2020-03-12 07:48] VITALS: BP 169/76
[2020-03-12] MEDS: INSULIN LISPRO 300 UNITS/3 ML VIAL. SQ SCH ×3 (08:00→16:53)
[2020-03-12] MEDS: INSULIN GLARGINE SYRINGE. SQ SCH ×2 (08:06→21:05)
--- NOTE | 2020-03-12 08:30 | PDOC ---
PROGRESS NOTES Date of Service: DATE: 03/12/20 TIME: 08:30 Chief Complaint Chief Complaint impression COVID-19 with pneumonia Sepsis - treating for HCAP. Acute respiratory failure with hypoxia HCAP Acute CHF exacerbation Fluid overload NSTEMI Hypertensive urgency Hypokalemia Hypocalcemia Hypomagnesemia Anemia Thyromegaly ESRD - on HD on 02/15/2021 Severe protein calorie malnutrition TIA 2012 Right eye blindness Cognitive delay ANEMIA COPD DEMENTIA COVID 19 POS ACUTE RESP FAILURE DM II plan FEN - Renal diet PPX - heparin FULL CODE Dispo - cont inpatient d/w rn History of Present Illness History of Present Illness Mr Solano 80 yo male w/ PMHx HTN, DM2, CAD (2016 RCA PCI), diastolic CHF, COPD, TIA, prostate ca s/p radiation, ESRD on dialsis admitted for complains of chest pain. Also noted with dyspnea and O2 saturations 82-84% even with 3 L of O2. Found to be COVID 19 positive. Had elevated troponin and was tachycardic and febrile at 100.6F. 03/09: Afebrile overnight. Has good appetite. Tolerated dialysis well. Remdesivir day 1 03/10: Afebrile overnight. Having loose bowel movements. Still with good appetite. Still on 3L NCO2 Afebrile overnight. Still requiring 3 L nasal cannula oxygen but his O2 saturations are now 96%. Labs consistent with ESRD status. He is still having loose bowels though he thinks maybe they are improving. Vitals Vitals Vital Signs Date Time Temp Pulse Resp B/P (MAP) Pulse Ox O2 Delivery O2 Flow Rate FiO2 03/12/20 07:48 97.4 61 20 169/76 (107) 98 Nasal Cannula 2.0 97.4 Physical Exam General: Alert, Cooperative, No acute distress Heart: Regular rate (SR no ectopies), Other (distant heart sounds) Lungs: Crackles Abdomen: Soft, No tenderness Extremities: No cyanosis, No edema Skin: No breakdown, No significant lesion Labs LABS Laboratory Tests Test 03/11/20 10:51 03/11/20 16:29 03/11/20 21:07 03/12/20 07:24 Glucose (Fingerstick) 222 mg/dL (70-99) 420 mg/dL (70-99) 136 mg/dL (70-99) 28 mg/dL (70-99) Test 03/12/20 08:05 Glucose (Fingerstick) 169 mg/dL (70-99) Assessment and Plan Assessmemt and Plan Problems Medical Problems: (1) Acute on chronic respiratory failure with hypoxia Status: Acute (2) Acute respiratory distress Status: Acute (3) Person under investigation for COVID-19 Status: Acute DPOA REVIEW 20 MIN to patient portal What Is a Power of Bearing Ring Assembler? A power of assistant prosecuting attorney (POA) is a legal document giving one person (the agent or [id number]) the power to act for another person (the principal). The agent can have broad legal authority or limited authority to make legal decisions about the principal's property, finances or medical care. The power of assistant prosecuting attorney is frequently used in the event of a principal's illness or disability, or when the principal can't be present to sign necessary legal documents for financial transactions. A power of assistant prosecuting attorney can end for a number of reasons, such as when the principal dies, the principal revokes it, a court invalidates it, the principal divorces their spouse, who happens to be the agent, or the agent can no longer carry out the outlined responsibilities. Conventional POAs lapse when the creator becomes incapacitated, but a durable POA remains in force to enable the agent to manage the creators affairs, and a springing POA comes into effect only if and when the creator of the POA becomes incapacitated. A medical or healthcare POA enables an agent to make medical decisions on behalf of an incapacitated person. [employer] A power of assistant prosecuting attorney (POA) is a legal document giving one person, the agent or [id number] the power to act for another person, the principal. The agent can have broad legal authority or limited authority to make decisions about the principal's property, finances or medical care. The power of assistant prosecuting attorney is often used when a principal becomes ill or disabled, or when they can't be present to sign necessary legal documents for financial transactions. Understanding Power of Bearing Ring Assembler A power of assistant prosecuting attorney should be considered when planning for long-term care. There are different types of POAs that fall under either a general power of assistant prosecuting attorney or limited power of assistant prosecuting attorney. A general power of assistant prosecuting attorney acts on behalf of the principal in any and all matters, as allowed by the state. The agent under a general POA agreement may be authorized to take care of issues such as handling bank accounts, signing checks, selling property and assets like stocks, f A limited power of assistant prosecuting attorney gives the agent the power to act on behalf of the principal in specific matters or events. For example, the limited POA may explicitly state that the agent is only allowed to manage the principal's fdc accounts. A limited POA may also be limited to a specific period of time (e.g., if the principal will be out of the country for, say, two years). Most zarate of assistant prosecuting attorney documents allow an agent to represent the principal in all property and financial matters as long as the principals mental state of mind is good. If a situation occurs where the principal becomes incapable of making decisions for him or herself, the POA agreement would automatically end. However, someone who wants the POA to remain in effect after the persons health deteriorates would need to sign a durable power of assistant prosecuting attorney (DPOA). What is an advance directive? An advance directive is a legal document that says how you want to be cared for if you are unable to make decisions. You can include what medical treatments you would want and who you would trust to make decisions for you. An advance directive can also include other legal documents. A living will is a list of treatment preferences. It can be used to indicate whether you would want cardiopulmonary resuscitation (CPR), tube feedings, a breathing machine, or certain medicines, like antibiotics. The durable power of assistant prosecuting attorney for health care document identifies the person you would want to make medical decisions for you. This person is also called a proxy. Your proxy should be familiar with your values and wishes. How do I get started? You can get advance directive documents for your state from your doctor's office or from http://www.caringinfo.org. Review the forms, and ask your doctor if you have any questions. Pick a person to be your proxy, and talk it over with that person. Comment Review of Relevant I have reviewed the following items kate (where applicable) has been applied. Labs Laboratory Tests Test 03/10/20 11:31 03/10/20 16:47 03/10/20 20:29 03/11/20 04:00 Glucose (Fingerstick) 184 mg/dL (70-99) 302 mg/dL (70-99) 349 mg/dL (70-99) White Blood Count 7.6 x10^3/uL (4.0-11.0) Red Blood Count 3.22 x10^6/uL (4.30-5.70) Hemoglobin 8.8 g/dL (13.0-17.5) Hematocrit 26.7 % (39.0-53.0) Mean Corpuscular Volume 83 fL (79-100) Mean Corpuscular Hemoglobin 27 pg (25-35) Mean Corpuscular Hemoglobin Concent 33 g/dL (31-37) Red Cell Distribution Width 17.3 % (11.5-14.5) Platelet Count 201 x10^3/uL (140-400) Neutrophils (%) (Auto) 80 % (31-73) Lymphocytes (%) (Auto) 12 % (24-48) Monocytes (%) (Auto) 9 % (0-9) Eosinophils (%) (Auto) 0 % (0-3) Basophils (%) (Auto) 0 % (0-3) Neutrophils # (Auto) 6.0 x10^3/uL (1.8-7.7) Lymphocytes # (Auto) 0.9 x10^3/uL (1.0-4.8) Monocytes # (Auto) 0.7 x10^3/uL (0.0-1.1) Eosinophils # (Auto) 0.0 x10^3/uL (0.0-0.7) Basophils # (Auto) 0.0 x10^3/uL (0.0-0.2) Sodium Level 139 mmol/L (136-145) Potassium Level 3.9 mmol/L (3.5-5.1) Chloride Level 101 mmol/L (98-107) Carbon Dioxide Level 28 mmol/L (21-32) Anion Gap 10 (6-14) Blood Urea Nitrogen 78 mg/dL (8-26) Creatinine 5.8 mg/dL (0.7-1.3) Estimated GFR (Cockcroft-Gault) 11.4 BUN/Creatinine Ratio 13 (6-20) Glucose Level 182 mg/dL (70-99) Calcium Level 8.4 mg/dL (8.5-10.1) Total Bilirubin 0.2 mg/dL (0.2-1.0) Aspartate Amino Transf (AST/SGOT) 41 U/L (15-37) Alanine Aminotransferase (ALT/SGPT) 41 U/L (16-63) Alkaline Phosphatase 87 U/L (46-116) Total Protein 5.6 g/dL (6.4-8.2) Albumin 2.2 g/dL (3.4-5.0) Albumin/Globulin Ratio 0.6 (1.0-1.7) Test 03/11/20 08:09 03/11/20 10:51 03/11/20 16:29 03/11/20 21:07 Glucose (Fingerstick) 110 mg/dL (70-99) 222 mg/dL (70-99) 420 mg/dL (70-99) 136 mg/dL (70-99) Test 03/12/20 07:24 03/12/20 08:05 Glucose (Fingerstick) 28 mg/dL (70-99) 169 mg/dL (70-99) Laboratory Tests Test 03/11/20 10:51 03/11/20 16:29 03/11/20 21:07 03/12/20 07:24 Glucose (Fingerstick) 222 mg/dL (70-99) 420 mg/dL (70-99) 136 mg/dL (70-99) 28 mg/dL (70-99) Test 03/12/20 08:05 Glucose (Fingerstick) 169 mg/dL (70-99) Microbiology 03/07/20 Blood Culture - Preliminary, Resulted NO GROWTH AFTER 4 DAYS Medications Current Medications Sterile Water (WATER for RESP) 1,000 ml CONT PRN INH VIA VAPOTHERM DEVICE Last administered on 03/07/20at 18:04; Start 03/07/20 at 18:00 Potassium Chloride (Klor-Con) 40 meq 1X ONCE PO ; Start 03/07/20 at 20:15; Stop 03/07/20 at 20:26; Status DC Potassium Bicarbonate (Potassium Effervescent Tablet) 40 meq 1X ONCE PO Last administered on 03/07/20at 21:04; Start 03/07/20 at 21:00; Stop 03/07/20 at 21:01; Status DC Iohexol (Omnipaque 350 Mg/ml) 90 ml 1X ONCE IV Last administered on 03/07/20at 21:25; Start 03/07/20 at 21:30; Stop 03/07/20 at 21:31; Status DC Acetaminophen (Tylenol) 650 mg 1X ONCE PO Last administered on 03/07/20at 21:03; Start 03/07/20 at 21:30; Stop 03/07/20 at 21:31; Status DC Info (CONTRAST GIVEN -- Rx MONITORING) 1 each PRN DAILY PRN MC SEE COMMENTS; Start 03/07/20 at 21:15; Stop 03/09/20 at 21:14; Status DC Dexamethasone Sodium Phosphate (Decadron) 10 mg 1X ONCE IV Last administered on 03/07/20at 23:02; Start 03/07/20 at 23:00; Stop 03/07/20 at 23:01; Status DC Vancomycin HCl 2 gm/Sodium Chloride 500 ml @ 250 mls/hr 1X ONCE IV Last administered on 03/07/20at 23:30; Start 03/07/20 at 23:00; Stop 03/08/20 at 00:59; Status DC Piperacillin Sod/ Tazobactam Sod 3.375 gm/Sodium Chloride 50 ml @ 100 mls/hr 1X ONCE IV Last administered on 03/07/20at 23:01; Start 03/07/20 at 23:00; Stop 03/07/20 at 23:30; Status DC Furosemide (Lasix) 40 mg 1X ONCE IVP Last administered on 03/07/20at 23:02; Start 03/07/20 at 23:00; Stop 03/07/20 at 23:01; Status DC Vancomycin HCl (Vanco Per Pharmacy) 1 each PRN DAILY PRN MC SEE COMMENTS Last administered on 03/09/20at 10:34; Start 03/07/20 at 22:30 Ondansetron HCl (Zofran) 4 mg PRN Q8HRS PRN IV NAUSEA/VOMITING 1ST CHOICE; Sta rt 03/07/20 at 22:15; Stop 03/08/20 at 22:14; Status DC Fentanyl Citrate (Fentanyl 2ml Vial) 50 mcg PRN Q1HR PRN IV SEVERE PAIN 7-10; Start 03/07/20 at 22:15; Stop 03/08/20 at 22:14; Status DC Acetaminophen (Tylenol) 650 mg PRN Q4HRS PRN PO FEVER > 100.3'F; Start 03/07/20 at 22:15; Stop 03/07/20 at 23:32; Status DC Acetaminophen (Tylenol) 650 mg PRN Q6HRS PRN PO MILD PAIN 1-3; Start 03/07/20 at 23:30 Amlodipine Besylate (Norvasc) 10 mg DAILY PO Last administered on 03/11/20at 08:37; Start 03/08/20 at 09:00 Aspirin (Zaida Aspirin) 325 mg DAILY PO Last administered on 03/11/20at 08:37; Start 03/08/20 at 09:00 Atorvastatin Calcium (Lipitor) 20 mg HS PO Last administered on 03/11/20at 21:26; Start 03/08/20 at 00:00 Ferrous Sulfate (Feosol) 325 mg DAILY PO Last administered on 03/11/20at 08:37; Start 03/08/20 at 09:00 Hydralazine HCl (Apresoline) 25 mg TID PO Last administered on 03/11/20at 21:26; Start 03/08/20 at 00:00 Sennosides (Senna) 8.6 mg PRN DAILY PRN PO CONSTIPATION 1ST CHOICE; Start 03/07/20 at 23:30 Tamsulosin HCl (Flomax) 0.4 mg DAILY PO Last administered on 03/11/20at 08:37; Start 03/08/20 at 09:00 Timolol Maleate (Timoptic 0.5% [facility]) 1 drop BID OU Last administered on 03/11/20at 21:28; Start 03/08/20 at 09:00 Albuterol Sulfate (Ventolin Neb Soln) 2.5 mg RTQID NEB ; Start 03/08/20 at 08:00; Stop 03/08/20 at 14:12; Status DC Brimonidine Tartrate (Alphagan) 1 drop QHS OU Last administered on 03/11/20at 21:28; Start 03/08/20 at 21:00 Vitamin D (Vitamin D3) 2,000 unit DAILY PO Last administered on 03/11/20at 08:37; Start 03/08/20 at 09:00 Potassium Chloride (Klor-Con) 40 meq 1X ONCE PO ; Start 03/07/20 at 23:30; Stop 03/07/20 at 23:31; Status UNV Potassium Bicarbonate (Potassium Effervescent Tablet) 40 meq 1X ONCE PO ; Start 03/07/20 at 23:30; Stop 03/07/20 at 23:31; Status UNV Potassium Bicarbonate (Potassium Effervescent Tablet) 40 meq 1X ONCE PO ; Start 03/07/20 at 23:30; Stop 03/07/20 at 23:31; Status UNV Potassium Chloride/Water 100 ml @ 100 mls/hr Q1H IV ; Start 03/07/20 at 23:30; Stop 03/08/20 at 03:29; Status UNV Potassium Chloride/Water 100 ml @ 100 mls/hr Q1H IV ; Start 03/07/20 at 23:30; Stop 03/08/20 at 01:29; Status UNV Potassium Chloride (Klor-Con) 40 meq Q2H PO ; Start 03/07/20 at 23:30; Stop 03/08/20 at 01:31; Status UNV Potassium Chloride/Water 100 ml @ 100 mls/hr Q1H IV ; Start 03/07/20 at 23:30; Stop 03/08/20 at 07:29; Status UNV Potassium Chloride/Water 100 ml @ 100 mls/hr Q1H IV ; Start 03/07/20 at 23:30; Stop 03/08/20 at 03:29; Status UNV Potassium Chloride (Klor-Con) 40 meq Q2H PO ; Start 03/07/20 at 23:30; Stop 03/08/20 at 03:31; Status UNV Potassium Chloride/Water 100 ml @ 100 mls/hr Q1H IV ; Start 03/07/20 at 23:30; Stop 03/08/20 at 11:29; Status UNV Potassium Chloride/Water 100 ml @ 100 mls/hr Q1HR IV ; Start 03/08/20 at 00:01; Stop 03/08/20 at 05:59; Status UNV Magnesium Sulfate 100 ml @ 50 mls/hr DAILY IV ; Start 03/08/20 at 09:00; Stop 03/11/20 at 08:59; Status UNV Potassium Phos/ Sodium Phos (Phos-Nak) 1 pkt BID PO ; Start 03/08/20 at 09:00; Stop 03/08/20 at 21:01; Status UNV Sodium Phosphate 40 mmol/Sodium Chloride 263.3333 ml @ 62.5 mls/hr 1X ONCE IV ; Start 03/07/20 at 23:30; Stop 03/08/20 at 03:42; Status UNV Potassium Phosphate 13.6 mmol/Sodium Chloride 254.5333 ml @ 62.5 mls/hr Q4H IV ; Start 03/07/20 at 23:30; Stop 03/08/20 at 11:29; Status UNV Info (Icu Electrolyte Protocol) 1 ea CONT PRN PRN MC PER PROTOCOL; Start 03/07/20 at 23:45; Stop 03/08/20 at 07:29; Status DC Magnesium Sulfate 100 ml @ 50 mls/hr 1X ONCE IV Last administered on 03/08/20at 00:00; Start 03/08/20 at 00:00; Stop 03/08/20 at 01:59; Status DC Potassium Bicarbonate (Potassium Effervescent Tablet) 40 meq 1X ONCE PO ; Start 03/08/20 at 00:00; Stop 03/08/20 at 00:01; Status DC Potassium Bicarbonate (Potassium Effervescent Tablet) 40 meq 1X ONCE PO ; Start 03/08/20 at 04:00; Stop 03/08/20 at 04:01; Status DC Vancomycin HCl (Vancomycin Random Level) 1 each 1X ONCE MC Last administered on 03/09/20at 05:00; Start 03/09/20 at 05:00; Stop 03/09/20 at 05:01; Status DC Potassium Chloride/Water 100 ml @ 100 mls/hr Q1H IV Last administered on 03/08/20at 09:44; Start 03/08/20 at 02:00; Stop 03/08/20 at 09:59; Status DC Influenza Virus Vaccine Quadrival (Fluzone Quad [id number] Syringe) 0.5 ml ONCE ONCE VAX IM Last administered on 03/08/20at 12:16; Start 03/08/20 at 09:00; Stop 03/08/20 at 09:01; Status DC Piperacillin Sod/ Tazobactam Sod (Zosyn Per Pharmacy) 1 each PRN DAILY PRN MC SEE COMMENTS; Start 03/08/20 at 07:00; Stop 03/08/20 at 07:02; Status DC Piperacillin Sod/ Tazobactam Sod 2.25 gm/Sodium Chloride 50 ml @ 100 mls/hr Q8HRS IV ; Start 03/08/20 at 07:00; Stop 03/08/20 at 07:03; Status DC Cefepime HCl (Maxipime) 2 gm Q8HRS IVP ; Start 03/08/20 at 14:00; Status UNV Cefepime HCl (Maxipime) 1 gm Q24H IVP Last administered on 03/11/20at 08:37; Start 03/08/20 at 08:00 Info (Icu Electrolyte Protocol) 1 ea CONT PRN PRN MC PER PROTOCOL; Start 03/08/20 at 07:15; Status Cancel Dexamethasone Sodium Phosphate (Decadron) 6 mg DAILY IVP Last administered on 03/11/20at 08:38; Start 03/08/20 at 09:00 Lactobacillus Rhamnosus (Culturelle) 1 cap BID PO Last administered on 03/11/20at 21:26; Start 03/08/20 at 21:00 Sodium Chloride 1,000 ml @ 1,000 mls/hr Q1H PRN IV hypotension; Start 03/09/20 at 07:45; Stop 03/09/20 at 13:44; Status DC Albumin Human 200 ml @ 200 mls/hr 1X PRN PRN IV Hypotension; Start 03/09/20 at 07:45; Stop 03/09/20 at 13:44; Status DC Acetaminophen (Tylenol) 500 mg 1X PRN PRN PO MILD PAIN / TEMP > 100.3'F; Start 03/09/20 at 07:45; Stop 03/10/20 at 07:44; Status DC Diphenhydramine HCl (Benadryl) 25 mg 1X PRN PRN IV ITCHING; Start 03/09/20 at 07 :45; Stop 03/10/20 at 07:44; Status DC Diphenhydramine HCl (Benadryl) 25 mg 1X PRN PRN IV ITCHING; Start 03/09/20 at 07:45; Stop 03/10/20 at 07:44; Status DC Sodium Chloride 1,000 ml @ 400 mls/hr Q2H30M PRN IV PATENCY; Start 03/09/20 at 07:45; Stop 03/09/20 at 19:44; Status DC Info (PHARMACY MONITORING -- do not chart) 1 each PRN DAILY PRN MC SEE COMMENTS; Start 03/09/20 at 07:45 Vancomycin HCl 500 mg/Sodium Chloride 100 ml @ 100 mls/hr QMWF IV ; Start 03/12/20 at 16:00 Remdesivir 200 mg/ Sodium Chloride 210 ml @ 210 mls/hr 1X ONCE IV Last administered on 03/09/20at 16:54; Start 03/09/20 at 16:00; Stop 03/09/20 at 16:59; Status DC Remdesivir 100 mg/ Sodium Chloride 230 ml @ 460 mls/hr Q24H IV Last administered on 03/11/20at 16:49; Start 03/10/20 at 16:00; Stop 03/13/20 at 16:29 Darbepoetin Martin (ARANESP for DIALYSIS PTS) 60 mcg WEEKLYHS SQ Last administered on 03/10/20at 21:16; Start 03/10/20 at 21:00 Insulin Glargine (Lantus Syringe) 12 unit BID SQ Last administered on 03/11/20at 21:37; Start 03/10/20 at 22:30 Vancomycin HCl (Vancomycin Random Level) 1 each 1X ONCE MC ; Start 03/12/20 at 06:00; Stop 03/12/20 at 06:01; Status DC Info (Non-Icu Electrolyte Protocol) 1 ea CONT PRN PRN MC SEE COMMENTS; Start 03/11/20 at 15:30 Insulin Human Lispro (HumaLOG) 0-9 UNITS TIDWMEALS SQ Last administered on 03/11/20at 16:50; Start 03/11/20 at 17:00 Dextrose (Dextrose 50%-Water Syringe) 12.5 gm PRN Q15MIN PRN IV SEE COMMENTS Last administered on 03/12/20at 07:46; Start 03/11/20 at 16:45 Insulin Human Lispro (HumaLOG) 14 units 1X ONCE SQ Last administered on 03/11/20at 16:52; Start 03/11/20 at 16:45; Stop 03/11/20 at 16:46; Status DC Active Scripts Active Hydralazine Hcl 25 Mg Tablet 25 Mg PO TID 30 Days Reported Timoptic 0.5% (Timolol Maleate) 10 Ml Drops 1 Drop EACHEYE BID 30 Days Senna (Sennosides) 8.6 Mg Tablet 8.6 Mg PO PRN DAILY PRN Tylenol (Acetaminophen) 325 Mg Tablet 650 Mg PO PRN Q6-8HRS PRN Albuterol Sulfate Conc Neb Soln (Albuterol Sulfate) 2.5 Mg/0.5 Ml Vial.neb 2.5 Mg NEB QIDACHS Combigan Eye Drops (Brimonidine Tartrate/Timolol) 5 Ml Drops 5 Ml OP QHS Vitamin D3 (Cholecalciferol (Vitamin D3)) 50 Mcg Tablet 50 Mcg PO DAILY Atorvastatin Calcium 20 Mg Tablet 20 Mg PO HS Aspirin 325 Mg Tablet 325 Mg PO DAILY Tamsulosin Hcl 0.4 Mg Cap.er.24h 0.4 Mg PO DAILY Ferrous Sulfate 325 Mg Tablet 1 Tab PO DAILY Amlodipine Besylate 10 Mg Tablet 10 Mg PO DAILY Vitals/I & O Vital Sign - Last 24 Hours 03/11/20 03/11/20 03/11/20 03/11/20 08:37 08:38 11:00 13:49 Temp 96.0 96.0 Pulse 54 54 55 55 Resp 21 B/P (MAP) 146/65 146/65 145/67 (93) 145/67 Pulse Ox 98 O2 Delivery Nasal Cannula O2 Flow Rate 3.0 03/11/20 03/11/20 03/11/20 03/11/20 15:00 19:49 20:00 21:26 Temp 94.5 98.2 94.5 98.2 Pulse 59 63 Resp 24 B/P (MAP) 139/64 (89) 157/67 (97) 157/67 Pulse Ox 90 95 O2 Delivery Nasal Cannula Nasal Cannula Nasal Cannula O2 Flow Rate 3.0 2.0 4.0 03/11/20 03/12/20 03/12/20 23:40 03:36 07:48 Temp 97.5 98.0 97.4 97.5 98.0 97.4 Pulse 54 59 61 Resp 18 16 20 B/P (MAP) 135/62 (86) 150/71 (97) 169/76 (107) Pulse Ox 97 93 98 O2 Delivery Nasal Cannula Nasal Cannula Nasal Cannula O2 Flow Rate 2.0 2.0 2.0 Intake and Output 03/11/20 03/11/20 03/12/20 15:00 23:00 07:00 Intake Total 400 ml 100 ml Output Total 300 ml 350 ml 300 ml Balance 100 ml -250 ml -300 ml Nutrition Consultation Dietary Evaluation: Recommendations by RD: Dietary education by RD, Increase Calorie Intake, Protein supplementation Comments: Renal/ADA diet Nepro bid Expected Outcomes/Goals: to meet >75% est nutr needs Interpretation of weight loss: >5% in 1 month Malnutrition Findings: Weight Status: Underweight Fluid Accumulation (Non-Severe: Mild depletion Justicifation of Admission Dx: Justifications for Admission: Justification of Admission Dx: N/A NEHEMIAH GAVIRIA MD Mar 12, 2020 08:30
[2020-03-12] MEDS: TIMOLOL 0.5% OPHTH SOLUTION 5ML BOTTLE. OU SCH ×2 (08:50→21:17)
[2020-03-12] MEDS: DEXAMETHASONE SOD PHOS 4 MG/ML VIAL IVP SCH (08:51)
[2020-03-12] MEDS: FERROUS SULFATE 325 MG TABLET. PO SCH (08:51)
[2020-03-12] MEDS: ASPIRIN 325 MG TABLET PO SCH (08:51)
[2020-03-12] MEDS: LACTOBACILLUS RHAMNOSUS GG 1 CAPSULE. PO SCH ×2 (08:51→21:16)
[2020-03-12] MEDS: CHOLECALCIFEROL (VITAMIN D3) 1,000 UNIT TABLET PO SCH (08:51)
[2020-03-12] MEDS: hydrALAZINE 25 MG TABLET PO SCH ×3 (08:52→21:16)
[2020-03-12] MEDS: TAMSULOSIN 0.4 MG CAP.ER.24H. PO SCH (08:52)
[2020-03-12] MEDS: CEFEPIME HCL IV Push 1 GM VIAL. IVP SCH (08:52)
[2020-03-12 10:49] LABS: BASO % 0 % (0-3); EOS % 0 % (0-3); HEMATOCRIT 28.7 % (39.0-53.0); HEMOGLOBIN 9.3 g/dL (13.0-17.5); LYMPH # 1.2 x10^3/uL (1.0-4.8); LYMPH % 14 % (24-48); MEAN CORPUSCULAR HEMOGLOBIN 27 pg (25-35); MEAN CORPUSCULAR HGB CONC 33 g/dL (31-37); MEAN CORPUSCULAR VOLUME 83 fL (79-100); MONO # 0.8 x10^3/uL (0.0-1.1); MONO % 10 % (0-9); NEUT # 6.8 x10^3/uL (1.8-7.7); NEUT % 77 % (31-73); PLATELET COUNT 229 x10^3/uL (140-400); RED BLOOD COUNT 3.43 x10^6/uL (4.30-5.70); RED CELL DISTRIBUTION WIDTH 17.7 % (11.5-14.5); WHITE BLOOD COUNT 8.8 x10^3/uL (4.0-11.0)
[2020-03-12 10:59] LABS: ALBUMIN 2.2 g/dL (3.4-5.0); ALBUMIN/GLOBULIN RATIO 0.6 (1.0-1.7); CALCIUM 8.8 mg/dL (8.5-10.1); CREATININE 6.6 mg/dL (0.7-1.3); GFR 9.9; TOTAL BILIRUBIN 0.2 mg/dL (0.2-1.0); TOTAL PROTEIN 5.6 g/dL (6.4-8.2)
[2020-03-12 11:03] VITALS: BP 156/70
[2020-03-12] MEDS ORDERED: DIALYSIS PATIENT. MC PRN (11:45)
[2020-03-12] MEDS ORDERED: IV NORMAL SALINE 1000ML BAG 1,000 ML IV PRN ×2 (11:45)
--- NOTE | 2020-03-12 11:53 | PDOC ---
Renal-Progress Notes Subjective Notes Notes CONFUSED History of Present Illness Hx of present illness STABLE Vitals Vitals Vital Signs Date Time Temp Pulse Resp B/P (MAP) Pulse Ox O2 Delivery O2 Flow Rate FiO2 03/12/20 11:03 97.4 59 18 156/70 (98) 99 Nasal Cannula 2.0 97.4 Weight Weight [ ] I.O. Intake and Output Intake and Output 03/12/20 07:00 Intake Total 500 ml Output Total 950 ml Balance -450 ml Intake Oral 500 ml Output Urine Total 950 ml # Bowel Movements 2 Labs Labs Laboratory Tests Test 03/11/20 16:29 03/11/20 21:07 03/12/20 07:24 03/12/20 08:05 Glucose (Fingerstick) 420 mg/dL (70-99) 136 mg/dL (70-99) 28 mg/dL (70-99) 169 mg/dL (70-99) Test 03/12/20 09:50 03/12/20 11:29 White Blood Count 8.8 x10^3/uL (4.0-11.0) Red Blood Count 3.43 x10^6/uL (4.30-5.70) Hemoglobin 9.3 g/dL (13.0-17.5) Hematocrit 28.7 % (39.0-53.0) Mean Corpuscular Volume 83 fL (79-100) Mean Corpuscular Hemoglobin 27 pg (25-35) Mean Corpuscular Hemoglobin Concent 33 g/dL (31-37) Red Cell Distribution Width 17.7 % (11.5-14.5) Platelet Count 229 x10^3/uL (140-400) Neutrophils (%) (Auto) 77 % (31-73) Lymphocytes (%) (Auto) 14 % (24-48) Monocytes (%) (Auto) 10 % (0-9) Eosinophils (%) (Auto) 0 % (0-3) Basophils (%) (Auto) 0 % (0-3) Neutrophils # (Auto) 6.8 x10^3/uL (1.8-7.7) Lymphocytes # (Auto) 1.2 x10^3/uL (1.0-4.8) Monocytes # (Auto) 0.8 x10^3/uL (0.0-1.1) Eosinophils # (Auto) 0.0 x10^3/uL (0.0-0.7) Basophils # (Auto) 0.0 x10^3/uL (0.0-0.2) Sodium Level 139 mmol/L (136-145) Potassium Level 4.0 mmol/L (3.5-5.1) Chloride Level 100 mmol/L (98-107) Carbon Dioxide Level 24 mmol/L (21-32) Anion Gap 15 (6-14) Blood Urea Nitrogen 101 mg/dL (8-26) Creatinine 6.6 mg/dL (0.7-1.3) Estimated GFR (Cockcroft-Gault) 9.9 BUN/Creatinine Ratio 15 (6-20) Glucose Level 132 mg/dL (70-99) Calcium Level 8.8 mg/dL (8.5-10.1) Total Bilirubin 0.2 mg/dL (0.2-1.0) Aspartate Amino Transf (AST/SGOT) 53 U/L (15-37) Alanine Aminotransferase (ALT/SGPT) 51 U/L (16-63) Alkaline Phosphatase 88 U/L (46-116) Total Protein 5.6 g/dL (6.4-8.2) Albumin 2.2 g/dL (3.4-5.0) Albumin/Globulin Ratio 0.6 (1.0-1.7) Random Vancomycin Level 15.1 mcg/mL Glucose (Fingerstick) 97 mg/dL (70-99) Micro Micro Microbiology 03/07/20 Blood Culture - Preliminary, Resulted NO GROWTH AFTER 4 DAYS Physical Exam General Appearance: no apparent distress Skin: warm Respiratory: decreased breath sounds Heart: S1S2 Abdomen: soft, bowel sounds present Genitourinary: bladder flat Extremities: atrophy Neurology: alert, follow commands Assessment Assessment IMP ESRD ANEMIA COPD DEMENTIA COVID 19 POS ACUTE RESP FAILURE DM II CAD HTN PLAN HD TODAY UF TO DW SUPPORTIVE CARE AMBERLY NEEDED JAGDEEP RANDHAWA MD Mar 12, 2020 11:52
[2020-03-12] MEDS: VANCOMYCIN PER PHARMACY MC PRN (15:01)
--- NOTE | 2020-03-12 15:26 | NUR ---
Pharmacy Vancomycin Dosing Note S:Consulted to monitor and dose vancomycin started 03/07/20. O:FREDERICK HATFIELD is a 80 year old M with Pneumonia . Height: 5 feet, 7 inches Weight: 60.4 kg Mobile Body Weight: 66.10 Adjusted Body Weight: 63.82 Dosing Weight: Actual Other Antibiotics: CEFEPIME LABS: Last BUN: 12 Last Creatinine: 2.8 Creatinine Clearance: DIALYSIS mL/min Last WBC: 6.7 Last Procalcitonin: Tmax (past 24 hours): 97.3 Microbiology: I/O: Drug Levels: Last Random level: 15.1 on 03/12/20 at 0500 Last dose given 03/07/20 at Vancomycin Dosing: Loading Dose: 2000 mg x1 Dosing Weight: Actual Target Trough: 15-20 A: Based on: PREDIALYSIS LEVEL 15, P: 1. Begin Vancomycin 500 mg IV MWF TODAY 2. Follow up Random level on NEEDED. 3. Pharmacy will continue to monitor, follow and adjust therapy as needed. SAMANTHA FLOWERS [facility], 03/12/20 [id number]
[2020-03-12 15:59] VITALS: BP 150/67
--- NOTE | 2020-03-12 17:12 | NUR ---
SW following for discharge planning. JUANJO spoke with RN and reviewed chart. Pt on 2l 02 and IV Vancomycin. Pt on day 3 of Remdesivir. JUANJO spoke with [facility] [place] [facility] to request transfer to [facility] [place] as pt is COVID positive. PT recommendation is for SNU. JUANJO attempted to call into pt's room, no answer. Pt does out-patient dialysis on MWF and his next chair time at [facility] is scheduled for 03/16. JUANJO gonzales.
[2020-03-12 21:00] VITALS: BP 130/59
[2020-03-12] MEDS: REMDESIVIR 100mg in NORMAL SALINE 250ML X 4 DAYS IV SCH (21:04)
[2020-03-12] MEDS: ATORVASTATIN CALCIUM 20 MG TABLET PO SCH (21:16)
[2020-03-12] MEDS: BRIMONIDINE 0.2% OPHTH SOLUTION 5ML BOTTLE. OU SCH (21:17)
[2020-03-12] MEDS: VANCOMYCIN 500 MG in IV NORMAL SALINE 100ML 100 ML IV SCH (21:18)
[2020-03-12 23:00] VITALS: BP 148/68
[2020-03-13 03:00] VITALS: BP 146/91
[2020-03-13 07:55] VITALS: BP 144/65
[2020-03-13] MEDS: DEXAMETHASONE SOD PHOS 4 MG/ML VIAL IVP SCH (08:25)
[2020-03-13] MEDS: TIMOLOL 0.5% OPHTH SOLUTION 5ML BOTTLE. OU SCH ×2 (08:25→21:00)
[2020-03-13] MEDS: ASPIRIN 325 MG TABLET PO SCH (08:26)
[2020-03-13] MEDS: CHOLECALCIFEROL (VITAMIN D3) 1,000 UNIT TABLET PO SCH (08:26)
[2020-03-13] MEDS: FERROUS SULFATE 325 MG TABLET. PO SCH (08:26)
[2020-03-13] MEDS: LACTOBACILLUS RHAMNOSUS GG 1 CAPSULE. PO SCH ×2 (08:26→21:03)
[2020-03-13] MEDS: hydrALAZINE 25 MG TABLET PO SCH ×3 (08:27→21:03)
[2020-03-13] MEDS: CEFEPIME HCL IV Push 1 GM VIAL. IVP SCH (08:27)
[2020-03-13] MEDS: TAMSULOSIN 0.4 MG CAP.ER.24H. PO SCH (08:27)
[2020-03-13] MEDS: INSULIN LISPRO 300 UNITS/3 ML VIAL. SQ SCH ×3 (08:29→16:46)
[2020-03-13] MEDS: INSULIN GLARGINE SYRINGE. SQ SCH ×2 (08:29→21:04)
[2020-03-13 11:36] VITALS: BP 132/63
--- NOTE | 2020-03-13 11:47 | PDOC ---
PROGRESS NOTES Date of Service: DATE: 03/13/20 TIME: 11:46 Chief Complaint Chief Complaint DISCHARGE DX COVID-19 with pneumonia Sepsis - treating for HCAP. Acute respiratory failure with hypoxia HCAP Acute CHF exacerbation Fluid overload NSTEMI Hypertensive urgency Hypokalemia Hypocalcemia Hypomagnesemia Anemia Thyromegaly ESRD - on HD on 02/15/2021 Severe protein calorie malnutrition TIA 2012 Right eye blindness Cognitive delay ANEMIA COPD DEMENTIA COVID 19 POS ACUTE RESP FAILURE DM II plan FEN - Renal diet PPX - heparin FULL CODE Dispo - cont inpatient d/w rn , CONFUSED, NEEDS SNF D/C PLANNING 32 MIN History of Present Illness History of Present Illness Mr Solano 80 yo male w/ PMHx HTN, DM2, CAD (2016 RCA PCI), diastolic CHF, COPD, TIA, prostate ca s/p radiation, ESRD on dialsis admitted for complains of chest pain. Also noted with dyspnea and O2 saturations 82-84% even with 3 L of O2. Found to be COVID 19 positive. Had elevated troponin and was tachycardic and febrile at 100.6F. 03/09: Afebrile overnight. Has good appetite. Tolerated dialysis well. Remdesivir day 1 03/10: Afebrile overnight. Having loose bowel movements. Still with good appetite. Still on 3L NCO2 Afebrile overnight. Still requiring 3 L nasal cannula oxygen but his O2 saturations are now 96%. Labs consistent with ESRD status. He is still having loose bowels though he thinks maybe they are improving. Vitals Vitals Vital Signs Date Time Temp Pulse Resp B/P (MAP) Pulse Ox O2 Delivery O2 Flow Rate FiO2 03/13/20 11:36 98.4 54 20 132/63 (86) 97 Nasal Cannula 2.0 98.4 Physical Exam General: Alert, Cooperative, No acute distress Heart: Regular rate (SR no ectopies), Other (distant heart sounds) Lungs: Crackles Abdomen: Soft, No tenderness Extremities: No cyanosis, No edema Skin: No breakdown, No significant lesion Labs LABS * Balance Clinical Presentation * Evolving Evaluation Complexity Level * Low Complexity Pt/caregiver agrees with plan of care/goals * Yes Patient condition at conclusion of therapy * Pt in chair * Call light in reach * Phone in reach * PtIn no apparent distress * Pt denies further needs Goal 1 - Bed Mobility Assistance Required * Independent Goal 1 Assessment * Appropriate - Continue Goal 2 - Transfers Assistance Required * Independent Goal 2 - Transfer Type * Stand-Step Goal 2 Assessment * Appropriate - Continue Goal 3 - Ambulation Assistance Required * Independent Goal 3 - Ambulation Distance * 100' Goal 3 - Ambulation Device * Roller Walker Goal 3 Assessment * Appropriate - Continue Goal 4 - Stairs Assistance Required * Independent Goal 4 - Number of Stairs * >9 Goal 4 - Device on Stairs * Rail on Right Goal 4 Assessment * Appropriate - Continue Treatment Plan * Therapeutic Exercise * Bed Mobility Training * Transfer training * Gait Training * Dynamic Balance Training Frequency of Treatment Expected * 5 visits/week Duration of Treatment Expected * 2 weeks Discharge Recommendations * Care Home Unit CTA Chest with contrast: Clinical History: Shortness of breath. Axial helical images of the chest were obtained after the administration of 90 cc of IV Omni 350 and timed appropriately for a pulmonary arterial study. Conventional axial reconstruction was performed in addition to coronal, sagittal and bilateral oblique MIP (maximum intensity projection). This study was ordered to detect possible pulmonary embolism. There are no filling defects to suggest pulmonary embolism. There is diffuse reticular opacities of lungs and there is groundglass opacities in the mid and lower lungs. There is no mediastinal or hilar lymphadenopathy. The thoracic aorta appears normal. There is bilateral gynecomastia. The thyroid is diffusely enlarged. Impression: 1. No evidence of pulmonary embolism. 2. Diffuse mixed interstitial and airspace disease. This could be secondary to CHF or atypical pneumonia. 3. Large thyroid. Recommend correlation with TSH. End impression PQRS Compliance Statement: One or more of the following individualized dose reduction techniques were utilized for this examination: 1. Automated exposure control 2. Adjustment of the mA and/or kV according to patient size 3. Use of iterative reconstruction technique Electronically signed by: Dickson Mendoza III, MD (03/07/2020 9:34 PM) [facility] DICTATED and SIGNED BY: DICKSON MENDOZA III, MD Laboratory Tests Test 03/12/20 16:18 03/12/20 21:23 03/13/20 07:26 Glucose (Fingerstick) 185 mg/dL (70-99) 222 mg/dL (70-99) 152 mg/dL (70-99) Assessment and Plan Assessmemt and Plan Problems Medical Problems: (1) Acute on chronic respiratory failure with hypoxia Status: Acute (2) Acute respiratory distress Status: Acute (3) Person under investigation for COVID-19 Status: Acute * Low Complexity Pt/caregiver agrees with plan of care/goals * Yes Patient condition at conclusion of therapy * Pt in chair * Call light in reach * Phone in reach * PtIn no apparent distress * Pt denies further needs Goal 1 - Bed Mobility Assistance Required * Independent Goal 1 Assessment * Appropriate - Continue Goal 2 - Transfers Assistance Required * Independent Goal 2 - Transfer Type * Stand-Step Goal 2 Assessment * Appropriate - Continue Goal 3 - Ambulation Assistance Required * Independent Goal 3 - Ambulation Distance * 100' Goal 3 - Ambulation Device * Roller Walker Goal 3 Assessment * Appropriate - Continue Goal 4 - Stairs Assistance Required * Independent Goal 4 - Number of Stairs * >9 Goal 4 - Device on Stairs * Rail on Right Goal 4 Assessment * Appropriate - Continue Treatment Plan * Therapeutic Exercise * Bed Mobility Training * Transfer training * Gait Training * Dynamic Balance Training Frequency of Treatment Expected * 5 visits/week Duration of Treatment Expected * 2 weeks Discharge Recommendations * Care Home Unit Comment Review of Relevant I have reviewed the following items kate (where applicable) has been applied. Labs Laboratory Tests Test 03/11/20 16:29 03/11/20 21:07 03/12/20 07:24 03/12/20 08:05 Glucose (Fingerstick) 420 mg/dL (70-99) 136 mg/dL (70-99) 28 mg/dL (70-99) 169 mg/dL (70-99) Test 03/12/20 09:50 03/12/20 11:29 03/12/20 16:18 03/12/20 21:23 White Blood Count 8.8 x10^3/uL (4.0-11.0) Red Blood Count 3.43 x10^6/uL (4.30-5.70) Hemoglobin 9.3 g/dL (13.0-17.5) Hematocrit 28.7 % (39.0-53.0) Mean Corpuscular Volume 83 fL (79-100) Mean Corpuscular Hemoglobin 27 pg (25-35) Mean Corpuscular Hemoglobin Concent 33 g/dL (31-37) Red Cell Distribution Width 17.7 % (11.5-14.5) Platelet Count 229 x10^3/uL (140-400) Neutrophils (%) (Auto) 77 % (31-73) Lymphocytes (%) (Auto) 14 % (24-48) Monocytes (%) (Auto) 10 % (0-9) Eosinophils (%) (Auto) 0 % (0-3) Basophils (%) (Auto) 0 % (0-3) Neutrophils # (Auto) 6.8 x10^3/uL (1.8-7.7) Lymphocytes # (Auto) 1.2 x10^3/uL (1.0-4.8) Monocytes # (Auto) 0.8 x10^3/uL (0.0-1.1) Eosinophils # (Auto) 0.0 x10^3/uL (0.0-0.7) Basophils # (Auto) 0.0 x10^3/uL (0.0-0.2) Sodium Level 139 mmol/L (136-145) Potassium Level 4.0 mmol/L (3.5-5.1) Chloride Level 100 mmol/L (98-107) Carbon Dioxide Level 24 mmol/L (21-32) Anion Gap 15 (6-14) Blood Urea Nitrogen 101 mg/dL (8-26) Creatinine 6.6 mg/dL (0.7-1.3) Estimated GFR (Cockcroft-Gault) 9.9 BUN/Creatinine Ratio 15 (6-20) Glucose Level 132 mg/dL (70-99) Calcium Level 8.8 mg/dL (8.5-10.1) Total Bilirubin 0.2 mg/dL (0.2-1.0) Aspartate Amino Transf (AST/SGOT) 53 U/L (15-37) Alanine Aminotransferase (ALT/SGPT) 51 U/L (16-63) Alkaline Phosphatase 88 U/L (46-116) Total Protein 5.6 g/dL (6.4-8.2) Albumin 2.2 g/dL (3.4-5.0) Albumin/Globulin Ratio 0.6 (1.0-1.7) Random Vancomycin Level 15.1 mcg/mL Glucose (Fingerstick) 97 mg/dL (70-99) 185 mg/dL (70-99) 222 mg/dL (70-99) Test 03/13/20 07:26 Glucose (Fingerstick) 152 mg/dL (70-99) Laboratory Tests Test 03/12/20 16:18 03/12/20 21:23 03/13/20 07:26 Glucose (Fingerstick) 185 mg/dL (70-99) 222 mg/dL (70-99) 152 mg/dL (70-99) Microbiology 03/07/20 Blood Culture - Final, Complete NO GROWTH AFTER 5 DAYS Medications Current Medications Sterile Water (WATER for RESP) 1,000 ml CONT PRN INH VIA VAPOTHERM DEVICE Last administered on 03/07/20at 18:04; Start 03/07/20 at 18:00 Potassium Chloride (Klor-Con) 40 meq 1X ONCE PO ; Start 03/07/20 at 20:15; Stop 03/07/20 at 20:26; Status DC Potassium Bicarbonate (Potassium Effervescent Tablet) 40 meq 1X ONCE PO Last administered on 03/07/20at 21:04; Start 03/07/20 at 21:00; Stop 03/07/20 at 21:01; Status DC Iohexol (Omnipaque 350 Mg/ml) 90 ml 1X ONCE IV Last administered on 03/07/20at 21:25; Start 03/07/20 at 21:30; Stop 03/07/20 at 21:31; Status DC Acetaminophen (Tylenol) 650 mg 1X ONCE PO Last administered on 03/07/20at 21:03; Start 03/07/20 at 21:30; Stop 03/07/20 at 21:31; Status DC Info (CONTRAST GIVEN -- Rx MONITORING) 1 each PRN DAILY PRN MC SEE COMMENTS; Start 03/07/20 at 21:15; Stop 03/09/20 at 21:14; Status DC Dexamethasone Sodium Phosphate (Decadron) 10 mg 1X ONCE IV Last administered on 03/07/20at 23:02; Start 03/07/20 at 23:00; Stop 03/07/20 at 23:01; Status DC Vancomycin HCl 2 gm/Sodium Chloride 500 ml @ 250 mls/hr 1X ONCE IV Last administered on 03/07/20at 23:30; Start 03/07/20 at 23:00; Stop 03/08/20 at 00:59; Status DC Piperacillin Sod/ Tazobactam Sod 3.375 gm/Sodium Chloride 50 ml @ 100 mls/hr 1X ONCE IV Last administered on 03/07/20at 23:01; Start 03/07/20 at 23:00; Stop 03/07/20 at 23:30; Status DC Furosemide (Lasix) 40 mg 1X ONCE IVP Last administered on 03/07/20at 23:02; Start 03/07/20 at 23:00; Stop 03/07/20 at 23:01; Status DC Vancomycin HCl (Vanco Per Pharmacy) 1 each PRN DAILY PRN MC SEE COMMENTS Last administered on 03/12/20at 15:01; Start 03/07/20 at 22:30 Ondansetron HCl (Zofran) 4 mg PRN Q8HRS PRN IV NAUSEA/VOMITING 1ST CHOICE; Start 03/07/20 at 22:15; Stop 03/08/20 at 22:14; Status DC Fentanyl Citrate (Fentanyl 2ml Vial) 50 mcg PRN Q1HR PRN IV SEVERE PAIN 7-10; Start 03/07/20 at 22:15; Stop 03/08/20 at 22:14; Status DC Acetaminophen (Tylenol) 650 mg PRN Q4HRS PRN PO FEVER > 100.3'F; Start 03/07/20 at 22:15; Stop 03/07/20 at 23:32; Status DC Acetaminophen (Tylenol) 650 mg PRN Q6HRS PRN PO MILD PAIN 1-3; Start 03/07/20 at 23:30 Amlodipine Besylate (Norvasc) 10 mg DAILY PO Last administered on 03/13/20at 08:26; Start 03/08/20 at 09:00 Aspirin (Zaida Aspirin) 325 mg DAILY PO Last administered on 03/13/20at 08:26; Start 03/08/20 at 09:00 Atorvastatin Calcium (Lipitor) 20 mg HS PO Last administered on 03/12/20at 21:16; Start 03/08/20 at 00:00 Ferrous Sulfate (Feosol) 325 mg DAILY PO Last administered on 03/13/20at 08:26; Start 03/08/20 at 09:00 Hydralazine HCl (Apresoline) 25 mg TID PO Last administered on 03/13/20at 08:27; Start 03/08/20 at 00:00 Sennosides (Senna) 8.6 mg PRN DAILY PRN PO CONSTIPATION 1ST CHOICE; Start 03/07/20 at 23:30 Tamsulosin HCl (Flomax) 0.4 mg DAILY PO Last administered on 03/13/20at 08:27; Start 03/08/20 at 09:00 Timolol Maleate (Timoptic 0.5% Oph) 1 drop BID OU Last administered on 03/13/20at 08:25; Start 03/08/20 at 09:00 Albuterol Sulfate (Ventolin Neb Soln) 2.5 mg RTQID NEB ; Start 03/08/20 at 08:00; Stop 03/08/20 at 14:12; Status DC Brimonidine Tartrate (Alphagan) 1 drop QHS OU Last administered on 03/12/20at 21:17; Start 03/08/20 at 21:00 Vitamin D (Vitamin D3) 2,000 unit DAILY PO Last administered on 03/13/20at 08:26; Start 03/08/20 at 09:00 Potassium Chloride (Klor-Con) 40 meq 1X ONCE PO ; Start 03/07/20 at 23:30; Stop 03/07/20 at 23:31; Status UNV Potassium Bicarbonate (Potassium Effervescent Tablet) 40 meq 1X ONCE PO ; Start 03/07/20 at 23:30; Stop 03/07/20 at 23:31; Status UNV Potassium Bicarbonate (Potassium Effervescent Tablet) 40 meq 1X ONCE PO ; Start 03/07/20 at 23:30; Stop 03/07/20 at 23:31; Status UNV Potassium Chloride/Water 100 ml @ 100 mls/hr Q1H IV ; Start 03/07/20 at 23:30; Stop 03/08/20 at 03:29; Status UNV Potassium Chloride/Water 100 ml @ 100 mls/hr Q1H IV ; Start 03/07/20 at 23:30; Stop 03/08/20 at 01:29; Status UNV Potassium Chloride (Klor-Con) 40 meq Q2H PO ; Start 03/07/20 at 23:30; Stop 03/08/20 at 01:31; Status UNV Potassium Chloride/Water 100 ml @ 100 mls/hr Q1H IV ; Start 03/07/20 at 23:30; Stop 03/08/20 at 07:29; Status UNV Potassium Chloride/Water 100 ml @ 100 mls/hr Q1H IV ; Start 03/07/20 at 23:30; Stop 03/08/20 at 03:29; Status UNV Potassium Chloride (Klor-Con) 40 meq Q2H PO ; Start 03/07/20 at 23:30; Stop 03/08/20 at 03:31; Status UNV Potassium Chloride/Water 100 ml @ 100 mls/hr Q1H IV ; Start 03/07/20 at 23:30; Stop 03/08/20 at 11:29; Status UNV Potassium Chloride/Water 100 ml @ 100 mls/hr Q1HR IV ; Start 03/08/20 at 00:01; Stop 03/08/20 at 05:59; Status UNV Magnesium Sulfate 100 ml @ 50 mls/hr DAILY IV ; Start 03/08/20 at 09:00; Stop 03/11/20 at 08:59; Status UNV Potassium Phos/ Sodium Phos (Phos-Nak) 1 pkt BID PO ; Start 03/08/20 at 09:00; Stop 03/08/20 at 21:01; Status UNV Sodium Phosphate 40 mmol/Sodium Chloride 263.3333 ml @ 62.5 mls/hr 1X ONCE IV ; Start 03/07/20 at 23:30; Stop 03/08/20 at 03:42; Status UNV Potassium Phosphate 13.6 mmol/Sodium Chloride 254.5333 ml @ 62.5 mls/hr Q4H IV ; Start 03/07/20 at 23:30; Stop 03/08/20 at 11:29; Status UNV Info (Icu Electrolyte Protocol) 1 ea CONT PRN PRN MC PER PROTOCOL; Start 03/07/20 at 23:45; Stop 03/08/20 at 07:29; Status DC Magnesium Sulfate 100 ml @ 50 mls/hr 1X ONCE IV Last administered on 03/08/20at 00:00; Start 03/08/20 at 00:00; Stop 03/08/20 at 01:59; Status DC Potassium Bicarbonate (Potassium Effervescent Tablet) 40 meq 1X ONCE PO ; Start 03/08/20 at 00:00; Stop 03/08/20 at 00:01; Status DC Potassium Bicarbonate (Potassium Effervescent Tablet) 40 meq 1X ONCE PO ; Start 03/08/20 at 04:00; Stop 03/08/20 at 04:01; Status DC Vancomycin HCl (Vancomycin Random Level) 1 each 1X ONCE MC Last administered on 03/09/20at 05:00; Start 03/09/20 at 05:00; Stop 03/09/20 at 05:01; Status DC Potassium Chloride/Water 100 ml @ 100 mls/hr Q1H IV Last administered on 03/08/20at 09:44; Start 03/08/20 at 02:00; Stop 03/08/20 at 09:59; Status DC Influenza Virus Vaccine Quadrival (Fluzone Quad [id number] Syringe) 0.5 ml ONCE ONCE VAX IM Last administered on 03/08/20at 12:16; Start 03/08/20 at 09:00; Stop 03/08/20 at 09:01; Status DC Piperacillin Sod/ Tazobactam Sod (Zosyn Per Pharmacy) 1 each PRN DAILY PRN MC SEE COMMENTS; Start 03/08/20 at 07:00; Stop 03/08/20 at 07:02; Status DC Piperacillin Sod/ Tazobactam Sod 2.25 gm/Sodium Chloride 50 ml @ 100 mls/hr Q8HRS IV ; Start 03/08/20 at 07:00; Stop 03/08/20 at 07:03; Status DC Cefepime HCl (Maxipime) 2 gm Q8HRS IVP ; Start 03/08/20 at 14:00; Status UNV Cefepime HCl (Maxipime) 1 gm Q24H IVP Last administered on 03/13/20at 08:27; Start 03/08/20 at 08:00 Info (Icu Electrolyte Protocol) 1 ea CONT PRN PRN MC PER PROTOCOL; Start 03/08/20 at 07:15; Status Cancel Dexamethasone Sodium Phosphate (Decadron) 6 mg DAILY IVP Last administered on 03/13/20at 08:25; Start 03/08/20 at 09:00 Lactobacillus Rhamnosus (Culturelle) 1 cap BID PO Last administered on 03/13/20at 08:26; Start 03/08/20 at 21:00 Sodium Chloride 1,000 ml @ 1,000 mls/hr Q1H PRN IV hypotension; Start 03/09/20 at 07:45; Stop 03/09/20 at 13:44; Status DC Albumin Human 200 ml @ 200 mls/hr 1X PRN PRN IV Hypotension; Start 03/09/20 at 07:45; Stop 03/09/20 at 13:44; Status DC Acetaminophen (Tylenol) 500 mg 1X PRN PRN PO MILD PAIN / TEMP > 100.3'F; Start 03/09/20 at 07:45; Stop 03/10/20 at 07:44; Status DC Diphenhydramine HCl (Benadryl) 25 mg 1X PRN PRN IV ITCHING; Start 03/09/20 at 07:45; Stop 03/10/20 at 07:44; Status DC Diphenhydramine HCl (Benadryl) 25 mg 1X PRN PRN IV ITCHING; Start 03/09/20 at 07:45; Stop 03/10/20 at 07:44; Status DC Sodium Chloride 1,000 ml @ 400 mls/hr Q2H30M PRN IV PATENCY; Start 03/09/20 at 07:45; Stop 03/09/20 at 19:44; Status DC Info (PHARMACY MONITORING -- do not chart) 1 each PRN DAILY PRN MC JOYCE Vega OMMENTS; Start 03/09/20 at 07:45; Stop 03/12/20 at 11:48; Status DC Vancomycin HCl 500 mg/Sodium Chloride 100 ml @ 100 mls/hr QMWF IV Last administered on 03/12/20at 21:18; Start 03/12/20 at 16:00 Remdesivir 200 mg/ Sodium Chloride 210 ml @ 210 mls/hr 1X ONCE IV Last administered on 03/09/20at 16:54; Start 03/09/20 at 16:00; Stop 03/09/20 at 16:59; Status DC Remdesivir 100 mg/ Sodium Chloride 230 ml @ 460 mls/hr Q24H IV Last administered on 03/12/20at 21:04; Start 03/10/20 at 16:00; Stop 03/13/20 at 16:29 Darbepoetin Martin (ARANESP for DIALYSIS PTS) 60 mcg WEEKLYHS SQ Last administered on 03/10/20at 21:16; Start 03/10/20 at 21:00 Insulin Glargine (Lantus Syringe) 12 unit BID SQ Last administered on 03/13/20at 08:29; Start 03/10/20 at 22:30 Vancomycin HCl (Vancomycin Random Level) 1 each 1X ONCE MC ; Start 03/12/20 at 06:00; Stop 03/12/20 at 06:01; Status DC Info (Non-Icu Electrolyte Protocol) 1 ea CONT PRN PRN MC SEE COMMENTS; Start 03/11/20 at 15:30 Insulin Human Lispro (HumaLOG) 0-9 UNITS TIDWMEALS SQ Last administered on 03/13/20at 08:29; Start 03/11/20 at 17:00 Dextrose (Dextrose 50%-Water Syringe) 12.5 gm PRN Q15MIN PRN IV SEE COMMENTS Last administered on 03/12/20at 07:46; Start 03/11/20 at 16:45 Insulin Human Lispro (HumaLOG) 14 units 1X ONCE SQ Last administered on 03/11/20at 16:52; Start 03/11/20 at 16:45; Stop 03/11/20 at 16:46; Status DC Sodium Chloride 1,000 ml @ 1,000 mls/hr Q1H PRN IV hypotension; Start 03/12/20 at 11:45; Stop 03/12/20 at 17:44; Status DC Sodium Chloride 1,000 ml @ 400 mls/hr Q2H30M PRN IV PATENCY; Start 03/12/20 at 11:45; Stop 03/12/20 at 23:44; Status DC Info (PHARMACY MONITORING -- do not chart) 1 each PRN DAILY PRN MC SEE COMMENTS; Start 03/12/20 at 11:45 Active Scripts Active Hydralazine Hcl 25 Mg Tablet 25 Mg PO TID 30 Days Reported Timoptic 0.5% (Timolol Maleate) 10 Ml Drops 1 Drop EACHEYE BID 30 Days Senna (Sennosides) 8.6 Mg Tablet 8.6 Mg PO PRN DAILY PRN Tylenol (Acetaminophen) 325 Mg Tablet 650 Mg PO PRN Q6-8HRS PRN Albuterol Sulfate Conc Neb Soln (Albuterol Sulfate) 2.5 Mg/0.5 Ml Vial.neb 2.5 Mg NEB QIDACHS Combigan Eye Drops (Brimonidine Tartrate/Timolol) 5 Ml Drops 5 Ml OP QHS Vitamin D3 (Cholecalciferol (Vitamin D3)) 50 Mcg Tablet 50 Mcg PO DAILY Atorvastatin Calcium 20 Mg Tablet 20 Mg PO HS Aspirin 325 Mg Tablet 325 Mg PO DAILY Tamsulosin Hcl 0.4 Mg Cap.er.24h 0.4 Mg PO DAILY Ferrous Sulfate 325 Mg Tablet 1 Tab PO DAILY Amlodipine Besylate 10 Mg Tablet 10 Mg PO DAILY Vitals/I & O Vital Sign - Last 24 Hours 03/12/20 03/12/20 03/12/20 03/12/20 13:39 15:59 21:00 21:10 Temp 97.4 97.5 97.4 97.5 Pulse 59 63 64 Resp 18 20 B/P (MAP) 156/70 150/67 (94) 130/59 (82) Pulse Ox 94 94 O2 Delivery Nasal Cannula Nasal Cannula Nasal Cannula O2 Flow Rate 2.0 2.0 3.0 03/12/20 03/12/20 03/13/20 03/13/20 21:16 23:00 03:00 07:55 Temp 98.5 98.2 97.8 98.5 98.2 97.8 Pulse 63 63 62 53 Resp 16 19 18 B/P (MAP) 150/67 148/68 (94) 146/91 (109) 144/65 (91) Pulse Ox 97 97 95 O2 Delivery Nasal Cannula Nasal Cannula Nasal Cannula O2 Flow Rate 2.0 2.0 2.0 03/13/20 03/13/20 03/13/20 03/13/20 08:00 08:26 08:27 11:36 Temp 98.4 98.4 Pulse 53 53 54 Resp 20 B/P (MAP) 144/65 144/65 132/63 (86) Pulse Ox 97 O2 Delivery Nasal Cannula Nasal Cannula O2 Flow Rate 3.0 2.0 Intake and Output 03/12/20 03/12/20 03/13/20 15:00 23:00 07:00 Intake Total 360 ml 220 ml 200 ml Output Total 150 ml 200 ml Balance 360 ml 70 ml 0 ml Nutrition Consultation Dietary Evaluation: Recommendations by RD: Dietary education by RD, Increase Calorie Intake, Protein supplementation Comments: Renal/ADA diet Nepro bid Expected Outcomes/Goals: to meet >75% est nutr needs Interpretation of weight loss: >5% in 1 month Malnutrition Findings: Weight Status: Underweight Fluid Accumulation (Non-Severe: Mild depletion Justicifation of Admission Dx: Justifications for Admission: Justification of Admission Dx: N/A NEHEMIAH GAVIRIA MD Mar 13, 2020 11:47
--- NOTE | 2020-03-13 14:30 | PDOC3 ---
Discharge Summary Date of Admission: Mar 08, 2020 Date of Discharge: Mar 13, 2020 Follow-Up: 1-2 days Admitting Diagnosis comment: Chief Complaint Chief Complaint DISCHARGE DX COVID-19 with pneumonia Sepsis - treating for HCAP. Acute respiratory failure with hypoxia HCAP Acute CHF exacerbation Fluid overload NSTEMI Hypertensive urgency Hypokalemia Hypocalcemia Hypomagnesemia Anemia Thyromegaly ESRD - on HD on 02/15/2021 Severe protein calorie malnutrition TIA 2012 Right eye blindness Cognitive delay ANEMIA COPD DEMENTIA COVID 19 POS ACUTE RESP FAILURE DM II plan FEN - Renal diet PPX - heparin FULL CODE Dispo - cont inpatient d/w rn , CONFUSED, NEEDS SNF D/C PLANNING 32 MIN History of Present Illness History of Present Illness Mr Solano 80 yo male w/ PMHx HTN, DM2, CAD (2016 RCA PCI), diastolic CHF, COPD, TIA, prostate ca s/p radiation, ESRD on dialsis admitted for complains of chest pain. Also noted with dyspnea and O2 saturations 82-84% even with 3 L of O2. Found to be COVID 19 positive. Had elevated troponin and was tachycardic and febrile at 100.6F. 03/09: Afebrile overnight. Has good appetite. Tolerated dialysis well. Remdesivir day 1 03/10: Afebrile overnight. Having loose bowel movements. Still with good appetite. Still on 3L NCO2 Afebrile overnight. Still requiring 3 L nasal cannula oxygen but his O2 saturations are now 96%. Labs consistent with ESRD status. He is still having loose bowels though he thinks maybe they are improving. Vitals Vitals Vital Signs Date Time Temp Pulse Resp B/P (MAP) Pulse Ox O2 Delivery O2 Flow Rate FiO2 03/13/20 11:36 98.4 54 20 132/63 (86) 97 Nasal Cannula 2.0 98.4 Physical Exam General: Alert, Cooperative, No acute distress Heart: Regular rate (SR no ectopies), Other (distant heart sounds) Lungs: Crackles Abdomen: Soft, No tenderness Extremities: No cyanosis, No edema Skin: No breakdown, No significant lesion Labs LABS * Balance Clinical Presentation * Evolving Evaluation Complexity Level * Low Complexity Pt/caregiver agrees with plan of care/goals * Yes Patient condition at conclusion of therapy * Pt in chair * Call light in reach * Phone in reach * PtIn no apparent distress * Pt denies further needs Goal 1 - Bed Mobility Assistance Required * Independent Goal 1 Assessment * Appropriate - Continue Goal 2 - Transfers Assistance Required * Independent Goal 2 - Transfer Type * Stand-Step Goal 2 Assessment * Appropriate - Continue Goal 3 - Ambulation Assistance Required * Independent Goal 3 - Ambulation Distance * 100' Goal 3 - Ambulation Device * Roller Walker Goal 3 Assessment * Appropriate - Continue Goal 4 - Stairs Assistance Required * Independent Goal 4 - Number of Stairs * >9 Goal 4 - Device on Stairs * Rail on Right Goal 4 Assessment * Appropriate - Continue Treatment Plan * Therapeutic Exercise * Bed Mobility Training * Transfer training * Gait Training * Dynamic Balance Training Frequency of Treatment Expected * 5 visits/week Duration of Treatment Expected * 2 weeks Discharge Recommendations * Long Term Unit CTA Chest with contrast: Clinical History: Shortness of breath. Axial helical images of the chest were obtained after the administration of 90 cc of IV Omni 350 and timed appropriately for a pulmonary arterial study. Conventional axial reconstruction was performed in addition to coronal, sagittal and bilateral oblique MIP (maximum intensity projection). This study was ordered to detect possible pulmonary embolism. There are no filling defects to suggest pulmonary embolism. There is diffuse reticular opacities of lungs and there is groundglass opacities in the mid and lower lungs. There is no mediastinal or hilar lymphadenopathy. The thoracic aorta appears normal. There is bilateral gynecomastia. The thyroid is diffusely enlarged. Impression: 1. No evidence of pulmonary embolism. 2. Diffuse mixed interstitial and airspace disease. This could be secondary to CHF or atypical pneumonia. 3. Large thyroid. Recommend correlation with TSH. End impression PQRS Compliance Statement: One or more of the following individualized dose reduction techniques were utilized for this examination: 1. Automated exposure control 2. Adjustment of the mA and/or kV according to patient size 3. Use of iterative reconstruction technique Electronically signed by: Dickson Molina III, MD (03/07/2020 9:34 PM) [facility] DICTATED and SIGNED BY: DICKSON MOLINA III, MD Laboratory Tests Test 03/12/20 16:18 03/12/20 21:23 03/13/20 07:26 Glucose (Fingerstick) 185 mg/dL (70-99) 222 mg/dL (70-99) 152 mg/dL (70-99) Assessment and Plan Assessmemt and Plan Problems Medical Problems: (1) Acute on chronic respiratory failure with hypoxia Status: Acute (2) Acute respiratory distress Status: Acute (3) Person under investigation for COVID-19 Status: Acute * Low Complexity Pt/caregiver agrees with plan of care/goals * Yes Patient condition at conclusion of therapy * Pt in chair * Call light in reach * Phone in reach * PtIn no apparent distress * Pt denies further needs Goal 1 - Bed Mobility Assistance Required * Independent Goal 1 Assessment * Appropriate - Continue Goal 2 - Transfers Assistance Required * Independent Goal 2 - Transfer Type * Stand-Step Goal 2 Assessment * Appropriate - Continue Goal 3 - Ambulation Assistance Required * Independent Goal 3 - Ambulation Distance * 100' Goal 3 - Ambulation Device * Roller Walker Goal 3 Assessment * Appropriate - Continue Goal 4 - Stairs Assistance Required * Independent Goal 4 - Number of Stairs * >9 Goal 4 - Device on Stairs * Rail on Right Goal 4 Assessment * Appropriate - Continue Treatment Plan * Therapeutic Exercise * Bed Mobility Training * Transfer training * Gait Training * Dynamic Balance Training Frequency of Treatment Expected * 5 visits/week Duration of Treatment Expected * 2 weeks Discharge Recommendations * Long Term Unit FINAL DIAGNOSIS Problems Medical Problems: (1) Acute on chronic respiratory failure with hypoxia Status: Acute (2) Acute respiratory distress Status: Acute (3) Person under investigation for COVID-19 Status: Acute Brief Hospital Course Mr. Solano is a 80 old [sex] who presented with [ COVID PNEUMONIA] CONDITION AT DISCHARGE: Improved Discharge Medications Current Medications Sterile Water (WATER for RESP) 1,000 ml CONT PRN INH VIA VAPOTHERM DEVICE Last administered on 03/07/20at 18:04; Start 03/07/20 at 18:00 Potassium Chloride (Klor-Con) 40 meq 1X ONCE PO ; Start 03/07/20 at 20:15; Stop 03/07/20 at 20:26; Status DC Potassium Bicarbonate (Potassium Effervescent Tablet) 40 meq 1X ONCE PO Last administered on 03/07/20at 21:04; Start 03/07/20 at 21:00; Stop 03/07/20 at 21:01; Status DC Iohexol (Omnipaque 350 Mg/ml) 90 ml 1X ONCE IV Last administered on 03/07/20at 21:25; Start 03/07/20 at 21:30; Stop 03/07/20 at 21:31; Status DC Acetaminophen (Tylenol) 650 mg 1X ONCE PO Last administered on 03/07/20at 21:03; Start 03/07/20 at 21:30; Stop 03/07/20 at 21:31; Status DC Info (CONTRAST GIVEN -- Rx MONITORING) 1 each PRN DAILY PRN MC SEE COMMENTS; Start 03/07/20 at 21:15; Stop 03/09/20 at 21:14; Status DC Dexamethasone Sodium Phosphate (Decadron) 10 mg 1X ONCE IV Last administered on 03/07/20at 23:02; Start 03/07/20 at 23:00; Stop 03/07/20 at 23:01; Status DC Vancomycin HCl 2 gm/Sodium Chloride 500 ml @ 250 mls/hr 1X ONCE IV Last administered on 03/07/20at 23:30; Start 03/07/20 at 23:00; Stop 03/08/20 at 00:59; Status DC Piperacillin Sod/ Tazobactam Sod 3.375 gm/Sodium Chloride 50 ml @ 100 mls/hr 1X ONCE IV Last administered on 03/07/20at 23:01; Start 03/07/20 at 23:00; Stop 03/07/20 at 23:30; Status DC Furosemide (Lasix) 40 mg 1X ONCE IVP Last administered on 03/07/20at 23:02; Start 03/07/20 at 23:00; Stop 03/07/20 at 23:01; Status DC Vancomycin HCl (Vanco Per Pharmacy) 1 each PRN DAILY PRN MC SEE COMMENTS Last administered on 03/12/20at 15:01; Start 03/07/20 at 22:30 Ondansetron HCl (Zofran) 4 mg PRN Q8HRS PRN IV NAUSEA/VOMITING 1ST CHOICE; Start 03/07/20 at 22:15; Stop 03/08/20 at 22:14; Status DC Fentanyl Citrate (Fentanyl 2ml Vial) 50 mcg PRN Q1HR PRN IV SEVERE PAIN 7-10; Start 03/07/20 at 22:15; Stop 03/08/20 at 22:14; Status DC Acetaminophen (Tylenol) 650 mg PRN Q4HRS PRN PO FEVER > 100.3'F; Start 03/07/20 at 22:15; Stop 03/07/20 at 23:32; Status DC Acetaminophen (Tylenol) 650 mg PRN Q6HRS PRN PO MILD PAIN 1-3; Start 03/07/20 at 23:30 Amlodipine Besylate (Norvasc) 10 mg DAILY PO Last administered on 03/13/20at 08:26; Start 03/08/20 at 09:00 Aspirin (Zaida Aspirin) 325 mg DAILY PO Last administered on 03/13/20at 08:26; Start 03/08/20 at 09:00 Atorvastatin Calcium (Lipitor) 20 mg HS PO Last administered on 03/12/20at 21:16; Start 03/08/20 at 00:00 Ferrous Sulfate (Feosol) 325 mg DAILY PO Last administered on 03/13/20at 08:26; Start 03/08/20 at 09:00 Hydralazine HCl (Apresoline) 25 mg TID PO Last administered on 03/13/20at 14:06; Start 03/08/20 at 00:00 Sennosides (Senna) 8.6 mg PRN DAILY PRN PO CONSTIPATION 1ST CHOICE; Start 03/07/20 at 23:30 Tamsulosin HCl (Flomax) 0.4 mg DAILY PO Last administered on 03/13/20at 08:27; Start 03/08/20 at 09:00 Timolol Maleate (Timoptic 0.5% Oph) 1 drop BID OU Last administered on 03/13/20at 08:25; Start 03/08/20 at 09:00 Albuterol Sulfate (Ventolin Neb Soln) 2.5 mg RTQID NEB ; Start 03/08/20 at 08:00; Stop 03/08/20 at 14:12; Status DC Brimonidine Tartrate (Alphagan) 1 drop QHS OU Last administered on 03/12/20at 21:17; Start 03/08/20 at 21:00 Vitamin D (Vitamin D3) 2,000 unit DAILY PO Last administered on 03/13/20at 08:2 6; Start 03/08/20 at 09:00 Potassium Chloride (Klor-Con) 40 meq 1X ONCE PO ; Start 03/07/20 at 23:30; Stop 03/07/20 at 23:31; Status UNV Potassium Bicarbonate (Potassium Effervescent Tablet) 40 meq 1X ONCE PO ; Start 03/07/20 at 23:30; Stop 03/07/20 at 23:31; Status UNV Potassium Bicarbonate (Potassium Effervescent Tablet) 40 meq 1X ONCE PO ; Start 03/07/20 at 23:30; Stop 03/07/20 at 23:31; Status UNV Potassium Chloride/Water 100 ml @ 100 mls/hr Q1H IV ; Start 03/07/20 at 23:30; Stop 03/08/20 at 03:29; Status UNV Potassium Chloride/Water 100 ml @ 100 mls/hr Q1H IV ; Start 03/07/20 at 23:30; Stop 03/08/20 at 01:29; Status UNV Potassium Chloride (Klor-Con) 40 meq Q2H PO ; Start 03/07/20 at 23:30; Stop 03/08/20 at 01:31; Status UNV Potassium Chloride/Water 100 ml @ 100 mls/hr Q1H IV ; Start 03/07/20 at 23:30; Stop 03/08/20 at 07:29; Status UNV Potassium Chloride/Water 100 ml @ 100 mls/hr Q1H IV ; Start 03/07/20 at 23:30; Stop 03/08/20 at 03:29; Status UNV Potassium Chloride (Klor-Con) 40 meq Q2H PO ; Start 03/07/20 at 23:30; Stop 03/08/20 at 03:31; Status UNV Potassium Chloride/Water 100 ml @ 100 mls/hr Q1H IV ; Start 03/07/20 at 23:30; Stop 03/08/20 at 11:29; Status UNV Potassium Chloride/Water 100 ml @ 100 mls/hr Q1HR IV ; Start 03/08/20 at 00:01; Stop 03/08/20 at 05:59; Status UNV Magnesium Sulfate 100 ml @ 50 mls/hr DAILY IV ; Start 03/08/20 at 09:00; Stop 03/11/20 at 08:59; Status UNV Potassium Phos/ Sodium Phos (Phos-Nak) 1 pkt BID PO ; Start 03/08/20 at 09:00; Stop 03/08/20 at 21:01; Status UNV Sodium Phosphate 40 mmol/Sodium Chloride 263.3333 ml @ 62.5 mls/hr 1X ONCE IV ; Start 03/07/20 at 23:30; Stop 03/08/20 at 03:42; Status UNV Potassium Phosphate 13.6 mmol/Sodium Chloride 254.5333 ml @ 62.5 mls/hr Q4H IV ; Start 03/07/20 at 23:30; Stop 03/08/20 at 11:29; Status UNV Info (Icu Electrolyte Protocol) 1 ea CONT PRN PRN MC PER PROTOCOL; Start 03/07/20 at 23:45; Stop 03/08/20 at 07:29; Status DC Magnesium Sulfate 100 ml @ 50 mls/hr 1X ONCE IV Last administered on 03/08/20at 00:00; Start 03/08/20 at 00:00; Stop 03/08/20 at 01:59; Status DC Potassium Bicarbonate (Potassium Effervescent Tablet) 40 meq 1X ONCE PO ; Start 03/08/20 at 00:00; Stop 03/08/20 at 00:01; Status DC Potassium Bicarbonate (Potassium Effervescent Tablet) 40 meq 1X ONCE PO ; Start 03/08/20 at 04:00; Stop 03/08/20 at 04:01; Status DC Vancomycin HCl (Vancomycin Random Level) 1 each 1X ONCE MC Last administered on 03/09/20at 05:00; Start 03/09/20 at 05:00; Stop 03/09/20 at 05:01; Status DC Potassium Chloride/Water 100 ml @ 100 mls/hr Q1H IV Last administered on 03/08/20at 09:44; Start 03/08/20 at 02:00; Stop 03/08/20 at 09:59; Status DC Influenza Virus Vaccine Quadrival (Fluzone Quad Syringe) 0.5 ml ONCE ONCE VAX IM Last administered on 03/08/20at 12:16; Start 03/08/20 at 09:00; Stop 03/08/20 at 09:01; Status DC Piperacillin Sod/ Tazobactam Sod (Zosyn Per Pharmacy) 1 each PRN DAILY PRN MC SEE COMMENTS; Start 03/08/20 at 07:00; Stop 03/08/20 at 07:02; Status DC Piperacillin Sod/ Tazobactam Sod 2.25 gm/Sodium Chloride 50 ml @ 100 mls/hr Q8HRS IV ; Start 03/08/20 at 07:00; Stop 03/08/20 at 07:03; Status DC Cefepime HCl (Maxipime) 2 gm Q8HRS IVP ; Start 03/08/20 at 14:00; Status UNV Cefepime HCl (Maxipime) 1 gm Q24H IVP Last administered on 03/13/20at 08:27; Start 03/08/20 at 08:00 Info (Icu Electrolyte Protocol) 1 ea CONT PRN PRN MC PER PROTOCOL; Start 03/08/20 at 07:15; Status Cancel Dexamethasone Sodium Phosphate (Decadron) 6 mg DAILY IVP Last administered on 03/13/20at 08:25; Start 03/08/20 at 09:00 Lactobacillus Rhamnosus (Culturelle) 1 cap BID PO Last administered on 03/13/20at 08:26; Start 03/08/20 at 21:00 Sodium Chloride 1,000 ml @ 1,000 mls/hr Q1H PRN IV hypotension; Start 03/09/20 at 07:45; Stop 03/09/20 at 13:44; Status DC Albumin Human 200 ml @ 200 mls/hr 1X PRN PRN IV Hypotension; Start 03/09/20 at 07:45; Stop 03/09/20 at 13:44; Status DC Acetaminophen (Tylenol) 500 mg 1X PRN PRN PO MILD PAIN / TEMP > 100.3'F; Start 03/09/20 at 07:45; Stop 03/10/20 at 07:44; Status DC Diphenhydramine HCl (Benadryl) 25 mg 1X PRN PRN IV ITCHING; Start 03/09/20 at 07:45; Stop 03/10/20 at 07:44; Status DC Diphenhydramine HCl (Benadryl) 25 mg 1X PRN PRN IV ITCHING; Start 03/09/20 at 07:45; Stop 03/10/20 at 07:44; Status DC Sodium Chloride 1,000 ml @ 400 mls/hr Q2H30M PRN IV PATENCY; Start 03/09/20 at 07:45; Stop 03/09/20 at 19:44; Status DC Info (PHARMACY MONITORING -- do not chart) 1 each PRN DAILY PRN MC SEE COMMENTS; Start 03/09/20 at 07:45; Stop 03/12/20 at 11:48; Status DC Vancomycin HCl 500 mg/Sodium Chloride 100 ml @ 100 mls/hr QMWF IV Last administered on 03/12/20at 21:18; Start 03/12/20 at 16:00 Remdesivir 200 mg/ Sodium Chloride 210 ml @ 210 mls/hr 1X ONCE IV Last administered on 03/09/20at 16:54; Start 03/09/20 at 16:00; Stop 03/09/20 at 16:59; Status DC Remdesivir 100 mg/ Sodium Chloride 230 ml @ 460 mls/hr Q24H IV Last administered on 03/12/20at 21:04; Start 03/10/20 at 16:00; Stop 03/13/20 at 16:29 Darbepoetin Martin (ARANESP for DIALYSIS PTS) 60 mcg WEEKLYHS SQ Last administered on 03/10/20at 21:16; Start 03/10/20 at 21:00 Insulin Glargine (Lantus Syringe) 12 unit BID SQ Last administered on 03/13/20at 08:29; Start 03/10/20 at 22:30 Vancomycin HCl (Vancomycin Random Level) 1 each 1X ONCE MC ; Start 03/12/20 at 06:00; Stop 03/12/20 at 06:01; Status DC Info (Non-Icu Electrolyte Protocol) 1 ea CONT PRN PRN MC SEE COMMENTS; Start 03/11/20 at 15:30 Insulin Human Lispro (HumaLOG) 0-9 UNITS TIDWMEALS SQ Last administered on 03/13/20at 08:29; Start 03/11/20 at 17:00 Dextrose (Dextrose 50%-Water Syringe) 12.5 gm PRN Q15MIN PRN IV SEE COMMENTS Last administered on 03/12/20at 07:46; Start 03/11/20 at 16:45 Insulin Human Lispro (HumaLOG) 14 units 1X ONCE SQ Last administered on 03/11/20at 16:52; Start 03/11/20 at 16:45; Stop 03/11/20 at 16:46; Status DC Sodium Chloride 1,000 ml @ 1,000 mls/hr Q1H PRN IV hypotension; Start 03/12/20 at 11:45; Stop 03/12/20 at 17:44; Status DC Sodium Chloride 1,000 ml @ 400 mls/hr Q2H30M PRN IV PATENCY; Start 03/12/20 at 11:45; Stop 03/12/20 at 23:44; Status DC Info (PHARMACY MONITORING -- do not chart) 1 each PRN DAILY PRN MC SEE CO MMENTS; Start 03/12/20 at 11:45 Active Scripts Active Hydralazine Hcl 25 Mg Tablet 25 Mg PO TID 30 Days Reported Timoptic 0.5% (Timolol Maleate) 10 Ml Drops 1 Drop EACHEYE BID 30 Days Senna (Sennosides) 8.6 Mg Tablet 8.6 Mg PO PRN DAILY PRN Tylenol (Acetaminophen) 325 Mg Tablet 650 Mg PO PRN Q6-8HRS PRN Albuterol Sulfate Conc Neb Soln (Albuterol Sulfate) 2.5 Mg/0.5 Ml Vial.neb 2.5 Mg NEB QIDACHS Combigan Eye Drops (Brimonidine Tartrate/Timolol) 5 Ml Drops 5 Ml OP QHS Vitamin D3 (Cholecalciferol (Vitamin D3)) 50 Mcg Tablet 50 Mcg PO DAILY Atorvastatin Calcium 20 Mg Tablet 20 Mg PO HS Aspirin 325 Mg Tablet 325 Mg PO DAILY Tamsulosin Hcl 0.4 Mg Cap.er.24h 0.4 Mg PO DAILY Ferrous Sulfate 325 Mg Tablet 1 Tab PO DAILY Amlodipine Besylate 10 Mg Tablet 10 Mg PO DAILY Vital Signs Vital Signs Date Time Temp Pulse Resp B/P (MAP) Pulse Ox O2 Delivery O2 Flow Rate FiO2 03/13/20 14:06 54 132/63 03/13/20 11:36 98.4 20 97 Nasal Cannula 2.0 98.4 Labs Laboratory Tests Test 03/11/20 16:29 03/11/20 21:07 03/12/20 07:24 03/12/20 08:05 Glucose (Fingerstick) 420 mg/dL (70-99) 136 mg/dL (70-99) 28 mg/dL (70-99) 169 mg/dL (70-99) Test 03/12/20 09:50 03/12/20 11:29 03/12/20 16:18 03/12/20 21:23 White Blood Count 8.8 x10^3/uL (4.0-11.0) Red Blood Count 3.43 x10^6/uL (4.30-5.70) Hemoglobin 9.3 g/dL (13.0-17.5) Hematocrit 28.7 % (39.0-53.0) Mean Corpuscular Volume 83 fL (79-100) Mean Corpuscular Hemoglobin 27 pg (25-35) Mean Corpuscular Hemoglobin Concent 33 g/dL (31-37) Red Cell Distribution Width 17.7 % (11.5-14.5) Platelet Count 229 x10^3/uL (140-400) Neutrophils (%) (Auto) 77 % (31-73) Lymphocytes (%) (Auto) 14 % (24-48) Monocytes (%) (Auto) 10 % (0-9) Eosinophils (%) (Auto) 0 % (0-3) Basophils (%) (Auto) 0 % (0-3) Neutrophils # (Auto) 6.8 x10^3/uL (1.8-7.7) Lymphocytes # (Auto) 1.2 x10^3/uL (1.0-4.8) Monocytes # (Auto) 0.8 x10^3/uL (0.0-1.1) Eosinophils # (Auto) 0.0 x10^3/uL (0.0-0.7) Basophils # (Auto) 0.0 x10^3/uL (0.0-0.2) Sodium Level 139 mmol/L (136-145) Potassium Level 4.0 mmol/L (3.5-5.1) Chloride Level 100 mmol/L (98-107) Carbon Dioxide Level 24 mmol/L (21-32) Anion Gap 15 (6-14) Blood Urea Nitrogen 101 mg/dL (8-26) Creatinine 6.6 mg/dL (0.7-1.3) Estimated GFR (Cockcroft-Gault) 9.9 BUN/Creatinine Ratio 15 (6-20) Glucose Level 132 mg/dL (70-99) Calcium Level 8.8 mg/dL (8.5-10.1) Total Bilirubin 0.2 mg/dL (0.2-1.0) Aspartate Amino Transf (AST/SGOT) 53 U/L (15-37) Alanine Aminotransferase (ALT/SGPT) 51 U/L (16-63) Alkaline Phosphatase 88 U/L (46-116) Total Protein 5.6 g/dL (6.4-8.2) Albumin 2.2 g/dL (3.4-5.0) Albumin/Globulin Ratio 0.6 (1.0-1.7) Random Vancomycin Level 15.1 mcg/mL Glucose (Fingerstick) 97 mg/dL (70-99) 185 mg/dL (70-99) 222 mg/dL (70-99) Test 03/13/20 07:26 03/13/20 11:24 Glucose (Fingerstick) 152 mg/dL (70-99) 135 mg/dL (70-99) Laboratory Tests Test 03/12/20 16:18 03/12/20 21:23 03/13/20 07:26 03/13/20 11:24 Glucose (Fingerstick) 185 mg/dL (70-99) 222 mg/dL (70-99) 152 mg/dL (70-99) 135 mg/dL (70-99) Allergies Allergies Coded Allergies Type Severity Reaction Last Updated Verified No Known Drug Allergies 09/10/16 No Disposition/Orders: Other (D/C TO SNF BED) Justicifation of Admission Dx: Justifications for Admission: Justification of Admission Dx: N/A NEHEMIAH GAVIRIA MD Mar 13, 2020 14:30
--- NOTE | 2020-03-13 14:32 | NUR ---
SW following for discharge planning. SW spoke with RN and reviewed chart. Pt remains on 2l 02 and IV Vancomycin. Pt on day 4 of Remdesivir. SW spoke with pt who declined SNU and asked SW to contact his sister Claribel for further discharge planning. Spoke with pt's sister Claribel ([phone]) who declined the need for HH for patient. Pt has Medicare B and Medicaid from [place]. Pt's nephew is the paid HCBS caregiver through [place] Medicaid and provides pt with transportation to his appointments, including dialysis. Confirmed with Artemio that pt has home 02. SW called [facility] to confirm chair [facility] and SW informed that they do COVID positive dialysis on T,R,S. JUANJO LVM for stockroom coordinator to confirm chair time as SW told by Cassie that pt would have dialysis at [facility] on 03/16, which is a Thursday. Pt will discharge home tomorrow, 03/14 after dialysis self-care via transportation from nephew once chair time is confirmed at [facility] for 03/15. SW following. [facility] [address] [place] [address] (phone) [phone] (fax)
[2020-03-13] MEDS: VANCOMYCIN PER PHARMACY MC PRN (15:02)
--- NOTE | 2020-03-13 15:11 | PDOC ---
Renal-Progress Notes Subjective Notes Notes NONE History of Present Illness Hx of present illness NO CHANGE Vitals Vitals Vital Signs Date Time Temp Pulse Resp B/P (MAP) Pulse Ox O2 Delivery O2 Flow Rate FiO2 03/13/20 14:06 54 132/63 03/13/20 11:36 98.4 20 97 Nasal Cannula 2.0 98.4 Weight Weight [ ] I.O. Intake and Output Intake and Output 03/13/20 07:00 Intake Total 780 ml Output Total 350 ml Balance 430 ml Intake Oral 780 ml Output Urine Total 350 ml Labs Labs Laboratory Tests Test 03/12/20 16:18 03/12/20 21:23 03/13/20 07:26 03/13/20 11:24 Glucose (Fingerstick) 185 mg/dL (70-99) 222 mg/dL (70-99) 152 mg/dL (70-99) 135 mg/dL (70-99) Micro Micro Microbiology 03/07/20 Blood Culture - Final, Complete NO GROWTH AFTER 5 DAYS Review of Systems Constitutional: yes: alert Ears/Nose/Throat: Yes: no symptom reported Eyes: Yes: no symptom reported Pulmonary: Yes no symptom reported Cardiovascular: Yes no symptom reported Gastrointestional: Yes: no symptom reported Genitourinary: Yes: no symptom reported Musculoskeletal: Yes: no symptom reported Skin: Yes no symptom reported Psychiatric/Neurological: Yes: no symptom reported Endocrine: Yes: no symptom reported Physical Exam General Appearance: no apparent distress Skin: warm Respiratory: decreased breath sounds Heart: S1S2 Abdomen: soft, bowel sounds present Genitourinary: bladder flat Extremities: atrophy Neurology: alert, follow commands Assessment Assessment IMP ESRD ANEMIA COPD DEMENTIA COVID 19 POS ACUTE RESP FAILURE DM II CAD HTN PLAN HD TOMORROW D/C PLANS NOTED WILL NEED TO COHORT TILL 10 DAYS ARE UP FROM INITIAL COVID 19 DX SUPPORTIVE CARE AMBERLY NEEDED JAGDEEP RANDHAWA MD Mar 13, 2020 15:11
[2020-03-13 15:15] VITALS: BP 146/66
--- NOTE | 2020-03-13 15:26 | RAD ---
Portable upright chest x-ray compared to similar exam dated March 072020 from pneumonia. FINDINGS: Extensive coarse interstitial infiltrates are redemonstrated but appears subtly improved. H eart size remains enlarged. Densely calcified mediastinal adenopathy is again seen. Right IJ tunneled hemodialysis catheter is stable. IMPRESSION: 1. Subtly improved but persistent coarse interstitial infiltrates bilaterally. Electronically signed by: Leo Rhoades MD (03/13/2020 3:23 PM) [id number]
[2020-03-13] MEDS: REMDESIVIR 100mg in NORMAL SALINE 250ML X 4 DAYS IV SCH (16:46)
[2020-03-13 19:00] VITALS: BP 135/62
[2020-03-13] MEDS: BRIMONIDINE 0.2% OPHTH SOLUTION 5ML BOTTLE. OU SCH (21:00)
[2020-03-13] MEDS: ATORVASTATIN CALCIUM 20 MG TABLET PO SCH (21:02)
[2020-03-13 22:43] VITALS: BP 145/65
[2020-03-14 02:45] VITALS: BP 148/65
[2020-03-14 07:00] VITALS: BP 147/73
[2020-03-14] MEDS: INSULIN LISPRO 300 UNITS/3 ML VIAL. SQ SCH ×2 (08:00→11:40)
[2020-03-14] MEDS: DEXAMETHASONE SOD PHOS 4 MG/ML VIAL IVP SCH (08:50)
[2020-03-14] MEDS: TIMOLOL 0.5% OPHTH SOLUTION 5ML BOTTLE. OU SCH (08:56)
[2020-03-14] MEDS: CEFEPIME HCL IV Push 1 GM VIAL. IVP SCH (08:56)
[2020-03-14] MEDS: hydrALAZINE 25 MG TABLET PO SCH ×2 (09:00→15:58)
[2020-03-14] MEDS: INSULIN GLARGINE SYRINGE. SQ SCH (09:15)
[2020-03-14] MEDS: VANCOMYCIN PER PHARMACY MC PRN (09:51)
[2020-03-14 11:00] VITALS: BP 155/72
[2020-03-14] MEDS ORDERED: IV NORMAL SALINE 1000ML BAG 1,000 ML IV PRN ×2 (11:00)
[2020-03-14] MEDS ORDERED: DIALYSIS PATIENT. MC PRN (11:00)
--- NOTE | 2020-03-14 12:44 | PDOC ---
PROGRESS NOTES Date of Service: DATE: 03/14/20 TIME: 12:43 Chief Complaint Chief Complaint DISCHARGE DX COVID-19 with pneumonia Sepsis - treating for HCAP. Acute respiratory failure with hypoxia HCAP Acute CHF exacerbation Fluid overload NSTEMI Hypertensive urgency Hypokalemia Hypocalcemia Hypomagnesemia Anemia Thyromegaly ESRD - on HD on 02/15/2021 Severe protein calorie malnutrition TIA 2012 Right eye blindness Cognitive delay ANEMIA COPD DEMENTIA COVID 19 POS ACUTE RESP FAILURE DM II plan FEN - Renal diet PPX - heparin FULL CODE Dispo - cont inpatient d/w rn , CONFUSED, NEEDS SNF D/C PLANNING 32 MIN History of Present Illness History of Present Illness Mr Solano 80 yo male w/ PMHx HTN, DM2, CAD (2016 RCA PCI), diastolic CHF, COPD, TIA, prostate ca s/p radiation, ESRD on dialsis admitted for complains of chest pain. Also noted with dyspnea and O2 saturations 82-84% even with 3 L of O2. Found to be COVID 19 positive. Had elevated troponin and was tachycardic and febrile at 100.6F. 03/09: Afebrile overnight. Has good appetite. Tolerated dialysis well. Remdesivir day 1 03/10: Afebrile overnight. Having loose bowel movements. Still with good appetite. Still on 3L NCO2 Afebrile overnight. Still requiring 3 L nasal cannula oxygen but his O2 saturations are now 96%. Labs consistent with ESRD status. He is still having loose bowels though he thinks maybe they are improving. Vitals Vitals Vital Signs Date Time Temp Pulse Resp B/P (MAP) Pulse Ox O2 Delivery O2 Flow Rate FiO2 03/14/20 11:00 97.5 66 18 155/72 (99) 96 Nasal Cannula 2.0 97.5 Physical Exam General: Alert, Cooperative, No acute distress Heart: Regular rate (SR no ectopies), Other (distant heart sounds) Lungs: Crackles Abdomen: Soft, No tenderness Extremities: No cyanosis, No edema Skin: No breakdown, No significant lesion Labs LABS CTA Chest with contrast: Clinical History: Shortness of breath. Axial helical images of the chest were obtained after the administration of 90 cc of IV Omni 350 and timed appropriately for a pulmonary arterial study. Conventional axial reconstruction was performed in addition to coronal, sagittal and bilateral oblique MIP (maximum intensity projection). This study was ordered to detect possible pulmonary embolism. There are no filling defects to suggest pulmonary embolism. There is diffuse reticular opacities of lungs and there is groundglass opacities in the mid and lower lungs. There is no mediastinal or hilar lymphadenopathy. The thoracic aorta appears normal. There is bilateral gynecomastia. The thyroid is diffusely enlarged. Impression: 1. No evidence of pulmonary embolism. 2. Diffuse mixed interstitial and airspace disease. This could be secondary to CHF or atypical pneumonia. 3. Large thyroid. Recommend correlation with TSH. End impression PQRS Compliance Statement: One or more of the following individualized dose reduction techniques were utilized for this examination: 1. Automated exposure control 2. Adjustment of the mA and/or kV according to patient size 3. Use of iterative reconstruction technique Electronically signed by: Dickson Molina III, MD (03/07/2020 9:34 PM) [facility] DICTATED and SIGNED BY: DICKSON MOLINA III, MD Laboratory Tests Test 03/13/20 16:26 03/13/20 20:02 03/14/20 08:07 03/14/20 11:21 Glucose (Fingerstick) 279 mg/dL (70-99) 305 mg/dL (70-99) 89 mg/dL (70-99) 139 mg/dL (70-99) Assessment and Plan Assessmemt and Plan Problems Medical Problems: (1) Acute on chronic respiratory failure with hypoxia Status: Acute (2) Acute respiratory distress Status: Acute (3) Person under investigation for COVID-19 Status: Acute Comment Review of Relevant I have reviewed the following items kate (where applicable) has been applied. Labs Laboratory Tests Test 03/12/20 16:18 03/12/20 21:23 03/13/20 07:26 03/13/20 11:24 Glucose (Fingerstick) 185 mg/dL (70-99) 222 mg/dL (70-99) 152 mg/dL (70-99) 135 mg/dL (70-99) Test 03/13/20 16:26 03/13/20 20:02 03/14/20 08:07 03/14/20 11:21 Glucose (Fingerstick) 279 mg/dL (70-99) 305 mg/dL (70-99) 89 mg/dL (70-99) 139 mg/dL (70-99) Laboratory Tests Test 03/13/20 16:26 03/13/20 20:02 03/14/20 08:07 03/14/20 11:21 Glucose (Fingerstick) 279 mg/dL (70-99) 305 mg/dL (70-99) 89 mg/dL (70-99) 139 mg/dL (70-99) Microbiology 03/07/20 Blood Culture - Final, Complete NO GROWTH AFTER 5 DAYS Medications Current Medications Sterile Water (WATER for RESP) 1,000 ml CONT PRN INH VIA VAPOTHERM DEVICE Last administered on 03/07/20at 18:04; Start 03/07/20 at 18:00 Potassium Chloride (Klor-Con) 40 meq 1X ONCE PO ; Start 03/07/20 at 20:15; Stop 03/07/20 at 20:26; Status DC Potassium Bicarbonate (Potassium Effervescent Tablet) 40 meq 1X ONCE PO Last administered on 03/07/20at 21:04; Start 03/07/20 at 21:00; Stop 03/07/20 at 21:01; Status DC Iohexol (Omnipaque 350 Mg/ml) 90 ml 1X ONCE IV Last administered on 03/07/20at 21:25; Start 03/07/20 at 21:30; Stop 03/07/20 at 21:31; Status DC Acetaminophen (Tylenol) 650 mg 1X ONCE PO Last administered on 03/07/20at 21:03; Start 03/07/20 at 21:30; Stop 03/07/20 at 21:31; Status DC Info (CONTRAST GIVEN -- Rx MONITORING) 1 each PRN DAILY PRN MC SEE COMMENTS; Start 03/07/20 at 21:15; Stop 03/09/20 at 21:14; Status DC Dexamethasone Sodium Phosphate (Decadron) 10 mg 1X ONCE IV Last administered on 03/07/20at 23:02; Start 03/07/20 at 23:00; Stop 03/07/20 at 23:01; Status DC Vancomycin HCl 2 gm/Sodium Chloride 500 ml @ 250 mls/hr 1X ONCE IV Last administered on 03/07/20at 23:30; Start 03/07/20 at 23:00; Stop 03/08/20 at 00:59; Status DC Piperacillin Sod/ Tazobactam Sod 3.375 gm/Sodium Chloride 50 ml @ 100 mls/hr 1X ONCE IV Last administered on 03/07/20at 23:01; Start 03/07/20 at 23:00; Stop 03/07/20 at 23:30; Status DC Furosemide (Lasix) 40 mg 1X ONCE IVP Last administered on 03/07/20at 23:02; Start 03/07/20 at 23:00; Stop 03/07/20 at 23:01; Status DC Vancomycin HCl (Vanco Per Pharmacy) 1 each PRN DAILY PRN MC SEE COMMENTS Last administered on 03/14/20at 09:51; Start 03/07/20 at 22:30 Ondansetron HCl (Zofran) 4 mg PRN Q8HRS PRN IV NAUSEA/VOMITING 1ST CHOICE; Start 03/07/20 at 22:15; Stop 03/08/20 at 22:14; Status DC Fentanyl Citrate (Fentanyl 2ml Vial) 50 mcg PRN Q1HR PRN IV SEVERE PAIN 7-10; Start 03/07/20 at 22:15; Stop 03/08/20 at 22:14; Status DC Acetaminophen (Tylenol) 650 mg PRN Q4HRS PRN PO FEVER > 100.3'F; Start 03/07/20 at 22:15; Stop 03/07/20 at 23:32; Status DC Acetaminophen (Tylenol) 650 mg PRN Q6HRS PRN PO MILD PAIN 1-3; Start 03/07/20 at 23:30 Amlodipine Besylate (Norvasc) 10 mg DAILY PO Last administered on 03/13/20at 08:26; Start 03/08/20 at 09:00 Aspirin (Zaida Aspirin) 325 mg DAILY PO Last administered on 03/13/20at 08:26; Start 03/08/20 at 09:00 Atorvastatin Calcium (Lipitor) 20 mg HS PO Last administered on 03/13/20at 21:02; Start 03/08/20 at 00:00 Ferrous Sulfate (Feosol) 325 mg DAILY PO Last administered on 03/13/20at 08:26; Start 03/08/20 at 09:00 Hydralazine HCl (Apresoline) 25 mg TID PO Last administered on 03/13/20at 21:03; Start 03/08/20 at 00:00 Sennosides (Senna) 8.6 mg PRN DAILY PRN PO CONSTIPATION 1ST CHOICE; Start 03/07/20 at 23:30 Tamsulosin HCl (Flomax) 0.4 mg DAILY PO Last administered on 03/13/20at 08:27; Start 03/08/20 at 09:00 Timolol Maleate (Timoptic 0.5% [facility]) 1 drop BID OU Last administered on 03/14/20at 08:56; Start 03/08/20 at 09:00 Albuterol Sulfate (Ventolin Neb Soln) 2.5 mg RTQID NEB ; Start 03/08/20 at 08:00; Stop 03/08/20 at 14:12; Status DC Brimonidine Tartrate (Alphagan) 1 drop QHS OU Last administered on 03/13/20at 21:00; Start 03/08/20 at 21:00 Vitamin D (Vitamin D3) 2,000 unit DAILY PO Last administered on 03/13/20at 08:26; Start 03/08/20 at 09:00 Potassium Chloride (Klor-Con) 40 meq 1X ONCE PO ; Start 03/07/20 at 23:30; Stop 03/07/20 at 23:31; Status UNV Potassium Bicarbonate (Potassium Effervescent Tablet) 40 meq 1X ONCE PO ; Start 03/07/20 at 23:30; Stop 03/07/20 at 23:31; Status UNV Potassium Bicarbonate (Potassium Effervescent Tablet) 40 meq 1X ONCE PO ; Start 03/07/20 at 23:30; Stop 03/07/20 at 23:31; Status UNV Potassium Chloride/Water 100 ml @ 100 mls/hr Q1H IV ; Start 03/07/20 at 23:30; Stop 03/08/20 at 03:29; Status UNV Potassium Chloride/Water 100 ml @ 100 mls/hr Q1H IV ; Start 03/07/20 at 23:30; Stop 03/08/20 at 01:29; Status UNV Potassium Chloride (Klor-Con) 40 meq Q2H PO ; Start 03/07/20 at 23:30; Stop 03/08/20 at 01:31; Status UNV Potassium Chloride/Water 100 ml @ 100 mls/hr Q1H IV ; Start 03/07/20 at 23:30; Stop 03/08/20 at 07:29; Status UNV Potassium Chloride/Water 100 ml @ 100 mls/hr Q1H IV ; Start 03/07/20 at 23:30; Stop 03/08/20 at 03:29; Status UNV Potassium Chloride (Klor-Con) 40 meq Q2H PO ; Start 03/07/20 at 23:30; Stop 03/08/20 at 03:31; Status UNV Potassium Chloride/Water 100 ml @ 100 mls/hr Q1H IV ; Start 03/07/20 at 23:30; Stop 03/08/20 at 11:29; Status UNV Potassium Chloride/Water 100 ml @ 100 mls/hr Q1HR IV ; Start 03/08/20 at 00:01; Stop 03/08/20 at 05:59; Status UNV Magnesium Sulfate 100 ml @ 50 mls/hr DAILY IV ; Start 03/08/20 at 09:00; Stop 03/11/20 at 08:59; Status UNV Potassium Phos/ Sodium Phos (Phos-Nak) 1 pkt BID PO ; Start 03/08/20 at 09:00; Stop 03/08/20 at 21:01; Status UNV Sodium Phosphate 40 mmol/Sodium Chloride 263.3333 ml @ 62.5 mls/hr 1X ONCE IV ; Start 03/07/20 at 23:30; Stop 03/08/20 at 03:42; Status UNV Potassium Phosphate 13.6 mmol/Sodium Chloride 254.5333 ml @ 62.5 mls/hr Q4H IV ; Start 03/07/20 at 23:30; Stop 03/08/20 at 11:29; Status UNV Info (Icu Electrolyte Protocol) 1 ea CONT PRN PRN MC PER PROTOCOL; Start 03/07/20 at 23:45; Stop 03/08/20 at 07:29; Status DC Magnesium Sulfate 100 ml @ 50 mls/hr 1X ONCE IV Last administered on 03/08/20at 00:00; Start 03/08/20 at 00:00; Stop 03/08/20 at 01:59; Status DC Potassium Bicarbonate (Potassium Effervescent Tablet) 40 meq 1X ONCE PO ; Start 03/08/20 at 00:00; Stop 03/08/20 at 00:01; Status DC Potassium Bicarbonate (Potassium Effervescent Tablet) 40 meq 1X ONCE PO ; Start 03/08/20 at 04:00; Stop 03/08/20 at 04:01; Status DC Vancomycin HCl (Vancomycin Random Level) 1 each 1X ONCE MC Last administered on 03/09/20at 05:00; Start 03/09/20 at 05:00; Stop 03/09/20 at 05:01; Status DC Potassium Chloride/Water 100 ml @ 100 mls/hr Q1H IV Last administered on 03/08/20at 09:44; Start 03/08/20 at 02:00; Stop 03/08/20 at 09:59; Status DC Influenza Virus Vaccine Quadrival (Fluzone Quad [id number] Syringe) 0.5 ml ONCE ONCE VAX IM Last administered on 03/08/20at 12:16; Start 03/08/20 at 09:00; Stop 03/08/20 at 09:01; Status DC Piperacillin Sod/ Tazobactam Sod (Zosyn Per Pharmacy) 1 each PRN DAILY PRN MC SEE COMMENTS; Start 03/08/20 at 07:00; Stop 03/08/20 at 07:02; Status DC Piperacillin Sod/ Tazobactam Sod 2.25 gm/Sodium Chloride 50 ml @ 100 mls/hr Q8HRS IV ; Start 03/08/20 at 07:00; Stop 03/08/20 at 07:03; Status DC Cefepime HCl (Maxipime) 2 gm Q8HRS IVP ; Start 03/08/20 at 14:00; Status UNV Cefepime HCl (Maxipime) 1 gm Q24H IVP Last administered on 03/14/20at 08:56; Start 03/08/20 at 08:00 Info (Icu Electrolyte Protocol) 1 ea CONT PRN PRN MC PER PROTOCOL; Start 03/08 at 07:15; Status Cancel Dexamethasone Sodium Phosphate (Decadron) 6 mg DAILY IVP Last administered on 03/14/20at 08:50; Start 03/08/20 at 09:00 Lactobacillus Rhamnosus (Culturelle) 1 cap BID PO Last administered on 03/13/20at 21:03; Start 03/08/20 at 21:00 Sodium Chloride 1,000 ml @ 1,000 mls/hr Q1H PRN IV hypotension; Start 03/09/20 at 07:45; Stop 03/09/20 at 13:44; Status DC Albumin Human 200 ml @ 200 mls/hr 1X PRN PRN IV Hypotension; Start 03/09/20 at 07:45; Stop 03/09/20 at 13:44; Status DC Acetaminophen (Tylenol) 500 mg 1X PRN PRN PO MILD PAIN / TEMP > 100.3'F; Start 03/09/20 at 07:45; Stop 03/10/20 at 07:44; Status DC Diphenhydramine HCl (Benadryl) 25 mg 1X PRN PRN IV ITCHING; Start 03/09/20 at 07:45; Stop 03/10/20 at 07:44; Status DC Diphenhydramine HCl (Benadryl) 25 mg 1X PRN PRN IV ITCHING; Start 03/09/20 at 07:45; Stop 03/10/20 at 07:44; Status DC Sodium Chloride 1,000 ml @ 400 mls/hr Q2H30M PRN IV PATENCY; Start 03/09/20 at 07:45; Stop 03/09/20 at 19:44; Status DC Info (PHARMACY MONITORING -- do not chart) 1 each PRN DAILY PRN MC SEE COMMENTS; Start 03/09/20 at 07:45; Stop 03/12/20 at 11:48; Status DC Vancomycin HCl 500 mg/Sodium Chloride 100 ml @ 100 mls/hr QMWF IV Last administered on 03/12/20at 21:18; Start 03/12/20 at 16:00 Remdesivir 200 mg/ Sodium Chloride 210 ml @ 210 mls/hr 1X ONCE IV Last administered on 03/09/20at 16:54; Start 03/09/20 at 16:00; Stop 03/09/20 at 16:59; Status DC Remdesivir 100 mg/ Sodium Chloride 230 ml @ 460 mls/hr Q24H IV Last administered on 03/13/20at 16:46; Start 03/10/20 at 16:00; Stop 03/13/20 at 16:29; Status DC Darbepoetin Martin (ARANESP for DIALYSIS PTS) 60 mcg WEEKLYHS SQ Last admi nistered on 03/10/20at 21:16; Start 03/10/20 at 21:00 Insulin Glargine (Lantus Syringe) 12 unit BID SQ Last administered on 03/14/20at 09:15; Start 03/10/20 at 22:30 Vancomycin HCl (Vancomycin Random Level) 1 each 1X ONCE MC ; Start 03/12/20 at 06:00; Stop 03/12/20 at 06:01; Status DC Info (Non-Icu Electrolyte Protocol) 1 ea CONT PRN PRN MC SEE COMMENTS; Start 03/11/20 at 15:30 Insulin Human Lispro (HumaLOG) 0-9 UNITS TIDWMEALS SQ Last administered on 03/13/20at 16:46; Start 03/11/20 at 17:00 Dextrose (Dextrose 50%-Water Syringe) 12.5 gm PRN Q15MIN PRN IV SEE COMMENTS Last administered on 03/12/20at 07:46; Start 03/11/20 at 16:45 Insulin Human Lispro (HumaLOG) 14 units 1X ONCE SQ Last administered on 03/11/20at 16:52; Start 03/11/20 at 16:45; Stop 03/11/20 at 16:46; Status DC Sodium Chloride 1,000 ml @ 1,000 mls/hr Q1H PRN IV hypotension; Start 03/12/20 at 11:45; Stop 03/12/20 at 17:44; Status DC Sodium Chloride 1,000 ml @ 400 mls/hr Q2H30M PRN IV PATENCY; Start 03/12/20 at 11:45; Stop 03/12/20 at 23:44; Status DC Info (PHARMACY MONITORING -- do not chart) 1 each PRN DAILY PRN MC SEE COMMENTS; Start 03/12/20 at 11:45; Status Cancel Sodium Chloride 1,000 ml @ 1,000 mls/hr Q1H PRN IV hypotension; Start 03/14/20 at 11:00; Stop 03/14/20 at 16:59 Sodium Chloride 1,000 ml @ 400 mls/hr Q2H30M PRN IV PATENCY; Start 03/14/20 at 11:00; Stop 03/14/20 at 22:59 Info (PHARMACY MONITORING -- do not chart) 1 each PRN DAILY PRN MC SEE COMMENTS; Start 03/14/20 at 11:00 Active Scripts Active Hydralazine Hcl 25 Mg Tablet 25 Mg PO TID 30 Days Reported Timoptic 0.5% (Timolol Maleate) 10 Ml Drops 1 Drop EACHEYE BID 30 Days Senna (Sennosides) 8.6 Mg Tablet 8.6 Mg PO PRN DAILY PRN Tylenol (Acetaminophen) 325 Mg Tablet 650 Mg PO PRN Q6-8HRS PRN Albuterol Sulfate Conc Neb Soln (Albuterol Sulfate) 2.5 Mg/0.5 Ml Vial.neb 2.5 Mg NEB QIDACHS Combigan Eye Drops (Brimonidine Tartrate/Timolol) 5 Ml Drops 5 Ml OP QHS Vitamin D3 (Cholecalciferol (Vitamin D3)) 50 Mcg Tablet 50 Mcg PO DAILY Atorvastatin Calcium 20 Mg Tablet 20 Mg PO HS Aspirin 325 Mg Tablet 325 Mg PO DAILY Tamsulosin Hcl 0.4 Mg Cap.er.24h 0.4 Mg PO DAILY Ferrous Sulfate 325 Mg Tablet 1 Tab PO DAILY Amlodipine Besylate 10 Mg Tablet 10 Mg PO DAILY Vitals/I & O Vital Sign - Last 24 Hours 03/13/20 03/13/20 03/13/20 03/13/20 14:06 15:15 19:00 20:00 Temp 98.0 97.9 98.0 97.9 Pulse 54 57 54 Resp 20 17 B/P (MAP) 132/63 146/66 (92) 135/62 (86) Pulse Ox 98 99 O2 Delivery Nasal Cannula Nasal Cannula Nasal Cannula O2 Flow Rate 2.0 2.0 3.0 03/13/20 03/13/20 03/14/20 03/14/20 21:03 22:43 02:45 07:00 Temp 98.2 97.8 97.4 98.2 97.8 97.4 Pulse 54 46 56 55 Resp 16 17 19 B/P (MAP) 135/62 145/65 (91) 148/65 (92) 147/73 (97) Pulse Ox 100 99 99 O2 Delivery Nasal Cannula Nasal Cannula Nasal Cannula O2 Flow Rate 2.0 2.0 2.0 03/14/20 03/14/20 08:15 11:00 Temp 97.5 97.5 Pulse 66 Resp 18 B/P (MAP) 155/72 (99) Pulse Ox 96 O2 Delivery Nasal Cannula Nasal Cannula O2 Flow Rate 3.0 2.0 Intake and Output0 03/13/20 03/13/20 03/14/20 15:00 23:00 07:00 Intake Total 360 ml 240 ml Balance 360 ml 240 ml Nutrition Consultation Dietary Evaluation: Recommendations by RD: Dietary education by RD, Increase Calorie Intake, Protein supplementation Comments: Renal/ADA diet Nepro bid Expected Outcomes/Goals: to meet >75% est nutr needs- goal ongoing Interpretation of weight loss: >5% in 1 month Malnutrition Findings: Weight Status: Underweight Fluid Accumulation (Non-Severe: Mild depletion Justicifation of Admission Dx: Justifications for Admission: Justification of Admission Dx: N/A NEHEMIAH GAVIRIA MD Mar 14, 2020 12:44
[2020-03-14] MEDS ORDERED: CEFD300C PO (13:56)
[2020-03-14] MEDS ORDERED: INSU100V8 SQ (13:56)
[2020-03-14] MEDS ORDERED: LACT1CAP19 PO (13:56)
[2020-03-14] MEDS ORDERED: DARBEPOETIN ALFA IN POLYSORBAT SQ (13:56)
[2020-03-14] MEDS ORDERED: DEXA4TAB PO (13:57)
--- NOTE | 2020-03-14 13:59 | SNU/HH DC ---
DISCHARGE ORDERS DISCHARGE INFORMATION: FINAL DIAGNOSIS Problems Medical Problems: (1) Acute on chronic respiratory failure with hypoxia Status: Acute (2) Acute respiratory distress Status: Acute (3) Person under investigation for COVID-19 Status: Acute CONDITION ON DISCHARGE: Stable CODE STATUS: Code Status: Full JAIL: SNF STAY <30 DAYS: Yes HOSPICE: HOSPICE: No HOSPICE EVAL & TREAT: No LTAC: ADMIT TO LTAC: No POST DISCHARGE ORDERS: ACTIVITY ORDERS: Activity as tolerated WEIGHT BEARING STATUS: As tolerated DIET AFTER DISCHARGE: Renal WOUND/INCISION CARE: Routine catheter care CHECKS AFTER DISCHARGE: CHECKS AFTER DISCHARGE: Check blood press - daily, Check blood sugar, ac/hs FOLLOW-UP: PHYSICIAN FOLLOW-UP: PCP AT [facility] 2 DAYS TREATMENT/EQUIPMENT ORDERS: ADAPTIVE EQUIPMENT NEEDED: Front wheeled walker, Walker RESPIRATORY EQUIPMENT NEEDED: Oxygen Physical Therapy For: Evalulation/Treatment Occupational Therapy For: Evaluation/Treatment Speech Language Pathology For: Evaluation/Treatment DISCHARGE MEDICATIONS: Home Meds Active Scripts Dexamethasone (DEXAMETHASONE) 4 Mg Tablet, 4 MG PO DAILY08 for COVID for 7 Days, #7 TAB Prov:NEHEMIAH GAVIRIA MD 03/14/20 Cefdinir (CEFDINIR) 300 Mg Capsule, 1 CAP PO BID for COUGH for 10 Days, #20 CAP Prov:NEHEMIAH GAVIRIA MD 03/14/20 Insulin Glargine,Hum.rec.anlog (LANTUS) 100 Unit/1 Ml Vial, 12 UNIT SQ BID for DIABETES for 30 Days, #2 EACH Prov:NEHEMIAH GAVIRIA MD 03/14/20 Lactobacillus Rhamnosus Gg (CULTURELLE) 1 Each Cap.sprink, 1 CAP PO BID for SUPPLEMENT for 30 Days, #60 CAP Prov:NEHEMIAH GAVIRIA MD 03/14/20 [DARBEPOETIN TRISTON for DIALYSIS] 60 MCG/0.3 ML DISP.SYRIN No Conflict Check, 60 MCG SQ WEEKLYHS for KIDNEY FAILURE for 30 Days, #4 DIS.SYR Prov:NEHEMIAH GAVIRIA MD 03/14/20 Hydralazine Hcl (HYDRALAZINE HCL) 25 Mg Tablet, 25 MG PO TID for blood pressure for 30 Days, #90 TAB Prov:LEXIS KAUR MD 02/17/20 Reported Medications Timolol Maleate 0.5% (TIMOPTIC 0.5%) 10 Ml Drops, 1 DROP EACHEYE BID for for 30 Days, #5 ML 0 Refills 02/13/20 Sennosides (SENNA) 8.6 Mg Tablet, 8.6 MG PO PRN DAILY PRN for CONSTIPATION, TAB 02/13/20 Acetaminophen (TYLENOL) 325 Mg Tablet, 650 MG PO PRN Q6-8HRS PRN for PAIN, TAB 02/13/20 Albuterol Sulfate (ALBUTEROL SULFATE CONC NEB SOLN) 2.5 Mg/0.5 Ml Vial.neb, 2.5 MG NEB QIDACHS for FOR ASTHMA, EACH 0 Refills 02/13/20 Brimonidine Tartrate/Timolol (COMBIGAN EYE DROPS) 5 Ml Drops, 5 ML OP QHS for , DROP 02/13/20 Cholecalciferol (Vitamin D3) (Vitamin D3) 50 Mcg Tablet, 50 MCG PO DAILY for , TAB 02/13/20 Atorvastatin Calcium (ATORVASTATIN CALCIUM) 20 Mg Tablet, 20 MG PO HS for FOR CHOLESTEROL, #30 TAB 0 Refills 02/13/20 Aspirin (ASPIRIN) 325 Mg Tablet, 325 MG PO DAILY for , TAB 02/13/20 Tamsulosin Hcl (TAMSULOSIN HCL) 0.4 Mg Cap.er.24h, 0.4 MG PO DAILY for , #30 CAP 5 Refills 09/03/16 Ferrous Sulfate (FERROUS SULFATE) 325 Mg Tablet, 1 TAB PO DAILY, #30 TAB 3 Refills 09/03/16 Amlodipine Besylate (AMLODIPINE BESYLATE) 10 Mg Tablet, 10 MG PO DAILY, TAB 09/03/16 NEHEMIAH GAVIRIA MD Mar 14, 2020 13:59
--- NOTE | 2020-03-14 15:31 | NUR ---
SW following for discharge planning. JUANJO spoke with RN and reviewed chart. Pt to discharge home, self-care after dialysis today, 03/14. JUANJO informed by RN that pt won't need to go for out-patient dialysis tomorrow and can wait until Thursday, 03/17. Spoke with [employer] social work job [employer] Cassie who changed pt's dialysis date to 03/17 at the [place] location. Pt's chair time is 8:30am so pt needs to arrive by 8am. JUANJO spoke with pt's sister Artemio who stated that her son, pt's nephew and HC[employer] caregiver will provide transportation to the [facility] location and is aware that pt is COVID positive. Claribel stated that several of her family members have COVID. JUANJO talked with Claribel about LTC for this patient as she reports pt continues to decline and have more weakness after dialysis. Claribel declining SNU and HH for this patient at this time. Script for a wheelchair provided on discharge and family to fill at a local DME store. Artemio stated that having a wc for transportation home after dilaysis days will help but that she will think more about transitioning pt to LTC. Pt at high risk for readmission. Family to transport pt home today around 1700. No further SW needs at this time. [address] [address] (phone) [phone] (fax) Addendum: 03/14/20 at 1613 by SANDRA GEIGER JUANJO did confirm with Artemio that 02 tank would be brought by family for transportation home.
[2020-03-14] MEDS: CHOLECALCIFEROL (VITAMIN D3) 1,000 UNIT TABLET PO SCH (15:57)
[2020-03-14] MEDS: TAMSULOSIN 0.4 MG CAP.ER.24H. PO SCH (15:57)
[2020-03-14 15:58] VITALS: BP 155/72
[2020-03-14] MEDS: FERROUS SULFATE 325 MG TABLET. PO SCH (15:58)
[2020-03-14] MEDS: ASPIRIN 325 MG TABLET PO SCH (15:58)
[2020-03-14] MEDS: LACTOBACILLUS RHAMNOSUS GG 1 CAPSULE. PO SCH (15:58)
[2020-03-14] MEDS: VANCOMYCIN 500 MG in IV NORMAL SALINE 100ML 100 ML IV SCH (16:00)
--- NOTE | 2020-03-14 16:18 | NUR ---
Discharge instructions given to pt regarding Covid-19 isolation and safety. Pt educated on medications, SOA, and dialysis. Claribel, pt's sister, was notified and informed of dialysis date and time. Contact information and location given and on discharge instructions. Medication prescriptions called to [facility] per Dr. Vaughn. Pt verbalizes understanding.
--- NOTE | 2020-03-14 18:16 | PDOC ---
Renal-Progress Notes Subjective Notes Notes NONE, PT SEEN EARLIER TODAY History of Present Illness Hx of present illness STABLE Vitals Vitals Vital Signs Date Time Temp Pulse Resp B/P (MAP) Pulse Ox O2 Delivery O2 Flow Rate FiO2 03/14/20 15:58 66 155/72 03/14/20 11:00 97.5 18 96 Nasal Cannula 2.0 97.5 Weight Weight [ ] I.O. Intake and Output Intake and Output 03/14/20 07:00 Intake Total 600 ml Balance 600 ml Intake Oral 600 ml # Voids 1 Labs Labs Laboratory Tests Test 03/13/20 20:02 03/14/20 08:07 03/14/20 11:21 03/14/20 16:22 Glucose (Fingerstick) 305 mg/dL (70-99) 89 mg/dL (70-99) 139 mg/dL (70-99) 95 mg/dL (70-99) Micro Micro Microbiology 03/07/20 Blood Culture - Final, Complete NO GROWTH AFTER 5 DAYS Review of Systems Constitutional: yes: alert Ears/Nose/Throat: Yes: no symptom reported Eyes: Yes: no symptom reported Pulmonary: Yes no symptom reported Cardiovascular: Yes no symptom reported Gastrointestional: Yes: no symptom reported Genitourinary: Yes: no symptom reported Musculoskeletal: Yes: no symptom reported Skin: Yes no symptom reported Psychiatric/Neurological: Yes: no symptom reported Endocrine: Yes: no symptom reported Physical Exam General Appearance: no apparent distress Skin: warm Respiratory: decreased breath sounds Heart: S1S2 Abdomen: soft, bowel sounds present Genitourinary: bladder flat Extremities: atrophy Neurology: alert, follow commands Assessment Assessment IMP ESRD ANEMIA COPD DEMENTIA COVID 19 POS ACUTE RESP FAILURE DM II CAD HTN PLAN HD TODAY D/C PLANS NOTED WILL NEED TO COHORT TILL 10 DAYS ARE UP FROM INITIAL COVID 19 DX SUPPORTIVE CARE AMBERLY NEEDED JAGDEEP RANDHAWA MD Mar 14, 2020 18:16
== END 2020-03-14 16:45 | disposition home or self-care (01) | DRG 177 ==
LOC: ER 17:28 → 1 WEST ICU 22:20 → 6 SOUTH 03-08 08:25
PROVIDERS: ADMIT Internal Medicine; ATTEND Internal Medicine
PROC: 5A0935A Assistance with Respiratory Ventilation, Less than 24 Consecutive Hours, High Flow/Velocity Cannula (ICD-10-PCS; principal; 2020-03-07)
PROC: 02HV33Z Insertion of Infusion Device into Superior Vena Cava, Percutaneous Approach (ICD-10-PCS; 2020-03-07)
PROC: 5A0935A Assistance with Respiratory Ventilation, Less than 24 Consecutive Hours, High Flow/Velocity Cannula (ICD-10-PCS; 2020-03-08)
PROC: XW033E5 Introduction of Remdesivir Anti-infective into Peripheral Vein, Percutaneous Approach, New Technology Group 5 (ICD-10-PCS; 2020-03-13)
DX: U07.1 COVID-19 (principal); A41.9 Sepsis, unspecified organism; J96.21 Acute and chronic respiratory failure with hypoxia; E43 Unspecified severe protein-calorie malnutrition; I50.33 Acute on chronic diastolic (congestive) heart failure; N18.6 End stage renal disease; J12.82 Pneumonia due to coronavirus disease 2019; I21.4 Non-ST elevation (NSTEMI) myocardial infarction; J44.0 Chronic obstructive pulmonary disease with (acute) lower respiratory infection; I13.2 Hypertensive heart and chronic kidney disease with heart failure and with stage 5 chronic kidney disease, or end stage renal disease; J44.1 Chronic obstructive pulmonary disease with (acute) exacerbation; E83.51 Hypocalcemia; F03.90 Unspecified dementia, unspecified severity, without behavioral disturbance, psychotic disturbance, mood disturbance, and anxiety; D63.8 Anemia in other chronic diseases classified elsewhere; Z99.2 Dependence on renal dialysis; Z86.73 Personal history of transient ischemic attack (TIA), and cerebral infarction without residual deficits; I25.10 Atherosclerotic heart disease of native coronary artery without angina pectoris; E11.22 Type 2 diabetes mellitus with diabetic chronic kidney disease; Z85.46 Personal history of malignant neoplasm of prostate; M19.90 Unspecified osteoarthritis, unspecified site; Z82.49 Family history of ischemic heart disease and other diseases of the circulatory system; Y95 Nosocomial condition; I16.0 Hypertensive urgency; E87.6 Hypokalemia; E83.42 Hypomagnesemia; E01.0 Iodine-deficiency related diffuse (endemic) goiter; H54.61 Unqualified visual loss, right eye, normal vision left eye; E78.5 Hyperlipidemia, unspecified; Z86.19 Personal history of other infectious and parasitic diseases; Z92.3 Personal history of irradiation; Z96.641 Presence of right artificial hip joint; F32.9 Major depressive disorder, single episode, unspecified; N40.0 Benign prostatic hyperplasia without lower urinary tract symptoms; Z68.20 Body mass index [BMI] 20.0-20.9, adult
CPT/HCPCS: 36415; 36600; 71045; 71275; 80053; 80061; 80202; 82274; 82553; 82805; 82962; 83605; 83735; 83880; 84443; 84484; 85007; 85025; 85379; 85610; 87040; 87493; 87641; 87804; 90471; 90686; 93005; 96365; 96368; 96375; J0692; J0882; J1100; J1815; J1940; J2543; J3370; J3475; J3480; J7040; J7050; Q9967; U0003; 97110-GP; 97116-GP; 97530-GP; 97535-GO; 99285-25; G0378; J7030